=== PATIENT | male | born 1970 | race Caucasian/White ===

== ENCOUNTER → 2017-12-30 01:58 | Outpatient (CLI) | payer OTHER, SELFPAY ==
[2017-12-30 02:11] LABS: Microscopic, Urine URINE MICROSCOPIC (MICROSCOPIC)
[2017-12-30 02:17] LABS: Appearance,Urine CLEAR (Clear); Bilirubin,Urine Negative (Negative); Blood, Urine Negative (Negative); Color,Urine YELLOW (Yellow); Glucose,Urine (UA) 3+ (Negative); Ketones,Urine TRACE (Negative); Leukocyte Esterase,Urine Negative (Negative); Nitrate,Urine Negative (Negative); PH,Urine 5.5 (5.0-8.5); Protein,Urine Negative (Negative); Specific Gravity, Urine >= 1.030 (1.005-1.030); Urobilinogen,Urine 0.2 EU/dl (0.2)
[2017-12-30 02:18] LABS: Basophils % 0.4 % (0.1-2.0); Eosinophils # 0.1 K/mm3 (0.0-0.4); Eosinophils % 1.6 % (0.1-12.0); Hematocrit 51.1 % (42.0-52.0); Hemoglobin 16.1 g/dL (14.1-18.0); Lymphocytes # 2.6 K/mm3 (0.7-4.5); Lymphocytes % 31.2 K/mm3 (10-50); Mean Corpuscular HGB Conc 31.6 g/dL (31.8-35.4); Mean Corpuscular Hemoglobin 29.7 pg (27.0-31.2); Monocytes # 0.5 K/mm3 (0.1-1.0); Monocytes % 5.8 % (1.7-9.3); Neutrophils # 5.1 K/mm3 (1.8-7.8); Neutrophils % 60.9 % (37.0-80.0); Platelet Count 348 K/mm3 (142-424); Red Blood Count 5.43 M/mm3 (4.60-6.20); Red Cell Distribution Width 12.3 % (11.5-17.5); White Blood Count 8.4 K/mm3 (4.8-10.8)
[2017-12-30 02:25] LABS: Bacteria,Urine Trace /lpf; Mucus,Urine Trace /lpf; RBC,Urine Occasional #/hpf (0-3)
[2017-12-30 02:42] LABS: Alanine Aminotransferase 59 U/L (12-78); Albumin Level 4.1 gm/dL (3.4-5.0); Albumin/Globulin Ratio 1.1 (1.1-1.8); Alkaline Phosphatase 68 U/L (46-116); Anion Gap 10.1 mEq/L (5-15); Aspartate Amino Transferase 35 U/L (15-37); Bilirubin,Total 0.4 mg/dL (0.2-1.0); Blood Urea Nitrogen 13 mg/dL (7-18); Calcium 9.1 mg/dL (8.5-10.1); Carbon Dioxide 31 mmol/L (21.0-32.0); Chloride 100 mmol/L (98-107); Chol/HDL Ratio 3.2 (1-3.5); Cholesterol 155 mg/dL (140-200); Creatinine,Serum 0.76 mg/dL (0.70-1.30); Estimated Glomerular Filt Rate 109 ml/min (>60); GFR (African American) 132 ML/MIN (>60); Globulin 3.6 gm/dl (1.3-3.2); Glucose 105 mg/dL (74-106); HDL Cholesterol 48 mg/dL (27-67); LDL Cholesterol 73 mg/dL (0-130); Potassium 4.1 mmoL/L (3.5-5.1); Sodium 137 mmol/L (136-145); Thyroid Stimulating Hormone 1.93 uIU/ml (0.358-3.740); Total Protein,Serum 7.7 gm/dL (6.4-8.2); Triglycerides 168 mg/dL (30-200); VLDL Cholesterol 34 mg/dL (0-40)
[2017-12-30 03:08] LABS: Hemoglobin A1C 6.3 % (0.0-7.0)
[2017-12-31 10:16] LABS: Creatinine, Urine 121.6 mg/dL (Not Estab.); Microalbumin, Urine 7.5 ug/mL (Not Estab.)
== END ==
PROVIDERS: Visit Provider Family Medicine
DX: E11.9 Type 2 diabetes mellitus without complications (principal); R39.11 Hesitancy of micturition; E78.00 Pure hypercholesterolemia, unspecified
CPT/HCPCS: 80053; 80061; 81001; 82043; 82570; 83036; 84443; 85025

== ENCOUNTER 2019-02-16 23:38 | Outpatient (CLI) | payer OTHER, SELFPAY | END 2019-02-16 23:58 | disposition home or self-care (01) | LOC: OUTP 23:42 | PROVIDERS: PCP Family Medicine; Visit Provider Emergency Medicine | DX: L23.9 Allergic contact dermatitis, unspecified cause (principal) ==

== ENCOUNTER → 2019-07-25 02:45 | Outpatient (CLI) | payer OTHER, SELFPAY ==
--- NOTE | 2019-07-25 | XR_ITS ---
PROCEDURE: XR HIP RT 2-3V W/PELVIS CLINICAL INDICATION: PAIN The the COMPARISON: No exams were available for comparison FINDINGS: There are mild osteoarthritic changes of the right hip with decrease in the joint space and osteosclerosis. No fracture or dislocation. No lytic or blastic change. IMPRESSION: Mild osteoarthritis of the right hip Dictated by: Max Gonzalez MD 07/25/2019 05:07 Electronically signed by Max Gonzalez MD in [place] 07/25/2019 05:07
== END ==
PROVIDERS: PCP Family Medicine; Visit Provider Family Medicine
DX: M25.551 Pain in right hip (principal)
CPT/HCPCS: 73502

== ENCOUNTER → 2019-12-05 00:45 | Outpatient (CLI) | payer OTHER, SELFPAY ==
--- NOTE | 2019-12-05 01:15 | XR_ITS ---
PROCEDURE: XR LUMBAR SPINE MIN 4V CLINICAL INDICATION: Low back pain COMPARISON: No exams were available for comparison FINDINGS: Degenerative disc disease is present at T11-T12 T12-L1 and L1-L2 as well as L4-5 and L5-S1. No fracture or dislocation. No lytic or blastic change. Minimal lumbar curvature convex right IMPRESSION: Degenerative changes Dictated by: Max Gonzalez MD 12/05/2019 07:19 Electronically signed by Max Gonzalez MD in [place] 12/05/2019 07:19
== END ==
PROVIDERS: PCP Family Medicine; Visit Provider Family Medicine
DX: M79.651 Pain in right thigh (principal); M25.551 Pain in right hip
CPT/HCPCS: 72110

== ENCOUNTER → 2019-12-15 05:57 | Outpatient (CLI) | payer OTHER, SELFPAY ==
--- NOTE | 2019-12-15 08:04 | MR_ITS ---
PROCEDURE: MR LUMBAR SPINE WO CON CLINICAL INDICATION: RIGHT LOW BACK PAIN Right hip and leg pain, numbness in the right thigh, fall with injury and pain COMPARISON: XR LUMBAR SPINE MIN 4V from 12/05/2019 TECHNIQUE: Standard multiplanar multiecho sequences are performed without contrast. 3-D MIP and myelographic images are also rendered and reviewed FINDINGS: There is normal alignment. The spinal cord ends at the L1 level. T12-L1: Mild degenerative disc disease. L1-L2: Degenerative disc disease with bulging disc and a small left paracentral disc protrusion. There is a Schmorl's node involving the inferior endplate of L1. Mild facet ligamentum hypertrophy is present. There is mild bilateral foraminal narrowing and mild left lateral recess narrowing L2-L3: Mild facet hypertrophic change. L3-L4: Mild facet hypertrophy. L4-5: Mild bulging disc with mild facet and ligamentum hypertrophy. The bulging disc is slightly eccentric to the right with moderate right lateral recess narrowing L5-S1: Mild bulging disc with facet and ligamentum hypertrophy with moderate right foraminal narrowing and [id number] left foraminal narrowing. No extruded herniated disc. No canal stenosis. IMPRESSION: 1. Mild multilevel lumbar spondylosis with degenerative disc disease, bulging discs, and facet and ligamentum hypertrophy with lateral recess and foraminal narrowing. Please see above for detailed description at each level. 2. Small left paracentral disc protrusion at L1-L2 3. No extruded herniated disc or canal stenosis Dictated by: Max Gonzalez MD 12/16/2019 10:22 Electronically signed by Max Gonzalez MD in [place] 12/16/2019 10:22
== END ==
PROVIDERS: PCP Family Medicine; Visit Provider Family Medicine
DX: M54.5 Low back pain (principal); M79.651 Pain in right thigh; R29.898 Other symptoms and signs involving the musculoskeletal system; M51.36 Other intervertebral disc degeneration, lumbar region
CPT/HCPCS: 72148; 76376

== ENCOUNTER → 2020-01-08 09:46 | Outpatient (POV) | payer OTHER, SELFPAY ==
[2020-01-08 09:59] VITALS: BP 139/72; PULSE 72; RESP 18; O2SAT 98; BMI 28.5
--- NOTE | 2020-01-08 12:55 | HMH.PMCON ---
Assessment and Plan (1) Sacroiliitis Current visit: Yes Status: Chronic Category: Medical Code(s): M46.1 - Sacroiliitis, not elsewhere classified (2) Bursitis Current visit: Yes Status: Chronic Category: Medical Code(s): M71.9 - Bursopathy, unspecified (3) Degenerative joint disease (DJD) of lumbar spine Current visit: Yes Status: Chronic Category: Medical Code(s): M47.816 - Spondylosis without myelopathy or radiculopathy, lumbar region - Assessment and plan all Dx Assessment and Plan for all problems:: We will schedule the patient for a right SI joint injection right greater trochanteric bursa injection. We will see if this is beneficial for him if it is not we will move forward with a lumbar epidural steroid injection. Patient's been instructed to call the office if he has any issues prior to his next appointment. Dr. Rosas has reviewed this note and agrees with this plan of care. This note was dictated using voice recognition software and may contain errors or omissions HPI - Data of Consult Consult date: 01/08/20 Requesting Physician: Leelee Pond APRN Primary Care Provider: Marc Verduzco MD - Consult Narrative Reason for consult: Right hip pain History of present illness: Mr. Nation is a 49 year old male who presents for consultation regards to his right hip pain. Patient was in [facility] and did a 22 mile hike after that he began to have quite a significant amount of pain on his right hip. He rates an 8 out of 10 today. He takes ibuprofen and gabapentin with some relief however it is not helped him with activities of daily living patient states all activity makes it worse while resting somewhat decreases it. He is unable to sit square in his seat. He has to lean to the left to help decrease the numbness in his hip. He has radiation of pain into his groin he also has no radiation pain beyond his knee. Patient has a positive Glen test SI joint compression test and Christopher's test on the right side had extreme point tenderness over right greater trochanteric bursa. CC: Leelee Pond APRN [facility] History I have reviewed the patient's past medical history: Yes Medical History: Reports:: Diabetes Mellitus Type 2, Hyperlipidemia, Hypertension Denies:: Cancer, Diabetes Mellitus Type 1, MRSA *Have you ever received a pneumonia vaccine?: Yes *Have you received a flu vaccine this season?: Yes Amputation: No Fractures: No - *Social History Smoking Status: Never smoker Alcohol Intake: never *Occupational Status:: employed Housing: house Household Members: spouse *Travel in the last 8 weeks: None Family Hx:: Unable to obtain Review of Systems - Review of Systems ROS General: no recent weight change, no fever, no sleep disturbances Respiratory: no cough, no shortness of air, no recurring pulmonary infections Cardiovascular/Peripheral Vascular: No chest pain, No palpitations, no edema, no shortness of breath. Gastrointestinal: no new onset incontinence, normal bowel movements reported Genitourinary: no new onset incontinence Musculoskeletal: Back pain, right hip pain, right SI joint pain Psychiatric: normal mood/ affect, Neurological: [denies new onset weakness in extremities], [denies new onset balance issues] Meds Home Medications Medication Instructions Recorded Confirmed Type Amlodipine Besylate [Amlodipine 5 mg PO DAILY 01/08/20 01/08/20 History 5mg tab] Dulaglutide [Trulicity] 0.75 mg SQ DAILY 01/08/20 01/08/20 History Gabapentin [Gabapentin 300mg Cap] 300 mg PO BID 01/08/20 01/08/20 History Glimepiride 4 mg PO DAILY 01/08/20 01/08/20 History Ibuprofen [Ibuprofen 800mg 800 mg PO BID #60 tab 01/08/20 Rx Tablet] Lisinopril/Hydrochlorothiazide 20 mg PO DAILY 01/08/20 01/08/20 History [Lisinopril-Hctz 20-12.5 mg Tab] Meloxicam 7.5 mg PO DAILY 01/08/20 01/08/20 History Trazodone HCl 100 mg PO HS 01/08/20 01/08/20 History predniSONE [P
== END ==
PROVIDERS: PCP Family Medicine; Visit Provider Clinical Nurse Specialist Family Health
DX: M46.1 Sacroiliitis, not elsewhere classified (principal); M71.9 Bursopathy, unspecified; M47.816 Spondylosis without myelopathy or radiculopathy, lumbar region
CPT/HCPCS: 99202

== ENCOUNTER 2020-01-12 08:58 | Day surgery (SDC) | payer OTHER, SELFPAY ==
[2020-01-12 09:17] VITALS: BP 162/91; PULSE 108; RESP 20; TEMP 36.4; O2SAT 95; BMI 40.6
[2020-01-12 09:52] VITALS: BP 182/78; PULSE 108; RESP 18
[2020-01-12 09:53] VITALS: BP 178/89; PULSE 79; RESP 18; O2SAT 98
[2020-01-12 10:00] VITALS: BP 145/87; PULSE 100; RESP 18; O2SAT 100
--- NOTE | 2020-01-12 10:08 | HMH.PMPROC ---
- Procedure Date: 01/12/20 Time: 10:08 Anesthesiologist:: Davi Rosas MD Complications:: None Pre-procedure Diagnosis:: Sacroiliitis and trochanteric bursitis Post-procedure Diagnosis:: Same Indications for Procedure:: Patient is a pleasant 1-year-old white male who we are treating for right hip pain. He is tender over the SI joint. He has positive Glen test on the right side positive SI joint compression test on the right side. Is positive Christopher's test on the right side. He is also tender over his right trochanteric bursa. We will do a right SI joint injection right trochanteric bursa injection today to help him with his pain symptoms. Procedure Details:: Right SI joint injection under fluoroscopy Informed consent was obtained and the risks and benefits of the procedure was going to the patient. Patient was taken to the procedure room. Patient was placed prone on the procedure table. The right hip was prepped using ChloraPrep. The skin and subcutaneous tissues were anesthetized using lidocaine. I placed a 22-gauge spinal needle into the inferior aspect of the right SI joint. Needle placement was confirmed with dye. After this we injected 5 mL bupivacaine 0.25% and Depo-Medrol 40 mg into the right SI joint. The patient tolerated the procedure well with no complication. Right trochanteric bursa injection under fluoroscopy The right hip was prepped using ChloraPrep. The skin and subcutaneous tissues were anesthetized using lidocaine. I placed a 22-gauge spinal needle and advanced under fluoroscopic guidance until it contacted the right greater trochanter. Needle placement was confirmed with dye. After this I injected bupivacaine 0.25% 5 mL and Depo-Medrol 40 mg into the right trochanteric bursa. Patient tolerated the procedure well with no complications. Plan and Disposition:: We will follow-up with him in 2 weeks. Will reevaluate symptoms at that time.
== END 2020-01-12 10:00 | disposition home or self-care (01) ==
LOC: SC.PAINP 08:59
PROVIDERS: PCP Family Medicine; Visit Provider Anesthesiology
DX: M46.1 Sacroiliitis, not elsewhere classified (principal); M70.61 Trochanteric bursitis, right hip
CPT/HCPCS: 20610; 27096; 77002; G0260; J1030; Q9966

== ENCOUNTER → 2020-01-29 08:04 | Outpatient (POV) | payer OTHER, SELFPAY ==
[2020-01-29 08:19] VITALS: BP 151/88; PULSE 100; RESP 18; O2SAT 98; BMI 38.0
--- NOTE | 2020-01-29 08:53 | HMH.PAINSOAP ---
[facility] Pain Management SOAP Note Subjective:: Patient is a pleasant 66-year-old white male who presents today for follow-up after a right trochanteric bursa injection and right SI injection. He does have right SI joint pain as well as right hip pain. Patient says that he does have pain while working. He does say when he is not at work, however, his pain is a 1 out of 10. 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 He says that this is when his pain is at its worst. He also reports to have pain through the night that causes him to wake up around 2:58 AM due to the pain. Patient is tender over his right hip and right SI joint. He did get approximately 95% relief after his initial injection and would like to repeat the injection, as his pain is starting to return. He did get relief up until yesterday. Does rate his pain when sitting a 1 out of 10. He does say, however, when he is working his pain is a 7-8 out of 10. Review of Systems General: No recent weight changes, no fever, no sleep disturbances Respiratory: No cough, no shortness of air, no recurring pulmonary infections Cardiovascular/peripheral vascular: No chest pain, no palpitations, no edema, no shortness of breath Gastrointestinal: No new onset incontinence, normal bowel movements reported Genitourinary: No new onset incontinence Musculoskeletal: Back pain, right hip pain Psychiatric: Normal mood/affect Neurological: [Denies weakness in extremities], [denies balance issues] Objective:: Objective:: Physical exam General: Alert and oriented x3, no acute distress, pleasant and cooperative, [on room air] Lungs: Respirations even and unlabored, symmetrical chest expansion Eyes: PERRL Musculoskeletal: Flexion and extension of bar spine somewhat guarded secondary to pain, deep tendon reflexes normal, strength in upper and lower extremities [5/5], [abnormal gait noted], positive Christopher's test, positive test, positive distraction test Neurological: Speech clear, 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 We will also order him diclofenac gel 1% 4 g topical 4 times daily. He is taking ibuprofen 800 mg 1 tablet p.o. twice daily. We will see him back in the clinic after his injection to reassess his symptoms. Is type II diabetic. He has been educated regarding his blood glucose with his steroid injections. The patient and I specifically discussed risk factors for COVID19. These risks include, but are not limited to age greater than 60, heart or lung disease, diabetes, immunosuppression, and travel. We also discussed NSAIDs may worsen COVID19 infection or symptoms. Patient should not use NSAIDs to treat COVID19 signs or symptoms. Patient was also informed that any type of corticosteroid of any form (oral or injection) will decrease the patient's immune system response and may increase the likelihood of COVID19 [address] [facility] History I have reviewed the patient's past medical history: Yes Medical History: Reports:: Diabetes Mellitus Type 2, Hyperlipidemia, Hypertension Denies:: Cancer, Diabetes Mellitus Type 1, Internal Pacemaker, MRSA, Seizures *Have you ever received a pneumonia vaccine?: No *Have you received a flu vaccine this season?: Yes Other Medical History: Reports: Hypothyroidism Other Surgeries: No: Pacemaker Amputation: No Fractures: No - *Social History Smoking Status: Never smoker Alcohol Intake: never *Occupational Status:: other Housing: house Household Members: spouse *Travel in the last 8 weeks: None Family Hx:: Unable to obtain
== END ==
PROVIDERS: PCP Family Medicine; Visit Provider Clinical Nurse Specialist Family Health
DX: M46.1 Sacroiliitis, not elsewhere classified (principal); M70.60 Trochanteric bursitis, unspecified hip
CPT/HCPCS: 99212

== ENCOUNTER 2020-02-15 07:52 | Day surgery (SDC) | payer OTHER, SELFPAY ==
[2020-02-15 08:15] VITALS: BP 160/79; PULSE 75; RESP 18; O2SAT 99; BMI 38.6
--- NOTE | 2020-02-15 08:17 | HMH.PMPROC ---
- Procedure Date: 02/15/20 Time: 08:22 Anesthesiologist:: Josephine Hunter APRN Complications:: None Pre-procedure Diagnosis:: Right sacroiliitis, right trochanteric bursitis Post-procedure Diagnosis:: Same Indications for Procedure:: Patient is a pleasant 49-year-old white male who presents today for a right SI joint injection right trochanteric bursa injection. He has pain into his right hip. Patient says that he was in a hot tub and fell twice in 1 day. Pain did worsen following the falls. He says the pain is worse with walking. He is a employee in the [employer]. He does have a positive Glen, Christopher's, distraction test. He also has point tenderness noted over his right SI joint and right trochanteric bursa. We will perform the injections today to see if he gets relief. He has had a right SI and right trochanteric bursa injection with Dr. CHINMAY Jackson and did get relief, however, his pain did return. He rates his pain a 6 out of 10. Patient I did discuss possible SI stabilization procedure if he does get relief with these injections. I have encouraged him to undergo a right SI injection as a diagnostic tool to see if he is a candidate for SI stabilization if his pain returns. She reports that he had 2 falls at home out of the hot tub. 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 The patient was taken to the procedure room and noninvasive monitors were placed including noninvasive blood pressure cuff and pulse oximeter. The patient was placed prone on the procedure table. The [] hip was cleansed using chlorhexidine as a cleansing solution. C-arm fluoroscopy was used to view the right SI joint. The skin and subcutaneous tissue were anesthetized using lidocaine 1.5% and 25-gauge needle. After this a 22-gauge spinal needle was inserted under fluoroscopic guidance into the inferior aspect of the right SI joint. Omnipaque dye was injected and good spread was seen throughout the joint. After this approximately 5 mils of bupivacaine 0.25% and Depo-Medrol 40 mg were incrementally injected into the sacroiliac joint. We then proceeded to the right trochanteric bursa. The skin and subcutaneous tissue were anesthetized using lidocaine 1.5% and 25-gauge needle. After this, a 22-gauge spinal needle was inserted under fluoroscopic guidance into Dr. Alison has reviewed this note and agrees with this plan of care. This note was dictated using voice recognition software and make contain errors or omissions. Right trochanteric bursa. Omnipaque dye was injected and good spread was seen throughout the joint. After this, approximately 5 mL of bupivacaine 0.25% and Depo-Medrol 40 mg were incrementally injected into the right enteric bursa. the patient tolerated the procedure well with no complications. Plan and Disposition:: We will plan to see the patient back in 2 weeks to reassess his symptoms. He has been instructed to contact the clinic if he has any concerns before his next appointment. The patient and I specifically discussed risk factors for COVID19. These risks include, but are not limited to age greater than 60, heart or lung disease, diabetes, immunosuppression, and travel. We also discussed NSAIDs may worsen COVID19 infection or symptoms. Patient should not use NSAIDs to treat COVID19 signs or symptoms. Patient was also informed that
[2020-02-15 08:45] VITALS: BP 165/82; PULSE 75; RESP 20; O2SAT 100
[2020-02-15 08:54] VITALS: BP 173/85; PULSE 98; RESP 18
[2020-02-15 08:56] VITALS: BP 165/88; PULSE 75; RESP 18; O2SAT 100
== END 2020-02-15 08:45 | disposition home or self-care (01) ==
LOC: SC.PAINP 07:53
PROVIDERS: PCP Family Medicine; Visit Provider Clinical Nurse Specialist Family Health
DX: M46.1 Sacroiliitis, not elsewhere classified (principal); M70.61 Trochanteric bursitis, right hip; I10 Essential (primary) hypertension; E11.9 Type 2 diabetes mellitus without complications; Z82.49 Family history of ischemic heart disease and other diseases of the circulatory system; Z84.89 Family history of other specified conditions; Z83.3 Family history of diabetes mellitus; Z88.6 Allergy status to analgesic agent; Z79.899 Other long term (current) drug therapy
CPT/HCPCS: 20610; 27096; 77002; G0260; J1030; Q9966

== ENCOUNTER 2020-03-29 10:21 | Day surgery (SDC) | payer OTHER, SELFPAY ==
[2020-03-29 10:46] VITALS: BP 135/87; BP 137/74; PULSE 106; PULSE 74; RESP 18; TEMP 36.8; O2SAT 98; BMI 38.6
[2020-03-29 11:13] VITALS: BP 132/77; PULSE 74; RESP 18; O2SAT 98
[2020-03-29 11:20] VITALS: BP 140/80; PULSE 109; RESP 20; O2SAT 95
--- NOTE | 2020-03-29 11:35 | P.PCN_ITS ---
- Procedure Date: 03/29/20 Time: 11:35 Anesthesiologist:: Davi Rosas MD Complications:: None Pre-procedure Diagnosis:: Sacroiliitis Post-procedure Diagnosis:: Same Indications for Procedure:: This patient is a pleasant 49-year-old white male who we have been treating for right-sided hip pain. He has received right SI joint injections right trochanteric bursa injections. These have given him 80 to 100% relief in his pain symptoms for 2 to 3 weeks. After that his pain does return to baseline. Most of his pain is over the right SI joint. He has a positive Glen test on the right side. Is positive Christopher's test on the right side. Is positive SI joint compression test on the right side. We will plan on doing a right SI joint injection today and he may be a candidate for right SI joint stabilization in the future if he gets benefit from this injection however it is only for short-term. Procedure Details:: Right SI joint injection under fluoroscopy Informed consent was obtained and the risks and benefits of the procedure was going to the patient. Patient was taken to the procedure room. Patient was placed prone on the procedure table. The right hip was prepped using ChloraPrep. The skin and subcutaneous tissues were anesthetized using lidocaine. I placed a 22-gauge spinal needle into the inferior aspect of the right SI joint. Needle placement was confirmed with dye. After this we injected 5 mL bupivacaine 0.25% and Depo-Medrol 40 mg into the right SI joint. The patient tolerated the procedure well with no complication. Plan and Disposition:: We will follow-up with him in 2 weeks. Will reevaluate his symptoms at that time. If he does get significant relief however is not long-lasting he may be a candidate for right [facility]
== END 2020-03-29 11:20 | disposition home or self-care (01) ==
LOC: SC.PAINP 10:21
PROVIDERS: PCP Family Medicine; Visit Provider Anesthesiology
DX: M46.1 Sacroiliitis, not elsewhere classified (principal); E11.9 Type 2 diabetes mellitus without complications; I10 Essential (primary) hypertension; E78.5 Hyperlipidemia, unspecified; E66.9 Obesity, unspecified; Z68.38 Body mass index [BMI] 38.0-38.9, adult; K21.9 Gastro-esophageal reflux disease without esophagitis; M19.90 Unspecified osteoarthritis, unspecified site; Z88.6 Allergy status to analgesic agent; Z79.899 Other long term (current) drug therapy
CPT/HCPCS: 27096; G0260; J1030

== ENCOUNTER → 2020-04-17 23:43 | Outpatient (CLI) | payer OTHER, SELFPAY | PROVIDERS: PCP Family Medicine; Visit Provider Emergency Medicine | DX: Z20.828 Contact with and (suspected) exposure to other viral communicable diseases (principal); U07.1 COVID-19 | CPT/HCPCS: U0003 ==

== ENCOUNTER → 2020-06-05 13:11 | Outpatient (CLI) | payer OTHER, SELFPAY ==
[2020-06-05 14:44] LABS: Basophils # 0.1 K/mm3 (0-0.2); Basophils % 0.5 % (0.1-2.0); Eosinophils # 0.1 K/mm3 (0.0-0.4); Hematocrit 48.1 % (42.0-52.0); Hemoglobin 16.1 g/dL (14.1-18.0); Lymphocytes # 2.7 K/mm3 (0.7-4.5); Lymphocytes % 23.7 % (10-50); Mean Corpuscular HGB Conc 33.4 g/dL (31.8-35.4); Mean Corpuscular Hemoglobin 32.2 pg (27.0-31.2); Mean Corpuscular Volume 96.5 fl (80-94); Mean Platelet Volume 8.5 fl (7.4-10.4); Monocytes # 0.7 K/mm3 (0.1-1.0); Monocytes % 6.1 % (1.7-9.3); Neutrophils # 7.9 K/mm3 (1.8-7.8); Neutrophils % 68.7 % (37.0-80.0); Platelet Count 343 K/mm3 (142-424); Red Blood Count 4.98 M/mm3 (4.60-6.20); White Blood Count 11.5 K/mm3 (4.8-10.8)
[2020-06-05 17:58] LABS: Anion Gap 17.6 mEq/L (5-15); Blood Urea Nitrogen 13 mg/dl (9-20); Calcium 10.1 mg/dl (8.4-10.2); Carbon Dioxide 28 mmol/L (22.0-30.0); Chloride 93 mmol/L (98-107); Estimated Glomerular Filt Rate 119 ml/min (>60); GFR (African American) 144 ML/MIN (>60); Glucose 183 mg/dl (74-100); Potassium 4.6 mmoL/L (3.5-5.1); Sodium 134 mmol/L (136-145)
[2020-06-05 21:10] LABS: Coronavirus 19 IgG Antibody Positive (Negative)
[2020-06-05 21:19] LABS: Coronavirus 19 IgM Antibody Positive (Negative)
== END ==
PROVIDERS: Visit Provider Anesthesiology
DX: Z01.818 Encounter for other preprocedural examination (principal); M53.3 Sacrococcygeal disorders, not elsewhere classified
CPT/HCPCS: 36415; 80048; 85025; 86328

== ENCOUNTER → 2020-07-09 11:39 | Outpatient (CLI) | payer OTHER, SELFPAY ==
[2020-07-09 18:30] LABS: Basophils % 0.5 % (0.1-2.0); Eosinophils # 0.1 K/mm3 (0.0-0.4); Eosinophils % 1.1 % (0.1-12.0); Hematocrit 44.9 % (42.0-52.0); Hemoglobin 14.8 g/dL (14.1-18.0); Lymphocytes # 1.6 K/mm3 (0.7-4.5); Lymphocytes % 20.2 % (10-50); Mean Corpuscular HGB Conc 32.9 g/dL (31.8-35.4); Mean Corpuscular Volume 100.4 fl (80-94); Mean Platelet Volume 8.8 fl (7.4-10.4); Monocytes # 0.5 K/mm3 (0.1-1.0); Neutrophils # 5.7 K/mm3 (1.8-7.8); Neutrophils % 72.3 % (37.0-80.0); Platelet Count 352 K/mm3 (142-424); Red Blood Count 4.48 M/mm3 (4.60-6.20); Red Cell Distribution Width 14.4 % (11.5-17.5); White Blood Count 7.9 K/mm3 (4.8-10.8)
[2020-07-09 19:14] LABS: Blood Urea Nitrogen 8 mg/dl (9-20); Calcium 9.7 mg/dl (8.4-10.2); Carbon Dioxide 26 mmol/L (22.0-30.0); Chloride 95 mmol/L (98-107); Estimated Glomerular Filt Rate 142 ml/min (>60); GFR (African American) 172 ML/MIN (>60); Glucose 375 mg/dl (74-100); Sodium 133 mmol/L (136-145)
[2020-07-09 19:48] LABS: Coronavirus 19 IgG Antibody Negative (Negative); Coronavirus 19 IgM Antibody Negative (Negative)
--- NOTE | 2020-07-10 12:04 | P.PN_ITS ---
[facility] Anesthesia Checklist - Patient Identification Patient Identification: Arm Band, Verbal (Name & ) - Structural Data Admitted From: Home Planned Operative Procedure/s: sacral fusion Consent for Planned Operative Procedure(s) Verified: Yes Verified Documents: History and Physical - NPO Status Verified Time NPO: 00:00 - Chart Verification Results Verified: CBC, BMP - Additional verifications Patient : No Anesthesia Reactions: No Hx Blood Transfusions: No Blood Transfusion Reaction: No Cephalosporin Allergy: No Previous Colonoscopy: Yes - Cardiovascular Assessment Heart Sounds: S1 & S2 Pulse Strength: Baseline Pulse Rhythm: Regular Peripheral Edema: No - Airway Assessment C-Spine Mobility Assessed: Yes TMJ Mobility Assessed: Yes Dentition: Good Dentition - Neurological Assessment Level of Consciousness: Awake, Alert, Appropriate Hx Seizures: No Numbness or tingling in extremities: No - Anesthesia Plan Anesthesia Risk discussed: Yes Anesthesia Plan: Verified ASA Class: III Anesthesia Type: General [facility] History I have reviewed the patient's past medical history: Yes Medical History: Reports:: Cancer (skin), Diabetes Mellitus Type 2, Hyperlipidemia, Hypertension Denies:: Diabetes Mellitus Type 1, Internal Pacemaker, MRSA, Seizures *Have you ever received a pneumonia vaccine?: No *Have you received a flu vaccine this season?: Yes Other Medical History: Reports: Arthritis, Hypothyroidism. Denies: Blood Transfusion Reaction Anesthesia experience/problems:: none Other Surgeries: No: Pacemaker Amputation: No Fractures: No - *Social History Smoking Status: Current every day smoker Tobacco Type: smokeless tobacco # Packs/Day (cigarettes): 1 Alcohol Intake: current Alcohol Intake Frequency:: 3 or more drinks per day Substance Use Type: other *Occupational Status:: employed Housing: house Household Members: spouse *Travel in the last 8 weeks: Outside the [facility] Family Hx:: Cancer, Diabetes, Heart Attack, Hyperlipidemia, Hypertension, Alcoholism
== END ==
PROVIDERS: Visit Provider Anesthesiology
DX: Z01.818 Encounter for other preprocedural examination (principal); Z03.818 Encounter for observation for suspected exposure to other biological agents ruled out; M53.3 Sacrococcygeal disorders, not elsewhere classified
CPT/HCPCS: 36415; 80048; 85025; 86328

== ENCOUNTER 2020-07-10 10:59 | Day surgery (SDC) | payer OTHER, SELFPAY ==
[2020-05-30 13:43] VITALS: BMI 38.6
[2020-07-03 10:48] VITALS: BMI 40.6
[2020-07-10] VITALS (11 sets, daily range): BP systolic 110–150; BP diastolic 60–94; PULSE 89–115; RESP 16–24; TEMP 36.2–36.6; O2SAT 92–97
--- NOTE | 2020-07-10 12:49 | HMH.PMPROC ---
- Procedure Date: 07/10/20 Time: 12:49 Anesthesiologist:: Davi Rosas MD Complications:: None Pre-procedure Diagnosis:: Sacroiliitis Post-procedure Diagnosis:: Same
--- NOTE | 2020-07-10 14:18 | P.PN_ITS ---
[facility] Anesthesia Checklist - Patient Identification Patient Identification: Arm Band - Structural Data Admitted From: Home Planned Operative Procedure/s: sacroilliac joint fusion Consent for Planned Operative Procedure(s) Verified: Yes Verified Documents: Surgical Consent, History and Physical - NPO Status Verified Time NPO: 00:00 - Additional verifications Anesthesia Reactions: No Hx Blood Transfusions: No Blood Transfusion Reaction: No - Airway Assessment C-Spine Mobility Assessed: Yes (mp2) TMJ Mobility Assessed: Yes Dentition: Good Dentition - Neurological Assessment Level of Consciousness: Awake, Alert - Anesthesia Plan Anesthesia Risk discussed: Yes Anesthesia Plan: Verified ASA Class: III Anesthesia Type: General [facility] History I have reviewed the patient's past medical history: Yes Medical History: Reports:: Cancer (skin), Diabetes Mellitus Type 2, Hyperlipidemia, Hypertension Denies:: Diabetes Mellitus Type 1, Internal Pacemaker, MRSA, Seizures *Have you ever received a pneumonia vaccine?: No *Have you received a flu vaccine this season?: Yes Other Medical History: Reports: Arthritis, Hypothyroidism. Denies: Blood Transfusion Reaction Anesthesia experience/problems:: nac Other Surgeries: Yes: Other. No: Pacemaker Amputation: No Fractures: No - *Social History Last grade of school completed: Some college Smoking Status: Current every day smoker Tobacco Type: smokeless tobacco # Packs/Day (cigarettes): 1 Alcohol Intake: current Alcohol Intake Frequency:: 3 or more drinks per day Substance Use Type: denies use, other *Occupational Status:: employed Housing: house Household Members: spouse *Travel in the last 8 weeks: None Family Hx:: Cancer, Diabetes, Heart Attack, Hyperlipidemia, Hypertension, Alcoholism
--- NOTE | 2020-07-10 14:19 | HMH.ANESI ---
[facility] Anesthesia Record Part I Intake, IV Amount: 1,000 Estimated blood loss (mL): 10 Urine output (mL): 0 Blood Pressure: 110/60 SaO2: 92 Pulse Rate: 110 Respiratory Rate: 16 Temperature: 97.4 F Patient is:: Drowsy, Stable Stable to PACU at:: 14:15
--- NOTE | 2020-07-10 14:21 | HMH.OPNOTE ---
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 His pain is over his right SI joint. He is received right SI joint injections which have given him 80 to 100% relief in his pain symptoms for 2 to 3 weeks. His pain does return to baseline approximately 3 weeks after the injection. He does have a positive Glen test on the right side. He is positive Christopher's test on the right side. He has a positive SI joint compression test on the right side. He also has a distraction test on the right side. We will do SI joint stabilization today to help him with his pain symptoms long-term. Operative findings:: None Operative note:: SI joint stabilization Informed consent was obtained and the risk and benefits of the procedure was explained to the patient. Patient was taken to the operating room placed prone on the procedure table. Patient was prepped and draped in sterile fashion. A lateral view of the sacrum with C-arm was taken to make sure it was out of anteversion. We then did an oblique view of the right sacroiliac joint. We lined up the anterior and posterior sides of the joint to achieve a Zortman . A line was drawn on the skin with the SI joint. The superior and inferior aspect of the joint were anesthetized using lidocaine. The superior and inferior aspect of the joint were marked off. 1 cm medial and 1 cm superiorly into the upper quadrant and 1 cm medial and 1 cm distal a 1 1/2 cm longitudinal incisions were made through the skin and subcutaneous tissues. Guidepins were then placed superior and inferior at a 90 degree angle to each other under C-arm guidance through the incision was made into the superior third and inferior third of the SI joint. Lateral C-arm view was then taken to check the depth of the pins into the SI joint. On the lateral view the joint finder was placed over the guidepin into the appropriate position. The working cannula retractor was then placed over the joint finder into the SI joint into the appropriate position and depth. The joint finder and guidepin were removed. The SI joint was drilled to remove cartilage and to get into the subchondral bone of the sacrum and ilium. The broach was then used to prepare a triangular groove into both the sacrum and ilium for insertion of stabilization grafts. A collagen spine was then placed into the prepared space and the stabilization graft was placed. This was done both superiorly inferiorly into the SI joint. The cannulated retractor was removed. The incisions were then closed with 2-0 Vicryl followed by kaela. Dressings were placed and the patient was taken recovery in stable condition. Patient tolerated the procedure well with no complications. We did give the patient [place] 5 mg 1 tablet every 4 to 6 hours as needed pain. We will give him 20 tablets. We will also put him on Bactrim DS 1 tablet twice a day for 10 days. Condition: stable Disposition: PACU Complications:: None
--- NOTE | 2020-07-10 15:20 | PC.NURSE ---
1432-patient reports sore throat and some difficulty breathing, notified HAO Arredondo-ordered duoneb treatment, vss 1440-respiratory therapy at bedside administering duoneb breathing treatment 1442-detailed report given to RENE Ram 1445-pt tranferred to post op, left in RENE Ram's care, vss
--- NOTE | 2020-07-10 18:10 | HMH.ANESII ---
[facility] Anesthesia Record Part II Discharge Time: 14:45 Destination: Surgical Day Care (OP Surgery) PACU nurse assessment reviewed?: Yes Patient Condition:: Good Anesthesia Complications:: None Swallowing reflex intact?: Yes Cyanosis?: No Blood Pressure: 111/70 Pulse Rate: 92 Temperature: 97.2 F Mental Status: Alert & Oriented Pain level:: 0 Nausea and/or vomitting:: None Intake, IV Amount: 0
[2020-07-11 08:30] LABS: POC Glucose,Bedside 235 (70-110)
[2020-07-11 08:30] LABS: POC Glucose,Bedside 242 (70-110)
[2020-07-11 10:18] LABS: POC Glucose,Bedside 332 (70-110)
[2020-07-11 10:18] LABS: POC Glucose,Bedside 310 (70-110)
== END 2020-07-10 15:28 | disposition home or self-care (01) ==
LOC: OR 10:59
PROVIDERS: PCP Family Medicine; Visit Provider Anesthesiology
PROC: (CPT 27280; principal; 2020-07-10 13:00)
DX: M46.1 Sacroiliitis, not elsewhere classified (principal)
CPT/HCPCS: 27280; 82962; 94640; 96374; C1713; J2405; J2710; J3370

== ENCOUNTER → 2020-07-22 10:59 | Outpatient (POV) | payer OTHER, SELFPAY ==
[2020-07-22 11:30] VITALS: BP 142/78; PULSE 85; RESP 18; TEMP 36.8; O2SAT 98; BMI 38.0
--- NOTE | 2020-07-22 11:46 | P.CONS_ITS ---
[facility] Pain Management SOAP Note Subjective:: Patient is a pleasant 49-year-old white male who presents today for follow-up after right SI joint stabilization. Patient rates his pain a 7 on 10 he is quite bruised. His kaela have been removed. Patient and I discussed the healing process. Patient is having quite a bit of pain. Patient is only a few weeks out after his SI joint stabilization I believe he should be off for at least 2 more weeks. We will give him some [place] to help with his pain. Patient does have some bruising noted. ROS General: no recent weight change, no fever, no sleep disturbances Respiratory: no cough, no shortness of air, no recurring pulmonary infections Cardiovascular/Peripheral Vascular: No chest pain, No palpitations, no edema, no shortness of breath. Gastrointestinal: no new onset incontinence, normal bowel movements reported Genitourinary: no new onset incontinence Musculoskeletal: Right-sided SI joint pain Psychiatric: normal mood/ affect Neurological: [denies new onset weakness in extremities], [denies new onset balance issues] Objective:: Physical Exam General: Alert and oriented x3, no acute distress, pleasant and cooperative, [on room air] Lungs: Resps E/U, Symmetrical chest expansion, Eyes: PERRL Musculoskeletal: Flexion and extension of lumbar spine somewhat guarded secondary to pain, deep tendon reflexes normal, strength in upper and lower extremities [5/5], antalgic gait noted Neurological: speech clear, 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 We will give him 1 week of [place] 5 mg 1 p.o. 3 times daily. Patient's [facility] #[id number] reviewed and appropriate. I will follow-up with him in 2 weeks reassess him at that time if he has any issues he is to call the office. Dr. Rosas has reviewed this note and agrees with this plan of care. This note was dictated using voice recognition software and may contain errors or omissions [facility] History I have reviewed the patient's past medical history: Yes Medical History: Reports:: Cancer (skin), Diabetes Mellitus Type 2, Hyperlipidemia, Hypertension Denies:: Diabetes Mellitus Type 1, Internal Pacemaker, MRSA, Seizures *Have you ever received a pneumonia vaccine?: Yes *Have you received a flu vaccine this season?: Yes Other Medical History: Reports: Arthritis, Hypothyroidism. Denies: Blood Transfusion Reaction Other Surgeries: Yes: Other. No: Pacemaker Amputation: No Fractures: No - *Social History Smoking Status: Current every day smoker Tobacco Type: smokeless tobacco # Packs/Day (cigarettes): 1 Alcohol Intake: current Alcohol Intake Frequency:: 3 or more drinks per day Substance Use Type: denies use, other *Occupational Status:: other Housing: house Household Members: spouse *Travel in the last 8 weeks: None Family Hx:: Cancer, Diabetes, Heart Attack, Hyperlipidemia, Hypertension, Alcoholism
== END ==
PROVIDERS: PCP Family Medicine; Visit Provider Clinical Nurse Specialist Family Health
DX: M46.1 Sacroiliitis, not elsewhere classified (principal); Z09 Encounter for follow-up examination after completed treatment for conditions other than malignant neoplasm
CPT/HCPCS: 99212; G0463

== ENCOUNTER → 2020-08-05 09:45 | Outpatient (POV) | payer OTHER, SELFPAY ==
[2020-08-05 09:50] VITALS: BP 140/71; PULSE 71; RESP 18; TEMP 37.2; O2SAT 100; BMI 38.0
--- NOTE | 2020-08-05 13:29 | HMH.PAINSOAP ---
[facility] Pain Management SOAP Note Subjective:: Patient is a pleasant 49-year-old white male who presents today for follow-up. Patient had right SI joint stabilization he rates his pain a 6 out of 10. He still having quite a bit of pain in his right hip. Patient has improved in some regards as far as mobilization. Patient's bruising has improved as well. Patient is having difficulty with walking and activity in regard to the hip pain. He has no updated imaging of his right hip. ROS General: no recent weight change, no fever, no sleep disturbances Respiratory: no cough, no shortness of air, no recurring pulmonary infections Cardiovascular/Peripheral Vascular: No chest pain, No palpitations, no edema, no shortness of breath. Gastrointestinal: no new onset incontinence, normal bowel movements reported Genitourinary: no new onset incontinence Musculoskeletal: Right hip pain Psychiatric: normal mood/ affect Neurological: [denies new onset weakness in extremities], [denies new onset balance issues] Objective:: Physical Exam General: Alert and oriented x3, no acute distress, pleasant and cooperative, [on room air] Lungs: Resps E/U, Symmetrical chest expansion, Eyes: PERRL Musculoskeletal: Flexion and extension of lumbar spine somewhat guarded secondary to pain, deep tendon reflexes normal, strength in upper and lower extremities [5/5], [abnormal gait noted] Neurological: speech clear, connection worker equal, no gross sensory deficits Assessment:: Right hip pain, sacroiliitis Plan:: We will get the MRI of his right hip to review. Patient is to remain off work until his pain resolves. I will follow-up with him after his MRI. He has been instructed to call the office if he has any issues prior to his next appointment. Dr. Rosas has reviewed this note and agrees with this plan of care. This note was dictated using voice recognition software and may contain errors or omissions [facility] History I have reviewed the patient's past medical history: Yes Medical History: Reports:: Cancer (skin), Diabetes Mellitus Type 2, Hyperlipidemia, Hypertension Denies:: Diabetes Mellitus Type 1, Internal Pacemaker, MRSA, Seizures *Have you ever received a pneumonia vaccine?: No *Have you received a flu vaccine this season?: No Other Medical History: Reports: Arthritis, Hypothyroidism. Denies: Blood Transfusion Reaction Other Surgeries: Yes: Other. No: Pacemaker Amputation: No Fractures: No - *Social History Smoking Status: Current every day smoker Tobacco Type: smokeless tobacco # Packs/Day (cigarettes): 1 Alcohol Intake: current Alcohol Intake Frequency:: 3 or more drinks per day Substance Use Type: denies use, other *Occupational Status:: other Housing: house Household Members: spouse *Travel in the last 8 weeks: None Family Hx:: Cancer, Diabetes, Heart Attack, Hyperlipidemia, Hypertension, Alcoholism
== END ==
PROVIDERS: PCP Family Medicine; Visit Provider Clinical Nurse Specialist Family Health
DX: M25.551 Pain in right hip (principal); M46.1 Sacroiliitis, not elsewhere classified
CPT/HCPCS: 99212; G0463

== ENCOUNTER → 2020-08-09 07:47 | Outpatient (CLI) | payer OTHER, SELFPAY ==
--- NOTE | 2020-08-09 07:54 | MR_ITS ---
PROCEDURE: MR HIP RT WO CON CLINICAL INDICATION: S/P FALL 1 YEAR AGO WITH CONTINUED PAIN FALL 1 YEAR AGO, CONTINUED RIGHT HIP PAIN. COMPARISON: CR XR HIP RT 2-3V W/PELVIS from 07/25/2019 TECHNIQUE: Routine multiplanar multi echo sequences are performed without gadolinium enhancement. FINDINGS: There are [id number] osteoarthritic changes of the right hip. There is some minimal cortical regularity of the femoral head. There is loss of joint space. There is a small right hip joint effusion small amount of edema is present within the acetabular roof slightly medial. Isointense T1 and hyperintense T2 signal along the lateral aspect of the acetabulum. . This is contiguous with the lateral aspect of the acetabulum and may represent a combination subchondral cyst of the lateral margin of the acetabulum with a paralabral cyst at approximately 13 mm.. No acute fracture is apparent. Incidental note is made thickening of the sigmoid colon. This is nonspecific and may be due to nondistention or colitis. Diverticulosis is noted as well. IMPRESSION: 1. Osteoarthritis of the right hip. 2. Suspected subchondral cyst in the acetabulum on the right with an associated paralabral cyst at approximately 13 mm 3. Small amount of edema in the ischium anteriorly at the acetabular region and may be due to reactive change from the osteoarthritis versus bone bruise. Dictated by: Max Gonzalez MD 08/11/2020 09:13 Max Gonzalez MD in [place] 08/11/2020 09:13
== END ==
PROVIDERS: PCP Family Medicine; Visit Provider Family Medicine
DX: M25.551 Pain in right hip (principal)
CPT/HCPCS: 73721

== ENCOUNTER → 2020-08-15 13:43 | Outpatient (CLI) | payer OTHER, SELFPAY ==
--- NOTE | 2020-08-15 13:53 | XR_ITS ---
PROCEDURE: XR HIP RT 2-3V W/PELVIS CLINICAL INDICATION: right hip pain COMPARISON: CR XR HIP RT 2-3V W/PELVIS from 07/25/2019 MR MR HIP RT WO CON from 08/09/2020 FINDINGS: Mild osteoarthritic changes are present involving the right hip. A lucency is noted along the lateral aspect of the acetabulum and may represent a subcortical cyst/geode. This measures approximately 14 mm and corresponds to the abnormality noted on the recent MRI. The lateral margin of this cystic area somewhat ill-defined there is sclerosis of the right SI joint along the iliac aspect. A small square shaped density is present along the right sacrum inferiorly. IMPRESSION: A lytic lesion is present along the lateral aspect of the acetabulum and may represent a subcortical cyst with associated osteoarthritis of the right hip. The lateral aspect of the lesion is somewhat ill-defined. A more aggressive process such as infection or neoplasm would be included in the differential diagnosis. Please correlate with clinical parameters.. This lesion has developed since 07/25/2019. Dictated by: Max Gonzalez MD 08/19/2020 13:30 Max Gonzalez MD in [place] 08/19/2020 13:30
== END ==
PROVIDERS: PCP Family Medicine; Visit Provider Orthopaedic Surgery
DX: M25.551 Pain in right hip (principal)
CPT/HCPCS: 73502

== ENCOUNTER → 2020-09-16 20:05 | Outpatient (CLI) | payer OTHER, SELFPAY | PROVIDERS: Visit Provider Obstetrics & Gynecology Gynecology | DX: Z01.818 Encounter for other preprocedural examination (principal); Z11.52 Encounter for screening for COVID-19 | CPT/HCPCS: U0003 ==

== ENCOUNTER 2020-09-23 12:05 | Emergency (ER) | payer OTHER, SELFPAY ==
[2020-09-23] VITALS (28 sets, daily range): BP systolic 112–161; BP diastolic 58–112; PULSE 101–112; RESP 10–24; TEMP 36.4; O2SAT 90–100; BMI 38.0; BMI 35.4
--- NOTE | 2020-09-23 12:08 | XR_ITS ---
PROCEDURE: XR PELVIS 1-2V CLINICAL INDICATION: POSSIBLE DISLOCATED HIP Pain COMPARISON: CR XR HIP RT 2-3V W/PELVIS from 08/15/2020 TECHNIQUE: XR Pelvis AP View FINDINGS: There is a total right hip prosthesis present. There is superior dislocation of the femoral stem of the prosthesis. Studies otherwise very limited technically. IMPRESSION: Dislocated right hip prosthesis Dictated by: Max Gonzalez MD 09/23/2020 12:59 Max Gonzalez MD in [place] 09/23/2020 12:59
--- NOTE | 2020-09-23 12:09 | HMH.EDLOEX ---
ED Disposition Clinical Impression: Hip dislocation, right Qualifiers: Encounter type: initial encounter Qualified Code(s): S73.004A - Unspecified dislocation of right hip, initial encounter Disposition: Xfer Short-Term Hosp Condition on Discharge: Good Referrals: Braxton Ruelas MD [Staff Physician] - Time of Disposition: 13:57 - Critical Care Critical Care Time: No Attestation: On , the high probability of a clinically significant, sudden or life threatening deterioration of the following system(s) required my full and direct attention, intervention and personal management. The time I documented below is in addition to time spent performing reported procedures but includes the following listed in this critical care notation. Medical Decision Making - Medical Records Medical records reviewed: Yes: I reviewed the patient's medical records. - Theo Inquiry Pt receiving controlled substance: No Vital Signs: 09/23/20 12:06 09/23/20 12:54 09/23/20 12:58 Temperature 97.6 F 97.6 F Temperature Source Oral Oral Pulse Rate [Left Radial] 106 H 108 H 107 H Respiratory Rate 20 18 16 Blood Pressure [Left Arm] 133/112 H 161/105 H 124/93 H Blood Pressure Mean [Left Arm] 119 123 103 Blood Pressure Source [Left Arm] Automatic Cuff Automatic Cuff Automatic Cuff Blood Pressure Position [Left Arm] Sitting Sitting Supine 02 Sat by Pulse Oximetry 94 L 94 L 94 L Oxygen Delivery Method Room Air Nasal Cannula Nasal Cannula Oxygen Flow Rate (LPM) 2 2 - Lab Data Lab results reviewed: Yes: I reviewed the patient's lab results. Lab Results 09/23/20 12:25: WBC 9.9, RBC 3.55 L, Hgb 11.5 L, Hct 36.2 L, MCV 102.0 H, MCH 32.5 H, MCHC 31.8, RDW 13.1, Plt Count 333, MPV 7.5, Neut % (Auto) 69.9, Lymph % (Auto) 21.1, Spencer % (Auto) 7.0, Eos % (Auto) 1.2, Baso % (Auto) 0.8, Neut # (Auto) 6.9, Lymph # (Auto) 2.1, Spencer # (Auto) 0.7, Eos # (Auto) 0.1, Baso # (Auto) 0.1 09/23/20 12:25: Sodium 132 L, Potassium 3.9, Chloride 97 L, Carbon Dioxide 25, Anion Gap 13.9, BUN 5 L, Creatinine 0.50 L, Estimated Creat Clear 269, Estimated GFR 175, Est GFR ( Amer) 212, Glucose 313 H, Calcium 9.0, Total Bilirubin 0.6, AST 140 H, ALT 103 H, Alkaline Phosphatase 163 H, Total Protein 6.8, Albumin 3.7, Globulin 3.1, Albumin/Globulin Ratio 1.2 Result diagrams: 09/23/20 12:25 09/23/20 12:25 Orders (Tests/Meds): ED MEDICATIONS Discontinued Medications Generic Name Dose Route Start Last Admin Trade Name Freq PRN Reason Stop Dose Admin Hydromorphone HCl 1 mg 09/23/20 12:10 09/23/20 12:13 Hydromorphone 2mg/Ml Syringe IV 09/23/20 12:11 1 mg ONCE ONE Administration ORDERS Category Date Time Status XR pelvis 1-2V Stat Exams 09/23/20 13:16 Taken - Radiology Data #1 Image(s): Hip Image Reviewed: Yes I reviewed the patient's radiology results Preliminary Findings: Abnormal Right hip dislocation #2 Image(s): Hip Image Reviewed: Yes I reviewed the patient's radiology results Preliminary Findings: Normal/NAD Hip reduction without obvious fracture. Medical Decision Narrative: 49yo M presenting for likely dislocation of recent total hip arthroplasty on the right side. Patient is in extreme pain on arrival. Treated with pain medication. See procedural note for conscious sedation and joint reduction. Case discussed with [facility] orthopedics. They request the patient be sent to [facility] ER for further evaluation and likely revision. Lower Extremity Injury HPI - General Stated Complaint: R HIP PAIN Time Seen by Provider: 09/23/20 12:09 Mode of Arrival: EMS Source of Information: Patient - History of Present Illness HPI Narrative: 49yo M presents via EMS with concern for right hip dislocation. Patient had right ALEX at [facility] on . Patient reports he was doing his exercises as directed when he leaned to his right side to grape picker a piece of paper on the floor and felt his
[2020-09-23 13:02] LABS: Chloride 97 mmol/L (98-107); Potassium 3.9 mmoL/L (3.5-5.1); Sodium 132 mmol/L (136-145)
[2020-09-23 13:04] LABS: Basophils # 0.1 K/mm3 (0-0.2); Basophils % 0.8 % (0.1-2.0); Blood Urea Nitrogen 5 mg/dl (9-20); Creatinine Clearance Estimated 269 mL/min (50-200); Eosinophils # 0.1 K/mm3 (0.0-0.4); Eosinophils % 1.2 % (0.1-12.0); Estimated Glomerular Filt Rate 175 ml/min (>60); GFR (African American) 212 ML/MIN (>60); Hematocrit 36.2 % (42.0-52.0); Hemoglobin 11.5 g/dL (14.1-18.0); Lymphocytes # 2.1 K/mm3 (0.7-4.5); Lymphocytes % 21.1 % (10-50); Mean Corpuscular HGB Conc 31.8 g/dL (31.8-35.4); Mean Corpuscular Hemoglobin 32.5 pg (27.0-31.2); Mean Platelet Volume 7.5 fl (7.4-10.4); Monocytes # 0.7 K/mm3 (0.1-1.0); Neutrophils # 6.9 K/mm3 (1.8-7.8); Neutrophils % 69.9 % (37.0-80.0); Platelet Count 333 K/mm3 (142-424); Red Blood Count 3.55 M/mm3 (4.60-6.20); Red Cell Distribution Width 13.1 % (11.5-17.5); White Blood Count 9.9 K/mm3 (4.8-10.8)
[2020-09-23 13:05] LABS: Alanine Aminotransferase 103 U/L (12-78); Albumin Level 3.7 g/dl (3.5-5.0); Albumin/Globulin Ratio 1.2 (1.1-1.8); Alkaline Phosphatase 163 U/L (38-126); Anion Gap 13.9 mEq/L (5-15); Aspartate Amino Transferase 140 U/L (17-59); Bilirubin,Total 0.6 mg/dl (0.2-1.3); Carbon Dioxide 25 mmol/L (22.0-30.0); Globulin 3.1 g/dL (1.3-3.2); Glucose 313 mg/dl (74-100); Total Protein,Serum 6.8 g/dl (6.3-8.2)
--- NOTE | 2020-09-23 13:13 | PC.NURSE ---
notified rad of post reduction
--- NOTE | 2020-09-23 13:16 | XR_ITS ---
PROCEDURE: XR PELVIS 1-2V CLINICAL INDICATION: post reduction Follow-up dislocation COMPARISON: CR XR PELVIS 1-2V from 09/23/2020 TECHNIQUE: XR Pelvis AP View FINDINGS: There has been interval relocation the dislocated right hip prosthesis. No obvious fracture. IMPRESSION: Relocated right hip prosthesis Dictated by: Max Gonzalez MD 09/23/2020 14:06 Max Gonzalez MD in [place] 09/23/2020 14:06
--- NOTE | 2020-09-23 14:49 | PC.NURSE ---
report called to Deborah Mccormick RN at [facility]
--- NOTE | 2020-09-23 14:50 | PC.NURSE ---
[facility] notified of transfer to [facility]
--- NOTE | 2020-09-23 15:06 | PC.NURSE ---
[facility] at this time
--- NOTE | 2020-09-23 17:01 | PC.NURSE ---
pt is awake, alert, talking at this time, pt at BS
== END 2020-09-23 15:06 | disposition short-term general hospital (02) ==
PROVIDERS: Emergency Provider Family Medicine; PCP Family Medicine
DX: S73.004A Unspecified dislocation of right hip, initial encounter (principal); T84.020A Dislocation of internal right hip prosthesis, initial encounter; E11.65 Type 2 diabetes mellitus with hyperglycemia; E03.9 Hypothyroidism, unspecified; I10 Essential (primary) hypertension; E78.5 Hyperlipidemia, unspecified; F17.210 Nicotine dependence, cigarettes, uncomplicated; F10.10 Alcohol abuse, uncomplicated
CPT/HCPCS: 27266; 72170; 80053; 85025; 96365; 96375; 99285

== ENCOUNTER → 2021-06-10 07:35 | Outpatient (CLI) | payer OTHER, SELFPAY ==
[2021-06-10 08:10] LABS: Coronavirus 19, PCR Not Detected (NotDetected); Influenza A, PCR Not Detected (NotDetected); Influenza B, PCR Not Detected (NotDetected)
== END ==
PROVIDERS: PCP Family Medicine; Visit Provider Emergency Medicine
DX: Z20.822 Contact with and (suspected) exposure to COVID-19 (principal)
CPT/HCPCS: C9803; U0003; U0005

== ENCOUNTER → 2021-07-30 13:34 | Outpatient (CLI) | payer OTHER, SELFPAY ==
[2021-07-30 14:03] LABS: Chloride 94 mmol/L (98-107); Potassium 4.3 mmoL/L (3.5-5.1); Sodium 133 mmol/L (136-145)
[2021-07-30 14:06] LABS: Alanine Aminotransferase 109 U/L (12-78); Albumin Level 4.8 g/dl (3.5-5.0); Albumin/Globulin Ratio 1.7 (1.1-1.8); Alkaline Phosphatase 101 U/L (38-126); Anion Gap 20.3 mEq/L (5-15); Aspartate Amino Transferase 154 U/L (17-59); Bilirubin,Total 0.7 mg/dl (0.2-1.3); Blood Urea Nitrogen 12 mg/dl (9-20); Carbon Dioxide 23 mmol/L (22.0-30.0); Estimated Glomerular Filt Rate 141 ml/min (>60); GFR (African American) 171 ML/MIN (>60); Globulin 2.9 g/dL (1.3-3.2); Total Protein,Serum 7.7 g/dl (6.3-8.2)
[2021-07-30 14:07] LABS: Calcium 9.8 mg/dl (8.4-10.2)
[2021-07-30 14:09] LABS: Glucose 517 mg/dl (74-100)
[2021-07-30 14:50] LABS: Hemoglobin A1C 9.1 % (4.0-6.0)
== END ==
PROVIDERS: Visit Provider Family Medicine
DX: E11.9 Type 2 diabetes mellitus without complications (principal); Z79.84 Long term (current) use of oral hypoglycemic drugs
CPT/HCPCS: 36415; 80053; 83036

== ENCOUNTER 2021-08-15 09:13 | Emergency (ER) | payer OTHER, SELFPAY ==
[2021-08-15 09:14] VITALS: BP 176/70; PULSE 108; RESP 18; TEMP 37.4; O2SAT 98; BMI 38.0
--- NOTE | 2021-08-15 09:25 | HMH.EDGENADL ---
ED Disposition Clinical Impression: Lumbar strain Qualifiers: Encounter type: initial encounter Qualified Code(s): S39.012A - Strain of muscle, fascia and tendon of lower back, initial encounter Disposition: Home, Self-Care Condition on Discharge: Good Instructions: DI for Low Back Pain Additional Instructions: Rest until Wednesday, avoid strenuous activity. Medrol Dosepak as prescribed. [place] as needed for pain. Additional instructions for BACK PAIN: See your physician as soon as possible for further evaluation. Return immediately if back pain becomes intolerable, or if fever, numbness or weakness of your legs, loss of control of your bowels or bladder. Additional instructions for CONTROLLED SUBSTANCES: You have been prescribed a medication that is a controlled substance. Controlled substances include pain medications known as opiates and sedative nerve medications known as benzodiazepines. Tramadol, fioricet, and gabapentin are also controlled substances. Some common opiates include: Codeine (such as Tylenol #3) Hydrocodone (Vicodin, Lortab, Lorcet, [place]) Oxycodone (Percocet, Percodan, Oxycodone, Oxy IR) Some common benzodiazepines include: Diazepam (Valium) Lorazepam (Ativan) Alprazolam (Xanax) Clonazepam (Klonopin) Oxazepam (Serax) All of these controlled substances are highly addictive and frequently abused. Misuse can and frequently does lead to addiction as well as overdose and . Medication should be stored in a locked cabinet or other secure storage unit. Do not store the medication in a motor vehicle. Short term supplies, 3 days or less, are prescribed because of the highly addictive nature of the medication. Any of the controlled substance medication NOT taken should be disposed of properly and NOT SAVED. The recommended method of disposing of unused medications is: Place the medicines in a sealable plastic bag. If the medicine is a solid, crush it or add water to dissolve it. Add something undesirable (cat litter, coffee grounds, etc.) Dispose of sealed bag in household trash Do not flush or pour unused medicines down a sink or drain. Controlled substances should not be shared, given away or sold. Because of the addictive nature and frequent abuse, these medications are sometimes stolen. These medications should be kept in a safe place where they cannot be stolen. Do not keep them in your car or purse. Lost or stolen prescriptions for controlled substances WILL NOT BE REFILLED in this emergency department, regardless of whether a police report was filed. Prescriptions: Hydrocod/Acet 5/325 mg [[place] 5/325mg tablet] 1 tab PO Q6HP PRN #8 tab PRN Reason: Pain Transmission Status: Received by [facility] [employer] [employer] methylPREDNISolone [Medrol 4mg tab] 4 mg PO DIRECTED #21 tab Transmission Status: Received by [facility] Referrals: Joseph Hernandez MD [Primary Care Provider] - Forms: Work/School Release - Critical Care Critical Care Time: No Attestation: On 08/15/21, the high probability of a clinically significant, sudden or life threatening deterioration of the following system(s) required my full and direct attention, intervention and personal management. The time I documented below is in addition to time spent performing reported procedures but includes the following listed in this critical care notation. Medical Decision Making - Medical Records Medical records reviewed: Yes: I reviewed the patient's medical records. MR Comment: Reviewed prior x-ray MRI reports lumbar spine. - Theo Inquiry Pt receiving controlled substance: No Vital Signs: 08/15/21 09:14 08/15/21 10:22 Temperature 99.3 F 98 F Temperature Source Oral Oral Pulse Rate 101 H Pulse Rate [Radial] 108 H Respiratory Rate 18 18 Blood Pressure 170/87 H Blood Pressure [Right Arm] 176/70 H Blood Pressure Mean [Right Arm] 105 Blood Pressure Position [Right Arm] Sitting
--- NOTE | 2021-08-15 09:33 | XR_ITS ---
FINAL REPORT CLINICAL HISTORY: fall, lower back pain rt side COMPARISON: 12/05/2019 FINDINGS: There is no acute fracture. There is no malalignment. There is mild rightward curvature. There arm mild degenerative change with osteophytes. There has been right hip arthroplasty. There is mild vascular calcification. IMPRESSION: No acute process. Reviewed, Interpreted and Dictated by Rogelio Chavez III, MD Transcribed by Paul Wang Authenticated by Rogelio Chavez III, MD on 08/15/2021 10:29:44 AM [facility]
[2021-08-15 10:22] VITALS: BP 170/87; PULSE 101; RESP 18; TEMP 36.6; O2SAT 98
== END 2021-08-15 11:02 | disposition home or self-care (01) ==
PROVIDERS: Emergency Provider Emergency Medicine; PCP Family Medicine
DX: S39.012A Strain of muscle, fascia and tendon of lower back, initial encounter (principal); W10.9XXA Fall (on) (from) unspecified stairs and steps, initial encounter
CPT/HCPCS: 72100; 96372; 99282

== ENCOUNTER → 2021-08-26 16:20 | Outpatient (CLI) | payer OTHER, SELFPAY ==
--- NOTE | 2021-08-26 16:26 | MR_ITS ---
PROCEDURE INFORMATION: Exam: MR Lumbar Spine Without Contrast Exam date and time: 08/26/2021 4:26 PM Age: 50 years old Clinical indication: Low back pain; Additional info: Acute RT sided low back pain w/ RT sided sciatica. Slipped on ice with RT sided lbp x1wk. RT sided lbp with pain going down RT leg to mid thigh. Prior MR 12-15-19 TECHNIQUE: Imaging protocol: Multiplanar magnetic resonance images of the lumbar spine without intravenous contrast. COMPARISON: MR LUMBAR SPINE WO CON 12/15/2019 8:09 AM FINDINGS: Vertebrae: Moderate to severe multilevel spondylosis. Visualized vertebral body heights maintained. Spinal epidural space: Epidural lipomatosis causes mild thecal sac effacement, greatest at L5 and S1. Spinal cord: The conus terminates at the L1 level and is grossly unremarkable. L1-L2: Left paracentral disc bulge at L1-L2 causes mild ventral thecal sac effacement and left lateral recess stenosis. Mild T2 signal within the facets. L2-L3: Disc bulge causes mild central spinal stenosis L2-L3, which is new/increased from previous. Mild facet arthrosis. Mild neural foraminal stenosis on the left. L3-L4: Minimal disc bulge at L3-L4. No significant central spinal stenosis. Mild facet arthrosis. Mild T2 signal within the left facet. L4-L5: Mild disc bulge at L4-L5 and thickening of the ligamentum flavum. No evidence of significant central spinal stenosis. Mild facet arthrosis. Mild neural foraminal stenosis on the right. L5-S1: Mild facet arthrosis at L5-S1. No significant central spinal stenosis. Moderate neural foraminal stenosis on the right. Sacrum/coccyx: Small sacral Tarlov cysts. Soft tissues: Unremarkable. IMPRESSION: 1. Moderate two severe multilevel spondylosis. 2. Mild multilevel disc bulge.Disc bulge causes mild central spinal stenosis L2-L3, which is new/increased from previous. 3. Moderate neural foraminal stenosis on the right at L5-S1. Additional mild multilevel neural foraminal stenosis as above. 4. Please see above report for details and additional findings.
== END ==
PROVIDERS: PCP Family Medicine; Visit Provider Family Medicine
DX: M54.41 Lumbago with sciatica, right side (principal)
CPT/HCPCS: 72148; 76376

== ENCOUNTER → 2021-12-04 07:18 | Outpatient (CLI) | payer OTHER, SELFPAY ==
[2021-12-04 08:13] LABS: Alanine Aminotransferase 73 U/L (12-78); Albumin Level 4.3 g/dl (3.5-5.0); Albumin/Globulin Ratio 1.6 (1.1-1.8); Alkaline Phosphatase 135 U/L (38-126); Anion Gap 14.4 mEq/L (5-15); Aspartate Amino Transferase 124 U/L (17-59); Bilirubin,Total 0.8 mg/dl (0.2-1.3); Blood Urea Nitrogen 10 mg/dl (9-20); Calcium 9.6 mg/dl (8.4-10.2); Carbon Dioxide 29 mmol/L (22.0-30.0); Chloride 98 mmol/L (98-107); Chol/HDL Ratio 2.6 (1-3.5); Cholesterol 143 mg/dl (140-200); Estimated Glomerular Filt Rate 175 ml/min (>60); GFR (African American) 211 ML/MIN (>60); Globulin 2.7 g/dL (1.3-3.2); Glucose 206 mg/dl (74-100); HDL Cholesterol 56 mg/dl (40-60); Potassium 4.4 mmoL/L (3.5-5.1); Sodium 137 mmol/L (136-145); Triglycerides 202 mg/dl (30-150); VLDL Cholesterol 40 mg/dL (0-40)
[2021-12-04 08:42] LABS: Prostate Specific Ag Screen 0.3 ng/ml (0.0-4.0)
[2021-12-04 10:19] LABS: Hemoglobin A1C 7.8 % (4.0-6.0)
== END ==
PROVIDERS: Visit Provider Family Medicine
DX: E11.9 Type 2 diabetes mellitus without complications (principal); E78.5 Hyperlipidemia, unspecified; I10 Essential (primary) hypertension; M25.50 Pain in unspecified joint; Z12.5 Encounter for screening for malignant neoplasm of prostate
CPT/HCPCS: 36415; 80053; 80061; 83036; G0103

== ENCOUNTER → 2022-01-27 11:23 | Outpatient (CLI) | payer OTHER, SELFPAY ==
[2022-01-27 11:57] VITALS: BP 174/90; PULSE 113; RESP 20; O2SAT 94; BMI 38.0
--- NOTE | 2022-01-27 12:43 | P.CONS_ITS ---
[facility] Pain Management SOAP Note Subjective:: Patient is a pleasant 49-year-old white male who is status post right SI joint stabilization approximately 2 years ago. Subsequent to this procedure he did have right total hip replacement through an anterior approach. This was done at the [facility]. After his hip replacement he did have dislocation of his hip with a posterior dislocation. He had a long postoperative course. This was again approximately a year ago. Since then his hip is much better however now he is having some increasing back pain on the right side. Most of his pain seems to be worse with extension and twisting. He is tender over the facet joints of L4-5 and L5-S1 on the right side. He has not had any recent MRI. Objective:: Alert and oriented x3 no acute distress. Increase pain with extension and twisting. Tenderness over the facet joint/medial branches of L4-5 and L5-S1 on the right side. Assessment:: Degenerative disc disease of lumbar spine with lumbar spondylosis and lumbar facet arthropathy Plan:: We will seek approval for right facet joint/medial branch blocks of L4-5 and L5- S1. In the meantime we will put him on prednisone 20 mg twice a day for 5 days and Percocet 5 mg nightly. We will give him 10 pills. Theo and drug screen are all appropriate. [facility] History Medical History: Reports:: Cancer, Diabetes Mellitus Type 2, Hyperlipidemia, Hypertension Denies:: Diabetes Mellitus Type 1, Internal Pacemaker, MRSA, Seizures *Have you ever received a pneumonia vaccine?: No *Have you received a flu vaccine this season?: Yes Other Medical History: Reports: Arthritis, Hypothyroidism. Denies: Blood Transfusion Reaction Other Surgeries: Yes: Other. No: Pacemaker Amputation: No Fractures: Yes - *Social History Smoking Status: Current every day smoker Tobacco Type: smokeless tobacco # Packs/Day (cigarettes): 1 Alcohol Intake: current Alcohol Intake Frequency:: 3 or more drinks per day Substance Use Type: denies use, other *Occupational Status:: employed Housing: house Household Members: spouse *Travel in the last 8 weeks: None Family Hx:: Cancer, Diabetes, Heart Attack, Hyperlipidemia, Hypertension, Alcoholism
== END ==
PROVIDERS: PCP Family Medicine; Visit Provider Anesthesiology
DX: M51.36 Other intervertebral disc degeneration, lumbar region (principal); M47.896 Other spondylosis, lumbar region
CPT/HCPCS: 99212; G0463

== ENCOUNTER 2022-02-13 09:45 | Day surgery (SDC) | payer OTHER, SELFPAY ==
[2022-02-13 10:01] VITALS: BP 168/78; PULSE 89; RESP 20; TEMP 36.6; O2SAT 94; BMI 38.0
[2022-02-13 10:48] VITALS: BP 168/89; PULSE 92; RESP 20; O2SAT 96
[2022-02-13 11:10] VITALS: BP 155/80; PULSE 90; RESP 20; O2SAT 94
--- NOTE | 2022-02-13 11:13 | P.PCN_ITS ---
- Procedure Date: 02/13/22 Time: 11:13 Anesthesiologist:: Davi Rosas MD Complications:: None Pre-procedure Diagnosis:: Degenerative disc disease of lumbar spine with lumbar spondylosis and lumbar facet arthropathy Post-procedure Diagnosis:: Same Indications for Procedure:: Patient pleasant 51-year-old white male who been treating for low back pain with lumbar spondylosis and lumbar facet arthropathy. He has increasing pain in his low back right greater than left. He does have increased pain with extension and he is tender over the facet joints of L4-5 and L5-S1. Since he is hurting over both sides today. We will do bilateral lumbar medial branch block/facet joint injections today. Procedure Details:: Lumbar medial branch block Informed consent was obtained and the risks and benefits of the procedure was explained to the patient. The back was prepped using ChloraPrep. The skin and subcutaneous tissues were anesthetized using lidocaine. I placed 22-gauge spinal needles into the facet joint/medial branches of L4-L5 and L5-S1 bilaterally. Needle placement was confirmed with dye. After this we injected 3 mL bupivacaine 0.25% and Depo-Medrol 20 mg into each facet joint/medial branch of L4-L5 and L5-S1 bilaterally. We used a total of 80 mg Depo-Medrol for both levels bilaterally. The patient tolerated the procedure well with no compl ications. Plan and Disposition:: We will follow-up with him in 2 weeks. Will reevaluate symptoms at that time. If successful he may be a candidate for RF ablation to these facet joint/medial branches in the future after second round of medial branch blocks.
== END 2022-02-13 11:10 | disposition home or self-care (01) ==
LOC: SC.PAINP 09:46
PROVIDERS: PCP Family Medicine; Visit Provider Anesthesiology
DX: M51.36 Other intervertebral disc degeneration, lumbar region (principal); M47.26 Other spondylosis with radiculopathy, lumbar region
CPT/HCPCS: 64493; 64494; J1040; Q9966

== ENCOUNTER → 2022-02-16 11:15 | Outpatient (POV) | payer OTHER, SELFPAY ==
--- NOTE | 2022-02-16 11:35 | HMH.PAINSOAP ---
[facility] Pain Management SOAP Note Subjective:: Patient is a pleasant 51-year-old male who presents today for follow-up from a lumbar medial branch block L4-L5 and L5-S1 bilaterally on 02/13/2022. We are currently treating the patient for degenerative disc disease of lumbar spine with lumbar spondylosis and lumbar facet arthropathy. Patient states that he did get significant relief from this injections. He states he got about 80% improvement that lasted less than 24 hours. Today he rates his pain a 8 out of 10. He states the pain is primarily in his low back and his hips. He stated that he had increased his activity after having the injections and may have made his pain worse. He is interested in having a repeat injection at this time. He denies any new trauma or injury. Patient denies any change to the location or type of pain he experiences. Patient is currently taking Lyrica 75 mg 3 times a day that is prescribed by Dr. Hernandez. He states this medication is working well for him. He denies any side effects from this medication. We did also give him 5 days worth of tramadol and Percocet 5 mg. Patient states he did get significant relief with the Percocet however the tramadol he did not really notice a difference. He is requesting some additional Percocet at today's visit. His Theo is [id number]. It has been reviewed and appropriate. Review of Systems: General: No recent weight changes, no fever, no sleep disturbances Respiratory: No cough, no shortness of air, no recurring pulmonary infections Cardiovascular/peripheral vascular: No chest pain, no palpitations, no edema, no shortness of breath Gastrointestinal: No new onset incontinence, normal bowel movements reported Genitourinary: No new onset incontinence Musculoskeletal: Low back pain, bilateral hip pain Psychiatric: [Normal mood/affect] Neurological: [Denies weakness in extremities], [denies balance issues] Objective:: Physical Exam: General: Alert and oriented x3, no acute distress, pleasant and cooperative Lungs: Respirations even and unlabored, symmetrical chest expansion Eyes: PERRL Musculoskeletal: Flexion and extension of lumbar [spine] somewhat guarded secondary to pain, [antalgic gait noted] Neurological: Speech clear, no gross sensory deficit Assessment:: Degenerative disc disease of lumbar spine with lumbar spondylosis and lumbar facet arthropathy Plan:: Patient has had 80% improvement lasting less than 24 hours with the lumbar medial branch blocks. I have discussed with the patient regarding having a repeat of these injections. Risk and benefits were discussed with the patient. He would like to proceed forward with these injections at this time. I have also discussed with him following the second medial branch block that we would then look about doing an RFA. I will prescribe the patient Percocet 5 mg twice a day for 5-day supply. I will schedule the patient for a lumbar medial branch block L4-L5 and L5-S1 bilaterally at today's visit. Patient is not currently on any blood thinners. Patient has been instructed to contact the clinic with any concerns before the next appointment. Dr. Rosas has reviewed this note and agrees with this plan of care. This note was dictated using voice recognition software and make contain errors or omissions. [facility] History I have reviewed the patient's past medical history: Yes Medical History: Reports:: Cancer, Diabetes Mellitus Type 2, Hyperlipidemia, Hypertension Denies:: Diabetes Mellitus Type 1, Internal Pacemaker, MRSA, Seizures *Have you ever received a pneumonia vaccine?: No *Have you received a flu vaccine this season?: Yes Other Medical History: Reports: Arthritis, Hypothyroidism. Denies: Blood Transfusion Reaction Other Surgeries: Yes: Other. No: Pacemaker Amputation: No Fractures: Yes - *Social History Smoking Status: Never smoker Tobacco Type: smokeless tobacco # Packs/Day (cigarettes): 1 Alcohol Intake: never Alcohol Int
[2022-02-16 11:36] VITALS: BMI 38.0
== END ==
PROVIDERS: PCP Family Medicine; Visit Provider Nurse Practitioner Family
DX: M51.36 Other intervertebral disc degeneration, lumbar region (principal); M47.26 Other spondylosis with radiculopathy, lumbar region
CPT/HCPCS: 99212; G0463

== ENCOUNTER 2022-02-20 07:42 | Day surgery (SDC) | payer OTHER, SELFPAY ==
[2022-02-20 07:54] VITALS: BP 170/91; PULSE 98; RESP 20; TEMP 36.9; O2SAT 97; BMI 38.0
--- NOTE | 2022-02-20 08:34 | HMH.PMPROC ---
- Procedure Date: 02/20/22 Time: 08:34 Anesthesiologist:: Wu Brian CRNA Complications:: None Pre-procedure Diagnosis:: Degenerative disc disease lumbar spine multilevels. Multilevel lumbar spondylosis. Lumbar facet arthropathy. Post-procedure Diagnosis:: Same Indications for Procedure:: This patient is a pleasant 51-year-old male who comes to our clinic today to receive his second round of medial branch block L4-5, L5-S1 lumbar spine. Patient did get significant improvement in terms of his low back pain after his first round. He rates his pain 7/10 today. Procedure Details:: Informed consent was obtained and the risk and benefits of the procedure was explained to the patient. Patient was taken to the procedure room where noninvasive monitors were placed, including noninvasive blood pressure cuff as well as pulse oximeter. The area over the lumbar spine was cleansed using chlorhexidine as a cleansing solution. I anesthetized the skin and subcutaneous tissues with 1% Lidocaine. I placed 22-gauge spinal needles into the facet joint/ medial branches of [L3-L4, L4-L5, and L5-S1] bilaterally. Needle placement was confirmed with fluoroscopy. After confirmation of needle placement, each site was injected with 1 mL of 1% lidocaine and 0.25 % Marcaine and 10 mg of Depo-Medrol. A total of 80 mg of depo medrol was used for bilateral medial branch blocks of [L3-L4, L4-L5, and L5-S1] bilaterally. Patient tolerated the procedure without difficulty. There were no complications. Plan and Disposition:: Patient was discharged without incident.
[2022-02-20 08:46] VITALS: BP 165/80; PULSE 94; RESP 18; O2SAT 96
== END 2022-02-20 08:47 | disposition home or self-care (01) ==
LOC: SC.PAINP 07:43
PROVIDERS: PCP Family Medicine; Visit Provider Nurse Anesthetist, Certified Registered
DX: M51.36 Other intervertebral disc degeneration, lumbar region (principal); M47.816 Spondylosis without myelopathy or radiculopathy, lumbar region
CPT/HCPCS: 64493; 64494; 64495; J1040

== ENCOUNTER 2022-02-27 07:06 | Day surgery (SDC) | payer OTHER, SELFPAY ==
[2022-02-27 08:03] VITALS: BP 166/83; PULSE 92; RESP 18; TEMP 37.3; O2SAT 91; BMI 38.0
[2022-02-27 08:37] VITALS: BP 169/83; PULSE 85; RESP 20; O2SAT 92
--- NOTE | 2022-02-27 09:22 | P.PCN_ITS ---
- Procedure Date: 02/27/22 Time: 08:30 Anesthesiologist:: Wu Brian CRNA Complications:: None Pre-procedure Diagnosis:: Degenerative disc disease lumbar spine multilevels. Multilevel lumbar spondylosis. Lumbar facet arthropathy. Post-procedure Diagnosis:: Same Indications for Procedure:: This patient is a very pleasant 51-year-old male who has responded very well to lumbar facet blocks at the L4-5 and L5-S1 levels bilaterally. He presents today for the same levels rhizotomy bilaterally. He rates his pain today 6/10. Procedure Details:: Lumbar RFA None Pre-procedure Diagnosis: Degenerative disc disease of lumbar spine with lumbar spondylosis and facet arthropathy Post-procedure Diagnosis: Same Indications for Procedure: Patient is a pleasant 66-year-old white female who we are treating for low back pain with lumbar spondylosis and facet arthropathy. She is done well with medial branch blocks with 80% relief of her pain symptoms. She presents for radiofrequency ablation to the facet joint/medial branches of L3-L4, L4-5 and L5-S1 today. She has already had the right side done and is doing very well. She presents for the left side today. Procedure Details: Lumbar RFA Informed consent was obtained and the risk and benefits of the procedure was explained to the patient. Patient was placed prone on the procedure table. The patient was prepped and draped in sterile fashion. C-arm fluoroscopy was used to view the lumbar spine. The skin and subcutaneous tissues were anesthetized using lidocaine. I placed 20-gauge RF needles into the facet joints of L3-L4, L4-L5 and L5-S1 on the left side. We underwent sensory stimulation. There is good sensory stimulation at 0.8 V. We underwent motor stimulation. There is no motor stimulation at 2 V. We then anesthetized these levels with lidocaine and Depo- Medrol. I used a total of 40 mg Depo-Medrol for all 3 levels. I then burned all 3 levels of L3-L4, L4-5 and L5-S1 on the left side for 4 minutes at 80 ?C. Patient tolerated the procedure well with no complication. Plan and Disposition:: We will follow-up with this patient in 2 weeks. We will reevaluate her symptoms at that time. Plan and Disposition:: Patient was discharged without incident.
== END 2022-02-27 08:38 | disposition home or self-care (01) ==
LOC: SC.PAINP 07:07
PROVIDERS: PCP Family Medicine; Visit Provider Nurse Anesthetist, Certified Registered
DX: M51.36 Other intervertebral disc degeneration, lumbar region (principal); M47.26 Other spondylosis with radiculopathy, lumbar region
CPT/HCPCS: 64635; 64636; J1040

== ENCOUNTER → 2022-04-24 14:01 | Outpatient (POV) | payer OTHER, SELFPAY ==
[2022-04-24 14:00] VITALS: BP 184/89; PULSE 107; RESP 20; TEMP 36.8; O2SAT 96; BMI 36.8
--- NOTE | 2022-04-24 14:58 | EXP.PAIN.SOA ---
[employer] Pain Management SOAP Note Subjective:: This patient is a pleasant 51-year-old white male who is status post medial branch blocks and RF ablation with good relief of pain symptoms for several weeks. His pain is now starting to return in his low back. Most of his pain is in the low back with minimal radiation. He is also having some right shoulder pain and may have torn his rotator cuff. We will order a new MRI of the lumbar spine and of the right shoulder. We will set him up for repeat medial branch blocks of L4-L5 and L5-S1 to help with his exacerbation of pain symptoms. He may be a surgical candidate so we will obtain neurosurgical evaluation. I have also talked to him about spinal cord stimulation. Objective:: Alert and oriented x3 no acute distress. Patient does have an antalgic gait. Motor strength of the lower extremities is 5/5. There is no gross sensory deficit. Tenderness over the lumbar spine especially over the facet joints of L4-5 and L5-S1 bilaterally. Assessment:: Degenerative disc disease of lumbar spine with multilevel lumbar spondylosis and lumbar facet arthropathy with lumbar radiculopathy symptoms. Plan:: We will order an MRI of the lumbar spine and of the right shoulder to discern change in pathology. He also may have a right shoulder rotator cuff tear. We will refer him to a neurosurgeon for neurosurgical evaluation. We will also plan on repeat bilateral lumbar medial branch blocks of L4-5 and L5-S1 for acute exacerbation of pain symptoms. I have also talked to him about spinal cord stimulation as an option to help long-term with his pain symptoms. 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
== END ==
PROVIDERS: PCP Psychiatry & Neurology Sleep Medicine; Visit Provider Anesthesiology
DX: M51.16 Intervertebral disc disorders with radiculopathy, lumbar region (principal); M47.26 Other spondylosis with radiculopathy, lumbar region; Z72.0 Tobacco use
CPT/HCPCS: 99212; G0463

== ENCOUNTER → 2022-05-01 15:57 | Outpatient (CLI) | payer OTHER, SELFPAY ==
--- NOTE | 2022-05-01 15:59 | MR_ITS ---
PROCEDURE INFORMATION: Exam: MR Right Upper Extremity Joint Without Contrast; Shoulder Exam date and time: 05/01/2022 4:34 PM Age: 51 years old Clinical indication: Pain; Shoulder; Right; Additional info: Right shoulder pain, back pain TECHNIQUE: Imaging protocol: Magnetic resonance imaging of the Right upper extremity without contrast. Exam focused on the shoulder. COMPARISON: No relevant prior studies available. FINDINGS: Limitations: Motion artifact - mild. Bones/joints: No acute fracture. Mild degenerative changes of acromioclavicular joint. No dislocation. Fluid: No significant fluid within glenohumeral joint. Small fluid within acromioclavicular joint. Small fluid within subacromial-subdeltoid bursa. Glenoid labrum: Degenerative-type tear of superior labrum. Supraspinatus tendon: [id number] tendinosis. Bursal surface fraying. No full-thickness tear. Infraspinatus tendon: Moderate tendinosis. Bursal surface fraying. More focal tendinosis versus intrasubstance tear, roughly 0.8 x 0.8 cm. No full-thickness tear. Subscapularis tendon: No definite tear. Teres minor tendon: No definite tear. Tendon of biceps brachii: Mild tendinosis of intra-articular portion of biceps tendon. Glenohumeral ligaments: Grossly intact. Muscles: Unremarkable. Soft tissues: Unremarkable. IMPRESSION: Rotator cuff tendinosis.
--- NOTE | 2022-05-01 15:59 | MR_ITS ---
PROCEDURE INFORMATION: Exam: MR Lumbar Spine Without Contrast Exam date and time: 05/01/2022 4:04 PM Age: 51 years old Clinical indication: Low back pain; Prior surgery; Surgery date: 6+ months; Additional info: Right shoulder pain, back pain TECHNIQUE: Imaging protocol: Magnetic resonance imaging of the lumbar spine without contrast. COMPARISON: MR LUMBAR SPINE WO CON 08/26/2021 5:01 PM FINDINGS: alignment is grossly normal. signal intensity within the bone marrow is normal. conus terminates at the mid aspect of L1. Soft tissues are unremarkable. Diffuse degenerative disc disease as well as diffuse annular disk bulge and/or protrusions including L1-L2, L2-L3, L3-L4, L4-L5 and L5-S1. Schmorl's node inferior endplate T12. Mild edema about the above. Schmorl's node inferior endplate L1. Neural foraminal narrowing L5-S1 and L4-L5 bilaterally. Severe narrowing of the L2-L3 neural foramina on the left No marrow edema of significance other than what is believed to be reactive about the inferior endplate of T12 T12-L1: Broad-based annular disc bulge effaces the anterior aspect of the thecal sac mildly so. Central canal and neural foramina are normal. L1-L2: Broad-based annular disc bulge with a small left paracentral disc protrusion. Disc lateralizes to the left greater than right. Central canal and neural foramina are normal. L2-L3: Mild narrowing of the central canal secondary to facet hypertrophic changes, ligamentum flavum hypertrophic changes, and a broad-based annular bulge.Disc lateralizes to the left greater than right. Left lateral disc herniation disc extending within the left neural foramina and narrowing the left neural foramina. L3-L4: Broad-based annular disc bulge lateralizing to the left greater than right.. Paucity of fat about the disc laterally on the left. Severe facet hypertrophic changes with ligamentum flavum hypertrophic changes. L4-L5: Broad-based annular disc bulge lateralizing to the right greater than left with paucity of fat about the exiting nerve roots particularly on the right. Neural foraminal narrowing. L5-S1: Broad-based annular disc bulge effaces the anterior aspect of the thecal sac mildly so. Disc lateralizes to the right greater than left with paucity of fat about the exiting nerve roots right more so than left IMPRESSION: Multilevel degenerative disc disease including severe narrowing of the neural foramina particularly at L2-L3 on the left. Please see above.
== END ==
PROVIDERS: PCP Psychiatry & Neurology Sleep Medicine; Visit Provider Anesthesiology
DX: M25.511 Pain in right shoulder (principal); M54.50 Low back pain, unspecified
CPT/HCPCS: 72148; 73221; 76376

== ENCOUNTER 2022-05-08 09:20 | Day surgery (SDC) | payer OTHER, SELFPAY ==
[2022-05-08 12:01] VITALS: BP 147/85; PULSE 107; RESP 20; TEMP 36.9; O2SAT 94; BMI 38.0
[2022-05-08 13:15] VITALS: BP 147/85; PULSE 107; RESP 20; O2SAT 97
--- NOTE | 2022-05-08 14:56 | EXP.PAIN.PRO ---
Procedure Date: 05/08/22 Time: 14:56 Anesthesiologist:: Davi Rsoas MD Complications:: None Pre-procedure Diagnosis:: Right shoulder pain with rotator cuff tendinosis Post-procedure Diagnosis:: Same Indications for Procedure:: This patient is a pleasant 51-year-old white male who we are treating for low back pain with lumbar radiculopathy symptoms as well as right shoulder pain. We did get an MRI of the right shoulder which does show rotator cuff tendinosis however there is not a rotator cuff tear. Also his lumbar spine MRI does show multilevel degenerative changes with bulging disc and neuroforaminal narrowing and spinal stenosis with ligamentum flavum hypertrophy. We will get him neurosurgical evaluation for his low back. He was scheduled for RF ablation today. We will hold off on this until we get neurosurgical evaluation. We will inject his right shoulder today. Hopefully this will help with his rotator cuff tendinosis and right shoulder pain. Procedure Details:: Right shoulder injection. Informed consent was obtained the risk and benefits of the procedure were explained to the patient. Patient was taken to the procedure room. The right shoulder was prepped using ChloraPrep. A 25-gauge needle was used and we injected 10 mL bupivacaine 0.25% and Depo-Medrol 40 mg and around the right shoulder anteriorly posteriorly and laterally. We injected all areas of the rotator cuff and into the shoulder joint. Plan and Disposition:: We will follow-up with this patient in 2 weeks. Will reevaluate symptoms at that time. We will also refer him for neurosurgical evaluation for his low back pain.
== END 2022-05-08 13:16 | disposition home or self-care (01) ==
LOC: SC.PAINP 09:21
PROVIDERS: PCP Psychiatry & Neurology Sleep Medicine; Visit Provider Anesthesiology
DX: M25.511 Pain in right shoulder (principal); Z72.0 Tobacco use; M54.16 Radiculopathy, lumbar region
CPT/HCPCS: 20610; J1030

== ENCOUNTER → 2022-05-28 14:27 | Outpatient (CLI) | payer OTHER, SELFPAY ==
--- NOTE | 2022-05-28 15:26 | XR_ITS ---
FINAL REPORT CLINICAL HISTORY: LT HIP PAIN, FINDINGS: LEFT HIP Two views of the left hip including an AP pelvis demonstrate no acute fracture or dislocation. There is a right hip prosthesis. The left hip joint space is preserved. The femoral head has a normal smooth contour. The visualized bony structures are well aligned. No soft tissue abnormality is seen. IMPRESSION: Right hip prosthesis. No acute bony abnormality. Reviewed, Interpreted and Dictated by Ishan Maza MD Transcribed by Lena Arias Authenticated and [facility]
== END ==
PROVIDERS: PCP Family Medicine; Visit Provider Family Medicine
DX: M25.552 Pain in left hip (principal)
CPT/HCPCS: 73502

== ENCOUNTER → 2022-08-07 14:00 | Outpatient (CLI) | payer OTHER, SELFPAY ==
--- NOTE | 2022-08-07 14:11 | ECG_ITS ---
APPROVED REPORT Exam: Resting ECG HR:106 bpm ECG Measurements Heart Rate 106 AXES MD 166 P 62 QRSd 97 QRS 18 QT 333 T 32 QTc 395 Conclusion SINUS TACHYCARDIA ABNORMAL RHYTHM ECG UNCONFIRMED REPORT Electronically signed by : Nate Brooks MD 08/07/2022 15:43:07
[2022-08-07 14:19] LABS: Microscopic, Urine URINE MICROSCOPIC (MICROSCOPIC)
[2022-08-07 15:06] LABS: Appearance,Urine CLEAR (Clear); Blood, Urine Negative (Negative); Color,Urine YELLOW (Yellow); Glucose,Urine (UA) 3+ (Negative); Ketones,Urine 1+ (Negative); Leukocyte Esterase,Urine Negative (Negative); Nitrate,Urine Negative (Negative); Protein,Urine TRACE (Negative); Specific Gravity, Urine 1.025 (1.005-1.030)
[2022-08-07 15:09] LABS: Basophils # 0.1 K/mm3 (0-0.2); Basophils % 1.1 % (0.1-2.0); Eosinophils # 0.1 K/mm3 (0.0-0.4); Eosinophils % 1.4 % (0.1-12.0); Hematocrit 44.4 % (42.0-52.0); Hemoglobin 14.2 g/dL (14.1-18.0); Lymphocytes # 1.3 K/mm3 (0.7-4.5); Lymphocytes % 15.6 % (10-50); Mean Corpuscular HGB Conc 32.1 g/dL (31.8-35.4); Mean Corpuscular Hemoglobin 32.8 pg (27.0-31.2); Mean Corpuscular Volume 102.3 fl (80-94); Mean Platelet Volume 9.5 fl (7.4-10.4); Monocytes # 0.6 K/mm3 (0.1-1.0); Neutrophils % 74.8 % (37.0-80.0); Platelet Count 285 K/mm3 (142-424); Red Blood Count 4.34 M/mm3 (4.60-6.20); Red Cell Distribution Width 13.5 % (11.5-17.5)
[2022-08-07 15:17] LABS: Bilirubin,Urine Negative (Negative)
[2022-08-07 15:18] LABS: Activated Partial Thrombo Time 26.8 seconds (22.8-30.6); INR 1.03 (0.9-1.1); Prothrombin Time 11.1 seconds (10.1-12.5)
[2022-08-07 15:28] LABS: Anion Gap 13.2 mEq/L (5-15); Blood Urea Nitrogen 7 mg/dl (9-20); Calcium 9.1 mg/dl (8.4-10.2); Carbon Dioxide 30 mmol/L (22.0-30.0); Chloride 95 mmol/L (98-107); Estimated Glomerular Filt Rate 174 ml/min (>60); GFR (African American) 210 ML/MIN (>60); Glucose 312 mg/dl (74-100); Potassium 4.2 mmoL/L (3.5-5.1); Sodium 134 mmol/L (136-145)
[2022-08-07 15:53] LABS: Squamous Epithelial Cell,Urine Occasional #/hpf (0-5); WBC,Urine Occasional #/hpf (0-3)
== END ==
PROVIDERS: Physician Assistant Medical; PCP Family Medicine; Visit Provider Neurological Surgery
DX: Z01.818 Encounter for other preprocedural examination (principal); D69.9 Hemorrhagic condition, unspecified; M51.26 Other intervertebral disc displacement, lumbar region; Z11.52 Encounter for screening for COVID-19
CPT/HCPCS: 36415; 80048; 81001; 85025; 85610; 85730; 93005; C9803; U0003; U0005

== ENCOUNTER 2022-09-26 22:19 | Inpatient (IN) | payer OTHER, SELFPAY ==
[2022-09-26 22:20] VITALS: BP 129/67; PULSE 121; RESP 18; TEMP 37; O2SAT 96; BMI 36.6
[2022-09-26 22:22] VITALS: BMI 36.6
--- NOTE | 2022-09-26 22:23 | ECG_ITS ---
APPROVED REPORT Exam: Resting ECG HR:113 bpm ECG Measurements Heart Rate 113 AXES AL 156 P 73 QRSd 99 QRS 35 QT 332 T 46 QTc 399 Conclusion SINUS TACHYCARDIA ABNORMAL RHYTHM ECG UNCONFIRMED REPORT Electronically signed by : Nate Brooks MD 09/27/2022 08:36:22
--- NOTE | 2022-09-26 22:23 | CT_ITS ---
PROCEDURE INFORMATION: Exam: CT Abdomen And Pelvis With Contrast Exam date and time: 09/26/2022 11:06 PM Age: 51 years old Clinical indication: Abdominal pain; Additional info: Llq pain, epigastric pain TECHNIQUE: Imaging protocol: Computed tomography of the abdomen and pelvis with contrast. Radiation optimization: All CT scans at this facility use at least one of these dose optimization techniques: automated exposure control; mA and/or kV adjustment per patient size (includes targeted exams where dose is matched to clinical indication); or iterative reconstruction. Contrast material: ISOVUE; Contrast volume: 75 ml; Contrast route: IV; REPORTING DATA: Count of CT and Cardiac NM exams in prior 12 months: This patient has received 0 known CTs and 0 known cardiac nuclear medicine studies in the 12 months prior to the current study. COMPARISON: CR XR HIP LT 2-3V W/PELVIS 05/28/2022 3:28 PM FINDINGS: Liver: Liver is enlarged and diffusely fatty in appearance. No focal hepatic abnormality. Gallbladder and bile ducts: Normal. No calcified stones. No ductal dilation. Pancreas: There is diffuse peripancreatic inflammation and small amount of fluid compatible with acute pancreatitis. There is normal pancreatic enhancement. No loculated peripancreatic fluid collections or pancreatic ductal dilation. Spleen: Normal. No splenomegaly. Adrenal glands: Normal. No mass. Kidneys and ureters: Normal. No hydronephrosis. Stomach and bowel: Unremarkable. No obstruction. No mucosal thickening. Appendix: No evidence of appendicitis. Intraperitoneal space: Unremarkable. No free air. No significant fluid collection. Vasculature: Unremarkable. No abdominal aortic aneurysm. Lymph nodes: Unremarkable. No enlarged lymph nodes. Urinary bladder: Unremarkable as visualized. Reproductive: Unremarkable as visualized. Bones/joints: Right hip prosthesis is noted. Moderate degenerative disc changes and facet arthropathy noted in the lumbar spine. Soft tissues: Unremarkable. IMPRESSION: 1. Moderate findings of acute pancreatitis. 2. Enlarged, fatty liver and chronic osseous changes incidentally noted.
[2022-09-26 22:34] LABS: Basophils # 0.1 K/mm3 (0-0.2); Basophils % 0.6 % (0.1-2.0); Eosinophils # 0.3 K/mm3 (0.0-0.4); Eosinophils % 1.3 % (0.1-12.0); Hematocrit 45.6 % (42.0-52.0); Hemoglobin 15.3 g/dL (14.1-18.0); Lymphocytes # 0.7 K/mm3 (0.7-4.5); Lymphocytes % 3.5 % (10-50); Mean Corpuscular HGB Conc 33.5 g/dL (31.8-35.4); Mean Corpuscular Hemoglobin 33.3 pg (27.0-31.2); Mean Corpuscular Volume 99.2 fl (80-94); Mean Platelet Volume 8.4 fl (7.4-10.4); Monocytes # 0.2 K/mm3 (0.1-1.0); Monocytes % 0.9 % (1.7-9.3); Neutrophils # 18.6 K/mm3 (1.8-7.8); Neutrophils % 93.7 % (37.0-80.0); Platelet Count 291 K/mm3 (142-424); Red Cell Distribution Width 13.1 % (11.5-17.5); White Blood Count 19.9 K/mm3 (4.8-10.8)
[2022-09-26 22:39] LABS: Amylase 326 U/L (30-110)
[2022-09-26 22:40] LABS: MANUAL DIFFERENTIAL MANUAL DIFFERENTIAL (MANUAL DIFF)
[2022-09-26 22:41] LABS: Ammonia 31 umol/L (9-30)
[2022-09-26 22:50] LABS: Potassium 3.5 mmoL/L (3.5-5.1)
[2022-09-26 22:52] LABS: Alanine Aminotransferase 450 U/L (12-78); Albumin/Globulin Ratio 1.2 (1.1-1.8); Alkaline Phosphatase 403 U/L (38-126); Anion Gap 18.5 mEq/L (5-15); Aspartate Amino Transferase 591 U/L (17-59); Bilirubin,Total 13.3 mg/dl (0.2-1.3); Blood Urea Nitrogen 6 mg/dl (9-20); Carbon Dioxide 27 mmol/L (22.0-30.0); Creatinine Clearance Estimated 164 mL/min (50-200); Estimated Glomerular Filt Rate 88 ml/min (>60); GFR (African American) 107 ML/MIN (>60); Globulin 3.3 g/dL (1.3-3.2); Total Protein,Serum 7.3 g/dl (6.3-8.2)
--- NOTE | 2022-09-26 22:52 | HMH.EDABDPAI ---
Discharge Plan Disposition Patient Disposition: Admitted As Inpatient Chief Complaint: Abdominal Pain Clinical Impressions Clinical Impression: Acute pancreatitis, Acute liver failure, Diabetes mellitus, Acute hyponatremia Discharge ED Provider: Suraj (ED)Braxton Abdominal Pain HPI General Chief Complaint: Abdominal Pain Stated Complaint: LUQ & epigastric pain, SOA Time Seen by Provider: 09/26/22 22:20 Mode of Arrival: Wheelchair Source of Information: Patient, Spouse and Medical Record Limitations: No Limitations Description of Symptoms (Recalled from ER Triage Doc. by RN): pt c/o LLQ pain, n/v and jaundice since last night History of Present Illness HPI narrative: progressive upper abd pain with n/v and dec po intake and vomiting over the last few days MD complaint: abdominal pain Onset (ago): day(s) Consistency: intermittent Location: LUQ Severity: moderate Quality: sharp Associated symptoms: denies other symptoms Related Data Home Medications Medication Instructions Recorded Confirmed amlodipine 5 mg tablet 10 mg PO DAILY Hypertension 01/08/20 05/26/22 glimepiride 4 mg tablet 4 mg PO DAILY Diabetes 01/08/20 05/26/22 lisinopril 20 20 mg PO DAILY Hypertension 01/08/20 05/26/22 mg-hydrochlorothiazide 12.5 mg tablet dulaglutide 1.5 mg/0.5 mL 4.5 mg SQ WEEKLY Diabetes 05/10/20 05/26/22 subcutaneous pen injector (Trulicity) omega-3 fatty acids 1,000 mg 1,000 mg PO DAILY Supplement 05/10/20 05/26/22 capsule (Fish Oil Concentrate) pantoprazole 20 mg tablet,delayed 20 mg PO DAILY GERD 05/10/20 05/26/22 release simvastatin 20 mg tablet 40 mg PO HS Cholesterol 05/10/20 05/26/22 oxycodone-acetaminophen 5 mg-325 1 tab PO QID Pain 02/20/22 05/26/22 mg tablet metformin 850 mg tablet 850 mg PO DAILY Diabetes 09/26/22 09/26/22 pregabalin 75 mg capsule 75 mg PO TID . 09/26/22 09/26/22 sulindac 200 mg tablet 200 mg PO BID . 09/26/22 09/26/22 tamsulosin 0.4 mg capsule 0.4 mg PO HS prostate 09/26/22 09/26/22 Allergies Allergy/AdvReac Type Severity Reaction Status Date / Time No Known Allergies Allergy Verified 05/26/22 16:30 [facility] Disclaimer: The information contained in this section may have been updated after the patient was seen, as this information can be updated by other users. 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 current occupational exposures/hazards: Yes caffeine: Yes ROS Obtained: Yes All systems reviewed & no additional complaints except as documented Physical Exam General General appearance: alert Head Head exam: normocephalic Eye Eye exam: Present PERRL, EOMI and scleral icterus ENT ENT exam: Present mucous membranes dry Neck Neck exam: Present trachea midline Respiratory Respiratory exam: Absent respiratory distress Cardiovascular Cardiovascular exam: Present regular rate Abdominal Exam Abdominal exam: Present soft and tenderness; Absent guarding, rebound or ascites Abdominal tenderness: Present LUQ and moderate Extremities Exam Extremities exam: Present full ROM Neurological Exam Neurological exam: Present alert, oriented X3 and CN II-XII intact; Absent motor sensory deficit Psychiatric Psychiatric exam: Present normal affect Skin Skin exam: Absent rash Medical Decision Making Medical Records Medical records reviewed: Yes I reviewed the patient's medical records. Theo Inquir
[2022-09-26 22:53] LABS: Calcium 8.4 mg/dl (8.4-10.2); Glucose 359 mg/dl (74-100)
[2022-09-26 22:57] LABS: Procalcitonin 1.09 ng/mL (0.0-2.0)
[2022-09-26 22:58] LABS: Chloride 73 mmol/L (98-107); Sodium 115 mmol/L (136-145)
[2022-09-26 22:59] LABS: Troponin I < 0.01 ng/ml (0.00-0.034)
--- NOTE | 2022-09-26 23:00 | PC.NURSE ---
notified carlos of critical chloride 73 sodium 115
--- NOTE | 2022-09-26 23:00 | PC.NURSE ---
Pt gone to RAD via stretcher
[2022-09-26 23:01] LABS: Lipase 2693 U/L (23-300)
--- NOTE | 2022-09-26 23:05 | PC.NURSE ---
pt to ct scan
[2022-09-26 23:06] LABS: Lymphocytes % 2 % (10-50); Monocytes % 1 % (2-9); Neutrophils % 89 % (42-76); Total Cells Counted 100
[2022-09-26 23:07] LABS: Platelet Estimate Normal
[2022-09-26 23:09] LABS: Erythrocyte Sedimentation Rate 13 mm/hr (0-20); Stomatocytes 1+
[2022-09-26 23:10] LABS: INR 1.32 (0.9-1.1)
[2022-09-26 23:11] LABS: Lactic Acid 3.2 mmol/L (0.7-2.1)
--- NOTE | 2022-09-26 23:12 | PC.NURSE ---
Pt back from RAD
[2022-09-26 23:14] LABS: Acetone, Serum (Rapid) None Detected (None Detect)
[2022-09-26 23:30] LABS: Ethyl Alcohol < 10 mg/dl (0-10)
[2022-09-26 23:39] LABS: Coronavirus 19, PCR Not Detected (NotDetected); Influenza A, PCR Not Detected (NotDetected); Influenza B, PCR Not Detected (NotDetected)
--- NOTE | 2022-09-26 23:48 | PC.NURSE ---
Dr. Cecilia anderson
[2022-09-26 23:50] VITALS: BP 104/76; PULSE 107; O2SAT 94
--- NOTE | 2022-09-26 23:50 | PC.NURSE ---
Lab advised 16 minutes remaining on covid swab
--- NOTE | 2022-09-26 23:51 | PC.NURSE ---
Dr. Ruelas speaking with Dr. Brooks
--- NOTE | 2022-09-26 23:54 | PC.NURSE ---
carlos on phone with dr mortensen
--- NOTE | 2022-09-26 23:56 | PC.NURSE ---
House notified of pt admission
--- NOTE | 2022-09-26 23:57 | PC.NURSE ---
Dr. Ruelas at [facility] updating pt/family on POC
[2022-09-27] VITALS (10 sets, daily range): BP systolic 108–131; BP diastolic 64–77; PULSE 96–114; RESP 18; TEMP 36.7–37.6; O2SAT 93–98; BMI 35.0; BMI 34.9
--- NOTE | 2022-09-27 | PC.NURSE ---
dr gonzalez aware of pt meeting SIRS criteria and organ dysfunction. states that there is no source of infection
--- NOTE | 2022-09-27 01:18 | PC.NURSE ---
pt arrived 0050 via wheelchair
[2022-09-27 02:20] LABS: Reflex Lactic Add Lactic Reflex
--- NOTE | 2022-09-27 02:30 | PC.NURSE ---
Notified MD Brooks regarding pt meeting sepsis criteria. No abx currently ordered. no new orders at this time.
[2022-09-27 02:31] LABS: Lactic Acid Follow Up (RFLX 1) 1.8 mmol/L (0.7-2.1)
[2022-09-27 02:45] LABS: Troponin I < 0.01 ng/ml (0.00-0.034)
--- NOTE | 2022-09-27 03:15 | PC.NURSE ---
Notified Dr Brooks of pts pain being unchanged after 2mg Morphine. Order changed to Dilaudid 1 mg Q1HR PRN
[2022-09-27 04:55] LABS: POC Glucose,Bedside 284 (70-110)
[2022-09-27 05:00] LABS: Troponin I < 0.01 ng/ml (0.00-0.034)
[2022-09-27 07:47] LABS: Basophils % 0.3 % (0.1-2.0); Eosinophils # 0.1 K/mm3 (0.0-0.4); Eosinophils % 0.4 % (0.1-12.0); Hematocrit 40.4 % (42.0-52.0); Lymphocytes # 0.8 K/mm3 (0.7-4.5); Lymphocytes % 5.3 % (10-50); Mean Corpuscular Hemoglobin 32.7 pg (27.0-31.2); Mean Platelet Volume 8.6 fl (7.4-10.4); Monocytes # 0.3 K/mm3 (0.1-1.0); Monocytes % 1.9 % (1.7-9.3); Neutrophils # 14.2 K/mm3 (1.8-7.8); Neutrophils % 92.1 % (37.0-80.0); Platelet Count 206 K/mm3 (142-424); Red Blood Count 4.08 M/mm3 (4.60-6.20); White Blood Count 15.4 K/mm3 (4.8-10.8)
[2022-09-27 07:49] LABS: Alanine Aminotransferase 331 U/L (12-78); Albumin Level 3.2 g/dl (3.5-5.0); Albumin/Globulin Ratio 1.1 (1.1-1.8); Alkaline Phosphatase 286 U/L (38-126); Anion Gap 11.4 mEq/L (5-15); Aspartate Amino Transferase 360 U/L (17-59); Bilirubin,Total 9.7 mg/dl (0.2-1.3); Blood Urea Nitrogen 7 mg/dl (9-20); Calcium 7.5 mg/dl (8.4-10.2); Carbon Dioxide 30 mmol/L (22.0-30.0); Chloride 80 mmol/L (98-107); Chol/HDL Ratio 8.4 (1-3.5); Cholesterol 168 mg/dl (140-200); Creatinine Clearance Estimated 177 mL/min (50-200); Estimated Glomerular Filt Rate 101 ml/min (>60); GFR (African American) 122 ML/MIN (>60); Glucose 212 mg/dl (74-100); HDL Cholesterol 20 mg/dl (40-60); Lipase 1322 U/L (23-300); Magnesium 1.7 mg/dl (1.6-2.3); Potassium 3.4 mmoL/L (3.5-5.1); Sodium 118 mmol/L (136-145); Total Protein,Serum 6.2 g/dl (6.3-8.2)
[2022-09-27 07:52] LABS: Triglycerides 455 mg/dl (30-150)
[2022-09-27 07:53] LABS: MANUAL DIFFERENTIAL MANUAL DIFFERENTIAL (MANUAL DIFF)
[2022-09-27 08:14] LABS: Ammonia 103 umol/L (9-30)
[2022-09-27 09:30] LABS: Eosinophils % 1 % (0-3); Lymphocytes % 7 % (10-50); Monocytes % 3 % (2-9); Neutrophils % 89 % (42-76); Total Cells Counted 100
--- NOTE | 2022-09-27 09:31 | HMH.PHAINT1 ---
Pharmacy Intervention Comments: MEDICATION RECONCILIATION COMPLETE USING EXTERNAL PHARMACY FILL HISTORY.
[2022-09-27 09:35] LABS: Macrocytosis 1+; Platelet Estimate Normal; Stomatocytes 1+
[2022-09-27 09:56] LABS: Hemoglobin 13.3 g/dL (14.1-18.0)
--- NOTE | 2022-09-27 10:04 | EXP.HP ---
History of Present Illness *Admission Date: 09/27/22 *Reason for visit:: Vomiting/Abd pain/jaundice *History of present illness: Mr. Nation is a 51 year old patient of [facility] who presented to [facility] ER last night complaining of abdominal pain and vomiting for jaundice for several days. Patient reports having back surgery about 6 weeks ago and states he had a lot of postoperative pain. He took a lot of OTC pain medications and Percocet that was prescribed by his surgeon but could not get enough pain relief. He states he started increasing the amount of alcohol he would drink to help with his pain. He reports he was drinking about 12 cans of beer per day. He states over the past week he began to have upper abdominal pain associated with vomiting. He states over the past few days he noticed yellowing of his skin. He has not had a bowel movement in 4 days. He feels very weak. He last drank beer 2 days ago. He has a history of alcoholism and many years ago once was in rehab [facility] Disclaimer: The information contained in this section may have been updated after the patient was seen, as this information can be updated by other users. Medical History (Updated 09/27/22 @ 10:23 by Marc Verduzco MD) Alcoholism Anxiety Basal cell carcinoma of skin COVID-19 Degenerative joint disease (DJD) of lumbar spine Diabetes mellitus Fusion of spine, cervical region GERD (gastroesophageal reflux disease) Hyperlipidemia Hypertension Sleep apnea Surgical History (Updated 09/27/22 @ 10:19 by Marc Verduzco MD) H/O bone graft H/O discectomy History of total right hip arthroplasty S/P fusion of sacroiliac joint Family History (Updated 09/27/22 @ 10:20 by Marc Verduzco MD) Diabetes Bladder cancer Heart attack Breast cancer Social History (Updated 09/27/22 @ 10:21 by Marc Verduzco MD) Smoking Status: Never smoker second hand exposure: No alcohol intake: current substance use type: denies use and other current occupational status: employed Travel in the last 8 weeks: None household members: spouse housing: house 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 occupational exposures/hazards: Yes caffeine: Yes Review of Systems Constitutional Constitutional: Denies chills and Denies fever(s) Eyes Eyes: Denies change in vision ENT Ears, Nose, Mouth, and Throat: Denies bleeding gums and Denies dizziness *Cardiovascular Cardiovascular: Denies chest pain *Respiratory Respiratory: Denies cough *Gastrointestinal Gastrointestinal: Reports as per HPI *Genitourinary Genitourinary: Denies difficulty urinating *Musculoskeletal Musculoskeletal: Reports back pain *Neurologic Neurologic: Denies dizziness Meds Home Medications and Allergies Home Medications Medication Instructions Recorded Confirmed Type glimepiride 4 mg tablet 4 mg PO DAILY Diabetes 01/08/20 09/27/22 History metformin 850 mg tablet 850 mg PO DAILYDM Diabetes 09/26/22 09/27/22 History sulindac 200 mg tablet 200 mg PO BID MILD JOINT PAIN 09/26/22 09/27/22 History tamsulosin 0.4 mg capsule 0.4 mg PO HS prostate 09/26/22 09/27/22 History amlodipine 10 mg tablet 10 mg PO DAILY High blood pressure 09/27/22 09/27/22 History dulaglutide 4.5 mg/0.5 mL 4.5 mg SQ WEEKLY Diabetes 09/27/22 09/27/22 History subcutaneous pen injector (Trulicity) lisinopril 20 1 tab PO DAILY High blood pressure 09/27/22 09/27/22 History mg-hydrochlorothiazide 25 mg tablet pantoprazole 40 mg tablet,delayed 40 mg PO DAILY Reflux/Acid reflux 09/27/22 09/27/22 History release sildenafil (pulm.hypertension) 20 20 mg PO NEEDED PRN Erectile 09/27/22 09/27/22 History mg tablet Dysfunction simvastatin 40 mg tablet 40 mg PO HS High cholesterol 09/27/22 09/27/22 History New Prescriptions to Start Prescriptions: Allergies Allergy/AdvReac Type Severity Reaction Status Date / Time No Known Allergies Allergy Verified 05/26/22 16:30 Exam
[2022-09-27 11:12] LABS: POC Glucose,Bedside 275 (70-110)
[2022-09-27 17:40] LABS: POC Glucose,Bedside 286 (70-110)
--- NOTE | 2022-09-27 18:05 | PC.NURSE ---
PT IS RESTING IN BED WITH FAMILY AT BEDSIDE. ALERT AND ORIENTED X4. THIS AFTERNOON PT REQUESTED SOME BENADRYL B/C HE STATED HE WAS ITCHING ALL OVER. NOTIFIED AND HE ORDERED A ONE TIME DOSE OF BENADRYL AND SWITCHED HIS DILAUDID TO MORPHINE 4 MG Q2H PRN. AFTER PT RECEIVED BENADRYL HE STATED IT IS REALLY HOT IN THIS ROOM PT WAS OBVIOUSLY SWEATING. MILD TREMOR. STATED HE WOULD OCCASIONALLY SEE RANDOM IMAGES ON THE WALL AND PEOPLE IN THE ROOM BUT PT IS AWARE IT'S NOT THERE AND THINKS IT'S B/C HE HAS NOT SLEPT IN 4 DAYS. CIWA SCORE 10 AT THE TIME. MEDICATED WITH SERAX PER SEP. MEDICATED PER SEP FOR ABDOMINAL PAIN. PT WAS ABLE TO SLEEP FOR A FEW HOURS THIS AFTERNOON. WILL CONTINUE TO MONITOR.
--- NOTE | 2022-09-27 20:19 | PC.NURSE ---
Pt requesting pain medication, no current order on SEP. Spoke with Dr Brooks states current pain medication order should be Dilaudid 2mg IV Q3 HR PRN. Spoke with Annette at [facility] pharmacy to re-enter order on SEP.
[2022-09-27 20:53] LABS: POC Glucose,Bedside 218 (70-110)
[2022-09-28] VITALS (13 sets, daily range): BP systolic 114–140; BP diastolic 60–89; PULSE 89–121; RESP 16–20; TEMP 36.7–37.6; O2SAT 92–96; BMI 34.4
[2022-09-28 05:20] LABS: POC Glucose,Bedside 205 (70-110)
[2022-09-28 06:15] LABS: Basophils % 0.4 % (0.1-2.0); Eosinophils # 0.1 K/mm3 (0.0-0.4); Eosinophils % 0.8 % (0.1-12.0); Hematocrit 37.9 % (42.0-52.0); Lymphocytes # 0.7 K/mm3 (0.7-4.5); Lymphocytes % 7.6 % (10-50); Mean Corpuscular HGB Conc 31.6 g/dL (31.8-35.4); Mean Corpuscular Hemoglobin 32.5 pg (27.0-31.2); Mean Corpuscular Volume 102.8 fl (80-94); Mean Platelet Volume 9.2 fl (7.4-10.4); Monocytes # 0.3 K/mm3 (0.1-1.0); Monocytes % 3.1 % (1.7-9.3); Neutrophils # 7.8 K/mm3 (1.8-7.8); Neutrophils % 88.1 % (37.0-80.0); Platelet Count 164 K/mm3 (142-424); Red Blood Count 3.68 M/mm3 (4.60-6.20); Red Cell Distribution Width 13.2 % (11.5-17.5); White Blood Count 8.9 K/mm3 (4.8-10.8)
[2022-09-28 06:25] LABS: MANUAL DIFFERENTIAL MANUAL DIFFERENTIAL (MANUAL DIFF)
[2022-09-28 06:26] LABS: Alanine Aminotransferase 225 U/L (12-78); Albumin Level 3.1 g/dl (3.5-5.0); Alkaline Phosphatase 268 U/L (38-126); Amylase 124 U/L (30-110); Anion Gap 13.9 mEq/L (5-15); Aspartate Amino Transferase 205 U/L (17-59); Bilirubin,Total 8.1 mg/dl (0.2-1.3); Blood Urea Nitrogen 17 mg/dl (9-20); Calcium 7.4 mg/dl (8.4-10.2); Carbon Dioxide 28 mmol/L (22.0-30.0); Chloride 84 mmol/L (98-107); Creatinine Clearance Estimated 127 mL/min (50-200); Estimated Glomerular Filt Rate 70 ml/min (>60); GFR (African American) 85 ML/MIN (>60); Globulin 3.2 g/dL (1.3-3.2); Glucose 186 mg/dl (74-100); Lipase 354 U/L (23-300); Magnesium 2.4 mg/dl (1.6-2.3); Phosphorous 3.8 mg/dl (2.5-4.5); Potassium 3.9 mmoL/L (3.5-5.1); Sodium 122 mmol/L (136-145); Total Protein,Serum 6.3 g/dl (6.3-8.2)
--- NOTE | 2022-09-28 06:56 | PC.NURSE ---
Pt c/o upper abdominal pain several times this shift, was medicated PRN per SEP. CIWA score 3 this shift shift, medicated PRN per SEP. Pt sclera and skin jaundiced. Urine very dark, tea colored. UOP this shift- 325ml.
[2022-09-28 07:04] LABS: Activated Partial Thrombo Time 31.5 seconds (22.8-30.6); INR 1.16 (0.9-1.1); Prothrombin Time 12.4 seconds (10.1-12.5)
[2022-09-28 07:12] LABS: Lymphocytes % 10 % (10-50); Monocytes % 6 % (2-9); Neutrophils % 84 % (42-76); Total Cells Counted 100
[2022-09-28 07:13] LABS: Anisocytosis 1+; Hypochromasia 1+; Macrocytosis 1+; Platelet Estimate Normal
--- NOTE | 2022-09-28 08:24 | EXP.PN ---
Subjective *Date: 09/28/22 *Time: 09:04 Interval history: Patient states he is feeling terrific. He did require pain medicine but states it is much less. He denies nausea and vomiting. He has had some ice chips without problems. He is ambulated in the room. He has a diminished urinary output. Bowels have not moved. Abdomen is not as sore. Decreased urinary output. 400 ml documented. Actually lost weight. Liver function studies have improved. Bilirubin is down. Sodium is up to 122. Exam Data for Last 24 hours Vital signs and Labs for Last 24 Hours: Temp Pulse Resp BP Pulse Ox 99.7 F H 113 H 20 114/60 92 L 09/28/22 07:33 09/28/22 07:33 09/28/22 07:33 09/28/22 07:33 09/28/22 07:33 Laboratory Results - last 24 hr 09/27/22 06:28: Hgb 13.3 L D, Total Counted 100, Neutrophils % (Manual) 89 H, Lymphocytes % (Manual) 7 L, Monocytes % (Manual) 3, Eosinophils % (Manual) 1, Platelet Estimate Normal, Macrocytosis 1+, Stomatocytes 1+ 09/27/22 11:00: POC Glucose 275 H 09/27/22 17:21: POC Glucose 286 H 09/27/22 20:32: POC Glucose 218 H 09/28/22 04:42: POC Glucose 205 H 09/28/22 05:15: WBC 8.9 D, RBC 3.68 L, Hgb 12.0 L, Hct 37.9 L, MCV 102.8 H, MCH 32.5 H, MCHC 31.6 L, RDW 13.2, Plt Count 164, MPV 9.2, Neut % (Auto) 88.1 H, Lymph % (Auto) 7.6 L, [place] % (Auto) 3.1, Eos % (Auto) 0.8, Baso % (Auto) 0.4, Neut # (Auto) 7.8, Lymph # (Auto) 0.7, [place] # (Auto) 0.3, Eos # (Auto) 0.1, Baso # (Auto) 0.0, Total Counted 100, Neutrophils % (Manual) 84 H, Lymphocytes % (Manual) 10, Monocytes % (Manual) 6, Platelet Estimate Normal, Hypochromasia 1+, Anisocytosis 1+, Macrocytosis 1+ 09/28/22 05:15: PT 12.4, INR 1.16 H, APTT 31.5 H 09/28/22 05:15: Sodium 122 L, Potassium 3.9, Chloride 84 L, Carbon Dioxide 28, Anion Gap 13.9, BUN 17 D, Creatinine 1.10 D, Estimated Creat Clear 127, Estimated GFR 70, Est GFR ( Amer) 85 D, Glucose 186 H, Calcium 7.4 L, Total Bilirubin 8.1 H, AST 205 H D, ALT 225 H D, Alkaline Phosphatase 268 H, Total Protein 6.3, Albumin 3.1 L, Globulin 3.2, Albumin/Globulin Ratio 1.0 L, Amylase 124 H, Lipase 354 H 09/28/22 05:15: Phosphorus 3.8, Magnesium 2.4 H D I & O for Last 24 hours: Intake & Output 09/25/22 09/26/22 09/27/22 09/28/22 11:59 11:59 11:59 11:59 Intake Total 0 / 0 2924 / 2924 Output Total 375 / 375 400 / 400 Balance -375 / -375 2524 / 2524 Weight 258 lb 3.992 oz 254 lb 8 oz Constitutional Constitutional: no acute distress Comments: Talkative. Appears comfortable *Routine HEENT Exam Eye: Present conjunctival icterus *Routine Respiratory Exam Respiratory: Present CTA bilaterally (Anteriorly and posteriorly) *Routine Cardiovascular Exam Cardiovascular: Present RRR *Routine Abdominal Exam Abdominal: Present soft, normoactive bowel sounds, tenderness (Diffuse) and distended *Routine Exam Testicular: left: mass (non tender, 1-2cm, no erythema, moveable) *Routine Extremities Exam Extremities: Absent edema or calf tenderness Assessment and Plan *Assessment and plan (1) Acute pancreatitis: Status: Acute Qualifiers: Acute pancreatitis complication: unspecified Pancreatitis type: alcohol induced Qualified Code(s): K85.20 - Alcohol induced acute pancreatitis without necrosis or infection Category: Medical Code(s): K85.90 - Acute pancreatitis without necrosis or infection, unspecified (2) Acute liver failure: Status: Acute Qualifiers: Hepatic coma status: without hepatic coma Qualified Code(s): K72.00 - Acute and subacute hepatic failure without coma Category: Medical Code(s): K72.00 - Acute and subacute hepatic failure without coma (3) Diabetes mellitus: Status: Acute Qualifiers: Diabetes mellitus complication status: without complication Diabetes mellitus senior living insulin use: without senior living use Diabetes mellitus type: type 2 Qualified Code(s): E11.9 - Type 2 diabetes mellitus without complicat
[2022-09-28 10:51] LABS: Microscopic, Urine URINE MICROSCOPIC (MICROSCOPIC)
[2022-09-28 10:57] LABS: Appearance,Urine CLOUDY (Clear); Blood, Urine TRACE-I (Negative); Color,Urine AMBER (Yellow); Glucose,Urine (UA) TRACE (Negative); Ketones,Urine 1+ (Negative); Leukocyte Esterase,Urine TRACE (Negative); Nitrate,Urine POSITIVE (Negative); PH,Urine 5.5 (5.0-8.5); Protein,Urine 2+ (Negative); Specific Gravity, Urine >= 1.030 (1.005-1.030)
[2022-09-28 10:58] LABS: Bilirubin,Urine 3+ (Negative)
[2022-09-28 11:16] LABS: Bacteria,Urine 4+ /lpf; Fine Granular Casts,Urine Occasional #/lpf (0); RBC,Urine Occasional #/hpf (0-3); Squamous Epithelial Cell,Urine Occasional #/hpf (0-5)
[2022-09-28 11:30] LABS: POC Glucose,Bedside 306 (70-110)
[2022-09-28 16:56] LABS: POC Glucose,Bedside 158 (70-110)
--- NOTE | 2022-09-28 17:05 | PC.NURSE ---
PT HAS BEEN SITTING UP IN BED VISITING WITH FAMILY SINCE THIS NURSE TOOK OVER CARE. PT HAS C/O INTERMITTENT PAIN TO UPPER ABD. TX PER SEP. PT HAS NO OTHER NEEDS OR C/O NOTED AT THIS TIME. CIWA SCORE OF 0. VSS.
[2022-09-28 21:53] LABS: POC Glucose,Bedside 141 (70-110)
[2022-09-29] VITALS (10 sets, daily range): BP systolic 112–160; BP diastolic 71–83; PULSE 87–110; RESP 17–18; TEMP 36.5–36.9; O2SAT 92–99; BMI 34.7; BMI 34.6
--- NOTE | 2022-09-29 04:29 | PC.NURSE ---
The patient remained hemodynamically stable throughout the night. He reports reduced abdominal pain but is still requiring IV dilaudid for pain control. he is on room air and he is able to ambulate to the bathroom independently.
[2022-09-29 06:43] LABS: Basophils # 0.1 K/mm3 (0-0.2); Basophils % 0.9 % (0.1-2.0); Eosinophils # 0.1 K/mm3 (0.0-0.4); Eosinophils % 1.2 % (0.1-12.0); Hematocrit 36.7 % (42.0-52.0); Hemoglobin 11.3 g/dL (14.1-18.0); Lymphocytes # 0.7 K/mm3 (0.7-4.5); Lymphocytes % 9.9 % (10-50); Mean Corpuscular HGB Conc 30.7 g/dL (31.8-35.4); Mean Corpuscular Hemoglobin 32.5 pg (27.0-31.2); Mean Corpuscular Volume 105.9 fl (80-94); Monocytes # 0.4 K/mm3 (0.1-1.0); Monocytes % 5.8 % (1.7-9.3); Neutrophils # 5.8 K/mm3 (1.8-7.8); Neutrophils % 82.2 % (37.0-80.0); Platelet Count 173 K/mm3 (142-424); Red Blood Count 3.47 M/mm3 (4.60-6.20); Red Cell Distribution Width 13.4 % (11.5-17.5); White Blood Count 7.1 K/mm3 (4.8-10.8)
[2022-09-29 06:51] LABS: Alanine Aminotransferase 203 U/L (12-78); Albumin Level 3.1 g/dl (3.5-5.0); Alkaline Phosphatase 399 U/L (38-126); Amylase 64 U/L (30-110); Anion Gap 11.5 mEq/L (5-15); Aspartate Amino Transferase 227 U/L (17-59); Bilirubin,Total 11.1 mg/dl (0.2-1.3); Blood Urea Nitrogen 13 mg/dl (9-20); Calcium 7.3 mg/dl (8.4-10.2); Carbon Dioxide 28 mmol/L (22.0-30.0); Chloride 85 mmol/L (98-107); Creatinine Clearance Estimated 176 mL/min (50-200); Estimated Glomerular Filt Rate 101 ml/min (>60); GFR (African American) 122 ML/MIN (>60); Globulin 3.2 g/dL (1.3-3.2); Glucose 247 mg/dl (74-100); Lipase 249 U/L (23-300); Potassium 3.5 mmoL/L (3.5-5.1); Sodium 121 mmol/L (136-145); Total Protein,Serum 6.3 g/dl (6.3-8.2)
[2022-09-29 07:24] LABS: POC Glucose,Bedside 275 (70-110)
--- NOTE | 2022-09-29 08:35 | EXP.PN ---
Subjective *Date: 09/29/22 *Time: 09:01 Interval history: Patient denies any nausea and has had no vomiting. He has had his small amount of stool. He is taking full liquids and would like some food.. He is voiding QS last 24 hours. He is concerned about his heart rate being elevated. He has had no chest pain and denies shortness of breath. He has ambulated in the room without difficulty. He continues with abdominal discomfort requiring Dilaudid although frequency requirement is less. He did have an itching spell during the night requiring Benadryl. He states he thinks this was the sheets. Family brought in sheets from [facility] which made a big difference. Liver function studies are slightly worse today. Exam Data for Last 24 hours Vital signs and Labs for Last 24 Hours: Temp Pulse Resp BP Pulse Ox 97.7 F 107 H 17 127/71 92 L 09/29/22 07:48 09/29/22 07:48 09/29/22 07:48 09/29/22 07:48 09/29/22 07:48 Laboratory Results - last 24 hr 09/28/22 07:26: Urine Color Nohemy, Urine Appearance Cloudy, Urine pH 5.5, Ur Specific [place] >= 1.030, Urine Protein 2+, Urine Glucose (UA) Trace, Urine Ketones 1+, Urine Blood Trace-i, Urine Nitrate Positive, Urine Bilirubin 3+ A, Urine Urobilinogen 2.0, Ur Leukocyte Esterase Trace, Urine RBC Occasional, Urine WBC 5-10, Ur Squamous Epith Cells Occasional, Urine Bacteria 4+, Hyaline Casts 3-5, Fine Granular Casts Occasional 09/28/22 11:23: POC Glucose 306 H* 09/28/22 16:39: POC Glucose 158 H 09/28/22 21:37: POC Glucose 141 H 09/29/22 06:02: WBC 7.1, RBC 3.47 L, Hgb 11.3 L, Hct 36.7 L, MCV 105.9 H, MCH 32.5 H, MCHC 30.7 L, RDW 13.4, Plt Count 173, MPV 9.0, Neut % (Auto) 82.2 H, Lymph % (Auto) 9.9 L, [place] % (Auto) 5.8, Eos % (Auto) 1.2, Baso % (Auto) 0.9, Neut # (Auto) 5.8, Lymph # (Auto) 0.7, [place] # (Auto) 0.4, Eos # (Auto) 0.1, Baso # (Auto) 0.1 09/29/22 06:02: Sodium 121 L, Potassium 3.5, Chloride 85 L, Carbon Dioxide 28, Anion Gap 11.5, BUN 13, Creatinine 0.80 D, Estimated Creat Clear 176, Estimated GFR 101, Est GFR ( Amer) 122 D, Glucose 247 H, Calcium 7.3 L, Total Bilirubin 11.1 H*, AST 227 H, ALT 203 H, Alkaline Phosphatase 399 H, Total Protein 6.3, Albumin 3.1 L, Globulin 3.2, Albumin/Globulin Ratio 1.0 L, Amylase 64, Lipase 249 09/29/22 06:27: POC Glucose 275 H I & O for Last 24 hours: Intake & Output 09/26/22 09/27/22 09/28/22 09/29/22 11:59 11:59 11:59 11:59 Intake Total 0 / 0 3764 / 3764 2470 / 2470 Output Total 375 / 375 750 / 750 2350 / 2350 Balance -375 / -375 3014 / 3014 120 / 120 Weight 258 lb 3.992 oz 254 lb 8 oz 256 lb 5 oz Microbiology Reports for the Last 24 Hours: Microbiology 09/26/22 22:42 Blood Blood Culture - Preliminary NO GROWTH AFTER 48 HOURS 09/26/22 22:48 Blood Blood Culture - Preliminary NO GROWTH AFTER 48 HOURS Constitutional Constitutional: no acute distress Comments: Moves without difficulty in and out of the bed. *Routine Respiratory Exam Respiratory: Present CTA bilaterally Comments: Anteriorly and posteriorly *Routine Cardiovascular Exam Cardiovascular: Present RRR (Monitor showing sinus rhythm 100-105) *Routine Abdominal Exam Abdominal: Present soft, normoactive bowel sounds, tenderness (Describes more like soreness in upper quads) and obese *Routine Skin Exam Skin: Present urticaria and rash (Fading rash on back) *Routine Neurological Exam Neurological: Present alert and oriented X3 Assessment and Plan *Assessment and plan (1) Acute pancreatitis: Status: Acute Qualifiers: Acute pancreatitis complication: unspecified Pancreatitis type: alcohol induced Qualified Code(s): K85.20 - Alcohol induced acute pancreatitis without necrosis or infection Category: Medical Code(s): K85.90 - Acute pancreatitis without necrosis or infection, unspecified (2) Acute liver failure: Status: Acute Qualifiers: Hepatic
--- NOTE | 2022-09-29 09:02 | US_ITS ---
FINAL REPORT CLINICAL HISTORY: Elevated bilirubin, pancreatitis FINDINGS: Ultrasound images of the right upper quadrant were obtained. The liver parenchyma is increased echogenicity. The liver appears enlarged. The gallbladder is well visualized and the wall appears normal. There is sludge in the gallbladder. There are no gallstones. The common duct is normal. Limited images of the right kidney are unremarkable. IMPRESSION: Enlarged fatty liver. Reviewed, Interpreted and Dictated by Ishan Maza MD Transcribed by Paul Wang Authenticated and [facility]
[2022-09-29 12:29] LABS: POC Glucose,Bedside 166 (70-110)
[2022-09-29 16:05] LABS: POC Glucose,Bedside 248 (70-110)
--- NOTE | 2022-09-29 18:07 | PC.NURSE ---
A&OX4. TOLERATING RA WELL. PT HAS C/O INTERMITTENT ABD PAIN, TX PER SEP. PT ALSO REQUESTED FLUIDS TO BE STOPPED, MD OKAY TO STOP FLUIDS. PT ALSO REQUESTED LASIX FOR SWELLING, X1 DOSE GIVEN PER MD ORDER. UP INDEPENDENTLY IN ROOM. TOLERATING BLAND DIET WELL. FAMILY AT BEDSIDE. NO OTHER NEEDS OR C/O NOTED. VSS.
[2022-09-29 20:30] LABS: POC Glucose,Bedside 347 (70-110)
[2022-09-30] VITALS: BP 136/74; PULSE 100; PULSE 73; RESP 18; TEMP 36.7; O2SAT 94
[2022-09-30 04:00] VITALS: BP 134/75; PULSE 90; PULSE 91; RESP 20; TEMP 36.8; O2SAT 95; BMI 36.0
[2022-09-30 06:21] LABS: Alanine Aminotransferase 189 U/L (12-78); Alkaline Phosphatase 481 U/L (38-126); Aspartate Amino Transferase 193 U/L (17-59); Bilirubin,Total 8.8 mg/dl (0.2-1.3); Blood Urea Nitrogen 9 mg/dl (9-20); Calcium 7.6 mg/dl (8.4-10.2); Carbon Dioxide 37 mmol/L (22.0-30.0); Chloride 87 mmol/L (98-107); Creatinine Clearance Estimated 243 mL/min (50-200); Estimated Glomerular Filt Rate 141 ml/min (>60); GFR (African American) 171 ML/MIN (>60); Globulin 3.1 g/dL (1.3-3.2); Glucose 307 mg/dl (74-100); Sodium 129 mmol/L (136-145); Total Protein,Serum 6.1 g/dl (6.3-8.2)
[2022-09-30 06:23] LABS: Basophils # 0.1 K/mm3 (0-0.2); Basophils % 1.9 % (0.1-2.0); Eosinophils # 0.1 K/mm3 (0.0-0.4); Eosinophils % 0.9 % (0.1-12.0); Hematocrit 35.5 % (42.0-52.0); Hemoglobin 10.8 g/dL (14.1-18.0); Lymphocytes # 0.8 K/mm3 (0.7-4.5); Lymphocytes % 12.2 % (10-50); Mean Corpuscular HGB Conc 30.6 g/dL (31.8-35.4); Mean Corpuscular Hemoglobin 32.4 pg (27.0-31.2); Mean Corpuscular Volume 106.1 fl (80-94); Mean Platelet Volume 8.8 fl (7.4-10.4); Monocytes # 0.5 K/mm3 (0.1-1.0); Monocytes % 7.2 % (1.7-9.3); Neutrophils # 5.2 K/mm3 (1.8-7.8); Neutrophils % 77.8 % (37.0-80.0); Platelet Count 152 K/mm3 (142-424); Red Blood Count 3.34 M/mm3 (4.60-6.20); Red Cell Distribution Width 13.7 % (11.5-17.5); White Blood Count 6.7 K/mm3 (4.8-10.8)
[2022-09-30 06:27] LABS: POC Glucose,Bedside 299 (70-110)
--- NOTE | 2022-09-30 07:31 | PC.NURSE ---
Pt medicated PRN per SEP for pain. Pt complains of a pain level of 7 in back, shoulders, neck, and legs, and a pain level of 4 in upper abdomen. Pt tolerating diet.+1 pitting edema noted to bilat feel. Sclera and skin jaundiced. UOP improved this shift. Pt non-compliant with diet, glucose levels very elevated this shift. SSI admin per SEP. Pt ambulates around room and to BR independently with no issues. Pt hopeful to go home today.
[2022-09-30 08:00] VITALS: BP 153/89; PULSE 100; PULSE 99; RESP 20; TEMP 36.8; O2SAT 91
--- NOTE | 2022-09-30 08:08 | EXP.PN ---
Subjective *Date: 09/30/22 *Time: 08:22 Interval history: doing OK today; states he is exhausted from inadequate sleep; someone is always checking on him; ate without problems yesterday; continues with abd discomfort and has required pain med; bowels have moved; nursing was concerned about edema and he did receive 40mg of Lasix last night; LFT have improved; Hgb has gradually decreased and is 10.8 this AM RUQ US FINDINGS: Ultrasound images of the right upper quadrant were obtained. The liver parenchyma is increased echogenicity.? The liver appears enlarged.? The gallbladder is well visualized and the wall appears normal.? There is sludge in the gallbladder.? There are no gallstones.? The common duct is normal.? Limited images of the right kidney are unremarkable. IMPRESSION: Enlarged fatty liver. Exam Data for Last 24 hours Vital signs and Labs for Last 24 Hours: Temp Pulse Resp BP Pulse Ox 98.2 F 99 H 20 153/89 H 91 L 09/30/22 08:00 09/30/22 08:00 09/30/22 08:00 09/30/22 08:00 09/30/22 08:00 Laboratory Results - last 24 hr 09/29/22 11:17: POC Glucose 166 H 09/29/22 15:40: POC Glucose 248 H 09/29/22 20:16: POC Glucose 347 H* 09/30/22 05:42: WBC 6.7, RBC 3.34 L, Hgb 10.8 L, Hct 35.5 L, MCV 106.1 H, MCH 32.4 H, MCHC 30.6 L, RDW 13.7, Plt Count 152, MPV 8.8, Neut % (Auto) 77.8, Lymph % (Auto) 12.2, [place] % (Auto) 7.2, Eos % (Auto) 0.9, Baso % (Auto) 1.9, Neut # (Auto) 5.2, Lymph # (Auto) 0.8, [place] # (Auto) 0.5, Eos # (Auto) 0.1, Baso # (Auto) 0.1 09/30/22 05:42: Sodium 129 L, Potassium 4.0, Chloride 87 L, Carbon Dioxide 37 H, Anion Gap 9.0, BUN 9 D, Creatinine 0.60 L D, Estimated Creat Clear 243, Estimated GFR 141, Est GFR ( Amer) 171 D, Glucose 307 H D, Calcium 7.6 L, Total Bilirubin 8.8 H, AST 193 H, ALT 189 H, Alkaline Phosphatase 481 H, Total Protein 6.1 L, Albumin 3.0 L, Globulin 3.1, Albumin/Globulin Ratio 1.0 L 09/30/22 05:46: POC Glucose 299 H I & O for Last 24 hours: Intake & Output 09/27/22 09/28/22 09/29/22 09/30/22 11:59 11:59 11:59 11:59 Intake Total 0 / 0 3764 / 3764 2470 / 2470 960 / 960 Output Total 375 / 375 750 / 750 3150 / 3150 1650 / 1650 Balance -375 / -375 3014 / 3014 -680 / -680 -690 / -690 Weight 258 lb 3.992 oz 254 lb 8 oz 256 lb 5 oz 266 lb 4 oz Microbiology Reports for the Last 24 Hours: Microbiology 09/28/22 07:26 Urine,Clean Catch Urine Culture - Preliminary NO GROWTH AFTER 24 HOURS Constitutional Constitutional: no acute distress *Routine Respiratory Exam Respiratory: Present CTA bilaterally (A&P) *Routine Cardiovascular Exam Cardiovascular: Present RRR (90/min) *Routine Abdominal Exam Abdominal: Present soft, normoactive bowel sounds and obese; Absent tenderness *Routine Extremities Exam Extremities: Present edema (bilateral lower legs are tight) *Routine Neurological Exam Neurological: Present alert and oriented X3 Assessment and Plan *Assessment and plan (1) Acute pancreatitis: Status: Acute Qualifiers: Acute pancreatitis complication: unspecified Pancreatitis type: alcohol induced Qualified Code(s): K85.20 - Alcohol induced acute pancreatitis without necrosis or infection Category: Medical Code(s): K85.90 - Acute pancreatitis without necrosis or infection, unspecified (2) Acute liver failure: Status: Acute Qualifiers: Hepatic coma status: without hepatic coma Qualified Code(s): K72.00 - Acute and subacute hepatic failure without coma Category: Medical Code(s): K72.00 - Acute and subacute hepatic failure without coma (3) Diabetes mellitus: Status: Acute Qualifiers: Diabetes mellitus complication status: without complication Diabetes mellitus senior living insulin use: without senior living use Diabetes mellitus type: type 2 Qualified Code(s): E11.9 - Type 2 diabetes mellitus without complications Category: Medical Code(s): E
--- NOTE | 2022-10-01 13:46 | CARE MANAGER ---
Spoke with patient for post-discharge phone interview, no issues noted.
[2022-10-01 21:50] LABS: Vitamin B1 248.9 nmol/L (66.5-200.0)
--- NOTE | 2022-10-11 14:55 | EXP.DC.SUM ---
General Admission date:: 09/27/22 Discharge date: 09/30/22 HPI HPI HPI: Mr. Nation is a 51 year old patient of [facility] who presented to [facility] ER last night complaining of abdominal pain and vomiting for jaundice for several days. Patient reports having back surgery about 6 weeks ago and states he had a lot of postoperative pain. He took a lot of OTC pain medications and Percocet that was prescribed by his surgeon but could not get enough pain relief. He states he started increasing the amount of alcohol he would drink to help with his pain. He reports he was drinking about 12 cans of beer per day. He states over the past week he began to have upper abdominal pain associated with vomiting. He states over the past few days he noticed yellowing of his skin. He has not had a bowel movement in 4 days. He feels very weak. He last drank beer 2 days ago. He has a history of alcoholism and many years ago once was in rehab Hospital Course Hospital Course Hospital Course: The patient was admitted for acute pancreatitis and electrolyte disturbance. He was kept n.p.o. and alcohol withdrawal protocol was ordered. By 09/28/2022, he was feeling much better. He had required some pain medication, but denied any nausea or vomiting. He had handled ice chips without any problems and was ambulating in his room. Liver function test improved and bilirubin was down. IV fluids were continued and he was started on clear liquids. He tolerated these well and wanted food. His diet was advanced to a bland diet. A right upper quadrant ultrasound was ordered. He tolerated his diet. He had some edema and received 40 mg of Lasix. His ultrasound showed an enlarged fatty liver. It was felt he was stable to be discharged home. He will need to refrain from taking NSAIDs and resume his Lyrica. He will also need to abstain from alcohol. Exam Data for Last 24 hours Vital signs and Labs for Last 24 Hours: Temp Pulse Resp BP Pulse Ox 98.2 F 99 H 20 153/89 H 91 L 09/30/22 08:00 09/30/22 08:00 09/30/22 08:00 09/30/22 08:00 09/30/22 08:00 Narrative: Constitutional Constitutional: no acute distress *Routine HEENT Exam Head: Present normocephalic Eye: Present EOMI and PERRL ENT: Present mucous membranes moist *Routine Neck Exam Neck: Present supple; Absent lymphadenopathy *Routine Respiratory Exam Respiratory: Present CTA bilaterally *Routine Cardiovascular Exam Cardiovascular: Present RRR *Routine Abdominal Exam Abdominal: Present normoactive bowel sounds, tenderness (epigastric) and obese; Absent rebound or guarding *Routine Rectal Exam Rectal:: deferred *Routine Genitalia Exam Genitalia:: deferred *Routine Extremities Exam Extremities: Absent cyanosis, clubbing or edema *Routine Skin Exam Skin: Present warm; Absent rash *Routine Neurological Exam Neurological: Present alert and oriented X3 DS: Diagnosis Discharge Diagnosis (1) Acute pancreatitis: Status: Acute (2) Acute liver failure: Status: Acute (3) Diabetes mellitus: Status: Acute (4) Acute hyponatremia: Status: Acute (5) Alcoholism: Status: Acute (6) Hyperbilirubinemia: Status: Acute (7) Testicular mass: Status: Acute (8) Alcohol withdrawal: Status: Acute Meds Home Medications and Allergies Home Medications Medication Instructions Recorded Confirmed Type glimepiride 4 mg tablet 4 mg PO DAILY Diabetes 01/08/20 09/27/22 History metformin 850 mg tablet 850 mg PO DAILYDM Diabetes 09/26/22 09/27/22 History tamsulosin 0.4 mg capsule 0.4 mg PO HS prostate 09/26/22 09/27/22 History amlodipine 10 mg tablet 10 mg PO DAILY High blood pressure 09/27/22 09/27/22 History dulaglutide 4.5 mg/0.5 mL 4.5 mg SQ WEEKLY Diabetes 09/27/22 09/27/22 History subcutaneous pen injector (Trulicity) lisinopril 20 1 tab PO DAILY High blood pressure 09/27/22 09/27/22 History mg-hydrochlorothiazide 25 mg tablet pantopr
== END 2022-09-30 09:45 | disposition home or self-care (01) | DRG 438 ==
LOC: ER 22:23 → 2ND 09-27 00:31
PROVIDERS: Admitting Provider Internal Medicine Adolescent Medicine; Emergency Provider Emergency Medicine; PCP Family Medicine; Visit Provider Family Medicine
DX: K85.20 Alcohol induced acute pancreatitis without necrosis or infection (principal); K72.00 Acute and subacute hepatic failure without coma; E87.1 Hypo-osmolality and hyponatremia; F10.239 Alcohol dependence with withdrawal, unspecified; K72.90 Hepatic failure, unspecified without coma; E11.9 Type 2 diabetes mellitus without complications; Z79.84 Long term (current) use of oral hypoglycemic drugs; K21.9 Gastro-esophageal reflux disease without esophagitis; E78.5 Hyperlipidemia, unspecified; I10 Essential (primary) hypertension; Z85.828 Personal history of other malignant neoplasm of skin; N50.9 Disorder of male genital organs, unspecified
CPT/HCPCS: 36415; 74177; 76705; 80053; 80061; 81001; 82009; 82140; 82150; 82962; 83605; 83690; 83735; 84100; 84145; 84425; 84484; 85007; 85025; 85610; 85651; 85730; 86140; 87040; 87086; 93005; 99285; C9803; J2405; Q9967; U0003; U0005

== ENCOUNTER → 2022-11-13 08:36 | Outpatient (POV) | payer BC, SELFPAY ==
[2022-11-13 08:56] VITALS: BP 130/78; PULSE 109; RESP 18; O2SAT 98; BMI 38.0
--- NOTE | 2022-11-13 08:58 | EXP.PAIN.SOA ---
[facility] Pain Management SOAP Note Subjective:: Patient is a pleasant 51-year-old male who presents today for follow-up. We are currently treating the patient for degenerative disc disease of lumbar spine with lumbar radiculopathy symptoms, lumbar facet arthropathy, lumbar spondylosis, right shoulder pain, right rotator cuff tendinosis. Today he rates his pain a 4 out of 10. Patient denies any new trauma or injury. Patient denies any change to location or type of pain he experiences. He states from our last visit he has been to the neurosurgeon who did help with his back issues as well as went in and cleaned out his shoulder. Patient states that his previous intra-articular injection into his right shoulder provided 3 months of relief. He states that initially for about a month and a half it provided 100% relief and the remaining 1-1/2 months was closer to 80% relief. He does describe his pain as an aching, throbbing sensation that is worse with increased activity. He does state it interferes with his ability to perform activities of daily living such as cooking and cleaning. He states he did go see Dr. Mitchell here at [facility] for his right shoulder pain and he was told that it was not bad enough that he thought surgery was indicated. He states that he was recommending that he not do injections however the patient states he got such good relief and that Dr. Mitchlel was not offering any other options. Patient is currently prescribed oxycodone [address] Barron office and pregabalin 150 mg twice a day and diazepam 2 mg twice a day from his primary care doctor. Patient denies any side effects from these medications. His Theo is [id number]. Its been reviewed and appropriate. Review of Systems: General: No recent weight changes, no fever, no sleep disturbances Respiratory: No cough, no shortness of air, no recurring pulmonary infections Cardiovascular/peripheral vascular: No chest pain, no palpitations, no edema, no shortness of breath Gastrointestinal: No new onset incontinence, normal bowel movements reported Genitourinary: No new onset incontinence Musculoskeletal: Right shoulder pain Psychiatric: [Normal mood/affect] Neurological: [Denies weakness in extremities], [denies balance issues] Objective:: Physical Exam: General: Alert and oriented x3, no acute distress, pleasant and cooperative Lungs: Respirations even and unlabored, symmetrical chest expansion Eyes: PERRL Musculoskeletal: Flexion and extension of right shoulder somewhat guarded secondary to pain, [antalgic gait noted] Neurological: Speech clear, no gross sensory deficit Assessment:: Degenerative disc disease of lumbar spine with lumbar radiculopathy symptoms, lumbar facet arthropathy, lumbar spondylosis, right shoulder pain, right rotator cuff tendinosis Plan:: Patient is experiencing significant pain with limited range of motion of his right shoulder. I have discussed with the patient that he may benefit from a repeat right shoulder intra-articular injection. Risk and benefits were discussed with the patient and he would like to proceed forward with this plan of care. Patient previously had an injection in April that provided at least 100% improvement for a month and a half with an additional 80% relief for another month and a half. During that time the patient was able to increase his activity and movement within that joint with decreased pain symptoms. I will also order the patient compounding cream. We will schedule him for a right shoulder intra-articular injection. Patient has been instructed to contact the clinic with any concerns before the next appointment. Dr. Rosas has reviewed this note and agrees with this plan of care. This note was dictated using voice recognition software and make contain errors or omissions. [facility] Disclaimer: The information contained in this section may have been updated after the patient was seen, as this information can be updated by other use
== END ==
PROVIDERS: PCP Family Medicine; Visit Provider Nurse Practitioner Family
DX: M51.16 Intervertebral disc disorders with radiculopathy, lumbar region (principal); M47.26 Other spondylosis with radiculopathy, lumbar region; M25.511 Pain in right shoulder
CPT/HCPCS: 99212; G0463

== ENCOUNTER → 2022-11-18 15:52 | Outpatient (CLI) | payer BC, SELFPAY ==
--- NOTE | 2022-11-18 16:01 | MR_ITS ---
PROCEDURE INFORMATION: Exam: MR Lumbar Spine Without Contrast Exam date and time: 11/18/2022 4:05 PM Age: 51 years old Clinical indication: Low back pain; Prior surgery; Surgery date: 6+ months; Surgery type: Lower back surgery; Additional info: Other intervertebral disc displacement, lumbar region. Lower back pain going up back. TECHNIQUE: Imaging protocol: Magnetic resonance imaging of the lumbar spine without contrast. COMPARISON: MR LUMBAR SPINE WO CON 05/01/2022 4:04 PM FINDINGS: Bones/joints: No acute fracture or dislocation. Spinal cord: Visualized cord, conus medullaris and cauda equina are unremarkable without compression. T12-L1: Mild broad-based disc bulge at T12-L1 which does not cause significant central canal or foraminal narrowing. L1-L2: Broad-based disc bulge at L1-L2 which is asymmetric to the left with subtle left paracentral protrusion which is unchanged. L2-L3: Disc bulge at L2-L3 which in conjunction with facet ligamentum flavum hypertrophy causes left foraminal narrowing which is similar to prior examination. L3-L4: Broad-based disc bulge at L3-L4 with facet and ligamentum flavum hypertrophy causing mild bilateral foraminal narrowing. L4-L5: Disc bulge at L4-L5 which is mildly asymmetric the right causing moderate right and mild left foraminal narrowing. L5-S1: Broad-based disc bulge at L5-S1 asymmetric to the right causing moderate right and mild left foraminal narrowing. Soft tissues: Small sacral Tarlov cysts are unchanged. IMPRESSION: Multilevel degenerative changes which are not significantly changed from prior examination.
== END ==
LOC: RAD 15:54
PROVIDERS: PCP Family Medicine; Visit Provider Physician Assistant Medical
DX: Z98.890 Other specified postprocedural states (principal); M51.26 Other intervertebral disc displacement, lumbar region; M54.16 Radiculopathy, lumbar region
CPT/HCPCS: 72148; 76376

== ENCOUNTER 2022-11-24 07:47 | Day surgery (SDC) | payer BC, SELFPAY ==
[2022-11-24 08:13] VITALS: BP 135/84; PULSE 94; RESP 18; TEMP 36.8; O2SAT 95; BMI 35.9
--- NOTE | 2022-11-24 08:44 | P.PCN_ITS ---
Procedure Date: 11/24/22 Time: 08:30 Anesthesiologist:: Wu Brian CRNA Complications:: None Pre-procedure Diagnosis:: Osteoarthritis right shoulder. Tendinitis right shoulder Post-procedure Diagnosis:: Same. Indications for Procedure:: Patient is a very pleasant 51-year-old male comes our clinic today for right intra-articular shoulder injection. Patient has had the right shoulder injected in the past with significant improvement. Procedure Details:: Right shoulder seems to be the worst at this time. We will do an intra-articular injection today to see if this helps with her pain symptoms. Procedure Details: Right shoulder intra-articular injection Informed consent was obtained risk and benefits of the procedure were explained to the patient. Patient was taken to the procedure room. The right shoulder was prepped using ChloraPrep. A 25-gauge needle was used first anteriorly, laterally, and then posteriorly to inject 10 mL bupivacaine 0.25% and Depo- Medrol 40 mg. Patient tolerated procedure well with no complications. Plan and Disposition:: Patient was discharged without incident.
[2022-11-24 08:45] VITALS: BP 148/86; PULSE 92; RESP 18; O2SAT 95
--- NOTE | 2022-11-24 08:45 | PC.NURSE ---
Blood sugar 208 per dexcom
== END 2022-11-24 08:45 | disposition home or self-care (01) ==
PROVIDERS: PCP Family Medicine; Visit Provider Nurse Anesthetist, Certified Registered
DX: M19.011 Primary osteoarthritis, right shoulder (principal); M77.8 Other enthesopathies, not elsewhere classified
CPT/HCPCS: 20610; J1040

== ENCOUNTER → 2022-12-02 09:23 | Outpatient (POV) | payer BC, SELFPAY ==
[2022-12-02 11:03] VITALS: BP 128/83; PULSE 91; RESP 18; O2SAT 97; BMI 35.9
--- NOTE | 2022-12-02 11:21 | EXP.PAIN.SOA ---
[facility] Pain Management SOAP Note Subjective:: Patient is a pleasant 51-year-old male who presents today for follow-up of right intra-articular shoulder injection on 11/24/2022. We are currently treating the patient for degenerative disc disease of lumbar spine with lumbar radiculopathy symptoms, lumbar facet arthropathy, lumbar spondylosis, right shoulder pain, right rotator cuff tendinosis.? Today he rates his pain a 3 out of 10.? He states following his injection he had 3 days with 90% improvement. He states on the fourth and fifth day it dropped to approximately 50% relief and now today he feels like he is back at his baseline. Patient denies any new trauma or injury.? Patient denies any change to location or type of pain he experiences.? Previously he had gotten a shoulder injection that lasted approximately 3 months of relief. He does describe his pain as an aching, throbbing sensation that is worse with increased activity.? He does state it interferes with his ability to perform activities of daily living such as cooking and cleaning.? Patient did have back surgery by Dr. Barron in the past and is scheduled to see him on December 15 for possible intervention for his pain in his back that goes up towards his shoulders. He does state that he would like some improvement overall and would like to get back to work. Patient has been on medical leave when his pain symptoms initially started. He does state in the past he was on meloxicam by Dr. Verduzco's office however he also had a history of drinking and then had an episode of increased bleeding/GI upset and this medication was discontinued. Patient states he is no longer drinking any alcohol and states that the meloxicam did help. He states that Dr. Verduzco's office did say he could use ibuprofen occasionally as needed. Patient is interested in any additional help we may be able to provide for better improved function. He is currently prescribed oxycodone [address] Barron office and pregabalin 150 mg twice a day and diazepam 2 mg twice a day from his primary care doctor.? Patient denies any side effects from these medications.? His Theo is [id number].? Its been reviewed and appropriate. Review of Systems: General: No recent weight changes, no fever, no sleep disturbances Respiratory: No cough, no shortness of air, no recurring pulmonary infections Cardiovascular/peripheral vascular: No chest pain, no palpitations,? no edema, no shortness of breath Gastrointestinal: No new onset incontinence, normal bowel movements reported Genitourinary: No new onset incontinence Musculoskeletal: Right shoulder pain, low back pain Psychiatric: [Normal mood/affect] Neurological: [Denies weakness in extremities], [denies balance issues] Objective:: Physical Exam: General: Alert and oriented x3, no acute distress, pleasant and cooperative Lungs: Respirations even and unlabored, symmetrical chest expansion Eyes: PERRL Musculoskeletal: Flexion and extension of lumbar [spine] somewhat guarded secondary to pain, [antalgic gait noted] Neurological: Speech clear, no gross sensory deficit Assessment:: Degenerative disc disease of lumbar spine with lumbar radiculopathy symptoms, lumbar facet arthropathy, lumbar spondylosis, right shoulder pain, right rotator cuff tendinosis Plan:: Patient continues to experience in significant pain on a daily basis in his low back along with his right shoulder with limited range of motion. I have discussed with the patient that he may benefit from a intrathecal pain pump trial in the future. Risk and benefits and educational handouts were given during today's visit. He would like to proceed forward with this plan of care. Patient has tried and failed conservative therapy such as oral medications, heat and ice, topicals, physical therapy, at home stretching and exercise for longer than 6 weeks. I will order a psych eval today with the plan to proceed forward with the intrathecal pain pump trial in the future i
== END | disposition home or self-care (01) ==
PROVIDERS: PCP Family Medicine; Visit Provider Nurse Practitioner Family
DX: M51.16 Intervertebral disc disorders with radiculopathy, lumbar region (principal); M47.26 Other spondylosis with radiculopathy, lumbar region; M25.511 Pain in right shoulder
CPT/HCPCS: 99212; G0463

== ENCOUNTER → 2022-12-31 09:05 | Outpatient (POV) | payer BC, SELFPAY ==
--- NOTE | 2022-12-31 09:11 | EXP.PAIN.SOA ---
[facility] Pain Management SOAP Note Subjective:: Patient is a pleasant 52-year-old male who presents today for follow-up of psychological evaluation.? We are currently treating the patient for degenerative disc disease of lumbar spine with lumbar radiculopathy symptoms, lumbar facet arthropathy, lumbar spondylosis, right shoulder pain, right rotator cuff tendinosis, chronic pain.? Today he rates his pain a 7 out of 10.? Patient states he continues to have pain in his low back and right shoulder. Patient did have a repeat right intra-articular shoulder injection back in the middle of November however he states that it was just a 1 injection in the posterior aspect of his shoulder and he felt like it did not give as greatest relief as the prior injection. Patient states the prior injection was given in at least 3 different locations around the shoulder joint and this injection did provide 90% improvement lasting approximately a week and a half. Patient states that he has been to Dr. Barron in [place] who is trying to get him into an orthopedic surgeon for possible shoulder replacement. He does state that his low back pain continues to be an ongoing issue and describes it as an aching, throbbing sensation that is worse with increased activity. Patient does state that his pain interferes with his ability perform activities of daily living such as cooking and cleaning or even simple ambulation. Patient states he is unable to even put on his own shoes due to the pain with bending. Patient has been off work due to his worsening pain symptoms. He would like to get back to work as soon as possible. At our last visit I did prescribe the patient meloxicam 7.5 mg daily and methocarbamol 750 mg at night. Patient does state that they helped some. In the past the patient did have a GI bleed related to meloxicam use and chronic alcohol drinking however he continues to state that he has not been drinking at all over the last month and a half. Patient is currently managed with Percocet 5 mg 3 times a day from Dr. Barron office. He is also on diazepam 2 mg twice a day from his primary care doctor. He denies any side effects from these medications. Patient has tried and failed conservative therapy such as oral medications, heat and ice, topicals, physical therapy, at home stretching and exercise for longer than 6 weeks and injective therapy. His Theo is [id number]. Its been reviewed and appropriate. Review of Systems: General: No recent weight changes, no fever, no sleep disturbances Respiratory: No cough, no shortness of air, no recurring pulmonary infections Cardiovascular/peripheral vascular: No chest pain, no palpitations,? no edema, no shortness of breath Gastrointestinal: No new onset incontinence, normal bowel movements reported Genitourinary: No new onset incontinence Musculoskeletal: Right shoulder pain, low back pain Psychiatric: [Normal mood/affect] Neurological: [Denies weakness in extremities], [denies balance issues] Objective:: Physical Exam: General: Alert and oriented x3, no acute distress, pleasant and cooperative Lungs: Respirations even and unlabored, symmetrical chest expansion Eyes: PERRL Musculoskeletal: Flexion and extension of lumbar [spine] somewhat guarded secondary to pain, [antalgic gait noted] Neurological: Speech clear, no gross sensory deficit Assessment:: Degenerative disc disease of lumbar spine with lumbar radiculopathy symptoms, lumbar facet arthropathy, lumbar spondylosis, right shoulder pain, right rotator cuff tendinosis, chronic pain Plan:: Patient continues to experience significant pain throughout his right shoulder and low back with limited range of motion. I have discussed with the patient that he may benefit from repeat right shoulder intra-articular injection. Risk and benefits were discussed with the patient and he would like to proceed forward with this plan of care. At our previous visit he was sent for a psych eval with the plan to procee
[2022-12-31 09:13] VITALS: BP 138/84; PULSE 86; RESP 18; O2SAT 97; BMI 35.2
== END | disposition home or self-care (01) ==
PROVIDERS: PCP Family Medicine; Visit Provider Nurse Practitioner Family
DX: M51.16 Intervertebral disc disorders with radiculopathy, lumbar region (principal); M47.26 Other spondylosis with radiculopathy, lumbar region; M25.511 Pain in right shoulder; M67.813 Other specified disorders of tendon, right shoulder; G89.29 Other chronic pain
CPT/HCPCS: 99212; G0463

== ENCOUNTER 2023-01-19 09:07 | Day surgery (SDC) | payer BC, SELFPAY ==
[2023-01-19 09:27] VITALS: BP 125/69; PULSE 89; RESP 18; TEMP 36.4; O2SAT 94; BMI 37.3
[2023-01-19 09:41] VITALS: BP 163/96; PULSE 88; RESP 18; O2SAT 98
[2023-01-19 09:43] VITALS: BP 163/96; PULSE 88; RESP 18; O2SAT 98
[2023-01-19 09:48] VITALS: BP 134/83; PULSE 90; RESP 18; O2SAT 94
--- NOTE | 2023-01-19 09:50 | P.PCN_ITS ---
Procedure Date: 01/19/23 Time: 09:45 Anesthesiologist:: Wu Brian CRNA Complications:: None Pre-procedure Diagnosis:: Osteoarthritis right shoulder. Rotator cuff tear right shoulder. Chronic right shoulder pain. Post-procedure Diagnosis:: Same. Indications for Procedure:: Patient is a very pleasant 52-year-old male that comes our clinic today for intra-articular right shoulder injection. Patient has had this in the past with significant improvement. However, patient reporting his last injection lasted 4 to 6 days. After which time his shoulder right shoulder pain returned. He describes right shoulder pain as constant, dull, aching. Patient rates his pain 7/10. Patient has 5/5 strength in the right arm. However, patient has range of motion constraints due to right shoulder pain. Procedure Details:: Procedure Details: Right shoulder intra-articular injection Informed consent was obtained risk and benefits of the procedure were explained to the patient. Patient was taken to the procedure room. The right shoulder was prepped using ChloraPrep. A 25-gauge needle was used first anteriorly, laterally, and then posteriorly to inject 10 mL bupivacaine 0.25% and Depo- Medrol 40 mg. Patient tolerated procedure well with no complications. Plan and Disposition:: Patient was discharged without incident.
== END 2023-01-19 09:48 | disposition home or self-care (01) ==
PROVIDERS: PCP Family Medicine; Visit Provider Nurse Anesthetist, Certified Registered
DX: M19.011 Primary osteoarthritis, right shoulder (principal); M75.101 Unspecified rotator cuff tear or rupture of right shoulder, not specified as traumatic; M25.511 Pain in right shoulder; G89.29 Other chronic pain
CPT/HCPCS: 20610; J1040

== ENCOUNTER 2023-01-29 09:24 | Day surgery (SDC) | payer BC, SELFPAY ==
[2023-01-29] VITALS (8 sets, daily range): BP systolic 103–179; BP diastolic 69–100; PULSE 81–92; RESP 20; O2SAT 93–96; BMI 36.6
--- NOTE | 2023-01-29 10:05 | PC.NURSE ---
pt rates pain at a 6 out of 10 at this time, dressing C/D/I
--- NOTE | 2023-01-29 10:20 | PC.NURSE ---
dressing in place, C/D/I, rates pain at a 4
--- NOTE | 2023-01-29 10:36 | PC.NURSE ---
pt rates pain at a 4 at this time
--- NOTE | 2023-01-29 10:50 | PC.NURSE ---
pt rates pain at a 3 at this time, has removed dressing, no bleeding noted
--- NOTE | 2023-01-29 10:51 | PC.NURSE ---
pt is now rating his pain at a 3, dressing C/D/I
--- NOTE | 2023-01-29 11:20 | PC.NURSE ---
pt ambulating in [place] without walking stick, rates pain at a 3
--- NOTE | 2023-01-29 12:39 | EXP.PAIN.PRO ---
Procedure Date: 01/29/23 Time: 12:39 Anesthesiologist:: Davi Rosas MD Complications:: None Pre-procedure Diagnosis:: Degenerative disc disease of lumbar spine with lumbar radiculopathy symptoms and postlaminectomy syndrome lumbar spine Post-procedure Diagnosis:: Same Indications for Procedure:: This patient is a pleasant 52-year-old white male who we are treating for low back pain with lumbar radiculopathy symptoms and postlaminectomy syndrome lumbar spine. This patient has failed all previous conservative treatments including injections, oral medications, physical therapy and is not a candidate for any further surgery. He has had a successful psychological evaluation. He presents for intrathecal pump trial today. He has been off all oral opioids for 48 hours. Procedure Details:: Pain pump trial Informed consent was obtained and the risk and benefits of the procedure was explained to the patient. The patient was taken to the procedure room and placed prone on the procedure table. Patient was prepped and draped in sterile fashion. C-arm fluoroscopy was used to view the lumbar spine. The skin and subcutaneous tissues were anesthetized using lidocaine. I placed a 18-gauge spinal needle into the L4-5 interspace and advanced until clear CSF was obtained. After this intrathecal catheter was inserted and advanced very easily to the L1 vertebral body. The needle was withdrawn. We were able to freely withdraw clear CSF through the catheter. We then injected intrathecal opioid single shot bolus of 25 mcg followed by saline and followed by the previous CSF that was withdrawn. The needle and catheter were then removed and a Band-Aid was placed. Patient tolerated the procedure well with no complications. We reevaluated the patient after 30 minutes to 1 hour. He was also reassessed by physical therapy. He was 90 to 100% better. He was also much more functional. This is the best he has felt in 2 years. He had some itching however no significant side effects. Patient was discharged home neurologic intact with good relief of pain symptoms. Plan and Disposition:: We will follow-up with him in 1 week. Bowel indications this did seem to be a successful intrathecal pump trial. We will plan on permanent placement with intrathecal morphine 1 mg per ml to start at 100 mcg/day. Catheter tip will be the T8 vertebral body.
== END 2023-01-29 11:22 | disposition home or self-care (01) ==
LOC: SC.PAINP 09:26
PROVIDERS: PCP Family Medicine; Visit Provider Anesthesiology
DX: M51.16 Intervertebral disc disorders with radiculopathy, lumbar region (principal); M96.1 Postlaminectomy syndrome, not elsewhere classified
CPT/HCPCS: 62323; 96365

== ENCOUNTER → 2023-03-03 13:21 | Outpatient (CLI) | payer BC, SELFPAY ==
[2023-03-03 13:42] LABS: Basophils # 0.1 K/mm3 (0-0.2); Basophils % 0.6 % (0.1-2.0); Eosinophils # 0.2 K/mm3 (0.0-0.4); Eosinophils % 1.5 % (0.1-12.0); Hematocrit 51.1 % (42.0-52.0); Lymphocytes # 2.7 K/mm3 (0.7-4.5); Lymphocytes % 24.7 % (10-50); Mean Corpuscular HGB Conc 33.2 g/dL (31.8-35.4); Mean Corpuscular Hemoglobin 29.4 pg (27.0-31.2); Mean Corpuscular Volume 88.7 fl (80-94); Mean Platelet Volume 7.8 fl (7.4-10.4); Monocytes # 0.5 K/mm3 (0.1-1.0); Monocytes % 4.8 % (1.7-9.3); Neutrophils # 7.5 K/mm3 (1.8-7.8); Neutrophils % 68.4 % (37.0-80.0); Platelet Count 378 K/mm3 (142-424); Red Blood Count 5.76 M/mm3 (4.60-6.20)
[2023-03-03 14:28] LABS: Anion Gap 16.4 mEq/L (5-15); Blood Urea Nitrogen 17 mg/dl (9-20); Calcium 10.2 mg/dl (8.4-10.2); Carbon Dioxide 30 mmol/L (22.0-30.0); Chloride 96 mmol/L (98-107); Estimated Glomerular Filt Rate 101 ml/min (>60); GFR (African American) 122 ML/MIN (>60); Glucose 247 mg/dl (74-100); Potassium 4.4 mmoL/L (3.5-5.1); Sodium 138 mmol/L (136-145)
[2023-03-03 17:43] LABS: Hemoglobin A1C 8.8 % (4.0-6.0)
== END ==
PROVIDERS: PCP Family Medicine; Visit Provider Anesthesiology
DX: Z01.818 Encounter for other preprocedural examination (principal); M51.36 Other intervertebral disc degeneration, lumbar region
CPT/HCPCS: 36415; 80048; 83036; 85025

== ENCOUNTER 2023-03-05 10:03 | Day surgery (SDC) | payer BC, SELFPAY ==
--- NOTE | 2023-03-02 16:54 | SUR.PREOP ---
ATTEMPTED PRE OP PHONE CALL AT THIS TIME. NO ANSWER, LEFT MESSAGE W CALL BACK #.
[2023-03-05 11:42] VITALS: BP 127/72; PULSE 91; RESP 17; TEMP 36.2; O2SAT 95; BMI 35.4
--- NOTE | 2023-03-05 13:28 | P.PNANES_ITS ---
[facility] Disclaimer: The information contained in this section may have been updated after the patient was seen, as this information can be updated by other users. Medical History Alcoholism Anxiety Basal cell carcinoma of skin COVID-19 Degenerative joint disease (DJD) of lumbar spine Diabetes mellitus Fusion of spine, cervical region GERD (gastroesophageal reflux disease) Hyperlipidemia Hypertension Sleep apnea Surgical History H/O bone graft H/O discectomy History of total right hip arthroplasty S/P fusion of sacroiliac joint Family History Other Bladder cancer Breast cancer Diabetes Heart attack Social History Smoking Status: Never smoker second hand exposure: No alcohol intake: current substance use type: denies use and other current occupational status: employed Travel in the last 8 weeks: None household members: spouse housing: house 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 current occupational exposures/hazards: Yes caffeine: Yes [employer] Anesthesia Checklist Patient Identification Patient Identification: Arm Band and Verbal (Name & ) Structural Data Admitted From: Home Planned Operative Procedure/s: Pain pump placement Consent for Planned Operative Procedure(s) Verified: Yes NPO Status Verified Time NPO: 00:00 Additional verifications Anesthesia Reactions: No Hx Blood Transfusions: No Blood Transfusion Reaction: No Airway Assessment Mallampati Score:: Class II C-Spine Mobility Assessed: Yes TMJ Mobility Assessed: Yes Dentition: Good Dentition Neurological Assessment Level of Consciousness: Awake Hx Seizures: No Numbness or tingling in extremities: No Anesthesia Plan Anesthesia Risk discussed: Yes Anesthesia Plan: Verified ASA Class: III Anesthesia Type: MAC
[2023-03-05 13:48] LABS: Barbiturates Screen,Urine Negative ng/ml (<200)
[2023-03-05 13:49] LABS: Amphetamine/Metha Screen,Urine Negative ng/ml (<1000); Benzodiazepines Screen,Urine Positive ng/ml (<200)
[2023-03-05 13:50] LABS: Cannabinoid Screen,Urine Negative ng/ml (<50)
[2023-03-05 13:51] LABS: Cocaine Screen,Urine Negative ng/ml (<300); Methadone Screen,Urine Negative ng/ml (<300)
[2023-03-05 13:52] LABS: Opiate Screen,Urine Negative ng/ml (<300); Phencyclidine Screen,Urine Negative ng/ml (<25)
[2023-03-05 13:57] VITALS: BP 116/90; PULSE 92; RESP 18; TEMP 36.6; O2SAT 93
[2023-03-05 14:07] VITALS: BP 112/79; PULSE 93; RESP 18; O2SAT 95
[2023-03-05 14:17] VITALS: BP 137/76; PULSE 91; RESP 17; O2SAT 95
[2023-03-05 14:27] VITALS: BP 112/79; PULSE 93; RESP 18; O2SAT 95
--- NOTE | 2023-03-05 16:13 | EXP.OP.NOTE ---
Date of procedure: 03/05/23 Pre-op Diagnosis:: Degenerative disease of lumbar spine with lumbar radiculopathy symptoms and postlaminectomy syndrome lumbar spine Post-op Diagnosis:: Same Procedure performed:: Placement of intrathecal pain pump with tunneled intrathecal catheter and pump generator placement Surgeon:: Davi Rosas MD X RAY SERVICE TECHNICIAN:: Other Anesthesia: MAC Estimated blood loss (mL): 5 Clinical Note:: This patient is a pleasant 52-year-old white male who we are treating for low back pain with lumbar radiculopathy symptoms and postlaminectomy syndrome lumbar spine. Patient has failed all previous conservative treatments including injections, oral medications, physical therapy and he is not a candidate for any further surgery. He has had a successful psychological evaluation and a successful intrathecal pump trial. He presents for permanent placement of his intrathecal pain pump today. Operative findings:: None Operative note:: Informed consent was obtained and the risk and benefits of the procedure were explained to the patient. The patient was taken to the operating room placed prone on the procedure table. He was prepped and draped in sterile fashion. C-arm fluoroscopy was used to view the right flank. [facility] between the 12th rib and iliac crest we anesthetize the skin and subcutaneous tissues. I made an incision and dissected out the pump generator pocket. C-arm fluoroscopy was then used to view the lumbar spine. The skin and subcutaneous tissues adjacent to the L4-L5 and L5-S1 interspace were anesthetized using lidocaine. I made an incision and dissected down to the lumbar paraspinous fascia. A 17-gauge spinal needle was inserted and advanced into the L4-5 interspace until clear CSF was obtained. After this intrathecal catheter was inserted and advanced very easily to the T8 vertebral body. Catheter location was checked in AP and lateral views of the catheter tip was found to be in posterior position. The stylette of the catheter and the needle withdrawn. The catheter was secured to the fascia with an anchoring device and 2-0 Prolene. I then filled the pump with 20 mils of intrathecal morphine 1 mg/mL. I tunneled the catheter from the back to the pump pocket and attached catheter to the pump. We withdrew clear CSF through the sideport. An antibiotic pouch was placed in the generator pocket. We will place the pump in the pocket. Both incisions were then closed with 2-0 Vicryl followed by subcutaneous absorbable kaela and 4-0 nylon. Patient tolerated the procedure well with no complications. Pump was interrogated and started at 100 mcg/day of intrathecal morphine. Patient was discharged home neurologic intact with good relief of pain symptoms. Plan and disposition: We will follow-up with this patient in 1 week for wound check. We will follow-up in 2 to 3 weeks for suture removal. We did send the patient home with Bactrim DS twice a day for 5 days. Condition: stable Disposition: PACU Complications:: None
[2023-03-07 07:58] LABS: POC Glucose,Bedside 105 (70-110)
== END 2023-03-05 14:35 | disposition home or self-care (01) ==
PROVIDERS: PCP Family Medicine; Visit Provider Anesthesiology
PROC: (CPT 62350; principal; 2023-03-05 11:30)
DX: M51.16 Intervertebral disc disorders with radiculopathy, lumbar region (principal); M96.1 Postlaminectomy syndrome, not elsewhere classified; E11.9 Type 2 diabetes mellitus without complications
CPT/HCPCS: 62350; 62362; 80305; 82962; 96374; C1755; C1772; J3370

== ENCOUNTER → 2023-03-10 09:50 | Outpatient (POV) | payer BC, SELFPAY ==
[2023-03-10 10:37] VITALS: BP 147/77; PULSE 79; RESP 18; O2SAT 97; BMI 34.9
--- NOTE | 2023-03-10 11:13 | EXP.PAIN.PRO ---
Procedure Date: 03/10/23 Time: 10:33 Anesthesiologist:: Nohemy Mitchell APRN Complications:: None Pre-procedure Diagnosis:: Degenerative disc disease of lumbar spine with lumbar radiculopathy symptoms, lumbar postlaminectomy syndrome Post-procedure Diagnosis:: Same Indications for Procedure:: Patient is a pleasant 52-year-old male who presents today for 1 week postop of intrathecal pain pump placement and intrathecal adjustment and reprogram. We are currently treating the patient for degenerative disc disease of lumbar spine with lumbar radiculopathy symptoms, lumbar postlaminectomy syndrome. Today he rates his pain a 3 out of 10. Patient does state that he has had significant improvement after at least 50% following the placement of this device. He states that he has been able to increase his activity and feels like he is much better off than he has been for the last 6 months. Patient does state from the procedure last week that he has had a rash on his back as well as itching that he is taking Benadryl for. Patient also states that he has noticed some additional urinary issues that he was previously prescribed Flomax for however he thinks that it may be a little worse over the last few days. He does state that he continues to take his Flomax and it does help. Patient is currently managed with meloxicam 15 mg daily and methocarbamol 750 mg at night. He is managed intrathecally with morphine 1 mg/mL with a daily dose of 0.0999 mg/day. Patient denies any side effects from this medication. His Theo is [id number]. Its been reviewed and appropriate. Physical Exam: General: Alert and oriented x3, no acute distress, pleasant and cooperative Lungs: Respirations even and unlabored, symmetrical chest expansion Eyes: PERRL Musculoskeletal: Flexion and extension of lumbar [spine] somewhat guarded secondary to pain, [antalgic gait noted] Neurological: Speech clear, no gross sensory deficit Skin: Incision sites clean, dry, well approximated with minimal erythema noted, mild rash noted at posterior mid back, midline incision intact with sutures in place Procedure Details:: Informed consent was obtained and the risk and benefits of the procedure were explained to the patient. Patient was taken to the procedure room where noninvasive monitoring was placed including noninvasive blood pressure cuff and pulse oximeter. Patient's pump was interrogated and was reprogrammed to morphine 0.1098 mg/day. The patient tolerated the procedure well with no complications. Plan and Disposition:: Patient's incision sites are clean, dry, well approximated with minimal erythema noted. Patient does have sutures intact at his midline incision. Patient did have a mild rash noted along his back that does seem to follow where his ChloraPrep cleansing solution was used for the surgical procedure. I have discussed with the patient that this may be related to the overall procedure as well as his worsening urinary symptoms. I have counseled the patient that this also can be related to the pump medication and that he is to continue to monitor and let our office know of any worsening symptoms. I will send in a prescription of hydralazine 25 mg 3 times daily as needed to help with the itching and provide a 2-week supply. I will also send in refills of his meloxicam 15 mg daily and methocarbamol 750 mg at bedtime and provide a 1 month supply of these medications. I have counseled the patient that I would like to see him more frequently for follow-up. He will return to clinic in 1 week for reevaluation of symptoms and plan of care. Patient tolerated his intrathecal increase with no complications and was discharged neurologically intact. Patient has been instructed to contact the clinic with any concerns before the next appointment. Dr. Rosas has reviewed this note and agrees with this plan of care. This note was dictated using voice recognition software and make contain errors or omis
== END ==
PROVIDERS: PCP Psychiatry & Neurology Sleep Medicine; Visit Provider Nurse Practitioner Family
DX: M51.16 Intervertebral disc disorders with radiculopathy, lumbar region (principal); M96.1 Postlaminectomy syndrome, not elsewhere classified; Z97.8 Presence of other specified devices
CPT/HCPCS: 62368; 99213; G0463

== ENCOUNTER → 2023-03-19 08:36 | Outpatient (POV) | payer BC, SELFPAY ==
--- NOTE | 2023-03-19 09:19 | A.OFFVIS_ITS ---
[facility] Pain Management SOAP Note Subjective:: Patient is a very pleasant 52-year-old male that comes our clinic today for follow-up regarding his intrathecal pain pump management. Patient was implanted with intrathecal pain pump 02/02/2023. He is currently being managed with morphine sulfate 1 mg/mL at 0.1098 mg/day. Patient was increased by 10% on 03/10/2023. At that time patient was having some side effects such as generalized trunk itching, slight difficulty urinating. At that time he was placed on Flomax and hydralazine 25 mg 1 p.o. as needed. Subsequently, the side effects have subsided. However, he rates his pain today 12/19. Pain is basically in the low back area. He is requesting increase on the intrathecal pain pump rate. I think this is reasonable. We will increase him 20%. Also, patient complaining of chronic right shoulder pain that he has had for 8 to 10 years. Patient has tried multiple intra-articular shoulder injections with little relief. Patient has been told he has rotator cuff tear and needs shoulder scope with repair. However, patient not interested in having shoulder surgery at this time. I discussed with him suprascapular injection on the right. He wishes to proceed. I discussed in detail with the patient regarding details of the injection as well as risk versus benefits including potential outcomes. Objective:: Patient is awake alert [place] x3. In no acute distress. Flexion-extension lumbar spine somewhat guarded secondary to pain. Deep tendon reflexes upper lower extremities normal. Motor strength upper and lower extremities normal. There is no gross sensory deficit. Gait is normal. Patient does use a walking stick for stability. Assessment:: Degenerative disc disease lumbar spine multilevels. Lumbar radiculopathy. Lumbar postlaminectomy syndrome. Plan:: Patient's Theo #[id number] has been reviewed and appropriate. Patient's pump was increased to 0.1317 mg/day. He will follow-up in [address] [facility] Disclaimer: The information contained in this section may have been updated after the patient was seen, as this information can be updated by other users. Medical History Alcoholism Anxiety Basal cell carcinoma of skin COVID-19 Degenerative joint disease (DJD) of lumbar spine Diabetes mellitus Fusion of spine, cervical region GERD (gastroesophageal reflux disease) Hyperlipidemia Hypertension Sleep apnea Surgical History H/O bone graft H/O discectomy History of total right hip arthroplasty S/P fusion of sacroiliac joint Family History Other Bladder cancer Breast cancer Diabetes Heart attack Social History Smoking Status: Never smoker second hand exposure: No alcohol intake: current substance use type: denies use and other current occupational status: employed Travel in the last 8 weeks: None household members: spouse housing: house 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
[2023-03-19 09:43] VITALS: BP 118/88; PULSE 86; RESP 18; O2SAT 96; BMI 34.9
== END ==
PROVIDERS: Visit Provider Nurse Anesthetist, Certified Registered
DX: M51.16 Intervertebral disc disorders with radiculopathy, lumbar region (principal); M96.1 Postlaminectomy syndrome, not elsewhere classified; Z97.8 Presence of other specified devices
CPT/HCPCS: 62368; 99212; 99213; G0463

== ENCOUNTER → 2023-03-30 07:58 | Day surgery (SDC) | payer BC, SELFPAY ==
[2023-03-30 08:24] VITALS: BP 145/84; PULSE 79; RESP 18; TEMP 36.5; O2SAT 97; BMI 35.9
--- NOTE | 2023-03-30 08:30 | PC.NURSE ---
glucose 190 per dexcom
--- NOTE | 2023-03-30 08:48 | EXP.PAIN.PRO ---
Procedure Date: 03/30/23 Time: 08:30 Anesthesiologist:: Wu Brian CRNA Complications:: None Pre-procedure Diagnosis:: Degenerative disc lumbar spine multilevels. Lumbar radiculopathy. Lumbar postlaminectomy syndrome. Chronic right shoulder pain. Post-procedure Diagnosis:: Same. Indications for Procedure:: This patient is a very pleasant 52-year-old male that comes our clinic today for a right suprascapular block. However, after brief discussion with the patient he reports he is scheduled for surgery on the right shoulder in the middle of April. I informed the patient his surgeon would not want me to inject cortisone near the right shoulder disclosed to the surgery date. Patient is currently being managed with intrathecal pain pump. He is currently being managed with morphine sulfate 1 mg/mL at a rate of 0.1317 mg/day. Patient complaining of some increase in low back pain with activity. He is requesting increase today. I recommend 20% increase today. Procedure Details:: Details of the procedure explained to the patient. The patient's pump was interrogated and increased by 20%. His new rate will be 0.22681 mg/day. Plan and Disposition:: Patient was discharged without incident.
--- NOTE | 2023-03-30 10:00 | PC.NURSE ---
PROCEDURE CANCELLED PER PROVIDER
== END | disposition home or self-care (01) ==
PROVIDERS: PCP Family Medicine; Visit Provider Nurse Anesthetist, Certified Registered
DX: M51.16 Intervertebral disc disorders with radiculopathy, lumbar region (principal); M96.1 Postlaminectomy syndrome, not elsewhere classified; M25.511 Pain in right shoulder; G89.29 Other chronic pain; Z97.8 Presence of other specified devices
CPT/HCPCS: 62368; J1040

== ENCOUNTER → 2023-04-15 09:24 | Outpatient (POV) | payer BC, SELFPAY ==
--- NOTE | 2023-04-15 09:29 | EXP.PAIN.PRO ---
Procedure Date: 04/15/23 Time: 09:29 Anesthesiologist:: Nohemy Mitchell APRN Complications:: None Pre-procedure Diagnosis:: Degenerative disc disease of lumbar spine with lumbar radiculopathy symptoms, lumbar postlaminectomy syndrome Post-procedure Diagnosis:: Same Indications for Procedure:: Patient is a pleasant 52-year-old male who presents today for intrathecal pain pump placement and intrathecal adjustment and reprogram. We are currently treating the patient for degenerative disc disease of lumbar spine with lumbar radiculopathy symptoms, lumbar postlaminectomy syndrome. Today he rates his pain a out of 10. At his last visit he was set up with his PTM device. Patient does state that this has helped significantly however he still feels like he could use additional adjustment. Patient is currently managed with meloxicam 15 mg daily and methocarbamol 750 mg at night and morphine 1 mg/mL with a daily dose of 0.1578 mg/day. Patient denies any side effects from this medication. His Theo is [id number]. Its been reviewed and appropriate. Physical Exam: General: Alert and oriented x3, no acute distress, pleasant and cooperative Lungs: Respirations even and unlabored, symmetrical chest expansion Eyes: PERRL Musculoskeletal: Flexion and extension of lumbar [spine] somewhat guarded secondary to pain, [antalgic gait noted] Neurological: Speech clear, no gross sensory deficit Procedure Details:: Informed consent was obtained and the risk and benefits of the procedure were explained to the patient. Patient was taken to the procedure room where noninvasive monitoring was placed including noninvasive blood pressure cuff and pulse oximeter. Patient's pump was interrogated and was reprogrammed to working morphine 0.26216 mg/day. The patient tolerated the procedure well with no complications. Plan and Disposition:: Patient tolerated his intrathecal increase with no complications and was discharged neurologically intact. I will refill the patient's meloxicam 15 mg daily and provide a 1 month supply of this medication. Patient will return to clinic in 1 month for reevaluation of symptoms and possible intrathecal adjustment and reprogram. Patient has been instructed to contact the clinic with any concerns before the next appointment. Dr. Rosas has reviewed this note and agrees with this plan of care. This note was dictated using voice recognition software and make contain errors or omissions. -- It Is medically necessary for this patient to continue to have their intrathecal pump refilled at regular intervals. This patient had an intrathecal pain pump implanted after meeting criteria of chronic intractable pain for greater than 3 months and failing conservative treatments. Patient has committed and been compliant to the treatment plan and all planned follow up care. Since implantation of the intrathecal pain pump, the patient has had decreased pain and been more functional. Oral medications have been reduced including intake of oral opioids. Patient continues to do well with intrathecal therapy with decrease in pain symptoms and increase in functional status. Stopping intrathecal medications can lead to life threatening withdrawal, seizures, cardiac arrest, severe pain, and possible . Pumps that are not refilled at regular intervals can be damages and cause and need for replacement. We continually titrate dose and concentration to optimize pain relief and function. We are limited in concentration for certain drugs to safely deliver medications through the pump and stay within the recommendations from the Polyanalgesic Consensus Committee Guidelines. Depending on dose and concentration these pumps may need to be refilled sooner than 3 months as we titrate.
[2023-04-15 10:18] VITALS: BP 140/82; PULSE 87; RESP 18; O2SAT 96; BMI 34.9
== END | disposition home or self-care (01) ==
PROVIDERS: Visit Provider Nurse Practitioner Family
DX: M51.16 Intervertebral disc disorders with radiculopathy, lumbar region (principal); M96.1 Postlaminectomy syndrome, not elsewhere classified; Z97.8 Presence of other specified devices
CPT/HCPCS: 62368; 99213; G0463

== ENCOUNTER → 2023-04-16 13:17 | Outpatient (CLI) | payer BC, SELFPAY ==
[2023-04-16 14:05] LABS: Barbiturates Screen,Urine Negative ng/ml (<200)
[2023-04-16 14:06] LABS: Amphetamine/Metha Screen,Urine Negative ng/ml (<1000); Benzodiazepines Screen,Urine Negative ng/ml (<200)
[2023-04-16 14:07] LABS: Methadone Screen,Urine Negative ng/ml (<300)
[2023-04-16 14:08] LABS: Cannabinoid Screen,Urine Negative ng/ml (<50); Cocaine Screen,Urine Negative ng/ml (<300)
[2023-04-16 14:09] LABS: Opiate Screen,Urine Negative ng/ml (<300); Phencyclidine Screen,Urine Negative ng/ml (<25)
[2023-04-22 19:25] LABS: Opiates Negative (Cutoff=100)
== END ==
PROVIDERS: Nurse Practitioner Family; PCP Family Medicine; Visit Provider Anesthesiology
DX: Z79.891 Long term (current) use of opiate analgesic (principal)
CPT/HCPCS: 80305; 80361; 80365; G0480

== ENCOUNTER → 2023-04-26 13:00 | Outpatient (POV) | payer BC, SELFPAY ==
[2023-04-26 13:26] VITALS: BP 126/79; PULSE 111; RESP 20; O2SAT 95; BMI 35.6
--- NOTE | 2023-04-26 13:42 | P.PCN_ITS ---
Procedure Date: 04/26/23 Time: 13:42 Anesthesiologist:: Nohemy Mitchell APRN Complications:: None Pre-procedure Diagnosis:: Degenerative disc disease of lumbar spine with lumbar radiculopathy symptoms, lumbar postlaminectomy syndrome Post-procedure Diagnosis:: Same Indications for Procedure:: Patient is a pleasant 52-year-old male who presents today for intrathecal adjustment and reprogram. We are currently treating the patient for degenerative disc disease of lumbar spine with lumbar radiculopathy symptoms, lumbar postlaminectomy syndrome. Today he rates his pain a 7 out of 10. Patient denies any new trauma or injury. He states he continues to have pain with increased activity. He is requesting an increase. Patient is currently managed with morphine 1 mg/mL with a daily dose of 0.1813 mg/day. Patient denies any side effects from this medication. His Theo is [id number]. Its been reviewed and appropriate. Physical Exam: General: Alert and oriented x3, no acute distress, pleasant and cooperative Lungs: Respirations even and unlabored, symmetrical chest expansion Eyes: PERRL Musculoskeletal: Flexion and extension of lumbar [spine] somewhat guarded secondary to pain, [antalgic gait noted] Neurological: Speech clear, no gross sensory deficit Procedure Details:: Informed consent was obtained and the risk and benefits of the procedure were explained to the patient. Patient was taken to the procedure room where krista nvasive monitoring was placed including noninvasive blood pressure cuff and pulse oximeter. Patient's pump was interrogated and was reprogrammed to morphine 0.2086 mg/day and bolus increased to morphine 0.02 mg every 6 hours. The patient tolerated the procedure well with no complications. Plan and Disposition:: Patient tolerated his intrathecal increase with no complications and was discharged neurologically intact. Patient will return to clinic in 2 weeks for reevaluation of symptoms and adjustment of his intrathecal pump medication. We will see the patient back in the clinic at the next intrathecal refill. Patient has been instructed to contact the clinic with any concerns before the next appointment. Dr. Rosas has reviewed this note and agrees with this plan of care. This note was dictated using voice recognition software and make contain errors or omissions. -- It Is medically necessary for this patient to continue to have their intrathecal pump refilled at regular intervals. This patient had an intrathecal pain pump implanted after meeting criteria of chronic intractable pain for greater than 3 months and failing conservative treatments. Patient has committed and been compliant to the treatment plan and all planned follow up care. Since implantation of the intrathecal pain pump, the patient has had decreased pain and been more functional. Oral medications have been reduced including intake of oral opioids. Patient continues to do well with intrathecal therapy with decrease in pain symptoms and increase in functional status. Stopping intrathecal medications can lead to life threatening withdrawal, seizures, cardiac arrest, severe pain, and possible . Pumps that are not refilled at regular intervals can be damages and cause and need for replacement. We continually titrate dose and concentration to optimize pain relief and function. We are limited in concentration for certain drugs to safely deliver medications through the pump and stay within the recommendations from the Polyan[employer] Consensus Committee Guidelines. Depending on dose and concentration these pumps may need to be refilled sooner than 3 months as we titrate.
== END | disposition home or self-care (01) ==
PROVIDERS: PCP Family Medicine; Visit Provider Nurse Practitioner Family
DX: M51.16 Intervertebral disc disorders with radiculopathy, lumbar region (principal); M96.1 Postlaminectomy syndrome, not elsewhere classified; Z97.8 Presence of other specified devices
CPT/HCPCS: 62368; 99213; G0463

== ENCOUNTER → 2023-05-13 11:08 | Outpatient (POV) | payer BC, SELFPAY ==
--- NOTE | 2023-05-13 11:26 | EXP.PAIN.PRO ---
Procedure Date: 05/13/23 Time: 11:26 Anesthesiologist:: Nohemy Mitchell APRN Complications:: None Pre-procedure Diagnosis:: Degenerative disc disease of lumbar spine with lumbar radiculopathy symptoms, lumbar postlaminectomy syndrome Post-procedure Diagnosis:: Same Indications for Procedure:: Patient is a pleasant 52-year-old male who presents today for intrathecal adjustment and reprogram. We are currently treating the patient for degenerative disc disease of lumbar spine with lumbar radiculopathy symptoms, lumbar postlaminectomy syndrome. Today he rates his pain a 5 out of 10. Patient denies any new trauma or injury. He does state from lumbar last visit he did notice improvement with the increase of the pump medication. He is currently managed with morphine 1 mg/mL with a daily dose of 0.2086 mg/day. He is also on meloxicam 15 mg daily and methocarbamol 750 mg at bedtime. He denies any side effects from this medication. He does state that still the smallest activities cause worsening pain. He states from our last visit he tried carrying in a small carpet for his and even picked up a 5 gallon bucket of mud however he paid for it the following day and was laid up in bed. Patient does state that he continues to do daily walking and stretching exercises. He states he was scheduled for a follow-up appointment with Dr. Barron to discuss a possible MRI of his thoracic spine however he was unable to make this appointment and had to reschedule. This appointment is now coming up in May. Patient denies any recent physical therapy. His Theo has been reviewed and appropriate. Physical Exam: General: Alert and oriented x3, no acute distress, pleasant and cooperative Lungs: Respirations even and unlabored, symmetrical chest expansion Eyes: PERRL Musculoskeletal: Flexion and extension of lumbar [spine] somewhat guarded secondary to pain, [antalgic gait noted] Neurological: Speech clear, no gross sensory deficit Procedure Details:: Informed consent was obtained and the risk and benefits of the procedure were explained to the patient. Patient was taken to the procedure room where noninvasive monitoring was placed including noninvasive blood pressure cuff and pulse oximeter. Patient's pump was interrogated and was reprogrammed to morphine 0.2297 mg/day. The patient tolerated the procedure well with no complications. Plan and Disposition:: Patient tolerated his intrathecal increase with no complications and was discharged neurologically intact. I have discussed with the patient that he may benefit from physical therapy to help improve his overall weakness in his legs and back however at this time he would like to wait. We will follow-up with this at future visits. Patient was also increased on his bolus device during today's visit. I will refill the patient's meloxicam 15 mg daily and methocarbamol 750 mg at bedtime and provide a 1 month supply of these medications. Patient will return to clinic in 2 weeks for reevaluation of symptoms and possible intrathecal adjustment and reprogram. Patient has been instructed to contact the clinic with any concerns before the next appointment. Dr. Rosas has reviewed this note and agrees with this plan of care. This note was dictated using voice recognition software and make contain errors or omissions. -- It Is medically necessary for this patient to continue to have their intrathecal pump refilled at regular intervals. This patient had an intrathecal pain pump implanted after meeting criteria of chronic intractable pain for greater than 3 months and failing conservative treatments. Patient has committed and been compliant to the treatment plan and all planned follow up care. Since implantation of the intrathecal pain pump, the patient has had decreased pain and been more functional. Oral medications have been reduced including intake of oral opioids. Patient continues to do well with intrathecal therapy with
[2023-05-13 12:27] VITALS: BP 127/78; PULSE 101; RESP 19; O2SAT 95; BMI 36.6
== END | disposition home or self-care (01) ==
PROVIDERS: PCP Family Medicine; Visit Provider Nurse Practitioner Family
DX: M51.16 Intervertebral disc disorders with radiculopathy, lumbar region (principal); M96.1 Postlaminectomy syndrome, not elsewhere classified; Z97.8 Presence of other specified devices
CPT/HCPCS: 62368; 99213; G0463

== ENCOUNTER 2023-05-25 08:18 | Day surgery (SDC) | payer BC, SELFPAY ==
[2023-05-25 08:23] VITALS: BP 151/84; PULSE 99; RESP 18; TEMP 36.7; O2SAT 96; BMI 35.6
[2023-05-25 08:40] VITALS: BP 149/96; PULSE 98; RESP 19; O2SAT 96
[2023-05-25 08:42] VITALS: BP 149/96; PULSE 98; RESP 18; O2SAT 94
[2023-05-25 09:12] VITALS: BP 139/80; PULSE 92; RESP 18; O2SAT 96
--- NOTE | 2023-05-25 09:16 | EXP.PAIN.PRO ---
Procedure Date: 05/25/23 Time: 08:40 Anesthesiologist:: Wu Brian CRNA Complications:: None Pre-procedure Diagnosis:: Degenerative disc lumbar spine multilevels. Lumbar radiculopathy. Lumbar postlaminectomy syndrome. Post-procedure Diagnosis:: Same. Indications for Procedure:: Patient is a very pleasant 52-year-old male that comes our clinic today for intrathecal pain pump interrogation refill. Patient is currently being managed with morphine sulfate 1 mg/mL at a rate of 0.2297 mg/day. Patient reports low back pain as well as bilateral hip and leg radicular symptoms continue. Pain relief with the pump is not matching the relief he received with trial. He rates his pain 6/10. Patient's pump is flipped upside down. We were able to flip it right side up. Accessed with ease. I spoke with Dr. Rosas regarding patient's pump and pain level. He recommends doubling the rate and if no relief in 48 hours to return for catheter dye study. Procedure Details:: Details of the procedure explained to the patient. The patient taken procedure room placed in the prone position. The pump was interrogated. Under fluoroscopy guidance the pump was flipped. Accessed with ease using a 22-gauge inch and half needle. 3.8 mL of solution was withdrawn and discarded appropriately. The pump was then filled with 20 cc of solution containing morphine sulfate 1 mg/mL. The rate is increased to 0.4497 mg/day. Patient tolerated procedure without difficulty. There are no complications. Plan and Disposition:: Patient was discharged without incident.
== END 2023-05-25 09:12 | disposition home or self-care (01) ==
PROVIDERS: PCP Family Medicine; Visit Provider Nurse Anesthetist, Certified Registered
DX: M51.16 Intervertebral disc disorders with radiculopathy, lumbar region (principal); M96.1 Postlaminectomy syndrome, not elsewhere classified; Z97.8 Presence of other specified devices
CPT/HCPCS: 95991

== ENCOUNTER 2023-06-22 07:28 | Day surgery (SDC) | payer BC, SELFPAY ==
[2023-06-22 08:15] VITALS: BP 160/88; PULSE 98; RESP 16; TEMP 36.7; O2SAT 94; BMI 36.6
[2023-06-22 08:35] VITALS: BP 139/84; PULSE 89; RESP 16; O2SAT 94
--- NOTE | 2023-06-22 08:37 | EXP.PAIN.PRO ---
Procedure Date: 06/22/23 Time: 08:30 Anesthesiologist:: Wu Brian CRNA Complications:: None Pre-procedure Diagnosis:: Degenerative disc disease lumbar spine multilevels. Lumbar radiculopathy. Lumbar postlaminectomy syndrome. Lumbar spondylosis. Multilevel lumbar facet arthropathy. Chronic right shoulder pain. Post-procedure Diagnosis:: Same. Indications for Procedure:: Patient is a very pleasant 52-year-old male comes our clinic today for intrathecal pain pump interrogation refill. Patient currently being managed with morphine sulfate 1 mg/mL at a rate of 0.4497 milligrams per day. We are changing his concentration today to 2 mg/mL of morphine sulfate. Patient asking for increase in rate. Having some increased low back pain with ambulation. Patient also has chronic right shoulder pain. He will undergo right shoulder reconstruction surgery on 07/08/2023. Patient reveals he is currently taking Percocet 5 mg 1 p.o. 1-2 times per day. Patient reports this medication comes from the orthopedic surgery group at [facility]. I informed the patient he could continue with Percocet until postsurgery. However, I would not recommend continuing chronically. Procedure Details:: Details of the procedure explained to the patient. The patient taken procedure room placed in the sitting position. The area of the pump was cleansed using chlorhexidine's cleansing solution. The pump was interrogated. The pump was accessed with ease using a 22-gauge inch and half needle. 5.2 mL of solution was withdrawn and started appropriately. The pump was then filled with 20 cc of solution containing morphine sulfate 2 mg/mL. The rate will be increased by 20%. His new rate will be 0.5402 mg/day. Patient tolerated procedure without difficulty. There are no complications. Plan and Disposition:: Patient was discharged without incident.
== END 2023-06-22 08:35 | disposition home or self-care (01) ==
PROVIDERS: PCP Family Medicine; Visit Provider Nurse Anesthetist, Certified Registered
DX: M51.16 Intervertebral disc disorders with radiculopathy, lumbar region (principal); M47.26 Other spondylosis with radiculopathy, lumbar region; M96.1 Postlaminectomy syndrome, not elsewhere classified; M25.551 Pain in right hip; G89.29 Other chronic pain; Z97.8 Presence of other specified devices
CPT/HCPCS: 95991

== ENCOUNTER 2023-07-27 07:46 | Day surgery (SDC) | payer BC, SELFPAY ==
[2023-07-27 08:29] VITALS: BP 145/87; PULSE 98; RESP 16; TEMP 36.9; O2SAT 95; BMI 36.6
[2023-07-27 08:53] VITALS: BP 154/97; PULSE 96; RESP 18; O2SAT 98
[2023-07-27 08:54] VITALS: BP 154/97; PULSE 96; RESP 18; O2SAT 98
[2023-07-27 09:11] VITALS: BP 142/84; PULSE 91; RESP 18; O2SAT 95
--- NOTE | 2023-07-27 09:13 | EXP.PAIN.PRO ---
Procedure Date: 07/27/23 Time: 08:40 Anesthesiologist:: Wu Brian CRNA Complications:: None Pre-procedure Diagnosis:: Degenerative disc lumbar spine multilevels. Lumbar radiculopathy. Lumbar postlaminectomy syndrome. Recent right shoulder rotator cuff repair. Post-procedure Diagnosis:: Same. Indications for Procedure:: Very pleasant 52-year-old male comes our clinic today for intrathecal pain pump interrogation refill. Currently patient is being managed morphine sulfate 2 mg/mL at a rate of 0.5402 mg/day. Patient doing very well with his current settings. He had an increase at his last fill. Also, to note patient is continuing to take oral narcotics from recent right shoulder reconstruction surgery. Patient's morphine sulfate concentration will be changed from 2 mg/mL to 4 mg/mL today. Procedure Details:: Details of the procedure explained to the patient. Patient taken to procedure room placed in the sitting position. The area of the pump is cleansed using chlorhexidine's cleansing solution. The pump was interrogated. The pump was accessed with ease using a 22-gauge inch and half needle. 9 mL of solution was withdrawn discarded appropriately. The pump was then filled with 20 cc of a solution containing morphine sulfate 4 mg/mL. Patient tolerated procedure without difficulty. No complications. Plan and Disposition:: Patient was discharged out incident.
[2023-07-27 16:16] LABS: Phencyclidine Screen,Urine Negative ng/ml (<25)
[2023-07-27 16:24] LABS: Amphetamine/Metha Screen,Urine Negative ng/ml (<1000)
[2023-07-27 16:25] LABS: Barbiturates Screen,Urine Negative ng/ml (<200)
[2023-07-27 16:26] LABS: Benzodiazepines Screen,Urine Negative ng/ml (<200); Cannabinoid Screen,Urine Negative ng/ml (<50)
[2023-07-27 16:27] LABS: Cocaine Screen,Urine Negative ng/ml (<300); Methadone Screen,Urine Negative ng/ml (<300)
[2023-07-27 16:28] LABS: Opiate Screen,Urine Negative ng/ml (<300)
[2023-07-31 13:10] LABS: Opiates Negative (Cutoff=100); Oxycodone (GC/MS) 355 ng/mL (Cutoff=100); Oxymorphone (GC/MS) 170 ng/mL (Cutoff=100)
== END 2023-07-27 09:11 | disposition home or self-care (01) ==
PROVIDERS: PCP Family Medicine; Visit Provider Nurse Anesthetist, Certified Registered
DX: M51.16 Intervertebral disc disorders with radiculopathy, lumbar region (principal); M96.1 Postlaminectomy syndrome, not elsewhere classified; Z97.8 Presence of other specified devices; Z45.1 Encounter for adjustment and management of infusion pump
CPT/HCPCS: 80307; 80361; 80365; 95991; G0480

== ENCOUNTER 2023-10-19 07:45 | Day surgery (SDC) | payer BC, SELFPAY ==
[2023-10-19 08:21] VITALS: BP 133/92; PULSE 100; RESP 18; TEMP 36.7; O2SAT 94; BMI 35.9
[2023-10-19 08:37] VITALS: BP 153/93; PULSE 102; RESP 20; O2SAT 94
[2023-10-19 08:39] VITALS: BP 153/93; PULSE 102; RESP 18; O2SAT 94
--- NOTE | 2023-10-19 08:44 | EXP.PAIN.PRO ---
Procedure Date: 10/19/23 Time: 08:30 Anesthesiologist:: Wu Brian CRNA Complications:: None Pre-procedure Diagnosis:: Degenerative disc lumbar spine multilevels. Lumbar radiculopathy. Lumbar postlaminectomy syndrome. Post-procedure Diagnosis:: Same. Indications for Procedure:: Patient is a very pleasant 52-year-old male comes our clinic today for intrathecal pain pump interrogation and refill. He is currently being managed with morphine sulfate 4 mg/mL at a rate of 0.5402 mg/day. Patient is requesting increase in rate. He reports having some low back pain with activity. He is requesting a 10% increase. I think this is reasonable. Procedure Details:: Details of the procedure explained to the patient. The patient taken procedure and placed in the sitting position. The area of the pump was cleansed using chlorhexidine as a cleansing solution. The pump was interrogated. The pump was accessed with ease using a 22-gauge inch and half needle. 8 mL of solution was withdrawn discarded appropriately. The pump was then filled with 20 cc of solution containing morphine sulfate 4 mg/mL. The new rate will be 0.5940 mg/day. Patient tolerated procedure without difficulty. No complications. Plan and Disposition:: Patient was discharged without incident.
[2023-10-19 08:52] VITALS: BP 136/90; PULSE 92; RESP 18; O2SAT 94
== END 2023-10-19 08:52 | disposition home or self-care (01) ==
PROVIDERS: PCP Family Medicine; Visit Provider Nurse Anesthetist, Certified Registered
DX: M51.16 Intervertebral disc disorders with radiculopathy, lumbar region (principal); M96.1 Postlaminectomy syndrome, not elsewhere classified; Z97.8 Presence of other specified devices; Z45.1 Encounter for adjustment and management of infusion pump
CPT/HCPCS: 62370

== ENCOUNTER 2023-11-11 14:17 | Outpatient (CLI) | payer BC, SELFPAY ==
--- NOTE | 2023-11-11 14:29 | XR_ITS ---
FINAL REPORT CLINICAL HISTORY: verify POSTION OF PAIN PUMP FOR MRI CLEARANCE COMPARISON: None FINDINGS: Three views were obtained. Pain pump is seen with the upper portion slightly angled anteriorly. The pain pump is nearly horizontal. It is oriented proximally 160 degrees relative to the Z axis in reference to the provided diagram for measurement. IMPRESSION: Pain pump position as above. Reviewed, Interpreted and Dictated by Joseph Sanchez MD Transcribed by Lana Izquierdo Authenticated and [facility]
--- NOTE | 2023-11-11 14:30 | MR_ITS ---
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 Alignment is normal. Cervical spinal cord shows normal signal and contour. C2-3: There is a small central disc protrusion. C3-4: There is a mild annular disc bulge. There is mild bilateral neuroforaminal narrowing. C4-5: There is no significant central canal stenosis. C5-6: There is a mild annular disc bulge. C6-7: There is mild to moderate annular disc bulge without central canal stenosis. C7-T1: There is a mild to moderate annular disc bulge without central canal stenosis. There is moderate bilateral neuroforaminal narrowing. IMPRESSION: 1. No significant central canal stenosis. 2. Multilevel bilateral neuroforaminal narrowing. Reviewed, Interpreted and Dictated by Joseph Sanchez MD Transcribed by Chana Easley Authenticated and . [facility]
== END 2023-11-11 23:59 | disposition home or self-care (01) ==
LOC: RAD 14:21
PROVIDERS: PCP Psychiatry & Neurology Sleep Medicine; Visit Provider Physician Assistant Medical
DX: M54.2 Cervicalgia (principal); M54.6 Pain in thoracic spine; M54.9 Dorsalgia, unspecified; Z98.890 Other specified postprocedural states
CPT/HCPCS: 72141; 74019; 76376

== ENCOUNTER 2023-11-16 13:17 | Outpatient (CLI) | payer BC, SELFPAY ==
--- NOTE | 2023-11-16 13:22 | MR_ITS ---
FINAL REPORT CLINICAL HISTORY: MID BACK PAIN FINDINGS: Multiplanar MR imaging of the thoracic spine was performed without contrast. On the sagittal T2-weighted images, disc degeneration is seen at multiple levels. There is no evidence of fracture. The vertebral alignment is normal. The thoracic spinal cord has an unremarkable appearance without evidence of mass, edema or syrinx. There is no evidence of significant canal stenosis or cord compression. On the axial images, mild disc bulges are seen at multiple levels. A right paracentral T7-8 disc protrusion mildly indents the thecal sac. There is a small central T8-9 disc protrusion. A right paracentral T9-10 disc protrusion indents the thecal sac. A small central T10-11 disc protrusion is noted. There is no evidence of significant canal stenosis or cord compression. No paraspinous soft tissue abnormality is identified. IMPRESSION: Multiple disc protrusions as described from T7-8 through T10-11. No evidence of significant central canal stenosis or cord compression. Authenticated and [facility]
== END 2023-11-16 23:59 | disposition home or self-care (01) ==
LOC: RAD 13:19
PROVIDERS: PCP Psychiatry & Neurology Sleep Medicine; Visit Provider Physician Assistant Medical
DX: M54.9 Dorsalgia, unspecified (principal)
CPT/HCPCS: 72146

== ENCOUNTER 2023-12-20 16:35 | Observation (INO) | payer BC, SELFPAY ==
--- NOTE | 2023-12-20 16:26 | ECG_ITS ---
APPROVED REPORT Exam: Resting ECG HR:96 bpm ECG Measurements Heart Rate 96 AXES FL 174 P 75 QRSd 100 QRS -19 QT 367 T 71 QTc 421 Conclusion SINUS RHYTHM NORMAL ECG Electronically signed by : SAW CARPENTER, 12/20/2023 22:33:41
[2023-12-20 16:35] VITALS: BP 157/95; PULSE 98; RESP 20; TEMP 36.8; O2SAT 98; BMI 40.8
--- NOTE | 2023-12-20 16:38 | HMH.EDGENADL ---
Discharge Plan Disposition Patient Disposition: Admitted Condition: Serious Clinical Impressions Clinical Impression: Nausea vomiting and diarrhea, High anion gap metabolic acidosis Discharge ED Provider: Ajith Kwon General Adult HPI <FLORA Rahman - Last Filed: 12/20/23 22:21> General Chief complaint: Weakness Stated complaint: weakness Time Seen by Provider: 12/20/23 16:38 History of Present Illness HPI narrative: Patient presents for evaluation of nausea vomiting diarrhea and weakness. Patient gives a history of acute onset of 3 days of nausea vomiting diarrhea. Patient states that he is unable to keep anything down. He is an insulin-dependent type 2 diabetic and does have a past medical history of alcohol abuse also chronic pain hypertension GERD and pulmonary hypertension. He denies chest pain shortness of breath fever chills hemoptysis hematochezia melena. Related Data Home Medications Medication Instructions Recorded Confirmed glimepiride 4 mg tablet 4 mg PO DAILY Diabetes 01/08/20 12/20/23 metformin 850 mg tablet 850 mg PO DAILYDM Diabetes 09/26/22 12/20/23 tamsulosin 0.4 mg capsule 0.4 mg PO HS prostate 09/26/22 12/20/23 amlodipine 10 mg tablet 10 mg PO DAILY High blood pressure 09/27/22 10/19/23 lisinopril 20 1 tab PO DAILY High blood pressure 09/27/22 10/19/23 mg-hydrochlorothiazide 25 mg tablet pantoprazole 40 mg tablet,delayed 40 mg PO DAILY Reflux/Acid reflux 09/27/22 12/20/23 release sildenafil (pulm.hypertension) 20 20 mg PO NEEDED PRN Erectile 09/27/22 12/20/23 mg tablet Dysfunction simvastatin 40 mg tablet 40 mg PO HS High cholesterol 09/27/22 12/20/23 multivitamin (Multiple Vitamins 1 tab PO DAILY SUPPLIMENT 11/13/22 12/20/23 tablet) pregabalin 75 mg capsule 75 mg PO BID Pain 11/13/22 12/20/23 insulin degludec 200 unit/mL (3 100 unit SQ DAILY dm 03/05/23 12/20/23 mL) subcutaneous pen (Tresiba FlexTouch U-200 insulin) morphine (PF) 1 mg/mL injection 1 mg epidural CONT Pain 03/10/23 12/20/23 solution Previous Rx's Medication Instructions Recorded hydroxyzine HCl 25 mg tablet 25 mg PO TID PRN itching #42 tabs 03/10/23 methocarbamol 750 mg tablet 750 mg PO HS Pain #30 tabs 05/13/23 meloxicam 15 mg tablet 15 mg PO DAILY . #30 tabs 07/07/23 Allergies Allergy/AdvReac Type Severity Reaction Status Date / Time No Known Allergies Allergy Verified 10/19/23 08:11 PFSH <FLORA Rahman - Last Filed: 12/20/23 22:21> FORMERLY [facility] Disclaimer: The information contained in this section may have been updated after the patient was seen, as this information can be updated by other users. Medical History Alcoholism Anxiety Basal cell carcinoma of skin COVID-19 Degenerative joint disease (DJD) of lumbar spine Diabetes mellitus Fusion of spine, cervical region GERD (gastroesophageal reflux disease) Hyperlipidemia Hypertension Sleep apnea Surgical History H/O bone graft H/O discectomy History of total right hip arthroplasty S/P fusion of sacroiliac joint Family History Other Bladder cancer Breast cancer Diabetes Heart attack Social History (Updated 12/20/23 @ 20:38 by Albina Kohli RN) Smoking Status: Former smoker tobacco type: cigarettes packs per day: 0 and smokeless tobacco second hand exposure: No alcohol intake: former substance use type: denies use and other current occupational status: other Travel in the last 8 weeks: None household members: spouse housing: house 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 current occupational exposures/hazards: Yes caffeine: Yes <FLORA Rahman - Last Filed: 12/20/23 22:21> ROS Obtained: Yes Systems reviewed as appropriate & no additional complaints except as documented Physical Exam <FLORA Rahman Last Filed: 12/20/23 22:21> General General appearance: alert and in no apparent distress Respiratory Respiratory exam: Present normal lung sounds bilaterally Cardiovascular Cardiovascular exam: Present regular rate and normal rhythm Abdominal Exam Abdominal exam: Present soft, tenderness, rigidity and normal bowel sounds; Absent guarding or rebound Neurological Exam Neurological exam: Present alert and oriented X3 Psychiatric Psychiatric exam: Present normal affect and normal mood Skin Skin exam: Present warm, dry and normal color Medical Decision Making <FLORA Rahman - Last Filed: 12/20/23 22:21> Medical Records Medical records reviewed: Yes I reviewed the patient's medical records. Theo Inquiry Pt receiving controlled substance: No Vital Signs: 12/20/23 16:35 12/20/23 17:00 12/20/23 17:31 Temperature 98.2 F Temperature Source Oral Pulse Rate 95 H 88 Pulse Rate [Left Radial] 98 H Respiratory Rate 20 18 17 Blood Pressure 157/95 H 168/104 H Blood Pressure [Right Arm] 157/95 H Blood Pressure Mean [Right Arm] 115 Blood Pressure Position 02 Sat by Pulse Oximetry 98 99 98 Oxygen Delivery Method Room Air Room Air Room Air 12/20/23 19:16 Temperature 98.2 F Temperature Source Oral Pulse Rate 91 H Pulse Rate [Left Radial] Respiratory Rate 18 Blood Pressure 160/102 H Blood Pressure [Right Arm] Blood Pressure Mean [Right Arm] Blood Pressure Position Supine 02 Sat by Pulse Oximetry Oxygen Delivery Method Room Air Lab Data Lab results reviewed: Yes I reviewed the patient's lab results. Lab Results 12/20/23 16:36: WBC 14.9 H, RBC 6.46 H, Hgb 19.1 H, Hct 59.2 H, MCV 91.7, MCH 29.8, MCHC 32.5, RDW 13.0, Plt Count 476 H, MPV 7.9, Neut % (Auto) 70.8, Lymph % (Auto) 23.6, [place] % (Auto) 4.2, Eos % (Auto) 0.4, Baso % (Auto) 0.9, Neut # (Auto) 10.5 H, Lymph # (Auto) 3.5, [place] # (Auto) 0.6, Eos # (Auto) 0.1, Baso # (Auto) 0.1, Sodium 139, Potassium 3.9, Chloride 99, Carbon Dioxide 20 L, Anion Gap 23.9 H, BUN 14, Creatinine 0.90, Estimated GFR 88, Est GFR ( Amer) 106, Glucose 288 H, Hemoglobin A1c 7.9 H, Calcium 10.3 H, Magnesium 2.0, Total Bilirubin 1.4 H, AST 54, ALT 36, Alkaline Phosphatase 129 H, Troponin I < 0.01, Total Protein 9.4 H D, Albumin 5.2 H, Globulin 4.2 H, Albumin/Globulin Ratio 1.2 12/20/23 17:12: VBG pH 7.41, VBG pCO2 31.7 L, VBG pO2 23.8 L, VBG HCO3 19.8 L, VBG Total CO2 20.8 L, VBG O2 Saturation 45.9 L, VBG Base Excess -4.7 L, VBG Lactic Acid 6.1 H 12/20/23 17:29: Lipase 63, Acetone Level None detected 12/20/23 17:45: Urine Color Yellow, Urine Appearance Clear, Urine pH 6.0, Ur Specific [place] <= 1.005, Urine Protein Negative, Urine Glucose (UA) 3+, Urine Ketones 3+, Urine Blood Negative, Urine Nitrate Negative, Urine Bilirubin Negative, Urine Urobilinogen 0.2, Ur Leukocyte Esterase Negative, Urine RBC None, Urine WBC None, Ur Squamous Epith Cells Occasional, Urine Bacteria None 12/20/23 16:36 12/20/23 16:36 Orders (Tests/Meds): ED MEDICATIONS Generic Name Dose Route Start Last Admin Trade Name Freq PRN Reason Stop Dose Admin Enoxaparin Sodium 40 mg 12/21/23 09:00 Enoxaparin 40mg/0.4ml Syringe SQ 01/20/24 08:59 DAILY JAYESH Famotidine 40 mg 12/20/23 21:00 12/20/23 21:19 Famotidine 20mg/2ml Vial IV 01/19/24 20:59 40 mg HS JAYESH Administration Hydromorphone HCl 1 mg 12/20/23 21:29 12/20/23 21:30 Hydromorphone 2mg/Ml Syringe IV 01/19/24 21:28 1 mg Q4HP PRN Administration Severe Pain (7-10) Potassium Chloride/Dextrose/Sod Cl 1,000 mls @ 100 mls/hr 12/20/23 20:45 12/20/23 21:20 Kcl 20 Meq In D5w-Ns IV 01/19/24 20:44 100 mls/hr .Q10H JAYESH Administration Acetaminophen 1,000 mg in 100 mls @ 200 mls/hr 12/20/23 20:48 Ofirmev 1000mg/100ml Vial IV 01/19/24 20:47 Q6HP PRN MODERATE PAIN Insulin Human Lispro 0 unit 12/20/23 21:00 12/20/23 21:39 Humalog 100 Units/Ml 10ml Vial (Ssi) SQ 01/19/24 20:59 4 unit ACHS JAYESH Administration Protocol Ondansetron HCl 8 mg 12/20/23 20:46 12/20/23 20:25 Ondansetron 4mg/2ml Vial IV 01/19/24 20:45 8 mg Q8HP PRN Administration Nausea Promethazine HCl 25 mg 12/20/23 20:47 12/20/23 21:20 Promethazine Hcl 25mg/Ml 1ml Vial IV 01/19/24 20:46 25 mg Q6HP PRN Administration Nausea And Vomiting Discontinued Medications Generic Name Dose Route Start Last Admin Trade Name Freq PRN Reason Stop Dose Admin Acetaminophen 1,000 mg 12/20/23 16:39 12/20/23 17:06 Acetaminophen 1,000mg/100ml Vial IV 12/20/23 16:40 1,000 mg ONCE ONE Administration Lactated Ringer's 1,000 mls @ 999 mls/hr 12/20/23 16:39 12/20/23 17:04 Lactated Ringer's 1000 Ml Bag IV 12/20/23 17:39 999 mls/hr .Q1H1M ONE Administration Lactated Ringer's 1,000 mls @ 999 mls/hr 12/20/23 18:11 12/20/23 18:21 Lactated Ringer's 1000 Ml Bag IV 12/20/23 19:11 999 mls/hr .Q1H1M ONE Administration Ketorolac Tromethamine 15 mg 12/20/23 16:39 12/20/23 17:05 Ketorolac 30mg/Ml Vial IV 12/20/23 16:40 15 mg ONCE ONE Administration Morphine Sulfate 2 mg 12/20/23 20:48 12/20/23 20:25 Morphine 2mg/Ml Syringe IV 01/19/24 20:47 2 mg Q4HP PRN Administration SEVERE PAIN Ondansetron HCl 4 mg 12/20/23 16:39 12/20/23 17:04 Ondansetron 4mg/2ml Vial IV 12/20/23 16:40 4 mg ONCE ONE Administration Promethazine HCl 12.5 mg 12/20/23 17:39 12/20/23 17:54 Promethazine Hcl 25mg/Ml 1ml Vial IV 12/20/23 17:40 12.5 mg ONCE ONE Administration Sodium Chloride 25 ml 12/20/23 17:39 12/20/23 18:22 Sodium Chloride 0.9% 25ml Bag IV 12/20/23 17:40 25 ml ONCE ONE Administration ORDERS Category Date Time Status Acetone, Serum (Rapid) Stat Lab 12/20/23 17:29 Completed CBC w/Auto Diff [Complete Blood Count Auto Diff] Stat Lab 12/20/23 16:36 Completed CMP [Comprehensive Metabolic Panel] Stat Lab 12/20/23 16:36 Completed Hemoglobin A1C Stat Lab 12/20/23 16:36 Completed Lipase Stat Lab 12/20/23 17:29 Completed Magnesium Stat Lab 12/20/23 16:36 Completed Trop I [Troponin I] Stat Lab 12/20/23 16:36 Completed UA [Urinalysis and Microscopic] Stat Lab 12/20/23 17:45 Completed VBG [Venous Blood Gas] Stat RT 12/20/23 17:12 Completed Medical Decision Narrative: In summary patient is a 53-year-old male who presents to the emergency department for evaluation of nausea vomiting diarrhea abdominal pain. Patient is hemodynamically stable upon arrival, afebrile. Physical exam is remarkable for dry oral mucosa no acetone on his breath, diffuse mild abdominal discomfort to palpation hyperactive bowel sounds without rebound or guarding or rigidity. Differential diagnosis includes gastroenteritis versus pancreatitis versus early DKA versus bowel obstruction etc. Initial workup will be conducted with hematologic labs CT scan abdomen pelvis urinalysis. Initial interventions include fluid bolus Toradol Tylenol antiemetics. Initial workup reviewed by me shows he had a significant lactic acidosis of 6.1 along with volume contraction white count of 14.9 and absolute neutrophil count of 10.5. Upon repeat evaluation he did have some resolution of his nausea. Given this I had interactive discussion with Dr. Verduzco about patient management and patient will be admitted for further evaluation and care <Ajith Kwon MD - Last Filed: 12/20/23 22:25> Vital Signs: 12/20/23 16:35 12/20/23 17:00 12/20/23 17:31 Temperature 98.2 F Temperature Source Oral Pulse Rate 95 H 88 Pulse Rate [Left Radial] 98 H Respiratory Rate 20 18 17 Blood Pressure 157/95 H 168/104 H Blood Pressure [Right Arm] 157/95 H Blood Pressure Mean [Right Arm] 115 Blood Pressure Position 02 Sat by Pulse Oximetry 98 99 98 Oxygen Delivery Method Room Air Room Air Room Air 12/20/23 19:16 Temperature 98.2 F Temperature Source Oral Pulse Rate 91 H Pulse Rate [Left Radial] Respiratory Rate 18 Blood Pressure 160/102 H Blood Pressure [Right Arm] Blood Pressure Mean [Right Arm] Blood Pressure Position Supine 02 Sat by Pulse Oximetry Oxygen Delivery Method Room Air Lab Data Lab Results 12/20/23 16:36: WBC 14.9 H, RBC 6.46 H, Hgb 19.1 H, Hct 59.2 H, MCV 91.7, MCH 29.8, MCHC 32.5, RDW 13.0, Plt Count 476 H, MPV 7.9, Neut % (Auto) 70.8, Lymph % (Auto) 23.6, [place] % (Auto) 4.2, Eos % (Auto) 0.4, Baso % (Auto) 0.9, Neut # (Auto) 10.5 H, Lymph # (Auto) 3.5, [place] # (Auto) 0.6, Eos # (Auto) 0.1, Baso # (Auto) 0.1, Sodium 139, Potassium 3.9, Chloride 99, Carbon Dioxide 20 L, Anion Gap 23.9 H, BUN 14, Creatinine 0.90, Estimated GFR 88, Est GFR ( Amer) 106, Glucose 288 H, Hemoglobin A1c 7.9 H, Calcium 10.3 H, Magnesium 2.0, Total Bilirubin 1.4 H, AST 54, ALT 36, Alkaline Phosphatase 129 H, Troponin I < 0.01, Total Protein 9.4 H D, Albumin 5.2 H, Globulin 4.2 H, Albumin/Globulin Ratio 1.2 12/20/23 17:12: VBG pH 7.41, VBG pCO2 31.7 L, VBG pO2 23.8 L, VBG HCO3 19.8 L, VBG Total CO2 20.8 L, VBG O2 Saturation 45.9 L, VBG Base Excess -4.7 L, VBG Lactic Acid 6.1 H 12/20/23 17:29: Lipase 63, Acetone Level None detected 12/20/23 17:45: Urine Color Yellow, Urine Appearance Clear, Urine pH 6.0, Ur Specific [place] <= 1.005, Urine Protein Negative, Urine Glucose (UA) 3+, Urine Ketones 3+, Urine Blood Negative, Urine Nitrate Negative, Urine Bilirubin Negative, Urine Urobilinogen 0.2, Ur Leukocyte Esterase Negative, Urine RBC None, Urine WBC None, Ur Squamous Epith Cells Occasional, Urine Bacteria None Orders (Tests/Meds): ED MEDICATIONS Generic Name Dose Route Start Last Admin Trade Name Freq PRN Reason Stop Dose Admin Enoxaparin Sodium 40 mg 12/21/23 09:00 Enoxaparin 40mg/0.4ml Syringe SQ 01/20/24 08:59 DAILY JAYESH Famotidine 40 mg 12/20/23 21:00 12/20/23 21:19 Famotidine 20mg/2ml Vial IV 01/19/24 20:59 40 mg HS JAYESH Administration Hydromorphone HCl 1 mg 12/20/23 21:29 12/20/23 21:30 Hydromorphone 2mg/Ml Syringe IV 01/19/24 21:28 1 mg Q4HP PRN Administration Severe Pain (7-10) Potassium Chloride/Dextrose/Sod Cl 1,000 mls @ 100 mls/hr 12/20/23 20:45 12/20/23 21:20 Kcl 20 Meq In D5w-Ns IV 01/19/24 20:44 100 mls/hr .Q10H JAYESH Administration Acetaminophen 1,000 mg in 100 mls @ 200 mls/hr 12/20/23 20:48 Ofirmev 1000mg/100ml Vial IV 01/19/24 20:47 Q6HP PRN MODERATE PAIN Insulin Human Lispro 0 unit 12/20/23 21:00 12/20/23 21:39 Humalog 100 Units/Ml 10ml Vial (Ssi) SQ 01/19/24 20:59 4 unit ACHS JAYESH Administration Protocol Ondansetron HCl 8 mg 12/20/23 20:46 12/20/23 20:25 Ondansetron 4mg/2ml Vial IV 01/19/24 20:45 8 mg Q8HP PRN Administration Nausea Promethazine HCl 25 mg 12/20/23 20:47 12/20/23 21:20 Promethazine Hcl 25mg/Ml 1ml Vial IV 01/19/24 20:46 25 mg Q6HP PRN Administration Nausea And Vomiting Discontinued Medications Generic Name Dose Route Start Last Admin Trade Name Freq PRN Reason Stop Dose Admin Acetaminophen 1,000 mg 12/20/23 16:39 12/20/23 17:06 Acetaminophen 1,000mg/100ml Vial IV 12/20/23 16:40 1,000 mg ONCE ONE Administration Lactated Ringer's 1,000 mls @ 999 mls/hr 12/20/23 16:39 12/20/23 17:04 Lactated Ringer's 1000 Ml Bag IV 12/20/23 17:39 999 mls/hr .Q1H1M ONE Administration Lactated Ringer's 1,000 mls @ 999 mls/hr 12/20/23 18:11 12/20/23 18:21 Lactated Ringer's 1000 Ml Bag IV 12/20/23 19:11 999 mls/hr .Q1H1M ONE Administration Ketorolac Tromethamine 15 mg 12/20/23 16:39 12/20/23 17:05 Ketorolac 30mg/Ml Vial IV 12/20/23 16:40 15 mg ONCE ONE Administration Morphine Sulfate 2 mg 12/20/23 20:48 12/20/23 20:25 Morphine 2mg/Ml Syringe IV 01/19/24 20:47 2 mg Q4HP PRN Administration SEVERE PAIN Ondansetron HCl 4 mg 12/20/23 16:39 12/20/23 17:04 Ondansetron 4mg/2ml Vial IV 12/20/23 16:40 4 mg ONCE ONE Administration Promethazine HCl 12.5 mg 12/20/23 17:39 12/20/23 17:54 Promethazine Hcl 25mg/Ml 1ml Vial IV 12/20/23 17:40 12.5 mg ONCE ONE Administration Sodium Chloride 25 ml 12/20/23 17:39 12/20/23 18:22 Sodium Chloride 0.9% 25ml Bag IV 12/20/23 17:40 25 ml ONCE ONE Administration ORDERS Category Date Time Status Acetone, Serum (Rapid) Stat Lab 12/20/23 17:29 Completed CBC w/Auto Diff [Complete Blood Count Auto Diff] Stat Lab 12/20/23 16:36 Completed CMP [Comprehensive Metabolic Panel] Stat Lab 12/20/23 16:36 Completed Hemoglobin A1C Stat Lab 12/20/23 16:36 Completed Lipase Stat Lab 12/20/23 17:29 Completed Magnesium Stat Lab 12/20/23 16:36 Completed Trop I [Troponin I] Stat Lab 12/20/23 16:36 Completed UA [Urinalysis and Microscopic] Stat Lab 12/20/23 17:45 Completed VBG [Venous Blood Gas] Stat RT 12/20/23 17:12 Completed ECG Data Tracing #1: Independently interpreted by me, rate is 96, rhythm is regular, axis is borderline leftward deviated, no ST elevation in anatomical contiguous leads, QTc 421. Medical Decision Narrative: In summary patient is a 53-year-old male who presents to the emergency department for evaluation of nausea vomiting diarrhea abdominal pain. Patient is hemodynamically stable upon arrival, afebrile. Physical exam is remarkable for dry oral mucosa no acetone on his breath, diffuse mild abdominal discomfort to palpation hyperactive bowel sounds without rebound or guarding or rigidity. Differential diagnosis includes gastroenteritis versus pancreatitis versus early DKA versus bowel obstruction etc. Initial workup will be conducted with hematologic labs, urinalysis. No focal findings on abdominal exam to warrant CT imaging although was considered will be deferred. Initial interventions include fluid bolus Toradol Tylenol antiemetics. Initial workup reviewed by me shows he had a significant lactic acidosis of 6.1 along with volume contraction white count of 14.9 and absolute neutrophil count of 10.5. Upon repeat evaluation he did have some resolution of his nausea. Given this I had interactive discussion with Dr. Verduzco about patient management and patient will be admitted for further evaluation and care. I was consulted by the BRENDAN, and we discussed the complexity of the problems being addressed. I approved the treatment and management plan for this patient's care in the emergency department, thus performing a substantive portion of the medical decision making. Patient recently increased his Ozempic and is having epigastric pain and intractable vomiting. This may be viral mediated or medication adverse event, he does have moderately uncontrolled diabetes as well, he does not have full-blown gastroparesis as he is having bowel movements. However he has significant volume contraction noticed by his CBC and elevated lactic acid which warrants continued volume resuscitation for which he was admitted to Dr. Verduzco. Ajith Kwon MD Critical Care <FLORA Rahman - Last Filed: 12/20/23 22:21> Critical Care Time Critical Care Time: No
[2023-12-20 16:53] LABS: Chloride 99 mmol/L (98-107)
[2023-12-20 16:54] LABS: Potassium 3.9 mmoL/L (3.5-5.1); Sodium 139 mmol/L (136-145)
[2023-12-20 16:55] LABS: Basophils # 0.1 K/mm3 (0-0.2); Basophils % 0.9 % (0.1-2.0); Eosinophils # 0.1 K/mm3 (0.0-0.4); Eosinophils % 0.4 % (0.1-12.0); Hematocrit 59.2 % (42.0-52.0); Lymphocytes # 3.5 K/mm3 (0.7-4.5); Lymphocytes % 23.6 % (10-50); Mean Corpuscular HGB Conc 32.5 g/dL (31.8-35.4); Mean Corpuscular Hemoglobin 29.8 pg (27.0-31.2); Mean Corpuscular Volume 91.7 fl (80-94); Mean Platelet Volume 7.9 fl (7.4-10.4); Monocytes # 0.6 K/mm3 (0.1-1.0); Monocytes % 4.2 % (1.7-9.3); Neutrophils # 10.5 K/mm3 (1.8-7.8); Neutrophils % 70.8 % (37.0-80.0); Platelet Count 476 K/mm3 (142-424); Red Blood Count 6.46 M/mm3 (4.60-6.20); White Blood Count 14.9 K/mm3 (4.8-10.8)
[2023-12-20 16:56] LABS: Alanine Aminotransferase 36 U/L (12-78); Aspartate Amino Transferase 54 U/L (17-59); Bilirubin,Total 1.4 mg/dl (0.2-1.3); Blood Urea Nitrogen 14 mg/dl (9-20); Estimated Glomerular Filt Rate 88 ml/min (>60); GFR (African American) 106 ML/MIN (>60)
[2023-12-20 16:57] LABS: Albumin Level 5.2 g/dl (3.5-5.0); Albumin/Globulin Ratio 1.2 (1.1-1.8); Alkaline Phosphatase 129 U/L (38-126); Anion Gap 23.9 mEq/L (5-15); Calcium 10.3 mg/dl (8.4-10.2); Carbon Dioxide 20 mmol/L (22.0-30.0); Globulin 4.2 g/dL (1.3-3.2); Glucose 288 mg/dl (74-100); Total Protein,Serum 9.4 g/dl (6.3-8.2)
[2023-12-20 17:00] VITALS: BP 157/95; PULSE 95; RESP 18; O2SAT 99
[2023-12-20 17:04] LABS: Hemoglobin 19.1 g/dL (14.1-18.0)
[2023-12-20] MEDS: ONDANSETRON 4MG/2ML VIAL 4 MG IV (17:04)
[2023-12-20] MEDS: LACTATED RINGERS 1000ML 1,000 ML 999 ML IV ×2 (17:04→18:21)
[2023-12-20] MEDS: KETOROLAC 30MG/ML VIAL 15 MG IV (17:05)
[2023-12-20] MEDS: ACETAMINOPHEN 1,000MG/100ML VIAL 1000 MG IV (17:06)
[2023-12-20 17:13] LABS: Troponin I < 0.01 ng/ml (0.00-0.034)
[2023-12-20 17:19] LABS: Hemoglobin A1C 7.9 % (4.0-6.0)
[2023-12-20 17:31] VITALS: BP 168/104; PULSE 88; RESP 17; O2SAT 98
[2023-12-20 17:52] LABS: Microscopic, Urine URINE MICROSCOPIC (MICROSCOPIC)
[2023-12-20] MEDS: PROMETHAZINE HCL 25MG/ML 1ML VIAL 12.5 MG IV (17:54)
[2023-12-20 17:56] LABS: Appearance,Urine CLEAR (Clear); Bilirubin,Urine Negative (Negative); Blood, Urine Negative (Negative); Color,Urine YELLOW (Yellow); Glucose,Urine (UA) 3+ (Negative); Ketones,Urine 3+ (Negative); Leukocyte Esterase,Urine Negative (Negative); Nitrate,Urine Negative (Negative); Protein,Urine Negative (Negative); Specific Gravity, Urine <= 1.005 (1.005-1.030); Urobilinogen,Urine 0.2 EU/dl (0.2)
[2023-12-20 17:58] LABS: VBG Base Excess -4.7 mmol/L (-2.4-2.3); VBG HCO3 19.8 mmol/L (23-30); VBG Oxygen Saturation 45.9 % (50-70); VBG PCO2 31.7 mmol/L (35-51); VBG PH 7.41 mmol/L (7.31-7.41); VBG PO2 23.8 mmol/L (28-40); VBG Total CO2 20.8 mmol/L (23-27)
[2023-12-20 18:01] LABS: Acetone, Serum (Rapid) None Detected (None Detect)
[2023-12-20 18:01] LABS: Lactate Venous 6.1 mmol/L (0.4-2.0)
--- NOTE | 2023-12-20 18:05 | PC.NURSE ---
DR KATY RASHEED
[2023-12-20 18:15] LABS: Lipase 63 U/L (23-300)
[2023-12-20] MEDS: SODIUM CHLORIDE 0.9% 25ML BAG 25 ML IV (18:22)
[2023-12-20 18:26] LABS: Squamous Epithelial Cell,Urine Occasional #/hpf (0-5)
--- NOTE | 2023-12-20 18:30 | PC.NURSE ---
SHAWN ANN SPEAKING WITH DR BURNS FOR ADMISSION
--- NOTE | 2023-12-20 18:41 | PC.NURSE ---
report called to araceli gonzalez RN
--- NOTE | 2023-12-20 18:54 | PC.NURSE ---
Spoke with ER about new orders for pt. MD will have to be called for orders.
[2023-12-20 19:16] VITALS: BP 160/102; PULSE 91; RESP 18; TEMP 36.8; O2SAT 98
--- NOTE | 2023-12-20 19:18 | PC.NURSE ---
Pt being transported at [facility], no assessment charted, did not receive report on this pt, d/c vitals charted on pt
--- NOTE | 2023-12-20 19:45 | PC.NURSE ---
Pt arrived to floor actively vomiting and complaining of upper mid abdominal pain rating it 8/10. Pt had no active orders. Luba ROMEO paged. Orders given over phone as follows: Start low dose sliding scale insulin Start 40mg IV famotidine HS Start lovenox 40mg SQ daily (1st dose in AM) Start Morphine 2mg IV PRN Q4h for severe pain Start 1000mg tylenol IV q6h PRN for moderate pain Start phenergan 25mg IV q6h PRN for n/v Start zofran 8mg q8h PRN for n/v Start D5 NS w/ 20K @ 100ml/hr
[2023-12-20 20:00] VITALS: BP 160/102; PULSE 92; RESP 20; TEMP 36.8; O2SAT 100; O2SAT 98
[2023-12-20] MEDS: ONDANSETRON 4MG/2ML VIAL 8 MG IV (20:25)
[2023-12-20] MEDS: MORPHINE 2MG/ML SYRINGE 2 MG IV (20:25)
--- NOTE | 2023-12-20 21:01 | PC.NURSE ---
Pt pain reassessed after administering 2mg Morphine. Pt is thrashing in bed, guarding his upper abdomen and moaning in pain. Pt states he has felt no relief from medication. Pt states he was admitted in hospital 1 year ago with similar symptoms and Dilaudid was the only medication that worked for his pain. Luba ROMEO paged and updated on pt status. States to order 1mg Dilaudid IV q4h PRN for severe pain and to DC Morphine 2mg PRN. Orders read back, verified, and carried out.
[2023-12-20 21:04] LABS: Reflex Lactic Add Lactic Reflex
[2023-12-20] MEDS: FAMOTIDINE 20MG/2ML VIAL 40 MG IV (21:19)
[2023-12-20] MEDS: D5W/0.9% NaCl w/20mEq KCL 1,000 ML 100 ML IV (21:20)
[2023-12-20] MEDS: PROMETHAZINE HCL 25MG/ML 1ML VIAL 25 MG IV (21:20)
[2023-12-20] MEDS: HYDROMORPHONE 2MG/ML SYRINGE 1 MG IV (21:30)
[2023-12-20] MEDS: humaLOG 100 UNITS/ML 10ML VIAL (SSI) SQ (21:39)
[2023-12-20 21:59] LABS: Lactic Acid Follow Up (RFLX 1) 3.1 mmol/L (0.7-2.1)
[2023-12-20 22:06] LABS: POC Glucose,Bedside 244 (70-110)
[2023-12-20 22:35] VITALS: BP 167/103; PULSE 87; RESP 26; O2SAT 99
--- NOTE | 2023-12-20 22:35 | PC.NURSE ---
came out of room requesting a RN to assess pt stating he says he cannot breathe. Datatscope taken into room. Pt laying in bed in no obvious distress speaking in sentences. VS taken: BP 167/103, HR 87, RR 26, O2 99% on RA. Pt throat examined with penlight- no swelling noted. Pt then states that he had felt like he wasn't able to take a breath but he now feels better. Pt was encouraged to call out if episode happened again. Call light within reach.
[2023-12-20 23:33] LABS: Reflex Lactic (2 hrs) Add Lactic Reflex
[2023-12-21 00:06] LABS: Lactic Acid Follow up (RFLX 2) 1.9 mmol/L (0.7-2.1)
[2023-12-21] MEDS: ACETAMINOPHEN 1,000 MG/100 ML ML 200 MG IV (00:50)
[2023-12-21] MEDS: HYDROMORPHONE 2MG/ML SYRINGE 1 MG IV ×2 (01:36→05:50)
[2023-12-21] MEDS: ONDANSETRON 4MG/2ML VIAL 8 MG IV (03:55)
[2023-12-21 04:00] VITALS: BP 170/87; PULSE 93; RESP 18; TEMP 37.7; O2SAT 94; BMI 40.8
[2023-12-21] MEDS: humaLOG 100 UNITS/ML 10ML VIAL (SSI) SQ ×2 (05:58→11:07)
[2023-12-21 06:02] LABS: POC Glucose,Bedside 207 (70-110)
--- NOTE | 2023-12-21 06:22 | PC.NURSE ---
Pt has complained of pain in upper mid abdomen and nausea multiple times during shift. Pt states pain is aching and becomes restless and starts thrashing in bed and repositioning himself very frequently. Pt states most relief after receiving Dilaudid with pain managed at 4/10. Pt is using urinal independently. is at bedside.
[2023-12-21 07:33] VITALS: BP 140/70; PULSE 97; RESP 18; TEMP 37.6; O2SAT 97
--- NOTE | 2023-12-21 08:02 | EXP.HP ---
History of Present Illness *Admission Date: 12/21/23 *Reason for visit:: Nausea, vomiting, diarrhea *History of present illness: Mr. Nation is a 53-year-old male with history of type 2 diabetes mellitus, hypertension, esophageal reflux, anxiety disorder., Sleep apnea, chronic back pain with severe lumbar disc disease, pain management with pain pump, and alcoholism who presented to [facility] yesterday evening after not feeling well for the last 3 to 4 days. He describes weakness and constipation. Then yesterday on 12/20/2023 he had a sudden onset of vomiting, diarrhea with persistent nausea and abdominal pain. He describes the abdominal pain as when he had his pancreatitis. He was unable to retain any food, fluids or medicines. This persisted and he had somewhat of a mental change and thus family brought him to the emergency room for evaluation. Cognition improved after receiving IV fluids in the emergency room. Patient denies having any fever although he experienced chilling and bodyaches. Denies any upper respiratory symptoms. He did have an episode where he had paresthesias in bilateral arms and circumoral cyanosis. With further investigation patient does think he was hyperventilating. With evaluation in the emergency room He was found to have elevated white blood cell count of 14,900 and hemoglobin was 19.1. Total bilirubin was 1.4. Alkaline phosphatase was elevated at 124. Lactic acid was elevated. Acetone was normal and lipase was 63. He was given famotidine, [place] morphine for abdominal pain and started on IV fluids of D5 with potassium after fluid resuscitation. He also received acetaminophen, IV Zofran and IV promethazine. Patient also was noted to be on Ozempic for approximately 2 months. The dose was increased last week after which he felt weak which he describes happening after all his Ozempic injections. He has had some nausea in the past but no vomiting. He usually is constipated. This a.m. patient is feeling much better. He did have IV Dilaudid around 5 AM. He denies nausea at present and has not vomited in the last few hours. Abdominal pain has subsided. He is begging for something else to eat. He has tolerated ice chips. He has been to the bathroom and passed gas but he has not had any further stools. He did have a low-grade fever during the night. He is voiding QS. [facility] Disclaimer: The information contained in this section may have been updated after the patient was seen, as this information can be updated by other users. Medical History Alcoholism Anxiety Basal cell carcinoma of skin COVID-19 Degenerative joint disease (DJD) of lumbar spine Diabetes mellitus Fusion of spine, cervical region GERD (gastroesophageal reflux disease) Hyperlipidemia Hypertension Sleep apnea Surgical History H/O bone graft H/O discectomy History of total right hip arthroplasty S/P fusion of sacroiliac joint Family History Other Bladder cancer Breast cancer Diabetes Heart attack Social History (Updated 12/20/23 @ 20:38 by Albina Kohli RN) Smoking Status: Former smoker tobacco type: cigarettes packs per day: 0 and smokeless tobacco second hand exposure: No alcohol intake: former substance use type: denies use and other current occupational status: other Travel in the last 8 weeks: None household members: spouse housing: house 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 current occupational exposures/hazards: Yes caffeine: Yes Review of Systems Constitutional Constitutional: Denies fever(s), Denies frequent falls, Denies headache(s), Reports poor appetite, Reports lethargy, Reports weakness and Reports weight loss (States he has intentionally lost 30 pounds recently) Eyes Eyes: Reports blurry vision ENT Ears, Nose, Mouth, and Throat: Reports dizziness, Denies otalgia, Denies headache(s), Denies nasal congestion, Denies nasal discharge, Denies post nasal drip, Denies sore throat and Reports vertigo *Cardiovascular Cardiovascular: Denies acrocyanosis, Denies chest pain, Reports dyspnea, Denies leg edema, Reports lightheadedness and Denies syncope *Respiratory Respiratory: Denies chest congestion, Denies cough and Reports dyspnea *Gastrointestinal Gastrointestinal: Reports abdominal pain, Denies belching, Reports bloating, Reports change in bowel habits, Reports change in stool character, Reports constipation, Reports diarrhea, Reports dyspepsia, Denies hematemesis, Denies hematochezia, Denies melena, Reports nausea and Reports vomiting *Genitourinary Genitourinary: Denies difficulty urinating *Musculoskeletal Musculoskeletal: Reports arthralgias (Back and all over) *Neurologic Neurologic: Reports abnormal speech (Resolved with IV fluids), Reports confusion, Denies convulsions, Reports dizziness, Denies frequent falls, Denies headache(s), Denies syncope, Reports vertigo and Reports weakness Psychiatric Psychiatric: Reports confusion Meds Home Medications and Allergies Home Medications Medication Instructions Recorded Confirmed Type glimepiride 4 mg tablet 4 mg PO DAILY Diabetes 01/08/20 12/20/23 History metformin 850 mg tablet 850 mg PO DAILYDM Diabetes 09/26/22 12/20/23 History tamsulosin 0.4 mg capsule 0.4 mg PO HS 09/26/22 12/20/23 History amlodipine 10 mg tablet 10 mg PO DAILY High blood pressure 09/27/22 12/21/23 History lisinopril 20 1 tab PO DAILY High blood pressure 09/27/22 12/21/23 History mg-hydrochlorothiazide 25 mg tablet pantoprazole 40 mg tablet,delayed 40 mg PO DAILY Reflux/Acid reflux 09/27/22 12/20/23 History release sildenafil (pulm.hypertension) 20 20 mg PO NEEDED PRN Erectile 09/27/22 12/20/23 History mg tablet Dysfunction simvastatin 40 mg tablet 40 mg PO HS High cholesterol 09/27/22 12/21/23 History multivitamin (Multiple Vitamins 1 tab PO DAILY 11/13/22 12/20/23 History tablet) insulin degludec 200 unit/mL (3 100 unit SQ DAILY dm 03/05/23 12/20/23 History mL) subcutaneous pen (Tresiba FlexTouch U-200 insulin) morphine (PF) 1 mg/mL injection 1 mg epidural CONT Pain 03/10/23 12/20/23 History solution duloxetine 60 mg capsule,delayed 60 mg PO DAILY 12/21/23 12/21/23 History release empagliflozin 25 mg tablet 25 mg PO DAILY 12/21/23 12/21/23 History (Jardiance) pregabalin 150 mg capsule 150 mg PO BID 12/21/23 12/21/23 History New Prescriptions to Start Prescriptions: Allergies Allergy/AdvReac Type Severity Reaction Status Date / Time No Known Allergies Allergy Verified 10/19/23 08:11 Exam Data for Last 24 hours Vital signs and Labs for Last 24 Hours: Temp Pulse Resp BP Pulse Ox O2 Del Method 99.7 F H 97 H 18 140/70 97 Room Air 12/21/23 07:33 12/21/23 07:33 12/21/23 07:33 12/21/23 07:33 12/21/23 07:33 12/21/23 07:33 Laboratory Results - last 24 hr 12/20/23 16:36: WBC 14.9 H, RBC 6.46 H, Hgb 19.1 H, Hct 59.2 H, MCV 91.7, MCH 29.8, MCHC 32.5, RDW 13.0, Plt Count 476 H, MPV 7.9, Neut % (Auto) 70.8, Lymph % (Auto) 23.6, [place] % (Auto) 4.2, Eos % (Auto) 0.4, Baso % (Auto) 0.9, Neut # (Auto) 10.5 H, Lymph # (Auto) 3.5, [place] # (Auto) 0.6, Eos # (Auto) 0.1, Baso # (Auto) 0.1, Sodium 139, Potassium 3.9, Chloride 99, Carbon Dioxide 20 L, Anion Gap 23.9 H, BUN 14, Creatinine 0.90, Estimated GFR 88, Est GFR ( Amer) 106, Glucose 288 H, Hemoglobin A1c 7.9 H, Calcium 10.3 H, Magnesium 2.0, Total Bilirubin 1.4 H, AST 54, ALT 36, Alkaline Phosphatase 129 H, Troponin I < 0.01, Total Protein 9.4 H D, Albumin 5.2 H, Globulin 4.2 H, Albumin/Globulin Ratio 1.2 12/20/23 17:12: VBG pH 7.41, VBG pCO2 31.7 L, VBG pO2 23.8 L, VBG HCO3 19.8 L, VBG Total CO2 20.8 L, VBG O2 Saturation 45.9 L, VBG Base Excess -4.7 L, VBG Lactic Acid 6.1 H 12/20/23 17:29: Lipase 63, Acetone Level None detected 12/20/23 17:45: Urine Color Yellow, Urine Appearance Clear, Urine pH 6.0, Ur Specific [place] <= 1.005, Urine Protein Negative, Urine Glucose (UA) 3+, Urine Ketones 3+, Urine Blood Negative, Urine Nitrate Negative, Urine Bilirubin Negative, Urine Urobilinogen 0.2, Ur Leukocyte Esterase Negative, Urine RBC None, Urine WBC None, Ur Squamous Epith Cells Occasional, Urine Bacteria None 12/20/23 21:30: POC Glucose 244 H 12/20/23 21:31: Lactate 3.1 H 12/20/23 23:51: Lactate 1.9 12/21/23 05:55: POC Glucose 207 H I & O for Last 24 hours: Intake & Output 12/18/23 12/19/23 12/20/23 12/21/23 11:59 11:59 11:59 11:59 Intake Total 2074 / 2074 Output Total 700 / 700 Balance 1375 / 1375 Weight 284 lb 15.159 oz Constitutional Constitutional: no acute distress Comments: Active in the room with lying in the bed and then standing to void. No difficulties. Appears *Routine HEENT Exam Head: Present normocephalic and atraumatic Eye: Present EOMI and PERRL; Absent conjunctival icterus, scleral injection or conjunctivae pink ENT: Present mucous membranes moist and oropharynx clear *Routine Neck Exam Neck: Present supple; Absent carotid bruit, lymphadenopathy or thyromegaly *Routine Respiratory Exam Respiratory: Present CTA bilaterally (Anteriorly and posteriorly) *Routine Cardiovascular Exam Cardiovascular: Present RRR (90/min) *Routine Abdominal Exam Abdominal: Present soft and normoactive bowel sounds; Absent tenderness, distended, organomegaly or mass *Routine Rectal Exam Rectal:: deferred *Routine Genitalia Exam Genitalia:: deferred *Routine Extremities Exam Extremities: Present full ROM and pulses intact; Absent edema or calf tenderness *Routine Neurological Exam Neurological: Present alert, oriented X3 and normal speech Assessment and Plan *Assessment and plan (1) Abdominal pain: Status: Acute Category: Medical Code(s): R10.9 - Unspecified abdominal pain (2) Nausea vomiting and diarrhea: Status: Acute Category: Medical Code(s): R11.2 - Nausea with vomiting, unspecified; R19.7 - Diarrhea, unspecified (3) High anion gap metabolic acidosis: Status: Acute Category: Medical Code(s): E87.29 - Other acidosis (4) Diabetes mellitus: Status: Acute Qualifiers: Diabetes mellitus complication status: without complication Diabetes mellitus terminal manager insulin use: without usp use Diabetes mellitus type: type 2 Qualified Code(s): E11.9 - Type 2 diabetes mellitus without complications Category: Medical Code(s): E11.9 - Type 2 diabetes mellitus without complications (5) Leukocytosis: Status: Acute Category: Medical Code(s): D72.829 - Elevated white blood cell count, unspecified Plan Trial of clear liquids. Continue IV fluids for now. Repeated labs which indicated increase and white blood cells. Will start Rocephin. Change Tylenol IV to p.o. Dr. Vedruzco entry - Saw patient, agree with above note.
[2023-12-21] MEDS: D5W/0.9% NaCl w/20mEq KCL 1,000 ML 100 ML IV (08:20)
[2023-12-21] MEDS: ENOXAPARIN 40MG/0.4ML SYRINGE 40 MG SQ (08:21)
[2023-12-21 08:25] LABS: MANUAL DIFFERENTIAL MANUAL DIFFERENTIAL (MANUAL DIFF)
[2023-12-21 08:31] LABS: Basophils % 0.2 % (0.1-2.0); Eosinophils # 0.1 K/mm3 (0.0-0.4); Eosinophils % 0.8 % (0.1-12.0); Hematocrit 53.7 % (42.0-52.0); Hemoglobin 17.3 g/dL (14.1-18.0); Lymphocytes # 1.3 K/mm3 (0.7-4.5); Lymphocytes % 7.7 % (10-50); Mean Corpuscular HGB Conc 32.2 g/dL (31.8-35.4); Mean Corpuscular Hemoglobin 30.3 pg (27.0-31.2); Monocytes # 0.8 K/mm3 (0.1-1.0); Monocytes % 4.6 % (1.7-9.3); Neutrophils # 14.1 K/mm3 (1.8-7.8); Neutrophils % 86.7 % (37.0-80.0); Platelet Count 404 K/mm3 (142-424); Red Blood Count 5.71 M/mm3 (4.60-6.20); Red Cell Distribution Width 13.2 % (11.5-17.5); White Blood Count 16.3 K/mm3 (4.8-10.8)
[2023-12-21 08:38] LABS: Chloride 104 mmol/L (98-107); Potassium 4.2 mmoL/L (3.5-5.1); Sodium 145 mmol/L (136-145)
[2023-12-21 08:41] LABS: Alanine Aminotransferase 43 U/L (12-78); Albumin Level 4.7 g/dl (3.5-5.0); Albumin/Globulin Ratio 1.5 (1.1-1.8); Alkaline Phosphatase 99 U/L (38-126); Amylase 70 U/L (30-110); Anion Gap 22.2 mEq/L (5-15); Aspartate Amino Transferase 39 U/L (17-59); Bilirubin,Total 0.8 mg/dl (0.2-1.3); Blood Urea Nitrogen 18 mg/dl (9-20); Calcium 9.7 mg/dl (8.4-10.2); Carbon Dioxide 23 mmol/L (22.0-30.0); Creatinine Clearance Estimated 170 mL/min (50-200); Estimated Glomerular Filt Rate 88 ml/min (>60); GFR (African American) 106 ML/MIN (>60); Globulin 3.2 g/dL (1.3-3.2); Glucose 239 mg/dl (74-100); Total Protein,Serum 7.9 g/dl (6.3-8.2)
[2023-12-21 08:41] LABS: Coronavirus 19, PCR Not Detected (NotDetected); Influenza A, PCR Not Detected (NotDetected); Influenza B, PCR Not Detected (NotDetected)
[2023-12-21 09:08] LABS: Lymphocytes % 6 % (10-50); Monocytes % 3 % (2-9); Neutrophils % 91 % (42-76); Total Cells Counted 100
[2023-12-21 09:12] LABS: RBC Morphology Normal
[2023-12-21 09:13] LABS: Platelet Estimate Normal
[2023-12-21] MEDS: CEFTRIAXONE 1 GM 1 GM in 0.9 % SODIUM CHLORIDE 50 ML IV (09:46)
[2023-12-21] MEDS: ACETAMINOPHEN 325MG TAB 650 MG PO (10:11)
--- NOTE | 2023-12-21 22:05 | P.DS_ITS ---
General Admission date:: 12/20/23 Discharge date: 12/21/23 HPI HPI HPI: Mr. Nation is a 53-year-old male with history of type 2 diabetes mellitus, hypertension, esophageal reflux, anxiety disorder., Sleep apnea, chronic back pain with severe lumbar disc disease, pain management with pain pump, and alcoholism who presented to [facility] yesterday evening after not feeling well for the last 3 to 4 days. He describes weakness and constipation. Then yesterday on 12/20/2023 he had a sudden onset of vomiting, diarrhea with persistent nausea and abdominal pain. He describes the abdominal pain as when he had his pancreatitis. He was unable to retain any food, fluids or medicines. This persisted and he had somewhat of a mental change and thus family brought him to the emergency room for evaluation. Cognition improved after receiving IV fluids in the emergency room. Patient denies having any fever although he experienced chilling and bodyaches. Denies any upper respiratory symptoms. He did have an episode where he had paresthesias in bilateral arms and circumoral cyanosis. With further investigation patient does think he was hyperventilating. With evaluation in the emergency room He was found to have elevated white blood cell count of 14,900 and hemoglobin was 19.1. Total bilirubin was 1.4. Alkaline phosphatase was elevated at 124. Lactic acid was elevated. Acetone was normal and lipase was 63. He was given famotidine, [place] morphine for abdominal pain and started on IV fluids of D5 with potassium after fluid resuscitation. He also received acetaminophen, IV Zofran and IV promethazine. Patient also was noted to be on Ozempic for approximately 2 months. The dose was increased last week after which he felt weak which he describes happening after all his Ozempic injections. He has had some nausea in the past but no vomiting. He usually is constipated. This a.m. patient is feeling much better. He did have IV Dilaudid around 5 AM. He denies nausea at present and has not vomited in the last few hours. Abdominal pain has subsided. He is begging for something else to eat. He has tolerated ice chips. He has been to the bathroom and passed gas but he has not had any further stools. He did have a low-grade fever during the night. He is voiding QS. Hospital Course Hospital Course Hospital Course: After admission patient did require antiemetics and also Dilaudid for his abdominal pain. He was able to have clear liquids for breakfast and tolerated well. He then was advanced to diabetic diet which he also tolerated. He had no further vomiting or diarrhea and denied nausea. Abdominal pain had resolved and by early p.m. he was stable to be discharged home. He did have a leukocytosis and was started on Ceftin with Rx for nausea. He was discharged home in stable and satisfactory condition to follow-up with Dr. Verduzco in the office of [facility]. Exam Data for Last 24 hours Vital signs and Labs for Last 24 Hours: Temp Pulse Resp BP Pulse Ox O2 Del Method 99.7 F H 97 H 18 140/70 97 Room Air 12/21/23 07:33 12/21/23 07:33 12/21/23 07:33 12/21/23 07:33 12/21/23 07:33 12/21/23 12:32 Laboratory Results - last 24 hr 12/20/23 21:30: POC Glucose 244 H 12/20/23 23:51: Lactate 1.9 12/21/23 05:55: POC Glucose 207 H 12/21/23 08:18: WBC 16.3 H, RBC 5.71, Hgb 17.3, Hct 53.7 H, MCV 94.0, MCH 30.3, MCHC 32.2, RDW 13.2, Plt Count 404, MPV 8.0, Neut % (Auto) 86.7 H, Lymph % (Auto) 7.7 L, [place] % (Auto) 4.6, Eos % (Auto) 0.8, Baso % (Auto) 0.2, Neut # (Auto) 14.1 H, Lymph # (Auto) 1.3, [place] # (Auto) 0.8, Eos # (Auto) 0.1, Baso # (Auto) 0.0, Total Counted 100, Neutrophils % (Manual) 91 H, Lymphocytes % (Manual) 6 L, Monocytes % (Manual) 3, Platelet Estimate Normal, RBC Morphology Normal, Sodium 145, Potassium 4.2, Chloride 104, Carbon Dioxide 23, Anion Gap 22.2 H, BUN 18 D, Creatinine 0.90, Estimated Creat Clear 170, Estimated GFR 88, Est GFR ( Amer) 106, Glucose 239 H, Calcium 9.7, Total Bilirubin 0.8, AST 39 D, ALT 43, Alkaline Phosphatase 99, Total Protein 7.9, Albumin 4.7, Globulin 3.2, Albumin/Globulin Ratio 1.5, Amylase 70 12/21/23 08:39: SARS-CoV-2 (PCR) Not detected, Influenza A Untype (PCR) Not detected, Influenza Type B (PCR) Not detected I & O for Last 24 hours: Intake & Output 12/19/23 12/20/23 12/21/23 12/22/23 11:59 11:59 11:59 11:59 Intake Total 2795 / 2795 Output Total 1100 / 1100 Balance 1695 / 1695 Weight 284 lb 15.159 oz Narrative: Constitutional Constitutional: no acute distress Comments: Active in the room with lying in the bed and then standing to void. No difficulties. Appears *Routine HEENT Exam Head: Present normocephalic and atraumatic Eye: Present EOMI and PERRL; Absent conjunctival icterus, scleral injection or conjunctivae pink ENT: Present mucous membranes moist and oropharynx clear *Routine Neck Exam Neck: Present supple; Absent carotid bruit, lymphadenopathy or thyromegaly *Routine Respiratory Exam Respiratory: Present CTA bilaterally (Anteriorly and posteriorly) *Routine Cardiovascular Exam Cardiovascular: Present RRR (90/min) *Routine Abdominal Exam Abdominal: Present soft and normoactive bowel sounds; Absent tenderness, distended, organomegaly or mass *Routine Rectal Exam Rectal:: deferred *Routine Genitalia Exam Genitalia:: deferred *Routine Extremities Exam Extremities: Present full ROM and pulses intact; Absent edema or calf tenderness *Routine Neurological Exam Neurological: Present alert, oriented X3 and normal speech Results Data Completed and Pending Labs on day of discharge: Labs from last 24 hours 12/21/23 12/21/23 12/21/23 08:39 08:18 05:55 WBC 16.3 H RBC 5.71 Hgb 17.3 Hct 53.7 H MCV 94.0 MCH 30.3 MCHC 32.2 RDW 13.2 Plt Count 404 MPV 8.0 Neut % (Auto) 86.7 H Lymph % (Auto) 7.7 L [place] % (Auto) 4.6 Eos % (Auto) 0.8 Baso % (Auto) 0.2 Neut # (Auto) 14.1 H Lymph # (Auto) 1.3 [place] # (Auto) 0.8 Eos # (Auto) 0.1 Baso # (Auto) 0.0 Total Counted 100 Neutrophils % (Manual) 91 H Lymphocytes % (Manual) 6 L Monocytes % (Manual) 3 Platelet Estimate Normal RBC Morphology Normal Sodium 145 Potassium 4.2 Chloride 104 Carbon Dioxide 23 Anion Gap 22.2 H BUN 18 D Creatinine 0.90 Estimated Creat Clear 170 Estimated GFR 88 Est GFR ( Amer) 106 Glucose 239 H POC Glucose 207 H Lactate Calcium 9.7 Total Bilirubin 0.8 AST 39 D ALT 43 Alkaline Phosphatase 99 Total Protein 7.9 Albumin 4.7 Globulin 3.2 Albumin/Globulin Ratio 1.5 Amylase 70 SARS-CoV-2 (PCR) Not detected Influenza A Untype (PCR) Not detected Influenza Type B (PCR) Not detected 12/20/23 12/20/23 23:51 21:30 WBC RBC Hgb Hct MCV MCH MCHC RDW Plt Count MPV Neut % (Auto) Lymph % (Auto) [place] % (Auto) Eos % (Auto) Baso % (Auto) Neut # (Auto) Lymph # (Auto) [place] # (Auto) Eos # (Auto) Baso # (Auto) Total Counted Neutrophils % (Manual) Lymphocytes % (Manual) Monocytes % (Manual) Platelet Estimate RBC Morphology Sodium Potassium Chloride Carbon Dioxide Anion Gap BUN Creatinine Estimated Creat Clear Estimated GFR Est GFR ( Amer) Glucose POC Glucose 244 H Lactate 1.9 Calcium Total Bilirubin AST ALT Alkaline Phosphatase Total Protein Albumin Globulin Albumin/Globulin Ratio Amylase SARS-CoV-2 (PCR) Influenza A Untype (PCR) Influenza Type B (PCR) DS: Diagnosis Discharge Diagnosis (1) Abdominal pain: Status: Acute Code(s): R10.9 - Unspecified abdominal pain (2) Nausea vomiting and diarrhea: Status: Acute Code(s): R11.2 - Nausea with vomiting, unspecified; R19.7 - Diarrhea, unspecified (3) High anion gap metabolic acidosis: Status: Acute Code(s): E87.29 - Other acidosis (4) Diabetes mellitus: Status: Acute Code(s): E11.9 - Type 2 diabetes mellitus without complications Qualifiers: Diabetes mellitus complication status: without complication Diabetes mellitus mcc insulin use: without intermediate card tender use Diabetes mellitus type: type 2 Qualified Code(s): E11.9 - Type 2 diabetes mellitus without complications (5) Leukocytosis: Status: Acute Code(s): D72.829 - Elevated white blood cell count, unspecified Meds Home Medications and Allergies Home Medications Medication Instructions Recorded Confirmed Type glimepiride 4 mg tablet 4 mg PO DAILY Diabetes 01/08/20 12/20/23 History metformin 850 mg tablet 850 mg PO DAILYDM Diabetes 09/26/22 12/20/23 History tamsulosin 0.4 mg capsule 0.4 mg PO HS 09/26/22 12/20/23 History amlodipine 10 mg tablet 10 mg PO DAILY High blood pressure 09/27/22 12/21/23 History lisinopril 20 1 tab PO DAILY High blood pressure 09/27/22 12/21/23 History mg-hydrochlorothiazide 25 mg tablet pantoprazole 40 mg tablet,delayed 40 mg PO DAILY Reflux/Acid reflux 09/27/22 12/20/23 History release sildenafil (pulm.hypertension) 20 20 mg PO NEEDED PRN Erectile 09/27/22 12/20/23 History mg tablet Dysfunction simvastatin 40 mg tablet 40 mg PO HS High cholesterol 09/27/22 12/21/23 History multivitamin (Multiple Vitamins 1 tab PO DAILY 11/13/22 12/20/23 History tablet) insulin degludec 200 unit/mL (3 100 unit SQ DAILY dm 03/05/23 12/20/23 History mL) subcutaneous pen (Tresiba FlexTouch U-200 insulin) morphine (PF) 1 mg/mL injection 1 mg epidural CONT Pain 03/10/23 12/20/23 History solution cefuroxime axetil 500 mg tablet 500 mg PO BID #10 tabs 12/21/23 Rx duloxetine 60 mg capsule,delayed 60 mg PO DAILY 12/21/23 12/21/23 History release empagliflozin 25 mg tablet 25 mg PO DAILY 12/21/23 12/21/23 History (Jardiance) ondansetron 4 mg disintegrating 4 mg PO Q8H PRN nausea and 12/21/23 Rx tablet vomiting #20 tabs pregabalin 150 mg capsule 150 mg PO BID 12/21/23 12/21/23 History New Prescriptions to Start Prescriptions: cefuroxime axetil [place],Marc ondansetron [place],Marc Allergies Allergy/AdvReac Type Severity Reaction Status Date / Time No Known Allergies Allergy Verified 10/19/23 08:11 Discharge Plan Disposition Patient Disposition: Home, Self-Care Condition: Fair Follow up Plan Follow up with: Marc Verduzco MD [Primary Care Provider] - 12/28/23 10:30 am Prescriptions/Medication Reconciliation: New ondansetron 4 mg tablet,disintegrating 4 mg PO Q8H PRN (Reason: nausea and vomiting) Qty: 20 0RF cefuroxime axetil 500 mg tablet 500 mg PO BID Qty: 10 0RF Continued multivitamin [Multiple Vitamins] Tablet 1 tab PO DAILY insulin degludec [Tresiba FlexTouch U-200] 200 unit/mL (3 mL) insulin pen 100 unit SQ DAILY Patient Comments: INJECT 80 UNITS SUBCUTANEOUSLY EVERY DAY duloxetine 60 mg capsule,delayed release(DR/EC) 60 mg PO DAILY Patient Comments: TAKE ONE CAPSULE BY MOUTH EVERY DAY pregabalin 150 mg capsule 150 mg PO BID Patient Comments: TAKE ONE CAPSULE BY MOUTH TWICE DAILY MAY CAUSE DROWSINESS Jardiance 25 mg tablet 25 mg PO DAILY Patient Comments: TAKE ONE TABLET BY MOUTH EVERY MORNING glimepiride 4 MG tablet 4 mg PO DAILY metformin 850 mg tablet 850 mg PO DAILYDM Patient Comments: TAKE ONE TABLET BY MOUTH EVERY DAY IN THE MORNING tamsulosin 0.4 mg capsule 0.4 mg PO HS Patient Comments: TAKE ONE CAPSULE BY MOUTH EVERY DAY amlodipine 10 mg tablet 10 mg PO DAILY Patient Comments: TAKE ONE TABLET BY MOUTH EVERY DAY pantoprazole 40 mg tablet,delayed release (DR/EC) 40 mg PO DAILY Patient Comments: TAKE ONE TABLET BY MOUTH EVERY DAY lisinopril-hydrochlorothiazide 20-25 mg tablet 1 tab PO DAILY simvastatin 40 mg tablet 40 mg PO HS Patient Comments: TAKE ONE TABLET BY MOUTH EVERY DAY AT BEDTIME sildenafil (pulm.hypertension) 20 mg tablet 20 mg PO NEEDED PRN (Reason: Erectile Dysfunction) morphine (PF) 1 mg/mL Solution 1 mg epidural CONT Rx Instructions: MORPHINE 1MG/1ML. SEE EMR FOR CURRENT DAILY DOSE. Problem Reconciliation Problems Reviewed?: Yes Patient Discharge Instructions ACTIVITY: Ambulate as tolerated DIET: advance to your usual diet Patient Instructions: Diarrhea, Nausea and Vomiting-Adult Providers Primary Care Provider: Marc Verduzco Admit Provider: Marc Verduzco Attending Provider: Marc Verduzco
== END 2023-12-21 13:56 | disposition home or self-care (01) ==
LOC: ER 18:34 → 2ND 18:37
PROVIDERS: Nurse Practitioner Family; Physician Assistant; Admitting Provider Family Medicine; Emergency Provider Emergency Medicine; PCP Family Medicine; Visit Provider Family Medicine
DX: R11.2 Nausea with vomiting, unspecified (principal); E11.65 Type 2 diabetes mellitus with hyperglycemia; I10 Essential (primary) hypertension; F17.290 Nicotine dependence, other tobacco product, uncomplicated; Z79.4 Long term (current) use of insulin; Z86.16 Personal history of COVID-19; Z97.8 Presence of other specified devices; F10.21 Alcohol dependence, in remission; Z79.85 Long-term (current) use of injectable non-insulin antidiabetic drugs; Z79.899 Other long term (current) drug therapy; D72.829 Elevated white blood cell count, unspecified; R10.84 Generalized abdominal pain; R19.7 Diarrhea, unspecified; M51.36 Other intervertebral disc degeneration, lumbar region
CPT/HCPCS: 36415; 80053; 81001; 82009; 82150; 82803; 82962; 83036; 83605; 83690; 83735; 84484; 85007; 85014; 85018; 85025; 85048; 85049; 87636; 93005; 99285; G0378; J0131; J0696; J1170; J1650; J1885; J2270; J2405; J2550; J7120

== ENCOUNTER 2023-12-22 11:32 | Observation (INO) | payer BC, SELFPAY ==
[2023-12-22] VITALS (12 sets, daily range): BP systolic 143–198; BP diastolic 72–108; PULSE 75–130; RESP 16–21; TEMP 36.6–37; O2SAT 97–100; BMI 34.2; BMI 33.5
--- NOTE | 2023-12-22 11:38 | ECG_ITS ---
APPROVED REPORT Exam: Resting ECG HR:86 bpm ECG Measurements Heart Rate 86 AXES FL 185 P 94 QRSd 99 QRS 59 QT 387 T 77 QTc 430 Conclusion SINUS RHYTHM INCOMPLETE RIGHT BUNDLE BRANCH BLOCK [90+ ms QRS DURATION, TERMINAL R IN V1/V2, 40+ ms S IN I/aVL/V4/V5/V6] BORDERLINE ECG UNCONFIRMED REPORT Electronically signed by : Sj Munoz, 12/22/2023 15:38:44
--- NOTE | 2023-12-22 12:18 | CT_ITS ---
FINAL REPORT CLINICAL HISTORY: diffuse abd pain cp nausea COMPARISON: 09/26/2022 FINDINGS: CT OF THE ABDOMEN AND PELVIS WITH CONTRAST Axial CT images of the abdomen and pelvis were obtained after the administration of IV contrast. Coronal and sagittal reformatted images were also obtained and reviewed. This study was performed with techniques to keep radiation doses as low as reasonably achievable (ALARA). Individualized dose reduction techniques using automated exposure control or adjustment of mA and/or kV according to the patient's size were employed. Abdomen: Multiple calcified granulomas are present in the lung bases.. The heart is normal in size. The liver has an unremarkable appearance, without evidence of mass or biliary ductal dilatation. The spleen is unremarkable. No adrenal mass is present. There has been interval improvement in findings of acute pancreatitis since the prior CT of 2022. There is mild persistence of stranding adjacent to the tail of the pancreas, that may represent mild scarring or residual inflammation. The kidneys are normal, without evidence of mass or hydronephrosis. The aorta is normal in caliber. There is no free fluid or adenopathy. No mass or abnormal fluid collection is seen. Pelvis: The appendix normal in appearance. The urinary bladder is unremarkable. No inflammatory process is seen. There are scattered diverticula in the colon. Moderate vascular calcifications are present. There is no evidence of mass or adenopathy. There is no evidence of bowel obstruction. There has been a right hip arthroplasty which produces streak artifact. IMPRESSION: No evidence of acute intra-abdominal process. Interval improvement in the findings of acute pancreatitis, scarring versus residual inflammation. Reviewed, Interpreted and Dictated by Rogelio Chavez III, MD Transcribed by Dalia Madden Authenticated and [facility]
[2023-12-22] MEDS: ONDANSETRON 4MG/2ML VIAL 4 MG IV (12:22)
[2023-12-22] MEDS: LACTATED RINGERS 1000ML 1,000 ML 999 ML IV (12:22)
[2023-12-22] MEDS: MORPHINE 4MG/ML SYRINGE 4 MG IV (12:23)
[2023-12-22 12:25] LABS: Chloride 102 mmol/L (98-107); Potassium 3.9 mmoL/L (3.5-5.1); Sodium 138 mmol/L (136-145)
[2023-12-22 12:27] LABS: Blood Urea Nitrogen 15 mg/dl (9-20); Creatinine Clearance Estimated 172 mL/min (50-200); Estimated Glomerular Filt Rate 117 ml/min (>60); GFR (African American) 142 ML/MIN (>60)
[2023-12-22 12:28] LABS: Alanine Aminotransferase 39 U/L (12-78); Albumin Level 4.4 g/dl (3.5-5.0); Albumin/Globulin Ratio 1.3 (1.1-1.8); Alkaline Phosphatase 118 U/L (38-126); Anion Gap 16.9 mEq/L (5-15); Aspartate Amino Transferase 50 U/L (17-59); Basophils # 0.1 K/mm3 (0-0.2); Basophils % 0.9 % (0.1-2.0); Calcium 9.8 mg/dl (8.4-10.2); Carbon Dioxide 23 mmol/L (22.0-30.0); Creatine Kinase 138 U/L (55-170); Eosinophils % 0.3 % (0.1-12.0); Globulin 3.3 g/dL (1.3-3.2); Glucose 310 mg/dl (74-100); Hematocrit 56.6 % (42.0-52.0); Lipase 64 U/L (23-300); Lymphocytes # 1.6 K/mm3 (0.7-4.5); Lymphocytes % 16.1 % (10-50); Mean Corpuscular HGB Conc 32.4 g/dL (31.8-35.4); Mean Corpuscular Hemoglobin 30.6 pg (27.0-31.2); Mean Corpuscular Volume 94.5 fl (80-94); Mean Platelet Volume 8.1 fl (7.4-10.4); Monocytes # 0.4 K/mm3 (0.1-1.0); Monocytes % 4.3 % (1.7-9.3); Neutrophils # 7.6 K/mm3 (1.8-7.8); Neutrophils % 78.4 % (37.0-80.0); Platelet Count 346 K/mm3 (142-424); Red Blood Count 5.99 M/mm3 (4.60-6.20); Total Protein,Serum 7.7 g/dl (6.3-8.2); White Blood Count 9.7 K/mm3 (4.8-10.8)
[2023-12-22 12:32] LABS: Hemoglobin 18.4 g/dL (14.1-18.0)
[2023-12-22] MEDS: HYDROMORPHONE 2MG/ML SYRINGE 0.5 MG IV (12:41)
--- NOTE | 2023-12-22 12:45 | HMH.EDGENADL ---
Discharge Plan Disposition Chief Complaint: Anxiety Prescriptions Prescriptions: No Action multivitamin [Multiple Vitamins] Tablet 1 tab PO DAILY insulin degludec [Tresiba FlexTouch U-200] 200 unit/mL (3 mL) insulin pen 100 unit SQ DAILY Patient Comments: INJECT 80 UNITS SUBCUTANEOUSLY EVERY DAY duloxetine 60 mg capsule,delayed release(DR/EC) 60 mg PO DAILY Patient Comments: TAKE ONE CAPSULE BY MOUTH EVERY DAY pregabalin 150 mg capsule 150 mg PO BID Patient Comments: TAKE ONE CAPSULE BY MOUTH TWICE DAILY MAY CAUSE DROWSINESS Jardiance 25 mg tablet 25 mg PO DAILY Patient Comments: TAKE ONE TABLET BY MOUTH EVERY MORNING ondansetron 4 mg tablet,disintegrating 4 mg PO Q8H PRN (Reason: nausea and vomiting) Qty: 20 0RF cefuroxime axetil 500 mg tablet 500 mg PO BID Qty: 10 0RF glimepiride 4 MG tablet 4 mg PO DAILY metformin 850 mg tablet 850 mg PO DAILYDM Patient Comments: TAKE ONE TABLET BY MOUTH EVERY DAY IN THE MORNING tamsulosin 0.4 mg capsule 0.4 mg PO HS Patient Comments: TAKE ONE CAPSULE BY MOUTH EVERY DAY amlodipine 10 mg tablet 10 mg PO DAILY Patient Comments: TAKE ONE TABLET BY MOUTH EVERY DAY pantoprazole 40 mg tablet,delayed release (DR/EC) 40 mg PO DAILY Patient Comments: TAKE ONE TABLET BY MOUTH EVERY DAY lisinopril-hydrochlorothiazide 20-25 mg tablet 1 tab PO DAILY simvastatin 40 mg tablet 40 mg PO HS Patient Comments: TAKE ONE TABLET BY MOUTH EVERY DAY AT BEDTIME sildenafil (pulm.hypertension) 20 mg tablet 20 mg PO NEEDED PRN (Reason: Erectile Dysfunction) morphine (PF) 1 mg/mL Solution 1 mg epidural CONT Rx Instructions: MORPHINE 1MG/1ML. SEE EMR FOR CURRENT DAILY DOSE. Referrals Follow up/Referrals: Marc Verduzco MD [Primary Care Provider] - See instructions Clinical Impressions Clinical Impression: Agitation, Abdominal cramping Discharge ED Provider: Riccardo Munoz General Adult HPI General Chief complaint: Anxiety Stated complaint: Weakness Time Seen by Provider: 12/22/23 12:07 Mode of Arrival: Wheelchair Source of Information: Patient Limitations: No Limitations Description of Symptoms (Recalled from ER Triage Doc. by RN): pt to ed states he thinks he has mold toxicity. pt states he had a recent hospitalization for similar symptoms and after being home for a night is having symptoms again. pt c/o chest heaviness and nausea. History of Present Illness HPI narrative: Patient is a 53-year-old male presents today with abdominal pain and anxiety. States he was recently hospitalized for the same symptoms. Started Ozempic within the last few weeks. Also has a history of alcohol abuse has been hospitalized for that in the past but denies any recent alcohol use or abuse or withdrawal. Does have chronic opioid use and has chronic back pain has a morphine pump this follow-up with Dr. Rosas. Is due soon for reservoir infusion. Patient states that he is having significant abdominal cramping that is associated with his diffuse agitation. States when he was in the hospital recently which largely was unremarkable that he improved significantly Dilaudid and he request that again right now. Also has had piloerection's and some diarrhea. Related Data Home Medications Medication Instructions Recorded Confirmed glimepiride 4 mg tablet 4 mg PO DAILY Diabetes 01/08/20 12/20/23 metformin 850 mg tablet 850 mg PO DAILYDM Diabetes 09/26/22 12/20/23 tamsulosin 0.4 mg capsule 0.4 mg PO HS 09/26/22 12/20/23 amlodipine 10 mg tablet 10 mg PO DAILY High blood pressure 09/27/22 12/21/23 lisinopril 20 1 tab PO DAILY High blood pressure 09/27/22 12/21/23 mg-hydrochlorothiazide 25 mg tablet pantoprazole 40 mg tablet,delayed 40 mg PO DAILY Reflux/Acid reflux 09/27/22 12/20/23 release sildenafil (pulm.hypertension) 20 20 mg PO NEEDED PRN Erectile 09/27/22 12/20/23 mg tablet Dysfunction simvastatin 40 mg tablet 40 mg PO HS High cholesterol 09/27/22 12/21/23 multivitamin (Multiple Vitamins 1 tab PO DAILY 11/13/22 12/20/23 tablet) insulin degludec 200 unit/mL (3 100 unit SQ DAILY dm 03/05/23 12/20/23 mL) subcutaneous pen (Tresiba FlexTouch U-200 insulin) morphine (PF) 1 mg/mL injection 1 mg epidural CONT Pain 03/10/23 12/20/23 solution duloxetine 60 mg capsule,delayed 60 mg PO DAILY 12/21/23 12/21/23 release empagliflozin 25 mg tablet 25 mg PO DAILY 12/21/23 12/21/23 (Jardiance) pregabalin 150 mg capsule 150 mg PO BID 12/21/23 12/21/23 Previous Rx's Medication Instructions Recorded cefuroxime axetil 500 mg tablet 500 mg PO BID #10 tabs 12/21/23 ondansetron 4 mg disintegrating 4 mg PO Q8H PRN nausea and 12/21/23 tablet vomiting #20 tabs Allergies Allergy/AdvReac Type Severity Reaction Status Date / Time No Known Allergies Allergy Verified 10/19/23 08:11 [facility] Disclaimer: The information contained in this section may have been updated after the patient was seen, as this information can be updated by other users. Medical History Alcoholism Anxiety Basal cell carcinoma of skin COVID-19 Degenerative joint disease (DJD) of lumbar spine Diabetes mellitus Fusion of spine, cervical region GERD (gastroesophageal reflux disease) Hyperlipidemia Hypertension Sleep apnea Surgical History H/O bone graft H/O discectomy History of total right hip arthroplasty S/P fusion of sacroiliac joint Family History Other Bladder cancer Breast cancer Diabetes Heart attack Social History (Updated 12/20/23 @ 20:38 by Albina Kohli RN) Smoking Status: Never smoker second hand exposure: No alcohol intake: former substance use type: denies use and other current occupational status: other Travel in the last 8 weeks: None household members: spouse housing: house 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 current occupational exposures/hazards: Yes caffeine: Yes ROS Obtained: Yes All systems reviewed & no additional complaints except as documented Physical Exam General General appearance: alert Respiratory Respiratory exam: Present normal lung sounds bilaterally Cardiovascular Cardiovascular exam: Present regular rate and normal rhythm Abdominal Exam Abdominal exam: Present soft, distention and tenderness Neurological Exam Neurological exam: Present alert and oriented X3 Medical Decision Making Theo Inquiry Pt receiving controlled substance: No Vital Signs: 12/22/23 11:34 12/22/23 12:00 12/22/23 12:02 Temperature 98.6 F Temperature Source Oral Pulse Rate 83 78 Pulse Rate [Left Radial] 86 Respiratory Rate 20 Blood Pressure 170/102 H 180/108 H Blood Pressure [Right Arm] 170/104 H Blood Pressure Mean 143 140 Blood Pressure Mean [Right Arm] 126 02 Sat by Pulse Oximetry 99 100 97 Oxygen Delivery Method Room Air 12/22/23 13:00 12/22/23 13:30 12/22/23 14:00 Temperature Temperature Source Pulse Rate 75 79 Pulse Rate [Left Radial] Respiratory Rate 16 Blood Pressure 171/105 H 192/106 H 189/105 H Blood Pressure [Right Arm] Blood Pressure Mean 135 124 133 Blood Pressure Mean [Right Arm] 02 Sat by Pulse Oximetry 98 98 99 Oxygen Delivery Method Lab Data Lab results reviewed: Yes I reviewed the patient's lab results. Lab Results 12/22/23 11:43: WBC 9.7 D, RBC 5.99, Hgb 18.4 H, Hct 56.6 H, MCV 94.5 H, MCH 30.6, MCHC 32.4, RDW 13.0, Plt Count 346, MPV 8.1, Neut % (Auto) 78.4, Lymph % (Auto) 16.1, [place] % (Auto) 4.3, Eos % (Auto) 0.3, Baso % (Auto) 0.9, Neut # (Auto) 7.6, Lymph # (Auto) 1.6, [place] # (Auto) 0.4, Eos # (Auto) 0.0, Baso # (Auto) 0.1, Sodium 138, Potassium 3.9, Chloride 102, Carbon Dioxide 23, Anion Gap 16.9 H, BUN 15, Creatinine 0.70 D, Estimated Creat Clear 172, Estimated GFR 117, Est GFR ( Amer) 142 D, Glucose 310 H, Calcium 9.8, Total Bilirubin 1.0, AST 50 D, ALT 39, Alkaline Phosphatase 118, Total Creatine Kinase 138, Total Protein 7.7, Albumin 4.4, Globulin 3.3 H, Albumin/Globulin Ratio 1.3, Lipase 64 12/22/23 12:45: Urine Opiates Screen Negative, Urine Methadone Screen Negative, Ur Barbituates Screen Negative, Ur Phencyclidine Scrn Negative, Ur Amphetamines Screen Negative, U Benzodiazepines Scrn Negative, Urine Cocaine Screen Negative, U Marijuana (THC) Screen Negative 12/22/23 11:43 12/22/23 11:43 Orders (Tests/Meds): ED MEDICATIONS Discontinued Medications Generic Name Dose Route Start Last Admin Trade Name Sonia PRN Reason Stop Dose Admin Hydromorphone HCl 0.5 mg 12/22/23 12:38 12/22/23 12:41 Hydromorphone 2mg/Ml Syringe IV 12/22/23 12:39 0.5 mg ONCE ONE Administration Lactated Ringer's 1,000 mls @ 999 mls/hr 12/22/23 12:30 12/22/23 12:22 Lactated Ringer's 1000 Ml Bag IV 12/22/23 13:30 999 mls/hr .Q1H1M JAYESH Administration Iopamidol 75 ml 12/22/23 13:26 12/22/23 13:28 Iopamidol-370 (76%);100ml Bottle IV 12/22/23 13:27 75 ml ONCE ONE Administration Ketamine HCl 25 mg 12/22/23 13:30 12/22/23 13:23 Ketamine 50mg/1ml Syringe IV 12/22/23 13:31 25 mg ONCE ONE Administration Morphine Sulfate 4 mg 12/22/23 12:18 12/22/23 12:23 Morphine 4mg/Ml Syringe IV 12/22/23 12:19 4 mg ONCE ONE Administration Ondansetron HCl 4 mg 12/22/23 12:18 12/22/23 12:22 Ondansetron 4mg/2ml Vial IV 12/22/23 12:19 4 mg ONCE ONE Administration ORDERS Category Date Time Status CT abdomen pelvis w con Stat Cat Scan 12/22/23 12:18 Completed CBC w/Auto Diff [Complete Blood Count Auto Diff] Stat Lab 12/22/23 11:43 Completed CK [Creatine Kinase] Stat Lab 12/22/23 11:43 Completed CMP [Comprehensive Metabolic Panel] Stat Lab 12/22/23 11:43 Completed Lipase Stat Lab 12/22/23 11:43 Completed UDS [Drug Screen,Urine] Stat Lab 12/22/23 12:45 Completed ECG Data Tracing #1: I reviewed this ECG and interpreted as documented below: Ventricular rate 86 normal sinus rhythm no acute ischemic changes noted normal axis no significant conduction abnormalities Medical Decision Narrative: [id number] presenting today with diffuse abdominal cramping and agitation piloerection and has the appearance of opioid or alcohol withdrawal. Denies any recent alcohol use does have a pain pump we will have his pain team evaluate the reservoir to make sure that is not empty. He was also given morphine and Dilaudid for his symptoms. Will escalate his workup and get a CT scan of his abdomen make sure there is no alternative explanation. I will reassess after this workup is complete. The scan performed to person interpreted which does not demonstrate any acute intra-abdominal process also the pain pump catheter appears to be intact and there was no kinks. We did contact the patient's pain team and they were able to interrogate the pump and it is not empty. Patient was given morphine still complaining of severe pain and moaning very loudly then given Dilaudid. Specifically requesting more pain medication. Also was given pain dose ketamine which did give 1 to 2 hours of improvement of symptoms but now is moaning and very uncomfortable again. No definitive diagnosis but patient is having intractable pain. I still suspect medication withdrawal primarily. Additionally patient is not supposed to be on oral oxycodones in addition to his pain pump and his pain team is aware of this. I spoke with Dr. Verduzco who will admit the patient for intractable pain and to try to get on top of his symptoms. Critical Care Critical Care Time Critical Care Time: No
[2023-12-22] MEDS: KETAMINE 50MG/1ML SYRINGE 25 MG IV (13:23)
[2023-12-22] MEDS: IOPAMIDOL-370 (76%);100ML BOTTLE 75 ML IV (13:28)
[2023-12-22 13:32] LABS: Amphetamine/Metha Screen,Urine Negative ng/ml (<1000)
[2023-12-22 13:33] LABS: Barbiturates Screen,Urine Negative ng/ml (<200); Benzodiazepines Screen,Urine Negative ng/ml (<200)
[2023-12-22 13:34] LABS: Cannabinoid Screen,Urine Negative ng/ml (<50)
[2023-12-22 13:35] LABS: Cocaine Screen,Urine Negative ng/ml (<300); Methadone Screen,Urine Negative ng/ml (<300)
[2023-12-22 13:36] LABS: Opiate Screen,Urine Negative ng/ml (<300); Phencyclidine Screen,Urine Negative ng/ml (<25)
--- NOTE | 2023-12-22 14:27 | PC.NURSE ---
DR JEAN BAPTISTE SPEAKING WITH DR BURNS
--- NOTE | 2023-12-22 14:33 | PC.NURSE ---
hs aware of admission
--- NOTE | 2023-12-22 14:44 | PC.NURSE ---
report called to ad LÓPEZ
[2023-12-22 14:50] LABS: Benzodiazepines Screen,Urine Negative ng/ml (<200)
[2023-12-22 14:51] LABS: Amphetamine/Metha Screen,Urine Negative ng/ml (<1000); Barbiturates Screen,Urine Negative ng/ml (<200)
[2023-12-22 14:52] LABS: Cannabinoid Screen,Urine Negative ng/ml (<50); Cocaine Screen,Urine Negative ng/ml (<300)
[2023-12-22 14:53] LABS: Methadone Screen,Urine Negative ng/ml (<300)
[2023-12-22 14:54] LABS: Opiate Screen,Urine Positive ng/ml (<300); Phencyclidine Screen,Urine Negative ng/ml (<25)
--- NOTE | 2023-12-22 15:13 | PC.NURSE ---
arrived by w/c from ED
--- NOTE | 2023-12-22 15:23 | PC.NURSE ---
told nurse about elevated b/p
[2023-12-22] MEDS: HYDROMORPHONE 2MG/ML SYRINGE 1 MG IV (15:38)
[2023-12-22] MEDS: ACETAMINOPHEN 500MG TAB 1000 MG PO ×2 (16:12→22:16)
--- NOTE | 2023-12-22 17:00 | PC.NURSE ---
Dr. Verduzco at bedside
--- NOTE | 2023-12-22 17:14 | P.HP_ITS ---
History of Present Illness *Admission Date: 12/22/23 *Reason for visit:: back pain *History of present illness: Patient was just recently discharged from [facility] after an admission for abdominal pain, nausea, and vomiting. He states he was fine when he went home and today began having abdominal pain, nausea, agitation, whole body pain and shaking, and back pain. He does have a pain pump for chronic back pain and is managed by Dr. Rosas. According to the ER note, pain management saw the patient in the ER and he did have medication in his pump. He is unsure if the pump is working. Initial drug screen in the ER was negative. The ER physician felt he was having opioid withdrawal. He had relief with dilaudid during his last admission and was given this along with ketamine in the ER. He states the ketamine didn't really help. The dilaudid does help for a short time but then his shaking, pain, and agitation return. [facility] Disclaimer: The information contained in this section may have been updated after the patient was seen, as this information can be updated by other users. Medical History (Updated 12/22/23 @ 18:24 by Marc Verduzco MD) Implantable intrathecal infusion pump present Chronic back pain Degenerative joint disease (DJD) of lumbar spine COVID-19 Sleep apnea Anxiety Basal cell carcinoma of skin Alcoholism Fusion of spine, cervical region Diabetes mellitus GERD (gastroesophageal reflux disease) Hyperlipidemia Hypertension Surgical History S/P fusion of sacroiliac joint History of total right hip arthroplasty H/O bone graft H/O discectomy Family History Diabetes Bladder cancer Heart attack Breast cancer Social History Smoking Status: Never smoker second hand exposure: No alcohol intake: former substance use type: denies use and other current occupational status: other Travel in the last 8 weeks: None household members: spouse housing: house 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 occupational 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/hazards: Yes caffeine: Yes Review of Systems Constitutional Constitutional: Reports body ache(s), Reports excessive sweating, Denies headache(s) and Reports weakness Eyes Eyes: Denies blurry vision and Denies diplopia ENT Ears, Nose, Mouth, and Throat: Denies headache(s), Denies nasal congestion and Denies sore throat *Cardiovascular Cardiovascular: Denies chest pain and Denies dyspnea *Respiratory Respiratory: Denies cough and Denies dyspnea *Gastrointestinal Gastrointestinal: Reports abdominal pain, Denies diarrhea, Reports nausea and Denies vomiting *Genitourinary Genitourinary: Denies difficulty urinating and Denies hematuria *Musculoskeletal Musculoskeletal: Reports back pain and Reports myalgias *Neurologic Neurologic: Reports abnormal movements, Denies headache(s) and Reports weakness Endocrine Endocrine: Reports excessive sweating Meds Home Medications and Allergies Home Medications Medication Instructions Recorded Confirmed Type glimepiride 4 mg tablet 4 mg PO DAILY Diabetes 01/08/20 12/22/23 History metformin 850 mg tablet 850 mg PO DAILYDM Diabetes 09/26/22 12/22/23 History tamsulosin 0.4 mg capsule 0.4 mg PO HS 09/26/22 12/22/23 History amlodipine 10 mg tablet 10 mg PO DAILY High blood pressure 09/27/22 12/22/23 History lisinopril 20 1 tab PO DAILY High blood pressure 09/27/22 12/22/23 History mg-hydrochlorothiazide 25 mg tablet pantoprazole 40 mg tablet,delayed 40 mg PO DAILY Reflux/Acid reflux 09/27/22 12/22/23 History release sildenafil (pulm.hypertension) 20 20 mg PO NEEDED PRN Erectile 09/27/22 12/22/23 History mg tablet Dysfunction simvastatin 40 mg tablet 40 mg PO HS High cholesterol 09/27/22 12/22/23 History multivitamin (Multiple Vitamins 1 tab PO DAILY 11/13/22 12/22/23 History tablet) insulin degludec 200 unit/mL (3 100 unit SQ DAILY dm 03/05/23 12/22/23 History mL) subcutaneous pen (Tresiba FlexTouch U-200 insulin) morphine (PF) 1 mg/mL injection 1 mg epidural CONT Pain 03/10/23 12/22/23 History solution cefuroxime axetil 500 mg tablet 500 mg PO BID #10 tabs 12/21/23 12/22/23 Rx duloxetine 60 mg capsule,delayed 60 mg PO DAILY 12/21/23 12/22/23 History release empagliflozin 25 mg tablet 25 mg PO DAILY 12/21/23 12/22/23 History (Jardiance) ondansetron 4 mg disintegrating 4 mg PO Q8H PRN nausea and 12/21/23 12/22/23 Rx tablet vomiting #20 tabs pregabalin 150 mg capsule 150 mg PO BID 12/21/23 12/22/23 History New Prescriptions to Start Prescriptions: Allergies Allergy/AdvReac Type Severity Reaction Status Date / Time No Known Allergies Allergy Verified 10/19/23 08:11 Exam Data for Last 24 hours Vital signs and Labs for Last 24 Hours: Temp Pulse Resp BP Pulse Ox O2 Del Method 98.6 F 95 H 21 167/91 H 97 Room Air 12/22/23 15:16 12/22/23 15:16 12/22/23 15:16 12/22/23 15:16 12/22/23 15:16 12/22/23 16:54 Laboratory Results - last 24 hr 12/22/23 11:43: WBC 9.7 D, RBC 5.99, Hgb 18.4 H, Hct 56.6 H, MCV 94.5 H, MCH 30.6, MCHC 32.4, RDW 13.0, Plt Count 346, MPV 8.1, Neut % (Auto) 78.4, Lymph % (Auto) 16.1, [place] % (Auto) 4.3, Eos % (Auto) 0.3, Baso % (Auto) 0.9, Neut # (Auto) 7.6, Lymph # (Auto) 1.6, [place] # (Auto) 0.4, Eos # (Auto) 0.0, Baso # (Auto) 0.1, Sodium 138, Potassium 3.9, Chloride 102, Carbon Dioxide 23, Anion Gap 16.9 H, BUN 15, Creatinine 0.70 D, Estimated Creat Clear 172, Estimated GFR 117, Est GFR ( Amer) 142 D, Glucose 310 H, Calcium 9.8, Total Bilirubin 1.0, AST 50 D, ALT 39, Alkaline Phosphatase 118, Total Creatine Kinase 138, Total Protein 7.7, Albumin 4.4, Globulin 3.3 H, Albumin/Globulin Ratio 1.3, Lipase 64 12/22/23 12:45: Urine Opiates Screen Negative, Urine Methadone Screen Negative, Ur Barbituates Screen Negative, Ur Phencyclidine Scrn Negative, Ur Amphetamines Screen Negative, U Benzodiazepines Scrn Negative, Urine Cocaine Screen Negative, U Marijuana (THC) Screen Negative 12/22/23 14:28: Urine Opiates Screen Positive H, Urine Methadone Screen Negative, Ur Barbituates Screen Negative, Ur Phencyclidine Scrn Negative, Ur Amphetamines Screen Negative, U Benzodiazepines Scrn Negative, Urine Cocaine Screen Negative, U Marijuana (THC) Screen Negative I & O for Last 24 hours: Intake & Output 12/20/23 12/21/23 12/22/23 12/23/23 11:59 11:59 11:59 11:59 Intake Total 0 / 0 Output Total 0 / 0 Balance 0 / 0 Weight 247 lb 9 oz Constitutional Comments: Appears in withdrawal, whole body jerking movements, moderate distress *Routine HEENT Exam Head: Present normocephalic and atraumatic Eye: Present EOMI and PERRL; Absent conjunctival icterus, scleral injection or conjunctivae pink ENT: Present mucous membranes moist and oropharynx clear *Routine Neck Exam Neck: Present supple; Absent carotid bruit, lymphadenopathy or thyromegaly *Routine Respiratory Exam Respiratory: Present CTA bilaterally (Anteriorly and posteriorly) *Routine Cardiovascular Exam Cardiovascular: Present RRR *Routine Abdominal Exam Abdominal: Present soft and normoactive bowel sounds; Absent tenderness, distended, organomegaly or mass *Routine Rectal Exam Rectal:: deferred *Routine Genitalia Exam Genitalia:: deferred *Routine Extremities Exam Extremities: Present full ROM and pulses intact; Absent edema or calf tenderness *Routine Skin Exam Skin: Present intact *Routine Neurological Exam Neurological: Present alert, oriented X3 and normal speech Comments: whole body jerking movements H&P: Result Impressions Abdominal/Pelvic CT No evidence of acute intra-abdominal process. Interval improvement in the findings of acute pancreatitis, scarring versus residual inflammation. Assessment and Plan *Assessment and plan (1) Abdominal cramping: Status: Acute Category: Medical Code(s): R10.9 - Unspecified abdominal pain (2) Agitation: Status: Acute Category: Medical Code(s): R45.1 - Restlessness and agitation (3) Symptom of drug withdrawal: Status: Acute Category: Medical Code(s): R68.89 - Other general symptoms and signs (4) Degenerative joint disease (DJD) of lumbar spine: Status: Acute Category: Medical Code(s): M47.816 - Spondylosis without myelopathy or radiculopathy, lumbar region (5) Diabetes mellitus: Status: Acute Qualifiers: Diabetes mellitus complication status: without complication Diabetes mellitus jail insulin use: without jail use Diabetes mellitus type: type 2 Qualified Code(s): E11.9 - Type 2 diabetes mellitus without complications Category: Medical Code(s): E11.9 - Type 2 diabetes mellitus without complications (6) Chronic back pain: Status: Acute Category: Medical Code(s): M54.9 - Dorsalgia, unspecified; G89.29 - Other chronic pain (7) Implantable intrathecal infusion pump present: Status: Acute Category: Medical Code(s): Z96.89 - Presence of other specified functional implants Plan Will start patient on diazepam and dilaudid to try to get pain under control. He appears to be in opioid withdrawal. His first drug screen was negative. Will need to discuss case with pain management. Dr. Verduzco entry - Saw patient, agree with above note.
[2023-12-22] MEDS: diazePAM 10MG/2ML SYRINGE 5 MG IV (17:25)
[2023-12-22] MEDS: PANTOPRAZOLE 40MG TABLET 40 MG PO (18:03)
[2023-12-22] MEDS: AMLODIPINE 10MG TABLET 10 MG PO (18:05)
[2023-12-22] MEDS: cloNIDine 0.1MG TABLET 0.100000000000000006 MG PO (21:07)
[2023-12-22] MEDS: TAMSULOSIN 0.4MG CAPSULE 0.400000000000000022 MG PO (21:07)
[2023-12-22] MEDS: PATIENT'S OWN HOME MEDICATION (Pregabalin 150 mg capsule) 150 EACH PO (21:08)
[2023-12-22 21:12] LABS: POC Glucose,Bedside 139 (70-110)
[2023-12-23] VITALS: BP 123/64; PULSE 82; PULSE 90; RESP 16; TEMP 36.6; O2SAT 94
[2023-12-23 03:35] VITALS: BP 137/71; PULSE 80; RESP 17; TEMP 36.6; O2SAT 93; BMI 33.5
--- NOTE | 2023-12-23 04:44 | PC.NURSE ---
Patient alert and oriented x4 through shift. Tolerating room air well. Patient has not rested much this shift due to back pain. 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 Frequent complaints of back pain tonight and treated per SEP. 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 No agitation through shift. Bed in lowest position and call light within reach.
[2023-12-23 06:10] LABS: POC Glucose,Bedside 153 (70-110)
[2023-12-23] MEDS: ACETAMINOPHEN 500MG TAB 1000 MG PO (07:57)
[2023-12-23 08:00] VITALS: BP 118/62; PULSE 86; PULSE 90; RESP 16; TEMP 36.6; O2SAT 96
--- NOTE | 2023-12-23 08:31 | P.PN_ITS ---
Subjective *Date: 12/23/23 *Time: 08:35 Interval history: Patient is much better this am. He states the diazepam seemed to help all of the withdrawal symptoms. He was able to rest and wants to go home today. Medical Exam Vital signs and Labs for Last 24 Hours: Vital Signs Temp Pulse Pulse Resp BP BP Pulse Ox 12/23/23 07:50 12/23/23 06:43 12/23/23 05:10 12/23/23 03:35 97.9 F 80 17 137/71 93 L 12/23/23 03:05 12/23/23 01:05 12/23/23 00:00 90 12/23/23 00:00 97.9 F 82 16 123/64 94 L 12/22/23 23:10 12/22/23 21:05 12/22/23 20:00 90 12/22/23 19:51 97.9 F 91 H 16 143/72 H 97 12/22/23 19:35 97 12/22/23 18:43 12/22/23 17:39 130 H 12/22/23 16:54 12/22/23 15:41 12/22/23 15:16 98.6 F 95 H 21 167/91 H 97 12/22/23 15:07 98.6 F 79 16 198/105 H 12/22/23 14:00 16 189/105 H 99 12/22/23 13:30 79 192/106 H 98 12/22/23 13:00 75 171/105 H 98 12/22/23 12:02 98.6 F 86 20 170/104 H 97 12/22/23 12:00 78 180/108 H 100 12/22/23 11:34 83 170/102 H 99 O2 Del Method 12/23/23 07:50 Room Air 12/23/23 06:43 Room Air 12/23/23 05:10 Room Air 12/23/23 03:35 Room Air 12/23/23 03:05 Room Air 12/23/23 01:05 Room Air 12/23/23 00:00 12/23/23 00:00 Room Air 12/22/23 23:10 Room Air 12/22/23 21:05 Room Air 12/22/23 20:00 12/22/23 19:51 Room Air 12/22/23 19:35 Room Air 12/22/23 18:43 Room Air 12/22/23 17:39 12/22/23 16:54 Room Air 12/22/23 15:41 Room Air 12/22/23 15:16 Room Air 12/22/23 15:07 Room Air 12/22/23 14:00 12/22/23 13:30 12/22/23 13:00 12/22/23 12:02 Room Air 12/22/23 12:00 12/22/23 11:34 Intake and Output 12/22/23 12/23/23 12/23/23 19:59 03:59 11:59 Intake Total 540 / 1740 1200 / 1740 Output Total 0 / 0 0 / 0 0 / 0 Balance 540 / 1740 0 / 1740 1200 / 1740 Intake: Intake, Oral Amount 540 / 1740 1200 / 1740 Output: Output, Urine Amount 0 / 0 0 / 0 0 / 0 Other: Number of Unmeasured Voids 1 1 1 Weight 247 lb 9 oz 247 lb 8.984 oz Patient Weight 12/23/23 11:59 Weight 247 lb 8.984 oz Laboratory Results - last 24 hr 12/22/23 11:43: WBC 9.7 D, RBC 5.99, Hgb 18.4 H, Hct 56.6 H, MCV 94.5 H, MCH 30.6, MCHC 32.4, RDW 13.0, Plt Count 346, MPV 8.1, Neut % (Auto) 78.4, Lymph % (Auto) 16.1, [place] % (Auto) 4.3, Eos % (Auto) 0.3, Baso % (Auto) 0.9, Neut # (Auto) 7.6, Lymph # (Auto) 1.6, [place] # (Auto) 0.4, Eos # (Auto) 0.0, Baso # (Auto) 0.1, Sodium 138, Potassium 3.9, Chloride 102, Carbon Dioxide 23, Anion Gap 16.9 H, BUN 15, Creatinine 0.70 D, Estimated Creat Clear 172, Estimated GFR 117, Est GFR ( Amer) 142 D, Glucose 310 H, Calcium 9.8, Total Bilirubin 1.0, AST 50 D, ALT 39, Alkaline Phosphatase 118, Total Creatine Kinase 138, Total Protein 7.7, Albumin 4.4, Globulin 3.3 H, Albumin/Globulin Ratio 1.3, Lipase 64 12/22/23 12:45: Urine Opiates Screen Negative, Urine Methadone Screen Negative, Ur Barbituates Screen Negative, Ur Phencyclidine Scrn Negative, Ur Amphetamines Screen Negative, U Benzodiazepines Scrn Negative, Urine Cocaine Screen Negative, U Marijuana (THC) Screen Negative 12/22/23 14:28: Urine Opiates Screen Positive H, Urine Methadone Screen Negative, Ur Barbituates Screen Negative, Ur Phencyclidine Scrn Negative, Ur Amphetamines Screen Negative, U Benzodiazepines Scrn Negative, Urine Cocaine Screen Negative, U Marijuana (THC) Screen Negative 12/22/23 21:05: POC Glucose 139 H 12/23/23 05:57: POC Glucose 153 H I & O for Labs for Last 24 Hours: Intake & Output 12/20/23 12/21/23 12/22/23 12/23/23 11:59 11:59 11:59 11:59 Intake Total 1740 / 1740 Output Total 0 / 0 Balance 1740 / 1740 Weight 247 lb 8.984 oz Constitutional: Present no acute distress Respiratory: Present CTA bilaterally Cardiac: Present Reg Rate and Rhythm GI: Present soft and normal bowel sounds; Absent distention or tenderness Extremities: Absent edema, clubbing or cyanosis Skin: Present intact Neuro: Present alert and awake Assessment and Plan *Assessment and plan (1) Abdominal cramping: Status: Acute Category: Medical Code(s): R10.9 - Unspecified abdominal pain (2) Agitation: Status: Acute Category: Medical Code(s): R45.1 - Restlessness and agitation (3) Symptom of drug withdrawal: Status: Acute Category: Medical Code(s): R68.89 - Other general symptoms and signs (4) Degenerative joint disease (DJD) of lumbar spine: Status: Acute Category: Medical Code(s): M47.816 - Spondylosis without myelopathy or radiculopathy, lumbar region (5) Diabetes mellitus: Status: Acute Qualifiers: Diabetes mellitus complication status: without complication 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 Pain management will see patient today. It does not appear his intrathecal pump is working. He will likely need an oral regimen of medication and will need to be seen in [place] to check the pump. Dr. Verduzco entry - Saw patient, agree with above note.
[2023-12-23] MEDS: EMPAGLIFLOZIN 10MG TABLET 20 MG PO (08:36)
[2023-12-23] MEDS: AMLODIPINE 10MG TABLET 10 MG PO (08:36)
[2023-12-23] MEDS: cloNIDine 0.1MG TABLET 0.100000000000000006 MG PO (08:37)
[2023-12-23] MEDS: DULOXETINE 30MG CAPSULE.DR 60 MG PO (08:37)
[2023-12-23] MEDS: PANTOPRAZOLE 40MG TABLET 40 MG PO (08:37)
[2023-12-23] MEDS: PREGABALIN 50MG CAPSULE 150 MG PO (08:40)
--- NOTE | 2023-12-23 09:27 | PC.NURSE ---
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 Education provided regarding reasons for monitoring with patient still declining telemetry monitoring.
[2023-12-23] MEDS: humaLOG 100 UNITS/ML 10ML VIAL (SSI) SQ (11:15)
[2023-12-23 11:17] LABS: POC Glucose,Bedside 170 (70-110)
--- NOTE | 2023-12-23 13:08 | P.PCN_ITS ---
Procedure Date: 12/23/23 Time: 12:34 Anesthesiologist:: Nohemy Mitchell APRN Complications:: None Pre-procedure Diagnosis:: Degenerative disc disease of lumbar spine with lumbar radiculopathy symptoms, chronic pain syndrome. Post-procedure Diagnosis:: same Indications for Procedure:: Patient is a pleasant 53-year-old male who presents today for consult from the floor. Today he rates his pain a 7 out of 10. Patient has been seen in clinic yesterday due to abdominal pain and anxiety. Patient was having symptoms of possible withdrawal. Patient has had multiple medications including Dilaudid and states he does now feel a lot better than what he previously had been. Patient had recently been hospitalized for failure yesterday for very similar issues. Patient states that the only real change that he can say that is occurred is that he was put on weight loss medication and that he has had quite a bit of weight he is lost overall. He denies any new injuries or falls. Patient did recently have an MRI from his neurosurgeon. Patient has had 2 surgeries since June. Patient did end up undergoing right shoulder reconstruction surgery as well as back surgery in August by Dr. Barron with a left L2-L3 lumbar microdiscectomy. Patient has still been getting prescription Percocet 5 mg with 60 tablets. Patient states today that he really is only taking about 1/day and just using to supplement with his pump due to the chronic pain. Patient is currently managed with morphine 4 mg/mL with a daily dose of 0.594 mg/day. He denies any overall side effects from this medication however questions if the pump is working correctly due to the recent symptoms. Patient states the only other change is they recently found black mold in his home and question whether or not if he had had toxicity from this. His Theo has been reviewed. Physical Exam: General: Alert and oriented x3, no acute distress, pleasant and cooperative Lungs: Respirations even and unlabored, symmetrical chest expansion Eyes: PERRL Musculoskeletal: Flexion and extension of lumbar [spine] somewhat guarded secondary to pain, [antalgic gait noted] Neurological: Speech clear, no gross sensory deficit Procedure Details:: Degenerative disc disease of lumbar spine with lumbar radiculopathy symptoms, lumbar postlaminectomy syndrome, shoulder pain, chronic pain syndrome Plan and Disposition:: We did continue telemetry of his pump and everything does appear to be in functioning order. Patient's pump device did not say that there was a. That it stalled out for the MRI however it did start back again after that. I have counseled the patient that we will most likely have to do a catheter dye study to confirm whether or not the pump is officially working correctly as well as verifying that the amount and his pump reservoir matches his telemetry records. Patient is agreeable to this option. We will schedule him for follow-up on at the [facility] location as this is the quickest appointment we can get him with Dr. Rosas to possibly do the catheter dye study. Patient is agreeable to this. I did discuss at length with the patient regarding the oral opioid prescriptions and that he cannot continue to do the orals along with the intrathecal opioid pain medication due to increased risk of side effects and overdose. I have counseled the patient that we will either change his pump to bupivacaine and he can keep the orals that Dr. Barron is writing or he will have to start getting tapered medication dosages from his neurosurgeon with the plan to come completely off this medication and that we can do additional adjustments of his pump medications. Patient is agreeable to this option. Patient denies any alcohol or marijuana use. Patient did ask today for an additional increase in his pump however he was given a bolus of 0.25 mg over 30 minutes which is substantial. Patient did state within about 15 minutes that he did feel like that he noticed some changes to bolus. I have counseled the patient once we confirm that the pump is functioning that we then could possibly do additional adjustment at the visit. Patient did also ask about possibly choosing a stronger medication in his pump. I did go over with him we first need to verify it is functioning and that to give the morphine additional time to make additional adjustments before switching to a stronger medication. Patient acknowledges understanding and agrees with this. Patient states that he is planning on being discharged today. Patient will return to clinic at the [place] location and type screen on for catheter dye study. Patient was counseled that if it ends up being that there is something wrong with the pump then he would have to go. Enterocolitis the device. I did review over with Dr. Verduzco and Dr. Rosas regarding this visit. We did also call back over to the floor after the bolus had completed to see how the patient felt and he states that he really cannot say of if there was significant improvement or not. Patient had been given Dilaudid within a short timeframe of the bolus. Patient thought it was around 30 minutes prior. Patient was scheduled for his first at home refill this coming Wednesday however his pump telemetry does state he has enough medication to get to January 31. We will contact [facility] staff to let them know that we are can hold off on the pump ref ill until after the catheter dye study. Patient has been instructed to contact the clinic with any concerns before the next appointment. Dr. Rosas has reviewed this note and agrees with this plan of care. This note was dictated using voice recognition software and make contain errors or omissions. -- It Is medically necessary for this patient to continue to have their intrathecal pump refilled at regular intervals. This patient had an intrathecal pain pump implanted after meeting criteria of chronic intractable pain for greater than 3 months and failing conservative treatments. Patient has committed and been compliant to the treatment plan and all planned follow up care. Since implantation of the intrathecal pain pump, the patient has had decreased pain and been more functional. Oral medications have been reduced including intake of oral opioids. Patient continues to do well with intrathecal therapy with decrease in pain symptoms and increase in functional status. Stopping intrath ecal medications can lead to life threatening withdrawal, seizures, cardiac arrest, severe pain, and possible . Pumps that are not refilled at regular intervals can be damages and cause and need for replacement. We continually titrate dose and concentration to optimize pain relief and function. We are limited in concentration for certain drugs to safely deliver medications through the pump and stay within the recommendations from the [employer]ensus [employer] Guidelines. Depending on dose and concentration these pumps may need to be refilled sooner than 3 months as we titrate.
--- NOTE | 2023-12-23 13:38 | PC.NURSE ---
appt made for pt with Dr. Rosas at [facility] for () at 10:30am, notified second floor nursing staff.
--- NOTE | 2023-12-24 14:46 | CARE MANAGER ---
Called and spoke with patient regarding recent discharge. Patient stated that he is doing better and voiced no concerns at time of call. Stated that he was aware of scheduled f/u appts.
--- NOTE | 2023-12-28 23:44 | EXP.DC.SUM ---
General Admission date:: 12/22/23 Discharge date: 12/23/23 HPI HPI HPI: Patient was just recently discharged from [facility] after an admission for abdominal pain, nausea, and vomiting. He states he was fine when he went home and today began having abdominal pain, nausea, agitation, whole body pain and shaking, and back pain. He does have a pain pump for chronic back pain and is managed by Dr. Rosas. According to the ER note, pain management saw the patient in the ER and he did have medication in his pump. He is unsure if the pump is working. Initial drug screen in the ER was negative. The ER physician felt he was having opioid withdrawal. He had relief with dilaudid during his last admission and was given this along with ketamine in the ER. He states the ketamine didn't really help. The dilaudid does help for a short time but then his shaking, pain, and agitation return. Hospital Course Hospital Course Hospital Course: The patient's abdominal pelvic CT showed no acute intra-abdominal process. There was interval improvement in the acute pancreatitis. It was felt the patient was in opioid withdrawal. His first drug screen was negative. He was started on diazepam which immediately helped his symptoms. He was also started on Dilaudid for pain control. Pain management was consulted. They felt the patient would need a follow-up at [facility] to have a catheter dye study to confirm whether or not the pump was officially working correctly and verify that the amount in the pump reservoir matched his telemetry records. They scheduled him with the quickest appointment they could with Dr. Rosas. They discussed that he could not take oral opioid prescriptions along with the intrathecal opioid pain medication due to increased risk of side effects and overdose. They wanted to either change his pump to bupivacaine and have him continue the oral medications prescribed by Dr. Barron or they felt he could get tapered medication dosages from Dr. Barron and completely come off of the pump medications. Pain management felt once they had confirmed the pump was functioning, they could do an adjustment to his dosage. He was feeling better and was discharged home with a pain management appointment for a catheter dye study. Exam Data for Last 24 hours Vital signs and Labs for Last 24 Hours: Temp Pulse Resp BP Pulse Ox O2 Del Method 98 F 86 16 118/62 96 Room Air 12/23/23 08:00 12/23/23 08:00 12/23/23 08:00 12/23/23 08:00 12/23/23 08:00 12/23/23 13:00 Narrative: Constitutional Comments: Appears in withdrawal, whole body jerking movements, moderate distress *Routine HEENT Exam Head: Present normocephalic and atraumatic Eye: Present EOMI and PERRL; Absent conjunctival icterus, scleral injection or conjunctivae pink ENT: Present mucous membranes moist and oropharynx clear *Routine Neck Exam Neck: Present supple; Absent carotid bruit, lymphadenopathy or thyromegaly *Routine Respiratory Exam Respiratory: Present CTA bilaterally (Anteriorly and posteriorly) *Routine Cardiovascular Exam Cardiovascular: Present RRR *Routine Abdominal Exam Abdominal: Present soft and normoactive bowel sounds; Absent tenderness, distended, organomegaly or mass *Routine Rectal Exam Rectal:: deferred *Routine Genitalia Exam Genitalia:: deferred *Routine Extremities Exam Extremities: Present full ROM and pulses intact; Absent edema or calf tenderness *Routine Skin Exam Skin: Present intact *Routine Neurological Exam Neurological: Present alert, oriented X3 and normal speech Comments: whole body jerking movements DS: Diagnosis Discharge Diagnosis (1) Abdominal cramping: Status: Acute Code(s): R10.9 - Unspecified abdominal pain (2) Agitation: Status: Acute Code(s): R45.1 - Restlessness and agitation (3) Symptom of drug withdrawal: Status: Acute Code(s): R68.89 - Other general symptoms and signs (4) Degenerative joint disease (DJD) of lumbar spine: Status: Acute Code(s): M47.816 - Spondylosis without myelopathy or radiculopathy, lumbar region (5) Diabetes mellitus: Status: Acute Code(s): E11.9 - Type 2 diabetes mellitus without complications Qualifiers: Diabetes mellitus complication status: without complication 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 mellitus charge histotechnologist insulin use: without charge histotechnologist use Diabetes mellitus type: type 2 Qualified Code(s): E11.9 - Type 2 diabetes mellitus without complications (6) Chronic back pain: Status: Acute Code(s): M54.9 - Dorsalgia, unspecified; G89.29 - Other chronic pain (7) Implantable intrathecal infusion pump present: Status: Acute Code(s): Z96.89 - Presence of other specified functional implants Meds Home Medications and Allergies Home Medications Medication Instructions Recorded Confirmed Type glimepiride 4 mg tablet 4 mg PO DAILY Diabetes 01/08/20 12/22/23 History metformin 850 mg tablet 850 mg PO DAILYDM Diabetes 09/26/22 12/22/23 History tamsulosin 0.4 mg capsule 0.4 mg PO HS 09/26/22 12/22/23 History amlodipine 10 mg tablet 10 mg PO DAILY High blood pressure 09/27/22 12/22/23 History lisinopril 20 1 tab PO DAILY High blood pressure 09/27/22 12/22/23 History mg-hydrochlorothiazide 25 mg tablet pantoprazole 40 mg tablet,delayed 40 mg PO DAILY Reflux/Acid reflux 09/27/22 12/22/23 History release sildenafil (pulm.hypertension) 20 20 mg PO NEEDED PRN Erectile 09/27/22 12/22/23 History mg tablet Dysfunction simvastatin 40 mg tablet 40 mg PO HS High cholesterol 09/27/22 12/22/23 History multivitamin (Multiple Vitamins 1 tab PO DAILY 11/13/22 12/22/23 History tablet) insulin degludec 200 unit/mL (3 100 unit SQ DAILY dm 03/05/23 12/22/23 History mL) subcutaneous pen (Tresiba FlexTouch U-200 insulin) morphine (PF) 1 mg/mL injection 1 mg epidural CONT Pain 03/10/23 12/22/23 History solution duloxetine 60 mg capsule,delayed 60 mg PO DAILY 12/21/23 12/22/23 History release empagliflozin 25 mg tablet 25 mg PO DAILY 12/21/23 12/22/23 History (Jardiance) ondansetron 4 mg disintegrating 4 mg PO Q8H PRN nausea and 12/21/23 12/22/23 Rx tablet vomiting #20 tabs pregabalin 150 mg capsule 150 mg PO BID 12/21/23 12/22/23 History New Prescriptions to Start Prescriptions: Allergies Allergy/AdvReac Type Severity Reaction Status Date / Time No Known Allergies Allergy Verified 10/19/23 08:11 Discharge Plan Disposition Patient Disposition: Home, Self-Care Condition: Good Follow up Plan Follow up with: Davi Rosas MD [Staff Physician] - 12/30/23 10:30 am (appointment is at the [facility]. Address is [address] [place] [address], [address], [facility] ) Marc Verduzco MD [Primary Care Provider] - 12/28/23 10:30 am Prescriptions/Medication Reconciliation: Continued multivitamin [Multiple Vitamins] Tablet 1 tab PO DAILY insulin degludec [Tresiba FlexTouch U-200] 200 unit/mL (3 mL) insulin pen 100 unit SQ DAILY Patient Comments: INJECT 80 UNITS SUBCUTANEOUSLY EVERY DAY duloxetine 60 mg capsule,delayed release(DR/EC) 60 mg PO DAILY Patient Comments: TAKE ONE CAPSULE BY MOUTH EVERY DAY pregabalin 150 mg capsule 150 mg PO BID Patient Comments: TAKE ONE CAPSULE BY MOUTH TWICE DAILY MAY CAUSE DROWSINESS Jardiance 25 mg tablet 25 mg PO DAILY Patient Comments: TAKE ONE TABLET BY MOUTH EVERY MORNING ondansetron 4 mg tablet,disintegrating 4 mg PO Q8H PRN (Reason: nausea and vomiting) Qty: 20 0RF glimepiride 4 MG tablet 4 mg PO DAILY metformin 850 mg tablet 850 mg PO DAILYDM Patient Comments: TAKE ONE TABLET BY MOUTH EVERY DAY IN THE MORNING tamsulosin 0.4 mg capsule 0.4 mg PO HS Patient Comments: TAKE ONE CAPSULE BY MOUTH EVERY DAY amlodipine 10 mg tablet 10 mg PO DAILY Patient Comments: TAKE ONE TABLET BY MOUTH EVERY DAY pantoprazole 40 mg tablet,delayed release (DR/EC) 40 mg PO DAILY Patient Comments: TAKE ONE TABLET BY MOUTH EVERY DAY lisinopril-hydrochlorothiazide 20-25 mg tablet 1 tab PO DAILY simvastatin 40 mg tablet 40 mg PO HS Patient Comments: TAKE ONE TABLET BY MOUTH EVERY DAY AT BEDTIME sildenafil (pulm.hypertension) 20 mg tablet 20 mg PO NEEDED PRN (Reason: Erectile Dysfunction) morphine (PF) 1 mg/mL Solution 1 mg epidural CONT Rx Instructions: MORPHINE 1MG/1ML. SEE EMR FOR CURRENT DAILY DOSE. Discontinued cefuroxime axetil 500 mg tablet 500 mg PO BID Qty: 10 0RF Problem Reconciliation Problems Reviewed?: Yes Patient Discharge Instructions ACTIVITY: Continue current activity DIET: continue same diet Patient Instructions: DI for Acute Pain -- Adult Providers Primary Care Provider: Marc Verduzco Admit Provider: Marc Verduzco Attending Provider: Marc Verduzco
== END 2023-12-23 14:58 | disposition home or self-care (01) ==
LOC: ER 11:55 → 2ND 14:36
PROVIDERS: Admitting Provider Family Medicine; Emergency Provider Student in an Organized Health Care Education/Training Program; PCP Family Medicine; Visit Provider Family Medicine
DX: R10.84 Generalized abdominal pain (principal); F41.9 Anxiety disorder, unspecified; Z79.84 Long term (current) use of oral hypoglycemic drugs; E11.9 Type 2 diabetes mellitus without complications; Z85.828 Personal history of other malignant neoplasm of skin; E78.5 Hyperlipidemia, unspecified; G47.30 Sleep apnea, unspecified; M54.9 Dorsalgia, unspecified; G89.29 Other chronic pain; M96.1 Postlaminectomy syndrome, not elsewhere classified
CPT/HCPCS: 74177; 80053; 80307; 82550; 82962; 83690; 85025; 93005; 99285; G0378; J1170; J2270; J2405; J7120; Q9967

== ENCOUNTER 2024-02-07 11:17 | Outpatient (CLI) | payer BC, SELFPAY ==
[2024-02-07 11:54] LABS: Basophils # 0.1 K/mm3 (0-0.2); Basophils % 0.7 % (0.1-2.0); Eosinophils # 0.2 K/mm3 (0.0-0.4); Eosinophils % 2.1 % (0.1-12.0); Hematocrit 53.7 % (42.0-52.0); Hemoglobin 17.2 g/dL (14.1-18.0); Lymphocytes # 1.9 K/mm3 (0.7-4.5); Lymphocytes % 27.5 % (10-50); Mean Corpuscular Hemoglobin 29.7 pg (27.0-31.2); Mean Corpuscular Volume 92.8 fl (80-94); Mean Platelet Volume 7.7 fl (7.4-10.4); Monocytes # 0.4 K/mm3 (0.1-1.0); Monocytes % 5.6 % (1.7-9.3); Neutrophils # 4.6 K/mm3 (1.8-7.8); Neutrophils % 64.2 % (37.0-80.0); Platelet Count 308 K/mm3 (142-424); Red Blood Count 5.79 M/mm3 (4.60-6.20); Red Cell Distribution Width 13.2 % (11.5-17.5); White Blood Count 7.1 K/mm3 (4.8-10.8)
[2024-02-07 12:54] LABS: Thyroid Stimulating Hormone 0.69 uIU/mL (0.465-4.68)
[2024-02-08 12:55] LABS: DHEA-Sulfate 83.5 ug/dL (48.9-344.2); Estradiol 17.5 pg/mL (7.6-42.6); FSH 10.8 mIU/mL (1.5-12.4); PSA, Free 0.05 ng/mL; Prolactin 10.1 ng/mL (3.6-25.2); Prostate Specific Ag 0.3 ng/mL (0.0-4.0); Sex Hormone Binding Globulin 15.8 nmol/L (19.3-76.4); Testosterone,Total 306 ng/dL (264-916)
[2024-02-28 11:37] LABS: Dihydrotestosterone DHT 12
== END 2024-02-07 23:59 | disposition home or self-care (01) ==
LOC: LAB 11:17
PROVIDERS: PCP Family Medicine; Visit Provider Urology
DX: N40.0 Benign prostatic hyperplasia without lower urinary tract symptoms (principal); N50.89 Other specified disorders of the male genital organs
CPT/HCPCS: 82642; 36415; 82626; 82670; 83001; 83002; 84146; 84153; 84154; 84270; 84403; 84443; 85025

== ENCOUNTER 2024-02-11 07:56 | Day surgery (SDC) | payer BC, SELFPAY ==
[2024-02-08 13:46] VITALS: BMI 35.2
[2024-02-11] VITALS (9 sets, daily range): BP systolic 107–141; BP diastolic 54–79; PULSE 87–98; RESP 18–24; TEMP 36.3–36.5; O2SAT 93–96
[2024-02-11 08:24] LABS: POC Glucose,Bedside 170 (70-110)
[2024-02-11] MEDS: LACTATED RINGERS 1000ML 1,000 ML 25 ML IV (08:32)
[2024-02-11] MEDS: VANCOMYCIN/WATER FOR INJ (PEG) 1.75 GM/350 ML PIGGYBACK IV ×2 (08:45→11:11)
[2024-02-11 10:53] LABS: POC Glucose,Bedside 107 (70-110)
--- NOTE | 2024-02-11 11:02 | P.PNANES_ITS ---
[facility] Disclaimer: The information contained in this section may have been updated after the patient was seen, as this information can be updated by other users. Medical History Adjustment disorder Testicular mass Implantable intrathecal infusion pump present Chronic back pain Degenerative joint disease (DJD) of lumbar spine COVID-19 Sleep apnea Anxiety Basal cell carcinoma of skin Alcoholism Fusion of spine, cervical region Diabetes mellitus GERD (gastroesophageal reflux disease) Hyperlipidemia Hypertension Surgical History S/P fusion of sacroiliac joint History of total right hip arthroplasty H/O bone graft H/O discectomy Family History Other Bladder cancer Breast cancer Diabetes Heart attack Social History (Updated 02/11/24 @ 08:31 by Ila Cornejo RN) Smoking Status: Former smoker tobacco type: cigarettes packs per day: 0 and smokeless tobacco second hand exposure: No alcohol intake: former substance use type: denies use and other current occupational status: disabled Travel in the last 8 weeks: None household members: spouse housing: house 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 current occupational exposures/hazards: Yes caffeine: Yes [employer] Anesthesia Checklist Patient Identification Patient Identification: Arm Band Structural Data Admitted From: Home Planned Operative Procedure/s: Intrathecal Pain Pump Catheter and Generator Placement Consent for Planned Operative Procedure(s) Verified: Yes Verified Documents: Surgical Consent and History and Physical NPO Status Verified Time NPO: 00:00 Additional verifications Anesthesia Reactions: No Hx Blood Transfusions: No Blood Transfusion Reaction: No Airway Assessment Mallampati Score:: Class II C-Spine Mobility Assessed: Yes TMJ Mobility Assessed: Yes Dentition: Good Dentition Neurological Assessment Level of Consciousness: Awake, Alert and Appropriate Anesthesia Plan Anesthesia Risk discussed: Yes Anesthesia Plan: Verified ASA Class: III Anesthesia Type: General
[2024-02-11] MEDS: LIDOCAINE 1% W/EPI 1:100,000 20ML VIAL 20 ML ×2 (11:40→11:41)
[2024-02-11] MEDS: GENTAMICIN 80 MG/2 ML VIAL (11:42)
[2024-02-11] MEDS: SODIUM CHLORIDE 0.9% 20ML VIAL 40 ML IV (11:42)
--- NOTE | 2024-02-11 12:41 | P.PNANES_ITS ---
[facility] Anesthesia Record Part I Anesthesia Record I Intake, IV Amount: 800 Hydration: Adequate Estimated blood loss (mL): 15 Urine output (mL): 0 Blood Products used (#): none Blood Pressure: 107/56 SaO2: 95 Pulse Rate: 92 Airway Patency: Patent Respiratory Rate: 24 Temperature: 97.4 F Patient is:: Drowsy and Stable Stable to PACU at:: 12:32
[2024-02-11 12:51] LABS: POC Glucose,Bedside 138 (70-110)
[2024-02-11] MEDS: MORPHINE 4MG/ML SYRINGE 4 MG IV (12:56)
--- NOTE | 2024-02-11 13:29 | P.PNANES_ITS ---
[facility] Anesthesia Record Part II Anesthesia Record Part II Discharge Time: 13:02 Destination: Surgical Day Care (OP Surgery) PACU nurse assessment reviewed?: Yes Patient Condition:: Good Anesthesia Complications:: None Swallowing reflex intact?: Yes Airway Patency: Patent Cyanosis?: No Blood Pressure: 108/61 SaO2: 96 Respiratory Rate: 18 Pulse Rate: 92 Temperature: 97.7 F Mental Status: Alert & Oriented Pain level:: 6 Nausea and/or vomitting:: None Intake, IV Amount: 0 Hydration: Adequate
--- NOTE | 2024-02-11 14:11 | P.OP_ITS ---
Date of procedure: 02/11/24 Pre-op Diagnosis:: Nonfunctioning intrathecal catheter with increasing pain Post-op Diagnosis:: Same Procedure performed:: Replacement intrathecal catheter Surgeon:: Davi Rosas MD SUPPLY OFFICER:: Romel Rubio Anesthesia: MAC Estimated blood loss (mL): 15 Clinical Note:: This patient is a pleasant 53-year-old white male he has a suspected kinked or obstruction of his intrathecal catheter. We did do an intrathecal catheter dye study we were unable to withdraw any CSF or medications through the sideport. His catheter was assumed to be obstructed. We are also changing his medication today to intrathecal Dilaudid and bupivacaine. Will plan on refilling his pump with intrathecal Dilaudid 5 mg per mill plus bupivacaine 5 mg per mall and starting him at 250 mcg/day. Operative findings:: None Operative note:: 5Informed consent was obtained risk and benefits of the procedure explained to the patient. The patient was taken the operating room placed prone on the procedure table. He was prepped and draped in sterile fashion. The skin and subcutaneous tissues overlying the intrathecal pain pump were anesthetized using lidocaine. I made an incision dissected out the pain pump generator. I disconnected the catheter and tied off with 0 silk ties x 3. C-arm fluoroscopy was then used to view the lumbar spine. The skin and subcutaneous tissues adjacent to the L3-L4 and L4-5 interspace were anesthetized using lidocaine. I made incision dissected down to the lumbar paraspinous fascia. A 17-gauge spinal needle was inserted and advanced into the space until clear CSF was obtained. After this intrathecal cath was inserted and advanced very easily to the T9 vertebral body. We are unable to advance any further in this because of kinking. The stylette of the catheter and the needle withdrawn. The catheter was found to be in good position it was midline and posterior. The catheter secured to the fascia with an anchor device and 2-0 Prolene. I filled the pump with 20 mL of intrathecal Dilaudid 5 mg/mL plus bupivacaine 5 mg per mall. I tunneled catheter from the back to the pump pocket and attached catheter to the pump. We are able to freely withdraw clear CSF through the sideport. The pump was then placed in the pocket with an antibiotic pouch. Both incisions were then closed 2-0 Vicryl followed by 4-0 nylon and kaela. The patient was placed in abdominal binder and taken recovery in stable condition. The patient tolerated the procedure well with no complications. The pump was interrogated and started at 250 mcg/day. Patient was discharged home neurologic intact with good relief of pain symptoms. Condition: stable Disposition: PACU Complications:: None
== END 2024-02-11 13:35 | disposition home or self-care (01) ==
PROVIDERS: PCP Family Medicine; Visit Provider Anesthesiology
PROC: (CPT 62362; principal; 2024-02-11 09:30)
DX: T85.690A Other mechanical complication of cranial or spinal infusion catheter, initial encounter (principal); Y83.1 Surgical operation with implant of artificial internal device as the cause of abnormal reaction of the patient, or of later complication, without mention of misadventure at the time of the procedure; M51.16 Intervertebral disc disorders with radiculopathy, lumbar region; M96.1 Postlaminectomy syndrome, not elsewhere classified; E11.9 Type 2 diabetes mellitus without complications; Z79.899 Other long term (current) drug therapy; Z79.4 Long term (current) use of insulin; Z79.85 Long-term (current) use of injectable non-insulin antidiabetic drugs
CPT/HCPCS: 62362; 82962; 96374; J3490; C1755; J1100; J1580; J2250; J2270; J2405; J3010; J7120

== ENCOUNTER 2024-02-17 14:36 | Outpatient (POV) | payer BC, SELFPAY ==
--- NOTE | 2024-02-17 15:08 | EXP.PAIN.SOA ---
[facility] Disclaimer: The information contained in this section may have been updated after the patient was seen, as this information can be updated by other users. Medical History Adjustment disorder Testicular mass Implantable intrathecal infusion pump present Chronic back pain Degenerative joint disease (DJD) of lumbar spine COVID-19 Sleep apnea Anxiety Basal cell carcinoma of skin Alcoholism Fusion of spine, cervical region Diabetes mellitus GERD (gastroesophageal reflux disease) Hyperlipidemia Hypertension Surgical History S/P fusion of sacroiliac joint History of total right hip arthroplasty H/O bone graft H/O discectomy Family History Other Bladder cancer Breast cancer Diabetes Heart attack Social History (Updated 02/11/24 @ 08:31 by Ila Cornejo RN) Smoking Status: Former smoker tobacco type: cigarettes packs per day: 0 and smokeless tobacco second hand exposure: No alcohol intake: former substance use type: denies use and other current occupational status: disabled Travel in the last 8 weeks: None household members: spouse housing: house 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 Today he rates his pain a 4 out of 10. Patient states that he is doing well and that the current medication is working wonderful. Patient states he has not even had to take Tylenol or ibuprofen. Patient is currently managed with Dilaudid 5 mg/mL with bupivacaine 5 mg/mL with a daily dose of 0.2498 mg/day. He denies any side effects from this medication. Patient does state that he had a little bit of itching initially following the procedure but it is easing off each and every day. His Theo has been reviewed and is appropriate. Review of Systems: General: No recent weight changes, no fever, no sleep disturbances Respiratory: No cough, no shortness of air, no recurring pulmonary infections Cardiovascular/peripheral vascular: No chest pain, no palpitations, no edema, no shortness of breath Gastrointestinal: No new onset incontinence, normal bowel movements reported Genitourinary: No new onset incontinence Musculoskeletal: Low back pain Psychiatric: [Normal mood/affect] Neurological: [Denies weakness in extremities], [denies balance issues] Pain at rest (0-10 scale): 4 Objective Objective:: Physical Exam: General: Alert and oriented x3, no acute distress, pleasant and cooperative Lungs: Respirations even and unlabored, symmetrical chest expansion Eyes: PERRL Musculoskeletal: Flexion and extension of lumbar [spine] somewhat guarded secondary to pain, [antalgic gait noted] Neurological: Speech clear, no gross sensory deficit Skin: Incision sites are clean, dry, well-approximated with sutures and kaela intact minimal erythema noted Has patient had previous pain injection?: No Conservative treatment options previously tried: Home exercise plan Length of treatment: Longer than 6 weeks Meds Home Medications and Allergies Home Medications ?Medication ?Instructions ?Recorded ?Confirmed ?Type glimepiride 4 mg tablet 4 mg PO DAILY Diabetes 01/08/20 02/11/24 History metformin 850 mg tablet 850 mg PO DAILYDM Diabetes 09/26/22 02/11/24 History amlodipine 10 mg tablet 10 mg PO DAILY High blood pressure 09/27/22 02/11/24 History lisinopril 20 1 tab PO DAILY High blood pressure 09/27/22 02/11/24 History mg-hydrochlorothiazide 25 mg tablet pantoprazole 40 mg tablet,delayed 40 mg PO DAILY Reflux/Acid reflux 09/27/22 02/11/24 History release sildenafil (pulm.hypertension) 20 20 mg PO NEEDED PRN Erectile 09/27/22 02/11/24 History mg tablet Dysfunction simvastatin 40 mg tablet 40 mg PO HS High cholesterol 09/27/22 02/11/24 History multivitamin (Multiple Vitamins 1 tab PO DAILY 11/13/22 02/11/24 History tablet) insulin degludec 200 unit/mL (3 100 unit SQ DAILY dm 03/05/23 02/11/24 History mL) subcutaneous pen (Tresiba FlexTouch U-200 insulin) morphine (PF) 1 mg/mL injection 1 mg epidural CONT Pain 03/10/23 02/11/24 History solution duloxetine 60 mg capsule,delayed 60 mg PO DAILY 12/21/23 02/11/24 History release empagliflozin 25 mg tablet 25 mg PO DAILY 12/21/23 02/11/24 History (Jardiance) ondansetron 4 mg disintegrating 4 mg PO Q8H PRN nausea and 12/21/23 02/11/24 Rx tablet vomiting #20 tabs pregabalin 150 mg capsule 150 mg PO BID 12/21/23 02/11/24 History blood-glucose sensor (FreeStyle #1 ea 02/07/24 02/11/24 History Durga 3 Sensor device) meloxicam 15 mg tablet 15 mg PO DAILY 02/07/24 02/11/24 History oxycodone-acetaminophen 5 mg-325 1 tab PO TID PRN Pain 02/07/24 02/11/24 History mg tablet semaglutide 0.25 mg or 0.5 mg (2 See Rx Instructions .Route .COMPLEX 02/07/24 02/11/24 History mg/3 mL) subcutaneous pen injector (Ozempic) tadalafil 5 mg tablet (Cialis) 5 mg PO DAILY #30 tabs 02/07/24 02/11/24 Rx tamsulosin 0.4 mg capsule 0.4 mg PO HS 90 days #90 caps 02/07/24 02/11/24 Rx aspirin 81 mg chewable tablet 325 mg PO DIRECTED 02/08/24 02/11/24 History tadalafil 5 mg tablet (Cialis) 5 mg PO DIRECTED 02/08/24 02/11/24 History New Prescriptions to Start Prescriptions: Allergies Allergy/AdvReac Type Severity Reaction Status Date / Time No Known Allergies Allergy Verified 02/11/24 08:11 Assessment and Plan *Assessment and plan (1) Degenerative disc disease, lumbar: Status: Acute Category: Medical Code(s): M51.36 - Other intervertebral disc degeneration, lumbar region (2) Lumbar radiculopathy: Status: Acute Category: Medical Code(s): M54.16 - Radiculopathy, lumbar region Plan Patient is doing much better following his revision and does not need any additional adjustment on his pump settings. I have counseled the patient to continue his postop restrictions for 4 to 6 weeks. Patient will return to clinic in 2 weeks for reevaluation of symptoms with suture and staple removal. Patient knowledges understanding and agrees with this plan of care. Patient has been instructed to contact the clinic with any concerns before the next appointment. Dr. Rosas has reviewed this note and agrees with this plan of care. This note was dictated using voice recognition software and make contain errors or omissions. -- It Is medically necessary for this patient to continue to have their intrathecal pump refilled at regular intervals. This patient had an intrathecal pain pump implanted after meeting criteria of chronic intractable pain for greater than 3 months and failing conservative treatments. Patient has committed and been compliant to the treatment plan and all planned follow up care. Since implantation of the intrathecal pain pump, the patient has had decreased pain and been more functional. Oral medications have been reduced including intake of oral opioids. Patient continues to do well with intrathecal therapy with decrease in pain symptoms and increase in functional status. Stopping intrathecal medications can lead to life threatening withdrawal, seizures, cardiac arrest, severe pain, and possible . Pumps that are not refilled at regular intervals can be damages and cause and need for replacement. We continually titrate dose and concentration to optimize pain relief and function. We are limited in concentration for certain drugs to safely deliver medications through the pump and stay within the recommendations from the Polyanalgesic Consensus Committee Guidelines. Depending on dose and concentration these pumps may need to be refilled sooner than 3 months as we titrate.
[2024-02-17 15:32] VITALS: BP 122/89; PULSE 99; RESP 18; O2SAT 93; BMI 35.9
== END 2024-02-17 23:59 | disposition home or self-care (01) ==
LOC: SC.PAIN 14:37
PROVIDERS: PCP Family Medicine; Visit Provider Nurse Practitioner Family
DX: M51.16 Intervertebral disc disorders with radiculopathy, lumbar region (principal); Z97.8 Presence of other specified devices; Z87.891 Personal history of nicotine dependence; Z79.899 Other long term (current) drug therapy
CPT/HCPCS: 99212; G0463

== ENCOUNTER 2024-03-02 08:43 | Outpatient (POV) | payer BC, SELFPAY ==
--- NOTE | 2024-03-02 09:59 | EXP.PAIN.PRO ---
Procedure Date: 03/02/24 Time: 09:11 Anesthesiologist:: Nohemy Mitchell APRN Complications:: None Pre-procedure Diagnosis:: Degenerative disc disease of lumbar spine with lumbar radiculopathy symptoms, lumbar postlaminectomy syndrome Post-procedure Diagnosis:: Same Indications for Procedure:: Patient is a pleasant 53-year-old male who presents today for suture and staple removal as well as intrathecal adjustment and reprogram. Today he rates his pain a 7 out of 10. Patient denies any new trauma or injury. He does state that his pump is still helping however he feels like it still needs some adjustment now. He states the first week after surgery was amazing and it was very helpful however he feels like he is starting to have more pain in that shoulder and leg. He is currently managed with Dilaudid 5 mg/mL with a daily dose of 0.2498 mg/day and bupivacaine 5 mg/mL with a dose of 0.2498 mg/day. He denies any side effects from this medication. His Theo has been reviewed and is appropriate. Physical Exam: General: Alert and oriented x3, no acute distress, pleasant and cooperative Lungs: Respirations even and unlabored, symmetrical chest expansion Eyes: PERRL Musculoskeletal: Flexion and extension of lumbar [spine] somewhat guarded secondary to pain, [antalgic gait noted] Neurological: Speech clear, no gross sensory deficit Procedure Details:: Informed consent was obtained and the risk and benefits of the procedure were explained to the patient. Patient was taken to the procedure room where noninvasive monitoring was placed including noninvasive blood pressure cuff and pulse oximeter. Patient's pump was interrogated and was reprogrammed to Dilaudid 0.3002 mg/day and bupivacaine 0.3002 mg/day. The patient tolerated the procedure well with no complications. Plan and Disposition:: Patient tolerated his intrathecal increase with no complications and was discharged neurologically intact. We were able to take out almost all of his sutures and kaela however 7 remain of the kaela. Patient was counseled to continue his postop restrictions for the full 6 weeks. Patient will return to clinic in 2 weeks for additional staple removal and possible adjustment. Patient has been instructed to contact the clinic with any concerns before the next appointment. Dr. Rosas has reviewed this note and agrees with this plan of care. This note was dictated using voice recognition software and make contain errors or omissions. -- It Is medically necessary for this patient to continue to have their intrathecal pump refilled at regular intervals. This patient had an intrathecal pain pump implanted after meeting criteria of chronic intractable pain for greater than 3 months and failing conservative treatments. Patient has committed and been compliant to the treatment plan and all planned follow up care. Since implantation of the intrathecal pain pump, the patient has had decreased pain and been more functional. Oral medications have been reduced including intake of oral opioids. Patient continues to do well with intrathecal therapy with decrease in pain symptoms and increase in functional status. Stopping intrathecal medications can lead to life threatening withdrawal, seizures, cardiac arrest, severe pain, and possible . Pumps that are not refilled at regular intervals can be damages and cause and need for replacement. We continually titrate dose and concentration to optimize pain relief and function. We are limited in concentration for certain drugs to safely deliver medications through the pump and stay within the recommendations from the Polyanalgesic Consensus Committee Guidelines. Depending on dose and concentration these pumps may need to be refilled sooner than 3 months as we titrate.
[2024-03-02 10:53] VITALS: BP 115/74; PULSE 92; RESP 18; O2SAT 97; BMI 35.2
== END 2024-03-02 23:59 | disposition home or self-care (01) ==
PROVIDERS: PCP Family Medicine; Visit Provider Nurse Practitioner Family
DX: M51.36 Other intervertebral disc degeneration, lumbar region (principal); M96.1 Postlaminectomy syndrome, not elsewhere classified
CPT/HCPCS: 62368; 99213; G0463

== ENCOUNTER 2024-04-24 15:12 | Outpatient (POV) | payer BC, SELFPAY ==
[2024-04-24 15:53] VITALS: BP 123/76; PULSE 99; RESP 16; O2SAT 95; BMI 35.2
--- NOTE | 2024-04-24 16:36 | EXP.PAIN.PRO ---
Procedure Date: 04/24/24 Time: 15:07 Anesthesiologist:: Nohemy Mitchell APRN Complications:: None Pre-procedure Diagnosis:: Degenerative disc disease of lumbar spine with lumbar radiculopathy symptoms Post-procedure Diagnosis:: Same Indications for Procedure:: Patient is a pleasant 53-year-old male who presents today for intrathecal adjustment and reprogram. Today he rates his pain an 8 out of 10. He denies any new trauma or injury. He does state that he is just been experiencing a lot more fatigue. He does state that Dr. Verduzco did update labs just a couple months ago and did not really find anything significant. He does state that he thought his testosterone was off and did send him to Dr. Dacosta however the urologist thought he was fine. Patient does state that he has recently been put on a CPAP and that he is still trying to adjust to this. Patient is currently managed with Dilaudid 5 mg/mL with a daily dose of 0.3301 mg today and bupivacaine 5 mg/mL with a daily dose of 0.3301 mg/day. He denies any side effects from this medication. His Theo has been reviewed and is appropriate. Physical Exam: General: Alert and oriented x3, no acute distress, pleasant and cooperative Lungs: Respirations even and unlabored, symmetrical chest expansion Eyes: PERRL Musculoskeletal: Flexion and extension of lumbar [spine] somewhat guarded secondary to pain, [antalgic gait noted] Neurological: Speech clear, no gross sensory deficit Procedure Details:: Informed consent was obtained and the risk and benefits of the procedure were explained to the patient. Patient was taken to the procedure room where noninvasive monitoring was placed including noninvasive blood pressure cuff and pulse oximeter. Patient's pump was interrogated and was reprogrammed to Dilaudid and bupivacaine 0.3959 mg/day. The patient tolerated the procedure well with no complications. Plan and Disposition:: Patient tolerated his intrathecal increase with no complications and was discharged neurologically intact. I did go over with the patient that a lot of times the adjustment to his CPAP can cause a lot of fatigue and that that may be what is causing most of his additional symptoms. We will continue to monitor this at future visits as he gets used to using this assistive device. Patient agrees with this plan of care. Patient will return to clinic in 2 weeks for reevaluation of symptoms and plan of care. We will see the patient back in the clinic at the next intrathecal refill. Patient has been instructed to contact the clinic with any concerns before the next appointment. Dr. Rosas has reviewed this note and agrees with this plan of care. This note was dictated using voice recognition software and make contain errors or omissions. -- It Is medically necessary for this patient to continue to have their intrathecal pump refilled at regular intervals. This patient had an intrathecal pain pump implanted after meeting criteria of chronic intractable pain for greater than 3 months and failing conservative treatments. Patient has committed and been compliant to the treatment plan and all planned follow up care. Since implantation of the intrathecal pain pump, the patient has had decreased pain and been more functional. Oral medications have been reduced including intake of oral opioids. Patient continues to do well with intrathecal therapy with decrease in pain symptoms and increase in functional status. Stopping intrathecal medications can lead to life threatening withdrawal, seizures, cardiac arrest, severe pain, and possible . Pumps that are not refilled at regular intervals can be damages and cause and need for replacement. We continually titrate dose and concentration to optimize pain relief and function. We are limited in concentration for certain drugs to safely deliver medications through the pump and stay within the recommendations from the Polyanalgesic Consensus Committee Guidelines. Depending on dose and concentration these pumps may need to be refilled sooner than 3 months as we titrate.
== END 2024-04-24 23:59 | disposition home or self-care (01) ==
PROVIDERS: PCP Family Medicine; Visit Provider Nurse Practitioner Family
DX: M51.16 Intervertebral disc disorders with radiculopathy, lumbar region (principal)
CPT/HCPCS: 62368; 99213; G0463

== ENCOUNTER 2024-05-10 13:11 | Outpatient (POV) | payer BC, SELFPAY ==
--- OUTSIDE RECORDS SUMMARY | 2024-05-10 13:13 | XMS_ITS ---
[facility] [address] [facility] [address] [place] [id number] Care Team Providers Care Budget Accountant Name Role Phone Marc Verduzco Primary Care Provider REASON FOR VISIT 3 month check Encounters Encounter Location Date Provider Diagnosis [place] [address] [place] [id number] 03/29/2024 Marc Verduzco PLAN OF TREATMENT No Information
--- OUTSIDE RECORDS SUMMARY | 2024-05-10 13:13 | XMS_ITS ---
[facility] [address] [place] [id number] Care Team Providers Care Stop Attacher Name Role Phone Marc Verduzco Primary Care Provider REASON FOR REFERRAL Reason [facility] with Dr. Dacosta, please send all labs drawn in the past month Diagnosis 1 Low testosterone in male (R79.89) [facility] Referring Provider First Name Macr Referring Provider Last Name Luba Referring Provider Speciality Family Pra ctice Referred Provider Urology, Urology Referred Provider Specialty Urology General Notes Irasema Agarwal 4 11:15:26 AM > 02/07/2024 at 10:15am; pt informed Referral Priority Routine REASON FOR VISIT Test results PROBLEMS Problem Type ICD Code Onset Dates Problem Status W/U Status Risk SNOMED Code Notes Problem Testosterone deficiency in male (E29.1) Active confirmed [id number] Encounters Encounter Location Date Provider Diagnosis [facility] [address] [facility] [address] [place] [id number] 01/10/2024 Marc Verduzco Testosterone deficie ncy in male E29.1 ASSESSMENTS Encounter Date Diagnosis Assessment Notes Treatment Notes Treatment Clinical Notes 01/10/2024 Testosterone deficiency in male (ICD-10 - E29.1) PLAN OF TREATMENT Referrals Referral Date Details [facility] with Dr. Dacosta, please send all labs drawn in the past month, Urology Urology Consultation Request Notes Referral Date Referring Provider Referred Provider Not es 01/10/2024 Marc Verduzco Urology, Urology [facility] with Dr. Dacosta, please send all labs drawn in the past month
--- OUTSIDE RECORDS SUMMARY | 2024-05-10 13:13 | XMS_ITS ---
[facility] [address] [place] [id number] Care Team Providers Care Flat Sorting Machine Clerk Name Role Phone Marc Verduzco Primary Care Provider REASON FOR VISIT labs only Encounters Encounter Location Date Provider Diagnosis [facility] [address] [place] [id number] 01/04/2024 Marc Verduzco PLAN OF TREATMENT No Information
--- OUTSIDE RECORDS SUMMARY | 2024-05-10 13:14 | XMS_ITS | Patient Health Record ---
Author Organization [facility] Address [address] [place] [id number] Care Team Providers Care Reinforcement Maker Name Role Phone Marc Verduzco Primary Care Provider ALLERGIES Allergen (clinical drug ingredient) Drug/Non Drug Allergy documented on EMR Reaction Allergy Type Onset Date Status codeine Codeine vomiting Drug Allergy Active RESULTS Component Value Reference Range Notes P-Vitamin B12 Reviewed date:01/03/2024 02:38:23 PM Interpretation:>2000 Performing Lab: Notes/Report: Test performed by [facility] [address] , [place] [address] Vinnie Haines MD, Java Websphere Developer CLIA: [id number] Vitamin B12 >2000 232-1245 pg/mL P-Testosterone Total (Adult Male) Reviewed date:01/03/2024 02:38:23 PM Interpretation:result outside reportable range Performing Lab: Notes/Report: Test performed by [facility] [address] [place], [place] [address] [address], [address], [place] [address] Vinnie Haines MD, Java Websphere Developer CLIA: [id number] Testosterone Total SEE BELOW 264.00-916.00 ng/dL The result is outside of the reportable range for this methodology. Please refer to Testosterone , Total by LC/MS for the result. Testosterone, Total (Female and Children) Reviewed date:01/03/2024 02:38:23 PM Interpretation:18.8 Performing Lab: Notes/Report: Test performed by [facility] [address], [address], [place] [address] Vinnie Haines MD, Java Websphere Developer CLIA: [id number] Testosterone, Total by LC/MS 18.8 264.0-916.0 ng/dL This test was developed and its performance characteristics were determined by [facility]. It has not been cleared or approved by the FDA. The laboratory is regulated under CLIA as qualified to perform high-complexity testing. This test is used for clinical purposes and should not be regarded as investigational or for research. P-Magnesium Reviewed date:01/03/2024 02:38:23 PM Interpretation:Normal Performing Lab: Notes/Report: Test performed by [facility] [address] , [place] [address] Vinnie Haines MD, Java Websphere Developer CLIA: [id number] Magnesium 2.1 1.6-2.4 mg/dL P-Phosphorus Reviewed date:01/03/2024 02:38:23 PM Interpretation:Normal Performing Lab: Notes/Report: Test performed by [facility] [address] , [address] , [place] [address] Vinnie Haines MD, Java Websphere Developer CLIA: [id number] Phosphorus 4.0 2.5-4.5 mg/dL P-TSH reflex to FT4 Reviewed date:01/03/2024 02:38:23 PM Interpretation:Normal Performing Lab: Notes/Report: Test performed by [facility] [address] , [place] [address] Vinnie Haines MD, Java Websphere Developer CLIA: [id number] TSH reflex to FT4 2.18 0.43-5.25 mU/L P-Vitamin A (Retinol), Serum Reviewed date:01/03/2024 02:38:23 PM Interpretation:Normal Performing Lab: Notes/Report: Vitamin A (Retinol) 0.88 0.30-1.20 mg/L Vitamin A (Retinyl Palmitate) 0.03 0.00-0.10 mg/L Vitamin A, Ser/Henri - Interpretation Normal This test was developed and its performance characteristics determined by [email or web address]. It has not been cleared or approved by the [place] Food and Drug Administration. This test was performed in a CLIA certified laboratory and is intended for clinical purposes. Performed By: [email or web address] [address] [place] [address] Java Websphere Developer: Ovidio Chun MD, PhD CLIA Number: [id number] P-Vitamin D 25-Hydroxy Reviewed date:01/03/2024 02:38:23 PM Interpretation:48.5 Performing Lab: Notes/Report: Test performed by [facility] [address] [place] [address] , [address], [place] [address] Vinnie Haines MD, Java Websphere Developer CLIA: [id number] Vitamin D 25-Hydroxy 48.5 30.0-100.0 ng/mL Interpretation of Vitamin D 25 OH: < 20 ng/mL - Deficiency 20 - 29 ng/mL - Insufficiency 30 - 100 ng/mL - Sufficiency > 100 ng/mL - Super-therapeutic- toxicity may occur above this level. Clinical correlation required. P-Vitamin E, Serum or Plasma Reviewed date:01/03/2024 02:38:23 PM Interpretation:Normal Performing Lab: Notes/Report: Vitamin E (Alpha-Tocopherol) 10.3 5.5-18.0 mg/L This test was developed and its performance characteristics determined by [email or web address]. It has not been cleared or approved by the US Food and Drug Administration. This test was performed in a CLIA certified laboratory and is intended for clinical purposes. Vitamin E (Nanx-Zfoxh-Hjjobdligb) 3.7 0.0-6.0 mg/L Performed By: [email or web address] [address] [place] [address] Java Websphere Developer: Ovidio Chun MD, PhD CLIA Number: [id number] P-Vitamin B1 (Thiamine), Ser um/Plasma, LC/MS/MS Reviewed date:01/03/2024 02:38:23 PM Interpretation:Normal Performing Lab: Notes/Report: Vitamin B1 (Thiamine), Serum/Plasma, LC/MS/MS 6 4-15 nmol/L INTERPRETIVE DATA: Vitamin B1, Plasma Thiamine (vitamin B1) is reported. However, thiamine diphosphate (TDP), the biologically active form of thiamine, is not found in measurable concentrations in plasma, and is best determined in whole blood specimens. Plasma thiamine concentration reflects recent intake rather than body stores. This test was developed and its performance characteristics determined by [email or web address]. It has not been cleared or approved by the [place] Food and Drug Administration. This test was performed in a CLIA certified laboratory and is intended for clinical purposes. Performed By: [email or web address] [address] [place] [address] Java Websphere Developer: Ovidio Chun MD, PhD CLIA Number: [id number] P-Zinc, Serum/Plasma Reviewed date:01/03/2024 02:38:23 PM Interpretation:Normal Performing Lab: Notes/Report: Zinc, Serum/Plasma 80 60-130 mcg/dL Test developed and its analytical performance characteristics have been determined by [facility] [place] [place]. It has not been cleared or approved by the U.S. Food and Drug Administration. This assay has been validated pursuant to the CLIA regulations and is used for clinical purposes. Test Performed By [facility] , CLIA [id number] [facility] [address], Wu Lr MD PhD H-Amylase Reviewed date:12/21/2023 09:22:03 AM Interpretation:70 Performing Lab: Notes/Report: TEVIN 70 30-110 U/L H-CMP Reviewed date:12/21/2023 09:24:24 AM Interpretation: Performing Lab: Notes/Report: NA 145 136-145 mmol/L K 4.2 3.5-5.1 mmoL/L CL 104 98-107 mmol/L CO2 23 22.0-30.0 mmol/L GAP 22.2 5-15 mEq/L BUN 18 9-20 mg/dl Delta: 14 on 12/20/23 CREATT 0.90 0.66-1.25 mg/dl CRCLE 170 50-200 mL/min GFRAA 106 >60 ML/MIN EGFR 88 >60 ml/min GLU 239 74-100 mg/dl CA 9.7 8.4-10.2 mg/dl BILIT 0.8 0.2-1.3 mg/dl AST 39 17-59 U/L Delta: 54 on 12/20/23-1635 ALT 43 12-78 U/L TP 7.9 6.3-8.2 g/dl ALB 4.7 3.5-5.0 g/dl GLOB 3.2 1.3-3.2 g/dL AGRATIO 1.5 1.1-1.8 ALP 99 38-126 U/L M-Complete Blood Count Man D if Reviewed date:12/21/2023 09:29:27 AM Interpretation: Performing Lab: Notes/Report: WBC 16.3 4.8-10.8 K/mm3 RBC 5.71 4.60-6.20 M/mm3 HGB 17.3 14.1-18.0 g/dL HCT 53.7 42.0-52.0 % MCV 94.0 80-94 fl MCH 30.3 27.0-31.2 pg MCHC 32.2 31.8-35.4 g/dL RDW 13.2 11.5-17.5 % PLT 404 142-424 K/mm3 MPV 8.0 7.4-10.4 fl NE% 86.7 37.0-80.0 % LY% 7.7 10-50 % MO% 4.6 1.7-9.3 % EO% 0.8 0.1-12.0 % BA% 0.2 0.1-2.0 % NE# 14.1 1.8-7.8 K/mm3 LY# 1.3 0.7-4.5 K/mm3 MO# 0.8 0.1-1.0 K/mm3 EO# 0.1 0.0-0.4 K/mm3 BA# 0.0 0-0.2 K/mm3 MDIFF MANUAL DIFFERENTIAL MANUAL DIFF TCC 100 NEUT%M 91 42-76 % LYMPH%M 6 10-50 % MONO%M 3 2-9 % PLTE Normal RM Normal H-Covid, Flu A, Flu B PCR Reviewed date:12/21/2023 03:09:28 PM Interpretation: Performing Lab: Notes/Report: No Is this the 1st COVID test for the patient? No Does the patient have COVID symptoms? Yes Is the patient employed in healthcare? No Is patient an [facility] employee? N Is patient currently hospitalized? Yes Is patient currently in ICU? No Date of Symptom onset Is patient a resident in a congregate care setting? No COVPCR Not Detected NotDetected Effective 03/04/21, Positive covid results will no longer be called to the ordering physician. Infection control and the physician?s office will continue to report positive covid results to the local Health Department as required. This assay is for in vitro diagnostic use under FDA Emergency Use Authorization only. Negative results do not preclude infection with SARS CoV 2 virus and should not be the sole basis of a patient treatment/management or public health decision. Follow up testing should be performed according to the current CDC recommendations. FLUAPCR Not Detected NotDetected FLUBPCR Not Detected NotDetected P-Microalbumin/Creatinine, R andom Urine Sample Reviewed date:09/17/2023 08:41:51 AM Interpretation:Normal Performing Lab: Notes/Report: Test performed by [facility] [address] [place] [address] , [place] [address] Vinnie Haines MD, Java Websphere Developer CLIA: [id number] Albumin/Creatinine Ratio, Urine 8 0-30 ug/mg Microalbumin, Urine, Random 0.6 Creatinine, Urine 71.7 P-TSH reflex to FT4 Reviewed date:09/17/2023 08:41:51 AM Interpretation:Normal Performing Lab: Notes/Report: Test performed by [facility] [address] , [address], [place] [address] Vinnie Haines MD, Java Websphere Developer CLIA: [id number] TSH reflex to FT4 1.31 0.43-5.25 mU/L P-Lipid Panel Reviewed date:09/17/2023 08:41:51 AM Interpretation:Trigs 191, Non-Hdl 154 Performing Lab: Notes/Report: Test performed by [facility] [address] [place] [address] , [place] [address] Vinnie Haines MD, Java Websphere Developer CLIA: [id number] Cholesterol 199 <200 mg/dL Triglycerides 191 <150 mg/dL HDL Cholesterol 45 >39 mg/dL Cholesterol / HDL Ratio 4.42 0.00-4.99 Ratio Non-HDL Cholesterol 154 <130 mg/dL LDL Cholesterol (Calculation) 116 <130 mg/dL LDL Cholesterol Levels* Less than 100 mg/dL Optimal 100 to 129 mg/dL Near Optimal/ Above Optimal 130 to 159 mg/dL Borderline High 160 to 189 mg/dL High 190 mg/dL and above Very High * Categories as recommended by the 2004 ATPIII guidelines LDL/HDL Ratio 2.6 <3.3 Ratio ____ LDL Cholesterol Patient History ____ Test Date: 09/03/2022 LDL Results: 81 Units: mg/dL % Change: - ---- Test Date: 09/16/2023 LDL Results: 116 Units: mg/dL % Change: +43% ____ P-Comprehensive Metabolic Pa connor (CMP) Reviewed date:09/17/2023 08:41:51 AM Interpretation:Glu 189 Performing Lab: Notes/Report: Test performed by [facility] [address] [facility] , [address], [place] [address] Vinnie Haines MD, Java Websphere Developer CLIA: [id number] Sodium 142 135-145 mEq/L Potassium 4.4 3.5-5.3 mEq/L Chloride 101 97-108 mEq/L CO2 28 22-32 mEq/L Glucose 189 65-99 mg/dL BUN 10 6-20 mg/dL Creatinine 0.76 0.70-1.30 mg/dL Calcium 10.1 8.6-10.4 mg/dL eGFR by Creatinine 106 >59 mL/min/1.73m2 Protein 7.7 6.0-8.3 g/dL Albumin 4.8 3.5-5.3 g/dL Alkaline Phosphatase 122 40-129 IU/L ALT (SGPT) 26 <5-55 IU/L AST (SGOT) 19 <5-46 IU/L Bilirubin, Total 0.5 <0.2-1.2 mg/dL A/G Ratio 1.7 1.1-2.5 mg/dL Glycohemoglobin A1c (in hous e) Reviewed date:09/17/2023 08:32:02 AM Interpretation:8.5% Performing Lab: Notes/Report: 8.5% glycohemoglobin 8.5% 5 - 6.5 % Glucose (In-House) Reviewed date:09/17/2023 08:31:49 AM Interpretation:194 Performing Lab: Notes/Report: 194 blood glucose 194 74 - 106 mg/dL P-TSH reflex to FT4 Reviewed date:06/07/2023 08:33:43 AM Interpretation:Normal Performing Lab: Notes/Report: Test performed by [facility] [address] [place] [address] , [address], [place] [id number] Vinnie Haines MD, Java Websphere Developer CLIA: [id number] TSH reflex to FT4 1.26 0.43-5.25 mU/L P-Comprehensive Metabolic Pa connor (CMP) Reviewed date:06/07/2023 08:33:43 AM Interpretation:Glu 139 Performing Lab: Notes/Report: Test performed by [facility] [address] [place] [address] , [address], [place] [address] Vinnie Haines MD, Java Websphere Developer CLIA: [id number] Sodium 138 135-145 mEq/L Potassium 4.1 3.5-5.3 mEq/L Chloride 101 97-108 mEq/L CO2 26 22-32 mEq/L Glucose 139 65-99 mg/dL BUN 11 6-20 mg/dL Creatinine 0.73 0.70-1.30 mg/dL Calcium 9.7 8.6-10.4 mg/dL eGFR by Creatinine 108 >59 mL/min/1.73m2 Protein 7.1 6.0-8.3 g/dL Albumin 4.6 3.5-5.3 g/dL Alkaline Phosphatase 115 40-129 IU/L ALT (SGPT) 21 <5-55 IU/L AST (SGOT) 18 <5-46 IU/L Bilirubin, Total 0.3 <0.2-1.2 mg/dL A/G Ratio 1.8 1.1-2.5 mg/dL Glycohemoglobin A1c (in hous e) Reviewed date:06/07/2023 08:33:43 AM Interpretation:A1C 8.1% Performing Lab: Notes/Report: A1C 8.1% glycohemoglobin 8.1% 5 - 6.5 % Glucose (In-House) Reviewed date:06/07/2023 08:33:43 AM Interpretation: Performing Lab: Notes/Report: blood glucose 118 74 - 106 mg/dL P-Testosterone, Free, Bioava ilable, and Total (Adult Male) Reviewed date:01/10/2024 12:33:56 PM Interpretation:free testosterone 6, testosterone bioavailable 15 Performing Lab: Notes/Report: Test performed by [facility] [address] [place], [place] [address] , [address] , [place] [address] Vinnie Haines MD, Java Websphere Developer CLIA: [id number] Testosterone Total SEE BELOW 264.00-916.00 ng/dL The result is outside of the reportable range for this methodology. Please refer to Testosterone , Total by LC/MS for the result. Sex Hormone Binding Globulin (SHBG) 19.5 19.3-76.4 nmol/L Free Testosterone, Percent 2.30 1.60-2.90 % Free Testosterone (calculation) 6 47-244 pg/mL Testosterone Bioavailable 15 131-682 ng/dL Testosterone, Total (Female and Children) Reviewed date:01/10/2024 12:34:24 PM Interpretation:27.2 Performing Lab: Notes/Report: Test performed by [facility] [address] [place], [place] [address] [address], [place] [address] Vinnie Haines MD, Java Websphere Developer CLIA: [id number] Testosterone, Total by LC/MS 27.2 264.0-916.0 ng/dL This test was developed and its performance characteristics were determined by [facility]. It has not been cleared or approved by the FDA. The laboratory is regulated under CLIA as qualified to perform high-complexity testing. This test is used for clinical purposes and should not be regarded as investigational or for research. P-FSH and LH Reviewed date:01/10/2024 12:34:51 PM Interpretation:Normal Performing Lab: Notes/Report: Test performed by [facility] [address] , [address], [place] [address] Vinnie Haines MD, Java Websphere Developer CLIA: [id number] Luteinizing Hormone 1.60 LH Reference Range Men: 1.7 - 8.6 Women: Follicular phase 2.4 - 12.6 Ovulation phase 14.0 - 95.6 Luteal phase 1.0 - 11.4 Postmenopause 7.7 - 58.5 FSH 3.37 1.50-12.40 mIU/mL FSH Reference Range Men: 1.5 - 12.4 Women: Follicular phase 3.5 - 12.5 Ovulation phase 4.7 - 21.5 Luteal phase 1.7 - 7.7 Postmenopause 25.8 - 134.8 OPIS Reviewed date:08/02/2023 08:28:52 AM Interpretation:[id number] Positive Aa, Seevqj00 Positive Aa, Mcszao50 Positive Aa Performing Lab: Notes/Report: OPIOXY1 Negative Enwoye=048 Opiate test inc ludes Codeine, Morphine, Hydromorphone, Hydrocodone. [id number] Positive . Test includes O xycodone and Oxymorphone MEPFQV52 Positive . AIBKXY34 355 Spcnri=799 ng/mL UPFIFT42 Positive . TAKHWT76 170 Xtzfiz=006 ng/mL Performed at: [facility] [address] [place], [place] [id number] Content Architect: Melissa Padron PhD, Phone: [phone] H-Urine Drug Screen Reviewed date:07/29/2023 02:02:57 PM Interpretation:normal Performing Lab: Notes/Report: Positive urine drug screen samples are stored for 7 days. Contact the Lab if confirmation of positives is needed. UOPIS Negative <300 ng/ml UBARBS Negative <200 ng/ml UPCPS Negative <25 ng/ml UAMPS Negative <1000 ng/ml UMETHS Negative <300 ng/ml UBENZS Negative <200 ng/ml UCOCS Negative <300 ng/ml UTHCS Negative <50 ng/ml REASON FOR REFERRAL Reason [facility] with Dr. Dacosta, please send all labs drawn in the past month Diagnosis 1 Low testosterone in male (R79.89) Referral Organization [facility] Referring Provider First Name Marc Referring Provider Last Name Luba Referring Provider Speciality Family Pra ctice Referred Provider Urology, Urology Referred Provider Specialty Urology General Notes Irasema Agarwal 4 11:15:26 AM > 02/07/2024 at 10:15am; pt informed Referral Priority Routine MEDICATIONS Medication SIG (Take, Route, Frequency, Duration) Notes Start Date End Date Status BD Pen Needle Chloé U/F 32G X 4 MM USE DIRECTED with Tresiba EVERY DAY for 100 Active Pantoprazole Sodium 40 mg TAKE ONE TABLE T BY MOUTH EVERY DAY for 90 Active Jardiance 25 mg TAKE ONE TABLET BY M OUTH EVERY MORNING for 90 Active Tresiba FlexTouch 200 UNIT/ML INJECT 140 UNITS SUBCUTANEOUSLY ONCE DAILY for 38 Active Meloxicam 15 MG 1 tablet Orally Once a day for 30 day(s) Active FreeStyle Durga 3 Sensor - USE DIRECTED TO TEST BLOOD GLUCOSE (CHANGE SENSOR EVERY 14 DAYS) for 14 Active Tadalafil 20 MG 1 tablet as needed O rally Once a day 09/16/2023 Active diazePAM 2 MG 1 tab(s) orally ever y 12 hours as needed 08/11/2023 Active Ozempic (0.25 or 0.5 MG/DOSE) 2 MG/3ML 0.5 mg Subcutaneous once weekly Active Glimepiride 4 MG 1 tab(s) orally once a day for 90 days Active DULoxetine HCl 60 MG 1 capsule Orally On ce a day for 90 days Active oxyCODONE-Acetaminophen 5-325 MG 1 tab(s) orally every 6 hours prn 06/19/2022 Active Pregabalin 150 MG 1 cap(s) orally 2 ti mes a day for 90 days 11/22/2023 Active Simvastatin 40 MG 1 tab(s) orally once a day (at bedtime) for 90 Active metFORMIN HCl 850 MG 1 tab(s) orally onc e a day (in the morning) for 90 days Active Lisinopril-hydroCHLOROthi azide 20-25 MG 1 tab(s) orally once a day Active Tamsulosin HCl 0.4 mg TAKE ONE CAPSULE B Y MOUTH EVERY DAY for 30 Active IMMUNIZATIONS Vaccine Route Administration Date Status Comme nts PNEUMOVAX 23 VACCINE IM Intramuscular 09/06/2020 Administe red Fluzone Quad (6months&older) Unknown 05/03/2020 Administered COVID 19 Moderna Unknown 12/06/2020 Administered COVID 19 Moderna Unknown 01/03/2021 Administered SOCIAL HISTORY Sex Assigned At : Social History Observation Description Sex Assigned At Unknown PROBLEMS Problem Type ICD Code Onset Dates Problem Status W/U Status Risk SNOMED Code Notes Problem Type 2 diabetes mellitus without complications (E11.9) Active confirmed 336268362 Problem Essential hypertensi on (I10) Active confirmed 78686486 Problem Hypertriglyceridemia (E78.1) Active confirmed 425808518 Problem Lumbar facet arthropathy (M47.816) Active confirmed 466072256 Problem Hyperbilirubinemia (E80.6) Active confirmed 83241975 Problem Agitation (R45.1) Active confirmed 2746 44629 Problem Generalized anxiety disorder (F41.1) Active confirmed 29457635 Problem Type 2 diabetes mellitus with diabetic neuropathy, unspecified (E11.40) Active confirmed 91428152 Problem Pure hypercholesterolemia (E78.0) Active confirmed 959341969 Problem Mixed hyperlipidemia (E78.2) Active confirmed 685006117 Problem Primary insomnia (F51.01) Active confirmed 2040992 Problem 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) Active confirmed 545052559 Problem Male erectile disord er (N52.9) Active confirmed 324241057 Problem Hip pain (M25.559) Active confirmed 492 08596 Problem Lumbar degenerative disc disease (M51.36) Active confirmed 30805336 Problem Urinary hesitancy (R39.11) Active confirmed 2767370 Problem Other chronic pain (G89.29) Active confirmed 40847415 Problem 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.4) Active confirmed 572188748 Problem Type 2 diabetes mellitus without complication (E11.9) Active confirmed 77129558 Problem Morbid obesity, unspecified obesity type (E66.01) Active confirmed 516985832 Problem Bulging lumbar disc (M51.26) Active confirmed 631793304 Problem Obstructive sleep apnea syndrome (G47.33) Active confirmed 62857291 Problem Gastroesophageal reflux disease, esophagitis presence not specified (K21.9) Active confirmed 791123657 Problem Neuropathy (G62.9) Active confirmed 386 717003 Problem Right hip pain (M25.551) Active confirmed 285585035520877 Problem Erectile dysfunction , unspecified erectile dysfunction type (N52.9) Active confirmed 193190928 Problem Morbid obesity due t o excess calories (E66.01) Active confirmed 820989190 Problem Leukocytosis, unspecified type (D72.829) Active confirmed 134423440 Problem Chewing tobacco nicotine dependence without complication (F17.220) Active confirmed 84608673 Problem Alcoholism (F10.20) Active confirmed 72 41759 Problem BPH (benign prostati c hypertrophy) with urinary obstruction (N40.1) Active confirmed Benign prostati c hypertrophy with outflow obstruction (910127313) Problem Chronic liver failur e without hepatic coma (K72.10) Active confirmed 744910200 Problem Dyslipidemia (E78.5) Active confirmed D yslipidemia (878668930) Problem Acute right-sided lo w back pain with right-sided sciatica (M54.41) Active confirmed 882835122 Problem Type 2 diabetes mellitus without complication, without long-term current use of insulin (E11.9) Active confirmed 257239095 Problem Spinal cord stimulat or status (Z96.89) Active confirmed 228317990 Problem Pure hypercholesterolemia, unspecified (E78.00) Active confirmed 792430917 Problem Right-sided low back pain with right-sided sciatica, unspecified chronicity (M54.41) Active confirmed 927340697 Problem Testosterone deficiency in male (E29.1) Active confirmed 9593572951506 Problem Lumbar spondylosis (M47.816) Active confirmed 391593407 Problem Type 2 diabetes mellitus without complication, unspecified whether lobsterman insulin use (E11.9) Active confirmed 671475534 Problem Type 2 diabetes mellitus with hyperglycemia, unspecified whether lobsterman insulin use (E11.65) Active confirmed 497363171357997 Problem Arthropathy of right hip (M16.11) Active confirmed 24948696956624000 Problem DJD (degenerative joint disease), lumbosacral (M47.817) Active confirmed 043471228 VITAL SIGNS Heart Rate 109 /min 12/28/2023 Blood pressure diastolic 84 mm Hg 12/28/2023 Height 71.75 in 12/28/2023 Blood pressure systolic 134 mm Hg 12/28/2023 Weight 256.4 lbs 12/28/2023 BMI 35.01 kg/m2 12/28/2023 Encounters Encounter Location Date Provider Diagnosis [facility] [address] [place], [place] [id number] 06/02/2023 Marc Aultman Type 2 diabetes charles itus without complication E11.9 ; Essential hypertension I10 ; Elevated LFTs R79.89 ; Generalized anxiety disorder F41.1 and Other chronic pain G89.29 [facility] [address] [place] [id number] 06/07/2023 Marc Aultman [facility] [address] [place] [id number] 08/02/2023 Marc Aultman [facility] [address] [place], [place] [id number] 08/11/2023 Marc Aultman Generalized anxiety disorder F41.1 [facility] [address] [place], [place] [id number] 09/16/2023 Marc Aultman Type 2 diabetes charles itus with diabetic neuropathy, unspecified E11.40 ; alf (current) use of insulin Z79.4 ; Dyslipidemia E78.5 ; Essential hypertension I10 ; Hypertriglyceridemia E78.1 and Erectile dysfunction, unspecified erectile dysfunction type N52.9 [facility] [address] [place] [id number] 09/17/2023 Marc Aultman [facility] [address] [place] [id number] 09/30/2023 Marc Aultman Type 2 diabetes charles itus without complication E11.9 [facility] [address] [place], [place] [id number] 11/22/2023 Marc Aultman Neuropathy G62.9 [facility] [address] [place] [id number] 11/25/2023 Marc Aultman [facility] [address] [place] [id number] 11/26/2023 Marc Aultman [facility] [address] [place] [id number] 12/22/2023 Marc Aultman [facility] [address] [facility] [address] [place], [place] [id number] 12/22/2023 Marc Aultman [facility] [address] [place], [place] [id number] 12/28/2023 Marc Aultman Generalized abdomina l pain R10.84 ; Presence of intrathecal pump Z97.8 ; Polyarthralgia M25.50 ; Fatigue, unspecified type R53.83 ; Erectile dysfunction, unspecified erectile dysfunction type N52.9 and Type 2 diabetes mellitus without complication E11.9 [facility] [address] [place], [place] [id number] 12/29/2023 Marc Aultman [facility] [address] [address] [place], [place] [id number] 01/03/2024 Marc Aultman Low testosterone in male R79.89 [facility] [address] [place], [place] [id number] 01/04/2024 Marc Aultman [facility] [address] [facility] [address] [place], [place] [id number] 01/10/2024 Marc Aultman Testosterone deficie ncy in male E29.1 [facility] [address] [facility] [address] [place], [place] [id number] 03/29/2024 Marc Aultman ASSESSMENTS Encounter Date Diagnosis Assessment Notes Treatment Notes Treatment Clinical Notes 09/16/2023 Type 2 diabetes charles itus with diabetic neuropathy, unspecified (ICD-10 - E11.40) 09/16/2023 alf (current) use of insulin (ICD-10 - Z79.4) 06/02/2023 Essential hypertensi on (ICD-10 - I10) 06/02/2023 Type 2 diabetes charles itus without complication (ICD-10 - E11.9) 08/11/2023 Generalized anxiety disorder (ICD-10 - F41.1) 11/22/2023 Neuropathy (ICD-10 - G62.9) 12/28/2023 Generalized abdomina l pain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
[2024-05-10 13:47] VITALS: BP 124/83; PULSE 83; RESP 16; O2SAT 93; BMI 36.1
--- NOTE | 2024-05-10 14:19 | P.PCN_ITS ---
Procedure Date: 05/10/24 Time: 14:19 Anesthesiologist:: Nohemy Mitchell APRN Complications:: None Pre-procedure Diagnosis:: Degenerative disc disease of lumbar spine with lumbar radiculopathy symptoms Post-procedure Diagnosis:: Same Indications for Procedure:: Patient is a pleasant 53-year-old male who presents today for intrathecal adjustment and reprogram. Today he rates his pain a 7 out of 10. He denies any new trauma or injury. He does state that his pump is helping however he feels like it still could use additional adjustment. Patient is currently managed with Dilaudid 5 mg/mL with a daily dose of 0.3959 mg/day and bupivacaine 5 mg/mL with a daily dose of 0.3959 mg/day. He denies any side effects from this medication. Patient does state that he has been able to do more activity with this device however when he does more he does have increased pain. His Theo has been reviewed and is appropriate. Physical Exam: General: Alert and oriented x3, no acute distress, pleasant and cooperative Lungs: Respirations even and unlabored, symmetrical chest expansion Eyes: PERRL Musculoskeletal: Flexion and extension of lumbar [spine] somewhat guarded secondary to pain, [antalgic gait noted] Neurological: Speech clear, no gross sensory deficit Procedure Details:: Informed consent was obtained and the risk and benefits of the procedure were explained to the patient. Patient was taken to the procedure room where noninvasive monitoring was placed including noninvasive blood pressure cuff and pulse oximeter. Patient's pump was interrogated and was reprogrammed to Dilaudid and bupivacaine 0.4945 mg/day. The patient tolerated the procedure well with no complications. Plan and Disposition:: Patient tolerated his intrathecal increase with no complications and was discha rged neurologically intact. Patient will return to clinic in 2 weeks for possible readjustment and reprogram of his intrathecal pump. We will see the patient back in the clinic at the next intrathecal refill. Patient has been instructed to contact the clinic with any concerns before the next appointment. Dr. Rosas has reviewed this note and agrees with this plan of care. This note was dictated using voice recognition software and make contain errors or omissions. -- It Is medically necessary for this patient to continue to have their intrathecal pump refilled at regular intervals. This patient had an intrathecal pain pump implanted after meeting criteria of chronic intractable pain for greater than 3 months and failing conservative treatments. Patient has committed and been compliant to the treatment plan and all planned follow up care. Since implantation of the intrathecal pain pump, the patient has had decreased pain and been more functional. Oral medications have been reduced including intake of oral opioids. Patient continues to do well with intrathecal therapy with decrease in pain symptoms and increase in functional status. Stopping intrathecal medications can lead to life threatening withdrawal, seizures, cardiac arrest, severe pain, and possible . Pumps that are not refilled at regular intervals can be damages and cause and need for replacement. We continually titrate dose and concentration to optimize pain relief and function. We are limited in concentration for certain drugs to safely deliver medications through the pump and stay within the recommendations from the Polyanalgesic Consensus Committee Guidelines. Depending on dose and concentration these pumps may need to be refilled sooner than 3 months as we titrate.
== END 2024-05-10 23:59 | disposition home or self-care (01) ==
PROVIDERS: PCP Family Medicine; Visit Provider Nurse Practitioner Family
DX: M51.16 Intervertebral disc disorders with radiculopathy, lumbar region (principal)
CPT/HCPCS: 62368; 99212; 99213; G0463

== ENCOUNTER 2024-05-30 09:08 | Day surgery (SDC) | payer BC, SELFPAY ==
[2024-05-30 09:34] VITALS: BP 128/84; PULSE 90; RESP 16; TEMP 36.8; O2SAT 98; BMI 35.2
[2024-05-30 09:47] VITALS: BP 125/81; PULSE 94; RESP 18; O2SAT 97
[2024-05-30 09:48] VITALS: BP 125/81; PULSE 94; RESP 18; O2SAT 97
[2024-05-30 09:59] VITALS: BP 110/80; PULSE 93; RESP 16; O2SAT 95
--- NOTE | 2024-05-30 10:10 | P.PCN_ITS ---
Procedure Date: 05/30/24 Time: 09:30 Anesthesiologist:: Wu Brian CRNA Complications:: None Pre-procedure Diagnosis:: Degenerative disc lumbar spine multilevels. Lumbar radiculopathy Post-procedure Diagnosis:: Same. Indications for Procedure:: Patient is a very pleasant 53-year-old male who comes our clinic today for intrathecal pain pump interrogation and refill. Patient currently being managed with hydromorphone 5 mg/mL and bupivacaine 5 mg/mL. Hydromorphone is 0.4945 mg/day. Bupivacaine 0.4945 mg/day. Patient doing very well with his current settings. He is not reporting side effects or complications. He is not requesting changes. Patient is awake alert [place] x 3. No acute distress. Flexion-extension lumbar spine somewhat guarded secondary to pain. Deep tendon reflexes upper lower extremities normal. Motor strength upper and lower extremities normal. There i s no gross sensory deficit. Gait is normal. Procedure Details:: Details of the procedure explained to the patient. The patient taken procedure and placed in sitting position. They are the pumps cleansed using chlorhexidine as a cleansing solution. The pump was interrogated. The pump was accessed with ease using a 22-gauge inch and half needle. 10 mL of solution was withdrawn discarded appropriate. The pump was then filled with 20 cc of solution containing hydromorphone 5 mg/mL and bupivacaine 5 mg/mL. Patient tolerated procedure without difficulty. There are no complications. Plan and Disposition:: Patient was discharged without incident.
== END 2024-05-30 09:59 | disposition home or self-care (01) ==
LOC: SC.PAINP 09:09
PROVIDERS: PCP Family Medicine; Visit Provider Nurse Anesthetist, Certified Registered
DX: M51.16 Intervertebral disc disorders with radiculopathy, lumbar region (principal); Z79.891 Long term (current) use of opiate analgesic
CPT/HCPCS: 95991

== ENCOUNTER 2024-09-08 08:41 | Day surgery (SDC) | payer BC, SELFPAY ==
--- NOTE | 2024-09-08 08:47 | EXP.PAIN.PRO ---
Procedure Date: 09/08/24 Time: 09:08 Anesthesiologist:: Nohemy Mitchell APRN Complications:: None Pre-procedure Diagnosis:: Degenerative disc disease of lumbar spine with lumbar radiculopathy symptoms Post-procedure Diagnosis:: Same Indications for Procedure:: Patient is a pleasant 53-year-old male who presents today for intrathecal refill and reprogram. Today he rates his pain a 6 out of 10. He denies any new trauma or injury. He is currently managed with Dilaudid 5 mg/mL with a daily dose of Dilaudid to 0. 4945 mg/day and bupivacaine 5 mg/mL. He denies any side effects from this medication. He states that he has been trying to not use his bolus device just to see whether or not if the ongoing dosage is working well. He does state that he would like some adjustment today.He is prescribed diazepam and pregabalin from an outside provider. His Theo has been reviewed and is appropriate. Physical Exam: General: Alert and oriented x3, no acute distress, pleasant and cooperative Lungs: Respirations even and unlabored, symmetrical chest expansion Eyes: PERRL Musculoskeletal: Flexion and extension of lumbar [spine] somewhat guarded secondary to pain, [antalgic gait noted] Neurological: Speech clear, no gross sensory deficit Procedure Details:: Informed consent was obtained and the risk and benefits of the procedure were explained to the patient. The patient had noninvasive monitoring placed including noninvasive blood pressure cuff and pulse oximeter. Patient's pump was interrogated. The area over the pump was cleansed with chlorhexidine as a cleansing solution. In sterile fashion the pump was accessed with a 22-gauge needle. Approximately 10 mls of the pump solution was removed and discarded appropriately. The pump was then refilled with 20 mL's of Dilaudid 5 mg/mL and bupivacaine 5 mg/mL. The needle was withdrawn and a bandage was placed over the puncture site. The infusion rate was reprogrammed and increased 10%. The patient tolerated well with no complication. Plan and Disposition:: Patient tolerated the procedure well with no complications and was discharged neurologically intact. I did recommend to the patient to continue to use his bolus device when he does actually needed that it is there at his disposal for times of breakthrough pain. Patient acknowledges understanding and agrees with plan of care. Patient will return to clinic on or before their next intrathecal refill date. We will see the patient back in the clinic at the next intrathecal refill. Patient has been instructed to contact the clinic with any concerns before the next appointment. Dr. Rosas has reviewed this note and agrees with this plan of care. This note was dictated using voice recognition software and make contain errors or omissions. -- It Is medically necessary for this patient to continue to have their intrathecal pump refilled at regular intervals. This patient had an intrathecal pain pump implanted after meeting criteria of chronic intractable pain for greater than 3 months and failing conservative treatments. Patient has committed and been compliant to the treatment plan and all planned follow up care. Since implantation of the intrathecal pain pump, the patient has had decreased pain and been more functional. Oral medications have been reduced including intake of oral opioids. Patient continues to do well with intrathecal therapy with decrease in pain symptoms and increase in functional status. Stopping intrathecal medications can lead to life threatening withdrawal, seizures, cardiac arrest, severe pain, and possible . Pumps that are not refilled at regular intervals can be damages and cause and need for replacement. We continually titrate dose and concentration to optimize pain relief and function. We are limited in concentration for certain drugs to safely deliver medications through the pump and stay within the recommendations from the Polyanalgesic Consensus Committee Guidelines. Depending on dose and concentration these pumps may need to be refilled sooner than 3 months as we titrate. A UDS is needed to verify patient's compliance with our office pain contract. This is ordered based off specific treatments related to chronic pain with the potential to abuse certain medications.
[2024-09-08 09:00] VITALS: BP 142/89; PULSE 86; RESP 16; TEMP 36.8; O2SAT 100; BMI 35.2
[2024-09-08 09:02] VITALS: BP 148/93; PULSE 95; RESP 18; O2SAT 96
[2024-09-08 09:17] VITALS: BP 145/86; PULSE 83; RESP 16; O2SAT 97
== END 2024-09-08 09:17 | disposition home or self-care (01) ==
PROVIDERS: PCP Family Medicine; Visit Provider Nurse Practitioner Family
DX: M51.16 Intervertebral disc disorders with radiculopathy, lumbar region (principal)
CPT/HCPCS: 62370

== ENCOUNTER 2024-12-15 08:35 | Day surgery (SDC) | payer BC, SELFPAY ==
[2024-12-15 08:54] VITALS: BP 116/82; PULSE 92; RESP 16; O2SAT 98; BMI 35.2
--- NOTE | 2024-12-15 08:57 | EXP.HP ---
History of Present Illness *Admission Date: 12/15/24 *Reason for visit:: Intrathecal refill, DDD *History of present illness: Same [facility] Disclaimer: The information contained in this section may have been updated after the patient was seen, as this information can be updated by other users. Medical History Adjustment disorder Testicular mass Implantable intrathecal infusion pump present Chronic back pain Degenerative joint disease (DJD) of lumbar spine COVID-19 Sleep apnea Anxiety Basal cell carcinoma of skin Alcoholism Fusion of spine, cervical region Diabetes mellitus GERD (gastroesophageal reflux disease) Hyperlipidemia Hypertension Surgical History S/P fusion of sacroiliac joint History of total right hip arthroplasty H/O bone graft H/O discectomy Family History Other Bladder cancer Breast cancer Diabetes Heart attack Social History Smoking Status: Former smoker tobacco type: cigarettes packs per day: 0 and smokeless tobacco second hand exposure: No alcohol intake: former substance use type: denies use and other current occupational status: other Travel in the last 8 weeks?: None household members: spouse housing: house 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 current occupational exposures/hazards: Yes caffeine: Yes Have you lived/traveled outside [place] in past 30 days?: No Contact w/someone who lives/traveled outside US past 30 days?: No Exposure to someone with infectious disease in past 14 days?: No Do you have a fever (greater than 100.4 F or 38 C)?: No Have you tested positive for COVID-19?: No Exposed to someone with COVID-19 in past 14 days?: No Do you have a sore throat?: No Do you have a cough?: No Do you have any weakness?: No Do you have any diarrhea?: No Are you experiencing any unusual bleeding?: No Do you have any muscle aches/pain?: No Do you have any abdominal pain?: No Are you experiencing loss of taste or smell?: No Other Medical History Have you received the Flu Vaccine for this season: No Have you received the Pneumonia Vaccine: No Review of Systems Review of Systems Review of systems:: pertinent systems reviewed and negative unless documented below Review of systems (narrative): Review of Systems: General: No recent weight changes, no fever, no sleep disturbances Respiratory: No cough, no shortness of air, no recurring pulmonary infections Cardiovascular/peripheral vascular: No chest pain, no palpitations, no edema, no shortness of breath Gastrointestinal: No new onset incontinence, normal bowel movements reported Genitourinary: No new onset incontinence Musculoskeletal: Chronic back pain Psychiatric: [Normal mood/affect] Neurological: [Denies weakness in extremities], [denies balance issues] Meds Home Medications and Allergies Home Medications ?Medication ?Instructions ?Recorded ?Confirmed ?Type glimepiride 4 mg tablet 4 mg PO DAILY Diabetes 01/08/20 12/15/24 History metformin 850 mg tablet 850 mg PO DAILYDM Diabetes 09/26/22 12/15/24 History amlodipine 10 mg tablet 10 mg PO DAILY High blood pressure 09/27/22 12/15/24 History lisinopril 20 1 tab PO DAILY High blood pressure 09/27/22 12/15/24 History mg-hydrochlorothiazide 25 mg tablet pantoprazole 40 mg tablet,delayed 40 mg PO DAILY Reflux/Acid reflux 09/27/22 12/15/24 History release sildenafil (pulm.hypertension) 20 20 mg PO NEEDED PRN Erectile 09/27/22 12/15/24 History mg tablet Dysfunction simvastatin 40 mg tablet 40 mg PO HS High cholesterol 09/27/22 12/15/24 History multivitamin (Multiple Vitamins 1 tab PO DAILY 11/13/22 12/15/24 History tablet) insulin degludec 200 unit/mL (3 100 unit SQ DAILY dm 03/05/23 12/15/24 History mL) subcutaneous pen (Tresiba FlexTouch U-200 insulin) duloxetine 60 mg capsule,delayed 60 mg PO DAILY 12/21/23 12/15/24 History release empagliflozin 25 mg tablet 25 mg PO DAILY 12/21/23 12/15/24 History (Jardiance) ondansetron 4 mg disintegrating 4 mg PO Q8H PRN nausea and 12/21/23 12/15/24 Rx tablet vomiting #20 tabs pregabalin 150 mg capsule 150 mg PO BID 12/21/23 12/15/24 History blood-glucose sensor (FreeStyle #1 ea 02/07/24 12/15/24 History Durga 3 Sensor device) meloxicam 15 mg tablet 15 mg PO DAILY 02/07/24 12/15/24 History oxycodone-acetaminophen 5 mg-325 1 tab PO TID PRN Pain 02/07/24 12/15/24 History mg tablet semaglutide 0.25 mg or 0.5 mg (2 See Rx Instructions .Route .COMPLEX 02/07/24 12/15/24 History mg/3 mL) subcutaneous pen injector (Ozempic) aspirin 81 mg chewable tablet 325 mg PO DIRECTED 02/08/24 12/15/24 History tadalafil 5 mg tablet (Cialis) 5 mg PO DAILY #30 tabs 02/28/24 12/15/24 Rx tamsulosin 0.4 mg capsule 0.4 mg PO HS 90 days #90 caps 02/28/24 12/15/24 Rx New Prescriptions to Start Prescriptions: Allergies Allergy/AdvReac Type Severity Reaction Status Date / Time No Known Allergies Allergy Verified 02/28/24 11:33 Exam Constitutional Constitutional: no acute distress *Routine HEENT Exam Head: Present normocephalic and atraumatic Eye: Present PERRL ENT: Present mucous membranes moist *Routine Neck Exam Neck: Present supple *Routine Respiratory Exam Respiratory: Present CTA bilaterally *Routine Cardiovascular Exam Cardiovascular: Present RRR *Routine Abdominal Exam Abdominal: Present soft *Routine Rectal Exam Rectal:: deferred *Routine Genitalia Exam Genitalia:: normal male Routine Back/Spine/Pelvis Exam Back/Spine: Present pain with flexion *Routine Skin Exam Skin: Present intact, dry and warm *Routine Neurological Exam Neurological: Present alert and oriented X3 Routine Psychiatric Exam Psychiatric: Present normal affect and normal thought process Assessment and Plan *Assessment and plan (1) Degenerative disc disease, lumbar: Status: Acute Category: Medical Code(s): M51.369 - Other intervertebral disc degeneration, lumbar region without mention of lumbar back pain or lower extremity pain (2) Degenerative joint disease (DJD) of lumbar spine: Status: Acute Category: Medical Code(s): M47.816 - Spondylosis without myelopathy or radiculopathy, lumbar region Plan Patient has been instructed to contact the clinic with any concerns before the next appointment. Dr. Rosas has reviewed this note and agrees with this plan of care. This note was dictated using voice recognition software and make contain errors or omissions. All injections are used with Lidocaine, Bupivacaine and dexamethasone. Occasionally urine drug screen is needed to verify patient's compliance with our office pain contract. This is ordered based off specific treatments related to chronic pain with the potential to abuse certain medications.
--- NOTE | 2024-12-15 08:58 | P.PCN_ITS ---
Procedure Date: 12/15/24 Time: 09:17 Anesthesiologist:: Nohemy Mitchell APRN Complications:: None Pre-procedure Diagnosis:: Degenerative disc disease of lumbar spine, chronic pain syndrome Post-procedure Diagnosis:: Same Indications for Procedure:: Patient is a pleasant 53-year-old male who presents today for intrathecal refill and reprogram. Today he does rated his pain a 6 out of 10. Patient does state he has pain throughout his back but is also still having chronic pain there in his neck and bilateral shoulders. Patient does state that he would like to see about doing additional interventions for his upper neck and shoulder pain. These have been chronic issues that he has discussed in the past with does but never done anything for. Patient does state that the shoulders are worse overall than the neck and he has very limited movement with increased pain with certain positions. He does state the pain is interfering with his ability perform activities of daily living such as cooking and cleaning. Patient denies any prior surgery or injection history. Patient has had conservative measures with no additional changes. Patient is currently managed with Dilaudid 5 mg/mL with a daily dose of IM bupivacaine 5 mg/mL with a daily dose of. He denies any side effects from this medication. His Theo has been reviewed and is appropriate. Physical Exam: General: Alert and oriented x3, no acute distress, pleasant and cooperative Lungs: Respirations even and unlabored, symmetrical chest expansion Eyes: PERRL Musculoskeletal: Flexion and extension of lumbar [spine] somewhat guarded secondary to pain, [antalgic gait noted] limited range of motion of bilateral shoulders with flexion and extension limited Neurological: Speech clear, no gross sensory deficit Procedure Details:: Informed consent was obtained and the risk and benefits of the procedure were explained to the patient. The patient had noninvasive monitoring placed including noninvasive blood pressure cuff and pulse oximeter. Patient's pump was interrogated. The area over the pump was cleansed with chlorhexidine as a cleansing solution. In sterile fashion the pump was accessed with a 22-gauge needle. Approximately 9 mls of the pump solution was removed and discarded appropriately. The pump was then refilled with 20 mL's of Dilaudid 5 mg/mL and bupivacaine 5 mg/mL. The needle was withdrawn and a bandage was placed over the puncture site. The infusion rate was reprogrammed and increased 20% to Dilaudid and bupivacaine 0.653 mg/day. The patient tolerated well with no complication. Plan and Disposition:: Patient tolerated the procedure well with no complications and was discharged neurologically intact. Patient is experiencing worsening pain in his bilateral shoulders with limited range of motion and pain with these movements. Patient has had this pain for longer than a year unrelieved with conservative measures. He has tried oral medications, heat and ice, topicals, previous physical therapy and continued at home stretching and exercise for longer than 12 weeks that was physician guided. We will give him an appointment for bilateral shoulder intra- articular injections. This will be done without fluoroscopic or ultrasound guidance. Patient will return to clinic on or before their next intrathecal refill date. We will see the patient back in the clinic at the next intrathecal refill. Patient has been instructed to contact the clinic with any concerns before the next appointment. Dr. Rosas has reviewed this note and agrees with this plan of care. This note was dictated using voice recognition software and make contain errors or omissions. -- It Is medically necessary for this patient to continue to have their intrathecal pump refilled at regular intervals. This patient had an intrathecal pain pump implanted after meeting criteria of chronic intractable pain for greater than 3 months and failing conservative treatments. Patient has committed and been compliant to the treatment plan and all planned follow up care. Since implantation of the intrathecal pain pump, the patient has had decreased pain and been more functional. Oral medications have been reduced including intake of oral opioids. Patient continues to do well with intrathecal therapy with decrease in pain symptoms and increase in functional status. Stopping intrathecal medications can lead to life threatening withdrawal, seizures, cardiac arrest, severe pain, and possible . Pumps that are not refilled at regular intervals can be damages and cause and need for replacement. We continu ally titrate dose and concentration to optimize pain relief and function. We are limited in concentration for certain drugs to safely deliver medications through the pump and stay within the recommendations from the [employer] Guidelines. Depending on dose and concentration these pumps may need to be refilled sooner than 3 months as we titrate. A UDS is needed to verify patient's compliance with our office pain contract. This is ordered based off specific treatments related to chronic pain with the potential to abuse certain medications.
[2024-12-15 09:10] VITALS: BP 125/79; PULSE 95; RESP 18; O2SAT 96
[2024-12-15 09:30] VITALS: BP 131/81; PULSE 98; RESP 16; O2SAT 95
== END 2024-12-15 09:30 | disposition home or self-care (01) ==
PROVIDERS: PCP Family Medicine; Visit Provider Nurse Practitioner Family
DX: M51.369 Other intervertebral disc degeneration, lumbar region without mention of lumbar back pain or lower extremity pain (principal); M47.816 Spondylosis without myelopathy or radiculopathy, lumbar region; G89.4 Chronic pain syndrome; G47.30 Sleep apnea, unspecified; F41.9 Anxiety disorder, unspecified; E11.9 Type 2 diabetes mellitus without complications; K21.9 Gastro-esophageal reflux disease without esophagitis; E78.5 Hyperlipidemia, unspecified; I10 Essential (primary) hypertension; N52.9 Male erectile dysfunction, unspecified; Z87.891 Personal history of nicotine dependence; Z79.84 Long term (current) use of oral hypoglycemic drugs; Z79.891 Long term (current) use of opiate analgesic; Z79.899 Other long term (current) drug therapy; Z86.16 Personal history of COVID-19; Z85.828 Personal history of other malignant neoplasm of skin; Z98.1 Arthrodesis status; Z79.4 Long term (current) use of insulin; Z79.85 Long-term (current) use of injectable non-insulin antidiabetic drugs; Z79.82 Long term (current) use of aspirin; Z96.641 Presence of right artificial hip joint
CPT/HCPCS: 62370

== ENCOUNTER 2025-01-02 10:49 | Day surgery (SDC) | payer BC, SELFPAY ==
--- NOTE | 2025-01-02 11:30 | PC.NURSE ---
PT PROCEDURE CANCELED R/T BLOOD SUGAR - 280. PROVIDER SPOKE WITH PT. PT RESCHEDULED AND EDUCATED ON RISKS OF HIGH GLUCOSE
== END 2025-01-02 11:35 | disposition home or self-care (01) ==
LOC: SC.PAINP 10:49
PROVIDERS: PCP Family Medicine; Visit Provider Nurse Anesthetist, Certified Registered
DX: G89.4 Chronic pain syndrome (principal); Z53.8 Procedure and treatment not carried out for other reasons

== ENCOUNTER 2025-01-23 08:09 | Day surgery (SDC) | payer BC, SELFPAY ==
[2025-01-23 08:15] VITALS: BP 127/83; PULSE 110; RESP 18; O2SAT 92; BMI 35.2
[2025-01-23] MEDS: LIDOCAINE 1% 5ML PF VIAL 5 ML (08:38)
[2025-01-23] MEDS: DEXAMETHASONE 10MG/ML 1ML VIAL 10 MG (08:38)
[2025-01-23] MEDS: BUPIVACAINE 0.25% 10ML INJ 25 MG IJ (08:38)
[2025-01-23 08:39] VITALS: BP 125/76; PULSE 109; RESP 18; O2SAT 95
[2025-01-23 08:40] VITALS: BP 125/76; PULSE 110; RESP 18; O2SAT 95
--- NOTE | 2025-01-23 08:45 | EXP.PAIN.PRO ---
Procedure Date: 01/23/25 Time: 08:30 Anesthesiologist:: Wu Brian CRNA Complications:: None Pre-procedure Diagnosis:: DJD bilateral shoulder. Chronic bilateral shoulder pain. Post-procedure Diagnosis:: Same. Indications for Procedure:: Patient is a pleasant 54-year-old male who comes our clinic today for bilateral intra-articular shoulder injections cortisone local anesthetic. Patient reports responding well to intra-articular shoulder injections in the past. He describes bilateral shoulder pain as constant, dull, aching. Patient has 5/5 strength in bilateral arms. However, limited range of motion secondary to bilateral shoulder pain. Procedure Details:: Procedure Details: Left shoulder intra-articular injection Informed consent was obtained risk and benefits of the procedure were explained to the patient. Patient was taken to the procedure room. The Left shoulder was prepped using ChloraPrep. A 25-gauge needle was used posteriorly to inject 10 mL bupivacaine 0.25% and 10 mg of dexamethasone. Patient tolerated procedure well with no complications. Procedure Details: Right shoulder intra-articular injection Informed consent was obtained risk and benefits of the procedure were explained to the patient. Patient was taken to the procedure room. The right shoulder was prepped using ChloraPrep. A 25-gauge needle was used posteriorly to inject 10 mL bupivacaine 0.25% and 10 mg of dexamethasone. Patient tolerated procedure well with no complications. Plan and Disposition:: Patient was discharged without incident.
[2025-01-23 08:47] VITALS: BP 130/73; PULSE 104; RESP 18; O2SAT 92
== END 2025-01-23 08:47 | disposition home or self-care (01) ==
PROVIDERS: PCP Family Medicine; Visit Provider Nurse Anesthetist, Certified Registered
DX: M19.012 Primary osteoarthritis, left shoulder (principal); M19.011 Primary osteoarthritis, right shoulder; G89.29 Other chronic pain; F43.20 Adjustment disorder, unspecified; F41.9 Anxiety disorder, unspecified; Z86.16 Personal history of COVID-19; E11.9 Type 2 diabetes mellitus without complications; K21.9 Gastro-esophageal reflux disease without esophagitis; E78.5 Hyperlipidemia, unspecified; I10 Essential (primary) hypertension; G47.30 Sleep apnea, unspecified; Z87.891 Personal history of nicotine dependence; Z79.85 Long-term (current) use of injectable non-insulin antidiabetic drugs; Z79.84 Long term (current) use of oral hypoglycemic drugs; Z79.82 Long term (current) use of aspirin; Z79.4 Long term (current) use of insulin; Z79.899 Other long term (current) drug therapy
CPT/HCPCS: 20610; J0665; J1100; J2003